=== PATIENT | male | born 1935 | race Caucasian/White ===

== ENCOUNTER 2016-08-28 15:26 | Inpatient (IN) | payer MEDICARE, OTHER ==
[2016-08-28] VITALS (7 sets, daily range): BP systolic 105–139; BP diastolic 42–79
[~2016-08-28] VITALS: Ht 203.2 cm; Wt 134.7 kg
[~2016-08-28 15:26] MED LIST: ASP81TEC PO; BRIM5DRO OU; CSPT25; CYAN25003 SL; GLIP5TAB26 PO; GLPZ5TCR; LATA2.5D5 OU; LISI40TA; LOVA10TA PO; LTN005OP2; MECL-133 PO; OMEP-10; OXYB10TA; PGLT30T; PIOG45TA16 PO
--- OUTSIDE RECORDS SUMMARY | 2016-08-28 17:56 | XMS REPORT | Continuity of Care Document ---
Author Author [facility] Organization [facility] Address Unknown Phone Unavailable Allergies Active Description Code Type Severity Reaction Onset Reported/Identified Relationship to Patient Clinical Status Yes No Known Drug Allergies [id number] Drug Allergy Unknown N/ A 06/06/2009 Medications Problems Date Dx Coded Attending Type Code Diagnosis Diagnosed By 12/23/2013 GISEL UMANA MD Ot 244.9 HYPOTHYROIDISM NOS 12/23/2013 GISEL UMANA MD Ot 250.00 DIAB MARY WO COMPL, TYPE II OR UNSPEC TY 12/23/2013 GISEL UMANA MD Ot 272.4 HYPERLIPIDEMIA NEC/NOS 12/23/2013 GISEL UMANA MD Ot 278.00 OBESITY, NOS 12/23/2013 GISEL UMANA MD Ot 401.9 HYPERTENSION NOS 12/23/2013 GISEL UMANA MD Ot 414.01 CORONARY ATHEROSCLEROSIS OF [place] CORON 12/23/2013 GISEL UMANA MD Ot 530.81 ESOPHAGEAL REFLUX 12/23/2013 GISEL UMANA MD Ot 786.59 CHEST PAIN NEC 12/23/2013 GISEL UMANA MD Ot 794.30 ABN CARDIOVASC STUDY NOS 12/23/2013 GISEL UMANA MD Ot V17.3 FAM HX-ISCHEM HEART DIS 12/23/2013 GISEL UMANA MD Ot V58.69 OTH MED,LT,CURRENT USE 12/23/2013 GISEL UMANA MD Ot V85.32 BODY MASS INDEX 32.0-32.9, ADULT 11/29/2015 CHANCE PEREZ DO Ot 786.50 CHEST PAIN NOS 11/29/2015 CHANCE PEREZ DO Ot V64.3 NO PROC FOR REASONS NEC 11/29/2015 CHANCE PEREZ DO Ot 786.50 CHEST PAIN NOS 11/29/2015 CHANCE PEREZ DO Ot 793.2 NOSP (ABN) FINDINGS ON RADIOLOGICAL OT 12/27/2015 CHANCE PEREZ DO Ot 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 Visit Date/Time Discharge Status Pt. Type Provider Facility Loc./Unit Complaint [id number] 12/23/2013 08:04:00 2013 14:45:00 DIS Outpatient GISEL UMANA MD [facility] [id number] 12/16/2013 06:47:00 2013 23:59:59 CLS Outpatient CHANCE PEREZ DO [facility] CARD [id number] 12/15/2013 07:05:00 2013 23:59:59 CLS Outpatient CHANCE PEREZ DO [facility] CARD [id number] 11/30/2015 09:06:00 ACT Outpatient CHANCE PEREZ DO [facility] RAD [id number] 11/29/2015 09:30:00 ACT Outpatient CHANCE PEREZ DO [facility] RAD
[2016-08-28] MEDS ORDERED: CATHETER FLUSH 10 ML SYR IV PRN (18:00)
[2016-08-28] MEDS: NS IV 1000 ML 1,000 ML IV SCH (18:05)
[2016-08-28 18:09] LABS: BASOPHILS % (AUTO) 0 % (0-10); EOSINOPHILS # (AUTO) 0.2 10^3/uL (0.0-0.3); EOSINOPHILS % (AUTO) 2 % (0-10); LYMPHOCYTES # (AUTO) 1.3 X 10^3 (1.0-4.0); LYMPHOCYTES % (AUTO) 18 % (12-44); MEAN CORPUSCULAR HEMOGLOBIN 30 PG (25-34); MEAN CORPUSCULAR HGB CONC 32 G/DL (32-36); MEAN CORPUSCULAR VOLUME 93 FL (80-99); MEAN PLATELET VOLUME 11.1 FL (7.4-10.4); MONOCYTES # (AUTO) 0.6 X 10^3 (0.0-1.0); MONOCYTES % (AUTO) 9 % (0-12); NEUTROPHILS # (AUTO) 5.2 X 10^3 (1.8-7.8); NEUTROPHILS % (AUTO) 71 % (42-75); PLATELET COUNT 155 10^3/uL (130-400); RED BLOOD COUNT 3.63 10^6/uL (4.35-5.85); RED CELL DISTRIBUTION WIDTH 14.4 % (10.0-14.5); WHITE BLOOD COUNT 7.4 10^3/uL (4.3-11.0)
[2016-08-28 18:31] LABS: ALANINE AMINOTRANSFERASE 13 U/L (0-55); ALBUMIN 3.3 G/DL (3.2-4.5); ANION GAP 7 MMOL/L (5-14); ASPARTATE AMINO TRANSFERASE 12 U/L (5-34); BILIRUBIN,TOTAL 1.2 MG/DL (0.1-1.0); BLOOD UREA NITROGEN 34 MG/DL (7-18); BUN/CREATININE RATIO 34; CALCIUM 8.6 MG/DL (8.5-10.1); CARBON DIOXIDE 24 MMOL/L (21-32); CHLORIDE 107 MMOL/L (98-107); CREATININE SERUM 0.99 MG/DL (0.60-1.30); GFR ESTIMATED > 60; GLUCOSE 151 MG/DL (70-105); POTASSIUM 4.1 MMOL/L (3.6-5.0); SODIUM 138 MMOL/L (135-145); TOTAL PROTEIN 5.7 G/DL (6.4-8.2)
[2016-08-28] MEDS: PANTOPRAZOLE 40 MG/10 ML (PROTONIX) VIAL IV SCH (18:59)
--- NOTE | 2016-08-28 19:12 | Consultation ---
History of Present Illness History of Present Illness Patient Consulted On(jaylyn/time) 08/28/16 19:07 Date of Admission History of Present Illness Consult requested by Dr. Garcia for GI bleed 81 year old male who last night at 6 pm started having bloody bowel movements. States they are a dark red diarrhea and keep getting darker in color. Patient having "gas" type pains but minimal. Patient was having nausea and emesis and NG tube was placed which gastric contents tested occult positive. Patient was evaluated at [facility] and last hgb was 10.8. He had antibodies to blood type and was transferred here for higher level of care. Patient states last colonoscopy was 4 years ago at another hospital and was found to have diverticulosis. He had the colonoscopy and EGD performed for GI bleed at that time and nothing was found. Patient states that he has been taking Naproxen since injuring his lower extremity. Allergies and Home Medications Allergies Coded Allergies: No Known Drug Allergies (Verified Allergy, Unknown, 06/06/09) Home Medications Brimonidine Tartrate/Timolol 5 Ml Drops 1 DROP OU BID (Reported) Glipizide 5 Mg Tab.er.24 5 MG PO DAILY (Reported) Latanoprost 2.5 Ml Drops 1 DROP OU HS (Reported) Metformin HCl 1,000 Mg Tablet 1,000 MG PO BID (Reported) Pantoprazole Sodium 40 Mg Tablet. #60 40 MG PO BID Prescribed by: STEPHANIE DE LA VEGA on 08/30/16 1151 Pioglitazone HCl 45 Mg Tablet 45 MG PO DAILY (Reported) Sucralfate 1 Gm Tablet #120 1 GM PO ACHS Prescribed by: LUCINDA GARCIA on 08/30/16 1145 Past Pqaibfd-Kizwck-Abrass Hx Patient Social History Alcohol Use: Denies Use Recreational Drug Use: No Smoking Status: Never a Smoker Surgeries HX Surgeries: No Respiratory Hx Respiratory Disorders: No Cardiovascular Hx Cardiac Disorders: No Neurological Hx Neurological Disorders: No Reproductive System Hx Reproductive Disorders: No Genitourinary Hx Genitourinary Disorders: No Gastrointestinal Hx Gastrointestinal Disorders: Yes (BLEEDING DIVERTICULITUS 5 YEARS AGO) Musculoskeletal Hx Musculoskeletal Disorders: Yes Endocrine Hx Endocrine Disorders: Yes HEENT HX ENT Disorders: No Cancer Hx Cancer: Yes (PROSTATE) Psychosocial Hx Psychiatric Problems: No Blood Transfusions Hx Blood Disorders: No Family Medical History Significant Family History: No Pertinent Family Hx Review of Systems-General Constitutional: no symptoms reported EENTM: no symptoms reported Respiratory: no symptoms reported Cardiovascular: no symptoms reported Gastrointestinal: nausea vomiting Genitourinary: no symptoms reported Musculoskeletal: no symptoms reported Skin: no symptoms reported Psychiatric/Neurological: No Symptoms Reported Physical Exam-General Problems Physical Exam Vital Signs Capillary Refill : General Appearance: no apparent distress (laying in bed) HEENT: PERRL/EOMI Neck: non-tender supple Respiratory: normal breath sounds Cardiovascular: regular rate, rhythm Gastrointestinal: non tender soft Rectal: deferred Back: normal inspection Extremities: non-tender normal inspection Neurologic/Psychiatric: alert normal mood/affect oriented x 3 Skin: warm/dry Data Review Labs Laboratory Tests 08/28/16 17:45: Alanine Aminotransferase (ALT/SGPT) 13, Albumin 3.3, Alkaline Phosphatase 44, Anion Gap 7, Aspartate Amino Transf (AST/SGOT) 12, BUN/Creatinine Ratio 34, Basophils # (Auto) 0.0, Basophils (%) (Auto) 0, Blood Urea Nitrogen 34H, Calcium Level 8.6, Carbon Dioxide Level 24, Chloride Level 107, Creatinine 0.99 , Eosinophils # (Auto) 0.2, Eosinophils (%) (Auto) 2, Estimat Glomerular Filtration Rate > 60, Glucose Level 151H, Hematocrit 34L, Hemoglobin 10.9L, Lymphocytes # (Auto) 1.3, Lymphocytes (%) (Auto) 18, Mean Corpuscular Hemoglobin 30, Mean Corpuscular Hemoglobin Concent 32, Mean Corpuscular Volume 93, Mean Platelet Volume 11.1H, Monocytes # (Auto) 0.6, Monocytes (%) (Auto) 9, Neutrophils # (Auto) 5.2, Neutrophils (%) (Auto) 71, Platelet Count 155, Potassium Level 4.1, Red Blood Count 3.63L, Red Cell Distribution Width 14.4, Sodium Level 138, Total Bilirubin 1.2H, Total Protein 5.7L, White Blood Count 7.4 Assessment/Plan Assessment/Plan Assessment/Plan GI bleed Nausea vomiting dm Patient with ng tube in which was occult positive. Has been on naproxen. Likely upper source of GI bleed. Hgb has remained stable since transfer. Will continue to monitor hgb. Transfuse prbc as needed npo IV hydration Protonix IV Plan egd tomorrow. NG tube to [facility] Clinical Quality Measures DVT/VTE Risk/Contraindication: Contraindications-Pharm: Other *list below* Other: JOE Obrien DO Aug 28, 2016 19:12
[2016-08-28] MEDS ORDERED: FLU TRIvalent (5 YOA+) 2016-17 (AFLURIA) 0.5 ML IM ONE (20:45)
[2016-08-28] MEDS ORDERED: RT-ALBUTEROL SULF 2.5 MG/3 ML PRE-MIX VIAL INH PRN (21:00)
[2016-08-29] VITALS (16 sets, daily range): BP systolic 108–143; BP diastolic 47–83
[2016-08-29] MEDS: NS IV 1000 ML 1,000 ML IV SCH ×3 (03:52→14:12)
[2016-08-29] MEDS: PANTOPRAZOLE 40 MG/10 ML (PROTONIX) VIAL IV SCH ×3 (03:52→20:18)
[2016-08-29 04:36] LABS: BASOPHILS % (AUTO) 0 % (0-10); EOSINOPHILS # (AUTO) 0.2 10^3/uL (0.0-0.3); EOSINOPHILS % (AUTO) 3 % (0-10); LYMPHOCYTES # (AUTO) 1.6 X 10^3 (1.0-4.0); LYMPHOCYTES % (AUTO) 22 % (12-44); MEAN CORPUSCULAR HEMOGLOBIN 30 PG (25-34); MEAN CORPUSCULAR HGB CONC 33 G/DL (32-36); MEAN CORPUSCULAR VOLUME 93 FL (80-99); MEAN PLATELET VOLUME 11.5 FL (7.4-10.4); MONOCYTES # (AUTO) 0.8 X 10^3 (0.0-1.0); MONOCYTES % (AUTO) 11 % (0-12); NEUTROPHILS # (AUTO) 4.6 X 10^3 (1.8-7.8); NEUTROPHILS % (AUTO) 64 % (42-75); PLATELET COUNT 134 10^3/uL (130-400); RED BLOOD COUNT 3.12 10^6/uL (4.35-5.85); RED CELL DISTRIBUTION WIDTH 14.2 % (10.0-14.5); WHITE BLOOD COUNT 7.2 10^3/uL (4.3-11.0)
[2016-08-29 04:40] LABS: INR 1.2 (0.8-1.4); PROTHROMBIN TIME PATIENT 14.7 SEC (12.2-14.7)
[2016-08-29 05:10] LABS: ALANINE AMINOTRANSFERASE 9 U/L (0-55); ALBUMIN 2.9 G/DL (3.2-4.5); ANION GAP 7 MMOL/L (5-14); ASPARTATE AMINO TRANSFERASE 12 U/L (5-34); BILIRUBIN,TOTAL 1.1 MG/DL (0.1-1.0); BLOOD UREA NITROGEN 34 MG/DL (7-18); BUN/CREATININE RATIO 38; CALCIUM 8.1 MG/DL (8.5-10.1); CARBON DIOXIDE 21 MMOL/L (21-32); CHLORIDE 112 MMOL/L (98-107); GFR ESTIMATED > 60; GLUCOSE 136 MG/DL (70-105); POTASSIUM 3.9 MMOL/L (3.6-5.0); SODIUM 140 MMOL/L (135-145)
[2016-08-29] MEDS ORDERED: NS IV 500 ML 500 ML ONE (07:44)
[2016-08-29] MEDS ORDERED: MIDAZOLAM 2 MG/2 ML (VERSED) VIAL ONE (08:06)
[2016-08-29] MEDS ORDERED: proPOfol 200 MG/20 ML (DIPRIVAN) VIAL IV ONE (08:06)
--- NOTE | 2016-08-29 08:07 | Progress Note ---
Subjective Subjective/Events-last exam No new complaints. Passing lots of gas. Hgb 9.5 denies fever sweats chills shortness of breath or chest pain. Objective Exam Vital Signs Date Time Temp Pulse Resp B/P Pulse Ox O2 Delivery O2 Flow Rate FiO2 08/29/16 07:00 72 08/29/16 06:00 97.2 64 15 118/49 93 Room Air 08/29/16 05:00 67 13 121/50 94 Room Air 08/29/16 04:00 68 11 108/50 93 Room Air 08/29/16 04:00 100 08/29/16 03:00 68 13 115/51 94 Room Air 08/29/16 02:00 70 13 115/49 92 Room Air 08/29/16 01:00 67 08/29/16 01:00 67 15 116/52 93 Room Air 08/29/16 00:00 98.2 67 11 116/50 93 Room Air 08/29/16 00:00 100 08/28/16 23:00 67 20 105/42 93 Room Air 08/28/16 22:00 71 12 136/58 96 Room Air 08/28/16 21:00 72 17 136/49 98 Room Air 08/28/16 20:51 100 08/28/16 20:49 100 08/28/16 20:48 100 08/28/16 20:00 99.1 71 12 123/48 96 Room Air 08/28/16 19:23 100 08/28/16 19:00 71 15 123/79 98 Room Air 08/28/16 19:00 71 08/28/16 18:00 72 12 134/57 97 Room Air 08/28/16 17:28 99.5 77 23 139/57 100 Room Air I & O 08/29/16 07:00 Intake Total 1000 ml Output Total 375 ml Balance 625 ml Capillary Refill : Less Than 3 Seconds General Appearance: No Apparent Distress Neck: Supple Respiratory: No Accessory Muscle Use No Respiratory Distress Cardiovascular: Regular Rate, Rhythm Gastrointestinal: non tender soft Extremity: Non Tender Neurologic/Psychiatric: Alert Oriented x3 Normal Mood/Affect Skin: Warm/Dry Results Lab Laboratory Tests 08/28/16 17:45: Alanine Aminotransferase (ALT/SGPT) 13, Albumin 3.3, Alkaline Phosphatase 44, Anion Gap 7, Aspartate Amino Transf (AST/SGOT) 12, BUN/Creatinine Ratio 34, Basophils # (Auto) 0.0, Basophils (%) (Auto) 0, Blood Urea Nitrogen 34H, Calcium Level 8.6, Carbon Dioxide Level 24, Chloride Level 107, Creatinine 0.99 , Eosinophils # (Auto) 0.2, Eosinophils (%) (Auto) 2, Estimat Glomerular Filtration Rate > 60, Glucose Level 151H, Hematocrit 34L, Hemoglobin 10.9L, Lymphocytes # (Auto) 1.3, Lymphocytes (%) (Auto) 18, Mean Corpuscular Hemoglobin 30, Mean Corpuscular Hemoglobin Concent 32, Mean Corpuscular Volume 93, Mean Platelet Volume 11.1H, Monocytes # (Auto) 0.6, Monocytes (%) (Auto) 9, Neutrophils # (Auto) 5.2, Neutrophils (%) (Auto) 71, Platelet Count 155, Potassium Level 4.1, Red Blood Count 3.63L, Red Cell Distribution Width 14.4, Sodium Level 138, Total Bilirubin 1.2H, Total Protein 5.7L, White Blood Count 7.4 08/28/16 23:28: Hematocrit 30L, Hemoglobin 9.7L 08/29/16 03:42: Alanine Aminotransferase (ALT/SGPT) 9, Albumin 2.9L, Alkaline Phosphatase 40, Anion Gap 7, Aspartate Amino Transf (AST/SGOT) 12, BUN/Creatinine Ratio 38, Basophils # (Auto) 0.0, Basophils (%) (Auto) 0, Blood Urea Nitrogen 34H, Calcium Level 8.1L, Carbon Dioxide Level 21, Chloride Level 112H, Creatinine 0.90, Eosinophils # (Auto) 0.2, Eosinophils (%) (Auto) 3, Estimat Glomerular Filtration Rate > 60, Glucose Level 136H, Hematocrit 29L, Hemoglobin 9.5L, Lymphocytes # (Auto) 1.6, Lymphocytes (%) (Auto) 22, Mean Corpuscular Hemoglobin 30, Mean Corpuscular Hemoglobin Concent 33, Mean Corpuscular Volume 93, Mean Platelet Volume 11.5H, Monocytes # (Auto) 0.8, Monocytes (%) (Auto) 11 , Neutrophils # (Auto) 4.6, Neutrophils (%) (Auto) 64, Platelet Count 134, Potassium Level 3.9, Red Blood Count 3.12L, Red Cell Distribution Width 14.2, Sodium Level 140, Total Bilirubin 1.1H, Total Protein 5.0L, White Blood Count 7.2 08/29/16 03:47: INR Comment 1.2, Prothrombin Time 14.7 Assessment/Plan Assessment/Plan Assessment/Plan GI bleed Nausea vomiting dm Patient with ng tube in which was occult positive. Has been on naproxen. Likely upper source of GI bleed. Hgb slight drop Transfuse prbc as needed npo IV hydration Protonix IV Plan egd this am. Clinical Quality Measures DVT/VTE Risk/Contraindication: Risk Factor Score Per Nursin RFS Level Per Nursing on Admit: 3=High Contraindications-Pharm: Other *list below* Other: GI Bleed JOE GANNON DO Aug 29, 2016 08:07
[2016-08-29] MEDS ORDERED: HURRICAINE EXT TUBE (BENZOCAINE) XX ONE (08:45)
--- NOTE | 2016-08-29 09:03 | Progress Note-Post Operative ---
Post-Operative Progess Note Pre-Operative Diagnosis upper GI bleed Post-Operative Diagnosis several antral ulcers, gastritis Post-Op Procedure Note Date of Procedure: Aug 29, 2016 Name of Procedure: egd c biopsies Procedure Note/Findings see note Anesthesia Type per typing secretary Estimated blood loss (mL): none Specimen(s) collected antrum JOE GANNON DO Aug 29, 2016 09:03
[2016-08-29] MEDS ORDERED: HURRICAINE EXT TUBE (BENZOCAINE) ONE (09:10)
[2016-08-29] MEDS ORDERED: PIOG45TA16 PO (09:44)
[2016-08-29] MEDS ORDERED: METF1000 PO (09:44)
[2016-08-29] MEDS ORDERED: GLIP-30 PO (09:44)
--- NOTE | 2016-08-29 10:51 | History & Physical-Hospitalist ---
HPI History of Present Illness: HPI/Chief Complaint CC: GI bleed HPI: This is a 81yoWM pt of Dr. Cantu'darling that presented with a GI bleed and was found to have stomach ulcer on EGD today by Dr. Ba. Pt has severe anemia due to GIB, and has hx of chronic constipation (last 6 months), DM, Blindness left eye, Obesity, and overall debility but resides at home. Pt began taking Naproxen in March of 2016, which is likely related to pt's symptoms Patient Interview: Pt states that he feels ok today. Pt reports having flatus. Pt states that Dr. Ba found an ulcer this morning. Dr. Paredes informs pt that symptoms were likely due to arthritis medicine. Pt states that the past 4 months pt had lots of constipation and used stool softeners and prune juice. Pt began taking milk of magnesia. Pt has been taking Naproxen BID in March. Physical exam stable. Pt's PCP is Dr. Cantu. Scribed by Buzz Stewart under the direct supervision of Dr. Paredes. Source: patient Exam Limitations: no limitations Date Seen 08/29/16 Attending Physician Meena Paredes DO PCP Randy Cantu DO Referring Physician Date of Admission Aug 28, 2016 at 17:24 Home Medications & Allergies Home Medications Reviewed patient Home Medication Reconciliation Form Allergies Coded Allergies: No Known Drug Allergies (Verified Allergy, Unknown, 06/06/09) Past Gkumsdi-Wbruls-Ozcktp Hx Patient Social History Marrital Status: Employed/Student: retired Alcohol Use: Denies Use Recreational Drug Use: No Smoking Status: Former Smoker Physical Abuse Screen: No Sexual Abuse: No Recent Foreign Travel: No Contact w/other who traveled: No Recent Hopitalizations: Yes Recent Infectious Disease Expo: No Seasonal Allergies Seasonal Allergies: No Surgeries HX Surgeries: No Respiratory Hx Respiratory Disorders: No Cardiovascular Hx Cardiovascular Disorders: No Neurological Hx Neurological Disorders: No Reproductive System Hx Reproductive Disorders: No Genitourinary Hx Genitourinary Disorders: No Gastrointestinal Hx Gastrointestinal Disorders: Yes (BLEEDING DIVERTICULITUS 5 YEARS AGO) Gastrointestinal Disorders: Chronic Constipation, Diverticulosis Musculoskeletal Hx Musculoskeletal Disorders: Yes Musculoskeletal Disorders: Arthritis Endocrine Hx Endocrine Disorders: Yes Endocrine Disorders: Diabetes, Non-Insulin dep HEENT HX ENT Disorders: No Cancer Hx Cancer: Yes (PROSTATE) Psychosocial Hx Psychiatric Problems: No Integumentary HX Skin/Integumentary Disorder: No Blood Transfusions Hx Blood Disorders: No Review of Systems Constitutional: see HPI dizziness malaise weakness EENTM: no symptoms reported Respiratory: no symptoms reported Cardiovascular: no symptoms reported Gastrointestinal: abdominal pain (LUQ) hematemesis loss of appetite melena nausea vomiting Genitourinary: no symptoms reported Musculoskeletal: no symptoms reported Skin: no symptoms reported Psychiatric/Neurological: No Symptoms Reported All Other Systems Reviewed Negative Unless Noted: Yes Physical Exam Physical Exam Vital Signs Vital Sign - Last 12Hours 08/28/16 17:28 Temp 99.5 Pulse 77 Resp 23 B/P 139/57 Pulse Ox 100 O2 Delivery Room Air Capillary Refill : Less Than 3 Seconds General Appearance: No Apparent Distress WD/WN Chronically ill Obese Eyes: Bilateral Eye Normal Inspection, Bilateral Eye PERRL HEENT: PERRL/EOMI Normal ENT Inspection Pharynx Normal Neck: Full Range of Motion Normal Inspection Non Tender Supple Carotid Bruit Respiratory: Chest Non Tender Lungs Clear Normal Breath Sounds No Accessory Muscle Use No Respiratory Distress Cardiovascular: Regular Rate, Rhythm No Edema No Gallop No JVD No Murmur Normal Peripheral Pulses Gastrointestinal: Normal Bowel Sounds No Organomegaly No Pulsatile Mass Non Tender Soft Back: Normal Inspection No CVA Tenderness No Vertebral Tenderness Extremity: Normal Capillary Refill Normal Inspection Normal Range of Motion Non Tender No Calf Tenderness No Pedal Edema Neurologic/Psychiatric: Alert Oriented x3 No Motor/Sensory Deficits Normal Mood/Affect Skin: Normal Color Warm/Dry Lymphatic: No Adenopathy Results Results/Procedures Lab Laboratory Tests 08/28/16 17:45 08/28/16 23:28 08/29/16 03:42 08/29/16 09:09 Assessment/Plan Admission Diagnosis Assessment: GI bleed due to several antral ulcers, gastritis on EGD Anemia severe due to GIB DM Blindness left eye Overall debility but resides at home Obesity Assessment and Plan Plan: Move to 4th floor PT Follow-up with Dr. Cantu in two weeks after likely discharge tomorrow Decrease IV fluids to 90 mL/HR Clinical Quality Measures DVT/VTE Risk/Contraindication: Risk Factor Score Per Nursin RFS Level Per Nursing on Admit: 3=High Contraindications-Pharm: Other *list below* Other: GI Bleed MEENA PAREDES DO Aug 29, 2016 10:51
[2016-08-29] MEDS ORDERED: IRON SUCROSE INJECTION 200 MG in NS (IVPB) 100 ML IV SCH (11:30)
[2016-08-29] MEDS: SUCRALFATE 1 GM (CARAFATE) TAB PO SCH ×3 (12:23→20:19)
--- NOTE | 2016-08-29 16:06 | Physical Therapy Evaluation ---
PT Evaluation-General Medical Diagnosis Admission Date Aug 28, 2016 at 17:24 Medical Diagnosis: weakness, GI bleed Onset Date: Aug 28, 2016 Therapy Diagnosis Therapy Diagnosis: impaired mobility, strength, endurance Height/Weight Height (Feet): 6 Height (Inches): 8.00 Weight (Pounds): 297 Weight (Ounces): 12.8 Precautions Precautions/Isolations: Standard Precautions Referral Physician: Meena Garcia DO Reason for Referral: Evaluation/Treatment Medical History Pertinent Medical History: Arthritis, DM Additional Medical History chronic constipation, diverticulosis, prostate CA, blindness right eye, obesity Current History found to have stomach ulcer Reviewed History: Yes Social History Home: Single Level Current Living Status: Spouse Entry Into Home: Stairs With Railing Prior/Core FIM Prior Level of Function Functional [place] Measure 0=Not Assessed/NA 4=Minimal Assistance 1=Total Assistance 5=Supervision or Setup 2=Maximal Assistance 6=Modified [place] 3=Moderate Assistance 7=Complete [place] Bed Mobility: 6 Transfers (B,C,W/C) (FIM): 6 Gait: 6 PT Evaluation-Current Subjective Patient in bed pre tx, agrees to PT, pleasant and cooperative, eager to participate. He has no complaints of pain currently but states he does often have left hip pain due to a hip surgery. Pt/Family Goals to be independent at home Objective Patient Orientation: Normal For Age Attachments: IV ROM/Strength ROM Lower Extremities WNL Strenght Lower Extremities right lower extremity (hip flexion 4/5, knee flexion 4/5, knee extension 4/5, doriflexion 3/5), left lower extremity (hip flexion 3/5, knee flexion 4/5, knee extension 4/5, doriflexion 4/5) Neuromuscular (Tone, Coordination, Reflexes) WNL Sensory Vision: Hearing: Functional Sensation Right Lower Extremit: Intact Sensation Left Lower Extremity: Intact Transfers Functional [place] Measure 0=Not Assessed/NA 4=Minimal Assistance 1=Total Assistance 5=Supervision or Setup 2=Maximal Assistance 6=Modified [place] 3=Moderate Assistance 7=Complete [place] Transfers (B, C, W/C) (FIM): 4 Scootin Rollin Supine to/from Sit: 5 Sit to/from Stand: 4 Andrea/CGA to sit to stand Gait Mode of Locomotion: Walk Anticipated Mode of Locomotion: Walk Gait (FIM): 2 Distance: 50' Gait Level of Assist: 4 (CGA) Gait Persons Needed: 1 Gait Assistive Device: FWW Comments/Gait Description slow, poor endurance Balance Sitting Static: Normal Sitting Dynamic: Normal Standing Static: Fair Standing Dynamic: Fair Treatment seated exercises x20 (AP, hip abd/add, hip flexion), patient left in recliner at bedside with nurse call, phone, tray, all needs met. Assessment/Needs Patient has impaired mobility, strength, endurance post GI bleed and debility. Rehab Potential: Fair PT Psychiatric Therapist Goals Psychiatric Therapist Goals PT Psychiatric Therapist Goals Time Frame: Sep 05, 2016 Transfers (B,C,W/C) (FIM): 5 Gait (FIM): 5 Distance: 150' Gait Level of Assist: 5 Gait Assistive Device: FWW PT Plan Problem List Problem List: Activity Tolerance, Functional Strength, Safety, Balance, Gait, Transfer, Bed Mobility Treatment/Plan Treatment Plan: Continue Plan of Care Treatment Plan: Bed Mobility, Education, Functional Activity Russell, Functional Strength, Gait, Safety, Therapeutic Exercise, Transfers Treatment Duration: Sep 05, 2016 # of days/week 5-6 Visits Per Week: 5-6 Minutes/Day (M-F): 15-30 Minutes/Day (Sat/Rice): 15-30 Pt/Family Agrees w/Plan: Yes Safety Risks/Education Patient Education: Gait Training, Transfer Techniques, Correct Positioning, Safety Issues Teaching Recipient: Patient Teaching Methods: Demonstration, Discussion Response to Teaching: Reinforcement Needed Discharge Recommendations Plan Patient will perform bed mobility and transfer training, balance and endurance training, functional strengthening, stair training, gait training, education, to improve functional mobility and independence at home. Therapy D/C Recommendations: Home w/ Family Support Time/GCodes Time In: 1515 Time Out: 1535 Total Billed Treatment Time: 20 Total Billed Treatment 1 visit EVL 20 min KATHERINE ZEPEDA PT Aug 29, 2016 16:06
[2016-08-29] MEDS ORDERED: LATANOPROST 0.005% (XALATAN) OPHTH SOLN 2.5 ML OU SCH (21:00)
[2016-08-29] MEDS ORDERED: TIMOLOL MALEATE 0.25% (TIMOPTIC) 5 ML DROPS OU SCH (21:00)
[2016-08-29] MEDS ORDERED: BRIMONIDINE 0.2% (ALPHAGAN) OPHTH SOLN 5 ML BTL OU SCH (21:00)
[2016-08-30] MEDS: NS IV 1000 ML 1,000 ML IV SCH (01:53)
[2016-08-30 04:15] VITALS: BP_SYST 127; BP_SYST 153; BP_DIAS 63; BP_DIAS 82
[2016-08-30] MEDS: SUCRALFATE 1 GM (CARAFATE) TAB PO SCH ×2 (05:39→13:30)
[2016-08-30 06:37] LABS: BASOPHILS % (AUTO) 1 % (0-10); EOSINOPHILS # (AUTO) 0.3 10^3/uL (0.0-0.3); EOSINOPHILS % (AUTO) 5 % (0-10); LYMPHOCYTES # (AUTO) 1.3 X 10^3 (1.0-4.0); LYMPHOCYTES % (AUTO) 23 % (12-44); MEAN CORPUSCULAR HEMOGLOBIN 30 PG (25-34); MEAN CORPUSCULAR HGB CONC 33 G/DL (32-36); MEAN CORPUSCULAR VOLUME 93 FL (80-99); MEAN PLATELET VOLUME 11.1 FL (7.4-10.4); MONOCYTES # (AUTO) 0.7 X 10^3 (0.0-1.0); MONOCYTES % (AUTO) 13 % (0-12); NEUTROPHILS # (AUTO) 3.4 X 10^3 (1.8-7.8); NEUTROPHILS % (AUTO) 59 % (42-75); PLATELET COUNT 126 10^3/uL (130-400); RED BLOOD COUNT 2.94 10^6/uL (4.35-5.85); RED CELL DISTRIBUTION WIDTH 14.2 % (10.0-14.5); WHITE BLOOD COUNT 5.8 10^3/uL (4.3-11.0)
[2016-08-30 07:03] LABS: ALANINE AMINOTRANSFERASE 12 U/L (0-55); ANION GAP 6 MMOL/L (5-14); ASPARTATE AMINO TRANSFERASE 12 U/L (5-34); BILIRUBIN,TOTAL 0.8 MG/DL (0.1-1.0); BLOOD UREA NITROGEN 26 MG/DL (7-18); BUN/CREATININE RATIO 31; CALCIUM 8.1 MG/DL (8.5-10.1); CARBON DIOXIDE 21 MMOL/L (21-32); CHLORIDE 113 MMOL/L (98-107); CREATININE SERUM 0.83 MG/DL (0.60-1.30); GFR ESTIMATED > 60; GLUCOSE 149 MG/DL (70-105); POTASSIUM 3.5 MMOL/L (3.6-5.0); SODIUM 140 MMOL/L (135-145); TOTAL PROTEIN 4.9 G/DL (6.4-8.2)
[2016-08-30 08:15] VITALS: BP 157/73
[2016-08-30] MEDS ORDERED: NON-FORMULARY MEDICATION 1 EA EA (Brimonidine Tartrate/Timolol (Combigan Eye Drops) 1 DROP OD SCH (09:00)
[2016-08-30] MEDS ORDERED: KCL 20 MEQ TAB (K-DUR) PO SCH (09:15)
[2016-08-30] MEDS: PANTOPRAZOLE 40 MG/10 ML (PROTONIX) VIAL IV SCH (09:29)
--- NOTE | 2016-08-30 11:16 | OPERATIVE REPORT ---
PROCEDURE PHYSICIAN: JOE GANNON DATE OF PROCEDURE: 08/29/2016 PREOPERATIVE DIAGNOSIS: Upper GI bleed. POSTOPERATIVE DIAGNOSES: Several antral ulcers and gastritis. PROCEDURE: EGD with biopsies. SURGEON: Jesenia. ANESTHESIA: Per COMMISSIONS SPECIALIST. ESTIMATED BLOOD LOSS: None. COMPLICATIONS: None. INDICATIONS: The patient is an 81-year-old male with GI bleed. He had an NG tube placed and gastric contents were positive for occult blood. The patient had slight drop in his hemoglobin overnight. He understands the risks and benefits of EGD and wishes to proceed. Consent was signed on the chart. PROCEDURE: The patient was taken to the endoscopy suite, placed in left lateral recumbent position. Timeout was performed. The scope was inserted in the mouth down the esophagus, stomach and into the duodenum without difficulty. There were no polyps, masses or ulcerations within the duodenum, there is no active bleeding within the duodenum. The scope was slowly retracted back into the stomach which demonstrated some inflammatory changes of the stomach. Within the antrum there were several, ulcerations present. None were actively bleeding but there is old blood within the stomach itself. Biopsy of the antrum was obtained. Also there were several small bumps of inflammation that were fairly soft to touch, which may be healing ulcers as well where biopsy had been obtained. The scope was also retroflexed noting no hiatal hernia. No other pathology noted. The scope was returned to its normal position and slowly withdrawn into the distal esophagus where there were no polyps, masses, ulcerations. The scope was slowly retracted until completely removed noting no other pathology. The NG tube was removed. RECOMMENDATIONS: The patient will continue on current medical management. We will continue to follow his hemoglobin, Avoid any antiplatelet and anticoagulation or NSAIDS. Job ID: [id number] Dictated Date: 08/29/2016 09:07:02 Finishing Pan Operator Date: 08/30/2016 11:10:51 / sandip MORALES
--- NOTE | 2016-08-30 11:26 | Physical Therapy Daily Note ---
PT Daily Note-Current Subjective Patient sitting EOB and agrees to PT. Pain Numeric Pain Scale: 0-No Pain Location: No Pain Reported Mental Status Patient Orientation: Normal For Age Transfers Functional Pike Measure 0=Not Assessed/NA 4=Minimal Assistance 1=Total Assistance 5=Supervision or Setup 2=Maximal Assistance 6=Modified Pike 3=Moderate Assistance 7=Complete IndependenceIRFPAI Quality Coding Scale 6 Independent with activity with or without an assistive device 5 Patient requires set up or clean up by helper. Patient completes activity by themselves 4 Supervision or touching assist (CGA). [place] provide cues , steadying assist 3 The helper provides less than half the effort to complete the activity 2 The helper provides more than half the effort to complete the activity 1 Dependent. The helper does all the effort to complete an activity 7 Patient refused to complete or attempt activity 9 The patient did not perform the activity before the current illness or injury 88 Not attempted due to Medical conditions or safety concerns Transfers (B, C, W/C) (FIM): 6 Scootin Sit to/from Stand: 6 Gait Training Gait (FIM): 6 Distance (FIM): 3=150 ft Distance: 150' Gait Level of Assist: 6 Gait Assistive Device: FWW safe and functional; slow, steady Exercises Seated Therapy Exercises: Ankle pumps, Long arc quads Seated Reps: 20 Assessment During treatment, Dr. Garcia in to assess and dismiss patient to home. Patient is currently at [facility] with all gross motor skills. PT Drill Grinder Goals Skilled Nursing Goals PT Drill Grinder Goals Time Frame: Sep 05, 2016 Transfers (B,C,W/C) (FIM): 5 Gait (FIM): 5 Distance: 150' Gait Level of Assist: 5 Gait Assistive Device: FWW PT Plan Treatment/Plan Treatment Plan: Discontinue PT, goals met Treatment Plan: Bed Mobility, Education, Functional Activity Russell, Functional Strength, Gait, Safety, Therapeutic Exercise, Transfers Treatment Duration: Sep 05, 2016 Visits Per Week: 5-6 Minutes/Day (M-F): 15-30 Minutes/Day (Sat/Rice): 15-30 Time/GCodes Time In: 1037 Time Out: 1100 Total Billed Treatment Time: 23 Total Billed Treatment 1 visit FA x 2 23 min ALEYDA VALDOVINOS PT Aug 30, 2016 11:26
[2016-08-30 11:30] VITALS: BP 136/64
--- NOTE | 2016-08-30 11:31 | Discharge Summary-Hospitalist ---
Diagnosis/Chief Complaint Date of Admission Aug 28, 2016 at 17:24 Date of Discharge Admission Diagnosis Assessment: GI bleed due to several antral ulcers, gastritis on EGD Anemia severe due to GIB DM Blindness left eye Overall debility but resides at home Obesity Discharge Diagnosis Assessment: GI bleed due to several antral ulcers, gastritis on EGD Anemia severe due to GIB DM Blindness left eye Overall debility but resides at home Obesity Plan: Move to 4th floor PT Follow-up with Dr. Cantu in two weeks after likely discharge tomorrow Decrease IV fluids to 90 mL/HR Reason Hospital Visit/Course CC: GI bleed HPI: This is a 81yoWM pt of Dr. Cantu'darling that presented with a GI bleed and was found to have stomach ulcer on EGD today by Dr. Ba. Pt has severe anemia due to GIB, and has hx of chronic constipation (last 6 months), DM, Blindness left eye, Obesity, and overall debility but resides at home. Pt began taking Naproxen in March of 2016, which is likely related to pt's symptoms Patient Interview: Pt states that he feels ok today. Pt reports having flatus. Pt states that Dr. Ba found an ulcer this morning. Dr. Paredes informs pt that symptoms were likely due to arthritis medicine. Pt states that the past 4 months pt had lots of constipation and used stool softeners and prune juice. Pt began taking milk of magnesia. Pt has been taking Naproxen BID in March. Physical exam stable. Pt's PCP is Dr. Cantu. Scribed by Buzz Stewart under the direct supervision of Dr. Paredes. Notes from 08/30/2016: Chart Review: Hgb 8.9 Iron 86 - Received iron infusion empirically Patient Interview: Pt states that he would like to go home. Physical exam stable. Pt uses [facility] and also uses a mail-in pharmacy. Pt's will pick him up. No fever, vital signs stable, pleasant, ready to walk with physical therapy with walker and assistance Regular rate and rhythm, clear to auscultation bilaterally No edema Plan: K+ supplement DC fluids DC and close follow-up with Dr. Cantu. discharge home Scribed by Buzz Stewart under the direct supervision of Dr. Paredes. Hospital course: Patient had a brief hospital course he was admitted after he was transferred to higher level of care due to antibodies in typed and screened for blood for GI bleed both upper and lower having significant blood clots and NG tube was required due to hematemesis. Overall his hemoglobin did decrease from initial of 11.6 to resulted of 8.9 but did not require a transfusion since apparently the duodenal ulcers that were found on EGD by Dr. Ba were not actively bleeding and actually spontaneously stopped bleeding in time before depletion of blood reserves of his body occurred so overall he did well was transferred to back to fourth floor and ambulated with physical therapy and was deemed stable for discharge and Carafate and proton pump inhibitor with close follow-up with Dr. Cantu. Discharge Summary Discharge Physical Examination Allergies: Coded Allergies: No Known Drug Allergies (Verified Allergy, Unknown, 06/06/09) Vitals & I&Os Vital Signs Date Time Temp Pulse Resp B/P Pulse Ox O2 Delivery O2 Flow Rate FiO2 08/30/16 10:59 97 08/30/16 08:15 99.2 67 18 157/73 Room Air Hospital Course Labs (last 24 hrs) Laboratory Tests 08/29/16 15:58: Hematocrit 31L, Hemoglobin 9.9L 08/29/16 23:34: Hematocrit 27L, Hemoglobin 9.0L 08/30/16 06:09: Hematocrit 27L, Hemoglobin 8.9L, Alanine Aminotransferase (ALT/SGPT) 12, Albumin 3.0L, Alkaline Phosphatase 43, Anion Gap 6, Aspartate Amino Transf (AST/ SGOT) 12, BUN/Creatinine Ratio 31, Basophils # (Auto) 0.0, Basophils (%) (Auto) 1, Blood Urea Nitrogen 26H, Calcium Level 8.1L, Carbon Dioxide Level 21, Chloride Level 113H, Creatinine 0.83, Eosinophils # (Auto) 0.3, Eosinophils (%) (Auto) 5, Estimat Glomerular Filtration Rate > 60, Glucose Level 149H, Lymphocytes # (Auto) 1.3, Lymphocytes (%) (Auto) 23, Mean Corpuscular Hemoglobin 30, Mean Corpuscular Hemoglobin Concent 33, Mean Corpuscular Volume 93, Mean Platelet Volume 11.1H, Monocytes # (Auto) 0.7, Monocytes (%) (Auto) 13H , Neutrophils # (Auto) 3.4, Neutrophils (%) (Auto) 59, Platelet Count 126L, Potassium Level 3.5L, Red Blood Count 2.94L, Red Cell Distribution Width 14.2, Sodium Level 140, Total Bilirubin 0.8, Total Protein 4.9L, White Blood Count 5.8 Pending Labs Laboratory Tests 08/30/16 06:09: Alanine Aminotransferase (ALT/SGPT) 12, Albumin 3.0, Alkaline Phosphatase 43, Anion Gap 6, Aspartate Amino Transf (AST/SGOT) 12, BUN/Creatinine Ratio 31, Basophils # (Auto) 0.0, Basophils (%) (Auto) 1, Blood Urea Nitrogen 26, Calcium Level 8.1, Carbon Dioxide Level 21, Chloride Level 113, Creatinine 0.83, Eosinophils # (Auto) 0.3, Eosinophils (%) (Auto) 5, Estimat Glomerular Filtration Rate > 60, Glucose Level 149, Hematocrit 27, Hemoglobin 8.9, Lymphocytes # (Auto) 1.3, Lymphocytes (%) (Auto) 23, Mean Corpuscular Hemoglobin 30, Mean Corpuscular Hemoglobin Concent 33, Mean Corpuscular Volume 93, Mean Platelet Volume 11.1, Monocytes # (Auto) 0.7, Monocytes (%) (Auto) 13, Neutrophils # (Auto) 3.4, Neutrophils (%) (Auto) 59, Platelet Count 126, Potassium Level 3.5, Red Blood Count 2.94, Red Cell Distribution Width 14.2, Sodium Level 140, Total Bilirubin 0.8, Total Protein 4.9, White Blood Count 5.8 Discharge Home Medications: Active Scripts Active Omeprazole 40 Mg Capsule.dr 40 Mg PO BID Sucralfate 1 Gm Tablet 1 Gm PO ACHS Reported Glipizide Xl (Glipizide) 5 Mg Tab.er.24 5 Mg PO DAILY Metformin HCl 1,000 Mg Tablet 1,000 Mg PO BID Pioglitazone HCl 45 Mg Tablet 45 Mg PO DAILY Aspirin Ec 81 Mg (Aspirin) 81 Mg Tabec 81 Mg PO DAILY Latanoprost 2.5 Ml Drops 1 Drop OU HS Combigan Eye Drops (Brimonidine Tartrate/Timolol) 5 Ml Drops 1 Drop OU BID Instructions to patient/family Please see electonic discharge instructions given to patient. Clinical Quality Measures DVT/VTE Risk/Contraindication: Risk Factor Score Per Nursin RFS Level Per Nursing on Admit: 3=High Contraindications-Pharm: Other *list below* Other: GI Bleed LUCINDA PAREDES DO Aug 30, 2016 11:31
[2016-08-30] MEDS ORDERED: SUCR1TAB PO (11:45)
[2016-08-30] MEDS ORDERED: OMEP40CA36 PO (11:45)
--- NOTE | 2016-08-30 11:46 | Discharge Instructions ---
Discharge Instructions Discharge Medications New, Converted or Re-Newed RX: Transmitted to Pharmacy New Medications: Omeprazole (Omeprazole) 40 Mg Capsule.dr 40 MG PO BID #60 CAP Sucralfate (Sucralfate) 1 Gm Tablet 1 GM PO ACHS #120 TAB Continued Medications: Brimonidine Tartrate/Timolol (Combigan Eye Drops) 5 Ml Drops 1 DROP OU BID DROPS Glipizide (Glipizide Xl) 5 Mg Tab.er.24 5 MG PO DAILY Latanoprost (Latanoprost) 2.5 Ml Drops 1 DROP OU HS Metformin HCl (Metformin HCl) 1,000 Mg Tablet 1000 MG PO BID Pioglitazone HCl (Pioglitazone HCl) 45 Mg Tablet 45 MG PO DAILY Discontinued Medications: Aspirin (Aspirin Ec 81 Mg) 81 Mg Tabec 81 MG PO DAILY Patient Instructions Goal/Follow Up Appt: Dr Cantu in 1 week Activity & Diet Discharge Diet: Soft Diet, Other Diet (bland diet) Activity as Tolerated: Yes LUCINDA PAREDES DO Aug 30, 2016 11:46
[2016-08-30] MEDS ORDERED: PANT40TA2 PO (11:51)
--- NOTE | 2016-08-30 12:00 | Progress Note ---
Subjective Subjective/Events-last exam No new complaints. Tolerating diet. Having some loose stools, a litttle dark. Denies n/v fever sweats chills shortness of breath or chest pain. Objective Exam Vital Signs Date Time Temp Pulse Resp B/P Pulse Ox O2 Delivery O2 Flow Rate FiO2 08/30/16 11:30 98.2 81 18 136/64 98 Room Air 08/30/16 10:59 97 08/30/16 08:15 99.2 67 18 157/73 98 Room Air 08/30/16 08:00 96 08/30/16 04:15 98.2 74 16 127/63 95 Room Air 08/29/16 23:45 99.1 66 16 127/54 94 Room Air 08/29/16 20:25 98.6 70 16 129/58 97 Room Air 08/29/16 15:00 67 12 132/49 96 Room Air 08/29/16 14:00 70 14 143/83 97 Room Air 08/29/16 13:00 64 08/29/16 13:00 66 12 117/47 95 Room Air 08/29/16 12:27 98.8 67 14 127/50 98 Room Air I & O 08/30/16 07:00 Intake Total 3570 ml Output Total 1475 ml Balance 2095 ml Capillary Refill : Less Than 3 Seconds General Appearance: No Apparent Distress WD/WN Obese HEENT: PERRL/EOMI Normal ENT Inspection Neck: Non Tender Supple Respiratory: Chest Non Tender No Accessory Muscle Use No Respiratory Distress Cardiovascular: Regular Rate, Rhythm Gastrointestinal: non tender soft Extremity: Non Tender No Calf Tenderness Neurologic/Psychiatric: Alert Oriented x3 Normal Mood/Affect Skin: Normal Color Warm/Dry Lymphatic: No Adenopathy Results Lab Laboratory Tests 08/29/16 15:58: Hematocrit 31L, Hemoglobin 9.9L 08/29/16 23:34: Hematocrit 27L, Hemoglobin 9.0L 08/30/16 06:09: Hematocrit 27L, Hemoglobin 8.9L, Alanine Aminotransferase (ALT/SGPT) 12, Albumin 3.0L, Alkaline Phosphatase 43, Anion Gap 6, Aspartate Amino Transf (AST/ SGOT) 12, BUN/Creatinine Ratio 31, Basophils # (Auto) 0.0, Basophils (%) (Auto) 1, Blood Urea Nitrogen 26H, Calcium Level 8.1L, Carbon Dioxide Level 21, Chloride Level 113H, Creatinine 0.83, Eosinophils # (Auto) 0.3, Eosinophils (%) (Auto) 5, Estimat Glomerular Filtration Rate > 60, Glucose Level 149H, Lymphocytes # (Auto) 1.3, Lymphocytes (%) (Auto) 23, Mean Corpuscular Hemoglobin 30, Mean Corpuscular Hemoglobin Concent 33, Mean Corpuscular Volume 93, Mean Platelet Volume 11.1H, Monocytes # (Auto) 0.7, Monocytes (%) (Auto) 13H , Neutrophils # (Auto) 3.4, Neutrophils (%) (Auto) 59, Platelet Count 126L, Potassium Level 3.5L, Red Blood Count 2.94L, Red Cell Distribution Width 14.2, Sodium Level 140, Total Bilirubin 0.8, Total Protein 4.9L, White Blood Count 5.8 Assessment/Plan Assessment/Plan Assessment/Plan GI bleed Nausea vomiting dm antral ulcers hgb stable on liquid diet last 2 draws. patient wanting to go home. would slowly increase diet as tolerates would continue protonix bid and carafate 4 x per day follow up with me 1 week Clinical Quality Measures DVT/VTE Risk/Contraindication: Risk Factor Score Per Nursin RFS Level Per Nursing on Admit: 3=High Contraindications-Pharm: Other *list below* Other: GI Bleed JOE GANNON DO Aug 30, 2016 12:00
--- NOTE | 2016-09-05 14:48 | Physician Query-General Query ---
Physician Query-General Query to Physician: Dear Provider; Admit Date: 08/28/16Dear Provider; Admit Date: Discharge Date: The medical record reflects the following clinical scenario: History/Risk factors: (list no more than 2) Clinical Findings: (list no more than 2) Treatment: (list no more than 2) Question: Can you further specify (diagnosis/condition) per the clinical indicators above? Please document a response in the Progress Notes or Discharge Summary. 1. (list the #1 diagnosis/condition choice) 2. (list the diagnosis/condition already documented) 3. Other, with explanation of clinical findings 4. Clinically undetermined, no explanation for clinical findings Please remember a lack of response to the above will prompt a phone page by CDI/ coding staff. In responding to this query, please exercise your independent professional judgment. The purpose of this communication is to more accurately reflect the complexity of your patients condition. The fact that a question is asked does not imply that any particular answer is desired or expected. Discharge Date: 08/30/16 The medical record reflects the following clinical scenario: History/Risk factors: severe anemia, GI bleed (upper and lower) Clinical Findings: admit 08/28 - 10.9 on day 2: 08/30 - 8.9 Treatment: Iron sucrose IV on day 2 - 08/29/16 Question: Can you further specify anemia per the clinical indicators above? Please document a response in the Progress Notes or Discharge Summary. 1. anemia due to acute blood loss 2. anemia unspecified 3. Other, with explanation of clinical findings 4.Clinically undetermined, no explanation for clinical findings Please remember a lack of response to the above will prompt a phone page by CDI/ coding staff. In responding to this query, please exercise your independent professional judgment. The purpose of this communication is to more accurately reflect the complexity of your patients condition. The fact that a question is asked does not imply that any particular answer is desired or expected. PHYSICIAN RESPONSE: Based on the clinical findings in the record, please respond to the query above on this document as an addendum. Possible, probable, or questionable diagnosis can be coded for INPATIENTS ONLY. Physician Response: Physician Response anemia due to acute blood loss If you have questions please contact: Application Tester: Ext: Thank you for your time and cooperation. Clinical Glue Jointer Feeder/Application Tester This is a permanent part of the medical record RADHA AMES Sep 05, 2016 14:48 LUCINDA PAREDES DO Sep 06, 2016 12:13
== END 2016-08-30 14:00 | disposition home or self-care (01) | DRG 378 ==
LOC: ICU 17:24 → 4TH 08-29 16:00
PROVIDERS: ADMIT Internal Medicine; ATTEND Internal Medicine
PROC: 0DB64ZZ Excision of Stomach, Percutaneous Endoscopic Approach (ICD-10-PCS; principal; 2016-08-29 11:30)
DX: K25.4 Chronic or unspecified gastric ulcer with hemorrhage (principal); K29.71 Gastritis, unspecified, with bleeding; D62 Acute posthemorrhagic anemia; K59.09 Other constipation; E11.9 Type 2 diabetes mellitus without complications; H54.42 Blindness, left eye, normal vision right eye; E66.9 Obesity, unspecified; R53.81 Other malaise; Z87.891 Personal history of nicotine dependence; Z85.46 Personal history of malignant neoplasm of prostate; Z68.32 Body mass index [BMI] 32.0-32.9, adult
CPT/HCPCS: 36415; 80053; 83540; 85014; 85018; 85025; 85610; 86850; 86870; 86900; 86901; 88305; 88342; 94760

== ENCOUNTER 2018-11-20 16:51 | Inpatient (IN) | payer MEDICARE, OTHER ==
[2018-11-20] VITALS (7 sets, daily range): BP systolic 140–175; BP diastolic 59–80
[~2018-11-20] VITALS: Ht 203.2 cm; Wt 127.8 kg
[~2018-11-20 16:51] MED LIST changes: +GLIP-30 PO; +METF-399 PO; +OMEP40CA36 PO; +PANT40TA2 PO; +PIOG45TA65 PO; +SUCR1TAB PO
[2018-11-20] MEDS ORDERED: diphenhydrAMINE 25 MG TAB (BENADRYL) PO PRN (17:00)
[2018-11-20] MEDS ORDERED: MELATONIN 3 MG TABLET PO PRN (17:00)
[2018-11-20] MEDS ORDERED: HYDROcodone/APAP 5 MG/325 MG (LORTAB) TAB PO PRN (17:00)
[2018-11-20] MEDS ORDERED: DOCUSATE SODIUM 100 MG (COLACE) CAP PO PRN (17:00)
[2018-11-20] MEDS ORDERED: CALCIUM CARBONATE 500 MG (TUMS) TAB.CHEW PO PRN (17:00)
[2018-11-20] MEDS ORDERED: LOPERAMIDE 2 MG (IMODIUM) CAP PO PRN (17:00)
[2018-11-20] MEDS ORDERED: ONDANSETRON 4 MG (ZOFRAN) ORAL DISSOLVE TAB PO PRN (17:00)
[2018-11-20] MEDS ORDERED: ALPRAZolam 0.25 MG (XANAX) TAB PO PRN (17:00)
[2018-11-20] MEDS ORDERED: ONDANSETRON 4 MG/2 ML (SDV) Z0FRAN IVP PRN (17:00)
--- NOTE | 2018-11-20 18:10 | NUR ---
Received report from DORIAN Johnson, at [facility], pt left via EMS at this time.
--- NOTE | 2018-11-20 18:40 | NUR ---
Pt to [facility] via EMS, monitors attached to pt, Dr Franco notified, orders received, see EMR.
[2018-11-20 19:34] LABS: BASOPHILS % (AUTO) 0 % (0-10); EOSINOPHILS # (AUTO) 0.2 10^3/uL (0.0-0.3); EOSINOPHILS % (AUTO) 2 % (0-10); HEMATOCRIT 35 % (40-54); HEMOGLOBIN 11.2 G/DL (13.3-17.7); LYMPHOCYTES # (AUTO) 1.3 X 10^3 (1.0-4.0); LYMPHOCYTES % (AUTO) 12 % (12-44); MEAN CORPUSCULAR HEMOGLOBIN 28 PG (25-34); MEAN CORPUSCULAR HGB CONC 32 G/DL (32-36); MEAN CORPUSCULAR VOLUME 88 FL (80-99); MEAN PLATELET VOLUME 10.7 FL (7.4-10.4); MONOCYTES # (AUTO) 1.1 X 10^3 (0.0-1.0); MONOCYTES % (AUTO) 11 % (0-12); NEUTROPHILS # (AUTO) 8.1 X 10^3 (1.8-7.8); NEUTROPHILS % (AUTO) 76 % (42-75); PLATELET COUNT 239 10^3/uL (130-400); RED CELL DISTRIBUTION WIDTH 13.6 % (10.0-14.5); WHITE BLOOD COUNT 10.7 10^3/uL (4.3-11.0)
[2018-11-20 19:46] LABS: INR 1.1 (0.8-1.4); PROTHROMBIN TIME PATIENT 14.6 SEC (12.2-14.7)
[2018-11-20 19:51] LABS: MAGNESIUM 1.7 MG/DL (1.8-2.4); PHOSPHORUS 2.3 MG/DL (2.3-4.7)
[2018-11-20 19:52] LABS: ALBUMIN 3.3 GM/DL (3.2-4.5); BILIRUBIN,TOTAL 0.6 MG/DL (0.1-1.0); CALCIUM 11.6 MG/DL (8.5-10.1); CREATININE SERUM 1.26 MG/DL (0.60-1.30); POTASSIUM 4.2 MMOL/L (3.6-5.0)
[2018-11-20] MEDS: NS IV 1000 ML 1,000 ML IV SCH (22:47)
[2018-11-20] MEDS: inSUlin ASPART (NovoLOG) 1 UNIT/0.01 ML (CHARGE PER UNIT) SC SCH (22:47)
[2018-11-21] VITALS (16 sets, daily range): BP systolic 123–164; BP diastolic 53–78
[2018-11-21] MEDS: NS IV 1000 ML 1,000 ML IV SCH ×3 (03:50→20:54)
[2018-11-21 03:51] LABS: BASOPHILS % (AUTO) 1 % (0-10); EOSINOPHILS # (AUTO) 0.3 10^3/uL (0.0-0.3); EOSINOPHILS % (AUTO) 3 % (0-10); HEMATOCRIT 33 % (40-54); HEMOGLOBIN 10.6 G/DL (13.3-17.7); LYMPHOCYTES # (AUTO) 1.2 X 10^3 (1.0-4.0); LYMPHOCYTES % (AUTO) 15 % (12-44); MEAN CORPUSCULAR HEMOGLOBIN 28 PG (25-34); MEAN CORPUSCULAR HGB CONC 32 G/DL (32-36); MEAN CORPUSCULAR VOLUME 87 FL (80-99); MEAN PLATELET VOLUME 11.1 FL (7.4-10.4); MONOCYTES # (AUTO) 0.9 X 10^3 (0.0-1.0); MONOCYTES % (AUTO) 11 % (0-12); NEUTROPHILS # (AUTO) 5.9 X 10^3 (1.8-7.8); NEUTROPHILS % (AUTO) 71 % (42-75); PLATELET COUNT 211 10^3/uL (130-400); RED CELL DISTRIBUTION WIDTH 13.4 % (10.0-14.5); WHITE BLOOD COUNT 8.3 10^3/uL (4.3-11.0)
[2018-11-21 04:17] LABS: ALANINE AMINOTRANSFERASE 14 U/L (0-55); ALKALINE PHOSPHATASE 107 U/L (40-136); BILIRUBIN,TOTAL 0.6 MG/DL (0.1-1.0); BUN/CREATININE RATIO 27; CARBON DIOXIDE 22 MMOL/L (21-32); CHLORIDE 104 MMOL/L (98-107); CREATININE SERUM 0.94 MG/DL (0.60-1.30); GFR ESTIMATED > 60; GLUCOSE 162 MG/DL (70-105); MAGNESIUM 1.5 MG/DL (1.8-2.4); PHOSPHORUS 2.3 MG/DL (2.3-4.7); SODIUM 136 MMOL/L (135-145); TOTAL PROTEIN 6.3 GM/DL (6.4-8.2)
[2018-11-21 05:15] LABS: BILIRUBIN,URINE NEGATIVE (NEGATIVE); CLARITY,URINE CLEAR; COLOR,URINE YELLOW; GLUCOSE, URINE (UA) NEGATIVE (NEGATIVE); KETONES,URINE NEGATIVE (NEGATIVE); LEUKOCYTE ESTERASE ,URINE NEGATIVE (NEGATIVE); NITRITE,URINE NEGATIVE (NEGATIVE); PH,URINE 5 (5-9); PROTEIN,URINE NEGATIVE (NEGATIVE); UROBILINOGEN,URINE NORMAL (NORMAL)
--- NOTE | 2018-11-21 05:19 | Pulmonary Consultation ---
History of Present Illness History of Present Illness Date of Consultation 11/21/18 05:12 Time Seen by Provider: 05:12 Date of Admission History of Present Illness 83yo with recent dx of lung mass with MLA presented from [facility] after fall while in the shower. No fractures noted on imaging. Pt has had progressive weakness over the last 3 wks to the point he is unable to ambulate. Pt was transferred here for higher level of care. Allergies and Home Medications Allergies Coded Allergies: No Known Drug Allergies (Verified Allergy, Unknown, 06/06/09) Home Medications Brimonidine Tartrate/Timolol 5 Ml Drops, 1 DROP OU BID, (Reported) Glipizide 5 Mg Tab.er.24, 5 MG PO DAILY, (Reported) Latanoprost 2.5 Ml Drops, 1 DROP OU HS, (Reported) Metformin HCl 1,000 Mg Tablet, 1,000 MG PO BID, (Reported) Pantoprazole Sodium 40 Mg Tablet.dr, 40 MG PO BID Prescribed by: STEPHANIE DE LA VEGA on 08/30/16 1151 Pioglitazone HCl 45 Mg Tablet, 45 MG PO DAILY, (Reported) Sucralfate 1 Gm Tablet, 1 GM PO ACHS Prescribed by: LUCINDA PAREDES on 08/30/16 1145 Past Hpuakkj-Azxeaz-Blirhc Hx Patient Social History Alcohol Use: Denies Use Recreational Drug Use: No Smoking Status: Former Smoker Type Used: Cigarettes Former Smoker, Quit: Jul 22, 1965 2nd Hand Smoke Exposure: Yes (exposed when going to [place] x1/week) Recent Foreign Travel: No Contact w/Someone Who Travel: No Recent Hopitalizations: No Seasonal Allergies Seasonal Allergies: No Past Medical History Surgeries: Yes (prostatectomy-2001, bilat hip replacements, gallbladder, ) Respiratory: Yes Sleep Apnea Cardiac: No Neurological: No Reproductive Disorders: No Genitourinary: Yes (PROSTATE CANCER, ) Gastrointestinal: Yes (BLEEDING DIVERTICULITUS 5 YEARS AGO) Chronic Constipation, Diverticulosis Musculoskeletal: Yes Arthritis Endocrine: Yes Diabetes, Insulin dep Cancer: Yes (PROSTATE) PROSTATECTOMY Psychosocial: No Integumentary: No Blood Disorders: No Adverse Reaction/Blood Tranf: No Family Medical History No Pertinent Family Hx Review of Systems Time Seen by Provider: 09:19 Constitutional: Sweats, Weakness, Malaise; No: Fever, Chills, Other Eyes: No: Pain, Vision change, Conjunctivae inflammation, Eyelid inflammation, Other, Redness ENT: No: Ear pain, Ear discharge, Nose pain, Nose discharge, Nose congestion, Mouth pain, Mouth swelling, Throat pain, Throat swelling, Other Respiratory: Cough, Dry, Shortness of breath, SOB with excertion; No: Wheezing , Hemoptysis, Pleuritic Pain, Sputum, Wheezing, Other Cardiovascular: No: Chest Pain, Palpitations, Orthopnea, Paroxysmal Noc. Dyspnea, Edema, Lt Headedness, Other Gastrointestinal: Constipation Skin: No: Rash, Lesions, Jaundice, Bruising, Other Neurological: Weakness, Incoordination, Change in speech, Confusion; No: Numbness, Seizures Sepsis Event Evaluation Height, Weight, BMI Height: 6'8.00" Weight: 273lbs. 2.0oz. 123.538394rr; 30.0 BMI Method: Exam Exam Vital Signs Date Time Temp Pulse Resp B/P (MAP) Pulse Ox O2 Delivery O2 Flow Rate FiO2 11/21/18 04:00 99.2 11/21/18 04:00 Room Air 11/21/18 01:00 69 11/21/18 00:00 70 16 159/70 (99) 93 Room Air 11/21/18 00:00 Room Air 11/20/18 23:00 70 29 92 Room Air 11/20/18 22:00 72 14 140/60 (86) 92 Room Air 11/20/18 21:00 71 18 158/64 (95) 92 Room Air 11/20/18 20:00 Room Air 11/20/18 20:00 99.0 11/20/18 20:00 84 23 171/80 (110) 94 Room Air 11/20/18 20:00 93 Room Air 11/20/18 19:46 99.2 78 171/70 94 Room Air 11/20/18 19:45 75 17 171/70 (103) 94 Room Air 11/20/18 19:30 14 160/59 (92) 94 Room Air 11/20/18 19:15 78 12 94 Room Air 11/20/18 19:00 78 11/20/18 19:00 76 17 175/73 (107) 94 Room Air I & O 11/21/18 07:00 Intake Total 50 ml Output Total 100 ml Balance -50 ml Height & Weight Height: 6'8.00" Weight: 273lbs. 2.0oz. 123.924819cy; 30.0 BMI Method: General Appearance: No Apparent Distress, WD/WN, Obese HEENT: PERRL/EOMI, Normal ENT Inspection, Pharynx Normal Neck: Full Range of Motion, Normal Inspection, Non Tender, Supple Respiratory: Chest Non Tender, No Accessory Muscle Use, No Respiratory Distress , Decreased Breath Sounds Cardiovascular: Regular Rate, Rhythm, No Edema, No Gallop Capillary Refill: Less Than 3 Seconds Gastrointestinal: normal bowel sounds, non tender, soft Extremity: Normal Capillary Refill, Normal Inspection, Normal Range of Motion Neurologic/Psychiatric: Alert, Oriented x3 Skin: Normal Color, Warm/Dry Results Lab Laboratory Tests 11/20/18 19:17 11/21/18 03:20 Assessment/Plan Assessment/Plan 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
[2018-11-21 05:24] LABS: BACTERIA,URINE NEGATIVE /HPF; RBC,URINE 0-2 /HPF; SQUAMOUS EPITHELIAL CELL,UR 0-2 /HPF
[2018-11-21] MEDS ORDERED: RT-ALBUTEROL/IPRATROPIUM 3 ML (DUONEB) VIAL INH PRN (06:00)
[2018-11-21] MEDS: inSUlin ASPART (NovoLOG) 1 UNIT/0.01 ML (CHARGE PER UNIT) SC SCH ×5 (06:47→20:49)
[2018-11-21] MEDS ORDERED: proPOfol 200 MG/20 ML (DIPRIVAN) VIAL IV ONE (07:07)
[2018-11-21] MEDS ORDERED: ROCURONIUM 10 MG/ML 5 ML SYRINGE IV ONE (07:08)
[2018-11-21] MEDS ORDERED: ONDANSETRON 4 MG/2 ML (SDV) Z0FRAN ONE (07:08)
[2018-11-21] MEDS ORDERED: fentaNYL INJECTION 100 MCG/2 ML AMP ONE (07:08)
[2018-11-21] MEDS ORDERED: LIDOCAINE PF 2% 5 ML (XYLOCAINE) VIAL ONE (07:08)
--- NOTE | 2018-11-21 07:38 | NUR ---
PT OFF FLOOR FOR BRONCH.
[2018-11-21] MEDS ORDERED: GLYCOPYRROLATE 0.2 MG/ML (ROBINUL) 2 ML VIAL ONE (07:47)
[2018-11-21] MEDS ORDERED: NEOSTIGMINE 1 MG/ML 5 ML SYRINGE ONE (07:47)
[2018-11-21] MEDS ORDERED: SEVOFLURANE (ULTANE) 15 ML INHAL SOLN ONE (08:20)
--- NOTE | 2018-11-21 09:17 | Diagnostic Imaging Report ---
Indication: Followup bronchoscopy Portable chest 9:03 AM There is consolidating alveolar infiltrate in the right lower chest that is increased from the study from earlier in the day. The alveolar nodular opacification of the left lower chest is improved from earlier in the day. There is no effusion or pneumothorax. Impression: Improving aeration left lung. Increasing alveolar consolidation in the right lower chest. There is no appreciable effusion or pneumothorax. Dictated by: Dictated on workstation # [id number]
--- NOTE | 2018-11-21 09:18 | Pulmonary Procedures ---
Pulmonary Procedures Date of Procedure Date of Service: November 21, 2018 Bronch Bronchoscopy with Fluoroscopy RLL BAL, transbronchial brush, and bilateral wash. EBUS with bx of station 7 and 10R and 4R lymph nodes Preop DX: mediastinal lymphadenopathy lung mass PostOP DX: same (no endobronchial lesions) Complications: None Pt was sedated per anesthesia. Bronchoscopy was advanced through the ET tube and an anatomical undertaken down to the segmental bronchi bilaterally. No endobronchial lesions noted. Bronchoscopy with Fluoroscopy RLL BAL, transbronchial brush, and bilateral wash. EBUS with bx of station 7 and 10R and 4R lymph nodes were sampled via needle bx under US guidance. Pt tolerated procedure well. No complications noted. HANNAH BAEZ DO November 21, 2018 09:17
--- NOTE | 2018-11-21 09:27 | Diagnostic Imaging Report ---
EXAMINATION: Fluoroscopy. INDICATION: Bronchoscopy Fluoroscopic assistance was provided for Dr. Franco during his bronchoscopy procedure. 38.3 seconds fluoroscopy time was utilized. A single spot film of the right lung base was obtained. IMPRESSION: fluoroscopic assistance was provided for Dr. Franco. Dictated by: Dictated on workstation # [id number]
--- NOTE | 2018-11-21 09:29 | Diagnostic Imaging Report ---
PROCEDURE: CT chest, abdomen, and pelvis with contrast. TECHNIQUE: Multiple contiguous axial images were obtained through the chest, abdomen, and pelvis after the administration of intravenous contrast. Auto Exposure Controls were utilized during the CT exam to meet ALARA standards for radiation dose reduction. INDICATION: Prostate cancer. No priors for comparison. Chest: Multiple soft tissue density pulmonary nodules bilaterally are presumptively widespread pulmonary parenchymal metastatic lesions too numerous to count the largest in the superior segment of the right lower lobe measured 3.1 cm. There is pathological appearing thoracic lymph nodes. AP window mass present measured a diameter of 2 cm. There is 1 cm paratracheal mediastinal node. There is bilateral right greater than left hilar lymphadenopathy presumed metastatic. Small pleural effusions nonloculated. Abdomen and pelvis: There is a small left adrenal nodule measuring 2.1 x 1.5 cm. Slight thickening of the right adrenal isthmus measures maximal transverse width of 1 cm. No identifiable liver mass. Spleen is negative. Large mass associated with the lower pole of the left kidney measuring 7 cm x 6.4 cm presumed carcinoma. There is right renal cortical cysts. There is some intraluminal heterogeneity of enhancement associated with the left renal vein that structure is unobstructed, however, a small amount of nonocclusive intraluminal thrombus bland or tumoral could not be excluded. If indicated for staging purposes, renal Doppler attention left renal vein suggested the cava is patent. The right kidney showed no mass. There is small volume of ascites. Bilateral hip replacements generate artifacts which limit lower pelvic evaluation. The prostate surgically absent. No identifiable mass or fluid collection within the prosthetic bed. The urinary bladder was not pathologically distended. There is no convincing evidence for ilioinguinal lymphadenopathy. There is no bowel, biliary or urinary tract obstruction. No free air. There was no suspicious appearing lytic or sclerotic bone lesion. IMPRESSION: Chest: Multifocal pulmonary parenchymal metastases and mild presumed metastatic hilar or mediastinal lymphadenopathy. Small effusions nonloculated. Abdomen and pelvis: 1. Exophytic complex left renal mass off its lower pole suspicious for renal cell carcinoma. Questionable heterogeneous intraluminal enhancement of the left renal vein, its partial obstruction from bland versus tumor thrombus could not be excluded. Doppler evaluation recommended. 2. Left greater than right adrenal nodules. Metastatic deposits not excluded. Trace free fluid. No bowel, biliary or urinary tract obstruction. Replaced hips degenerative spine. No suspicious lytic or sclerotic bone lesion. Dictated by: Dictated on workstation # [id number]
[2018-11-21] MEDS: RT-ALBUTEROL/IPRATROPIUM 3 ML (DUONEB) VIAL INH SCH ×3 (09:32→21:01)
[2018-11-21] MEDS ORDERED: LIDOCAINE PF 2% 5 ML (XYLOCAINE) VIAL INJ ONE (09:44)
[2018-11-21] MEDS ORDERED: LIDOCAINE PF 1% 2 ML VIAL IJ ONE (09:44)
--- NOTE | 2018-11-21 09:50 | NUR ---
PT BACK TO FLOOR FROM [facility].
[2018-11-21] MEDS ORDERED: OXYB10TA PO (10:22)
[2018-11-21] MEDS ORDERED: NF-SOLIF5T PO (10:22)
[2018-11-21] MEDS ORDERED: BRIM5DRO OD (10:22)
[2018-11-21] MEDS ORDERED: INSU100I23 SC (10:22)
[2018-11-21] MEDS ORDERED: GLIP5TAB26 PO (10:22)
[2018-11-21] MEDS ORDERED: INSU100I32 SC (10:22)
[2018-11-21] MEDS ORDERED: LATA2.5D5 OD (10:22)
--- NOTE | 2018-11-21 10:27 | NUR ---
SPOKE WITH THE PATIENT ABOUT HIS MEDICATIONS. WE WENT OVER THE EXT MED HX AND HE VERIFIED HOW HE TAKES THEM. HIS METFORMIN WAS FILLED 1000MG #180 FOR 90 DAYS 10-07-18 HOWEVER HE STATES HE ONLY TAKES 1 TAB ONCE DAILY IN THE MORNING. HE DID NOT KNOW IT WAS PRESCRIBED MORE THAN THAT. I PUT IT ON THE MED REC ONCE DAILY LIKE HE REPORTS TAKING IT. HE STATES THE OXYBUTYNIN WAS REPLACED BY THE [facility]. HE STATES HE IS NO LONGER USING THE TESSALON PERLES THAT WERE RECENTLY FILLED. HE ALSO REPORTS USING LATANOPROST IN HIS RIGHT EYE AT [employer] AND COMBIGAN IN HIS RIGHT EYE TWICE DAILY, HE STATES HE RECEIVES SAMPLES OF THESE FROM DR. NELSON. I CALLED [facility] TO VERIFY THE DIRECTIONS ON THE INSULIN. THE PATIENT KNEW THE DOSE ON THE TRESIBA BUT STATES THE HUMALOG IS NEW AND HE WAS NOT SURE WHAT THEY ESTABLISHED. [facility] STATES IT WAS WRITTEN 5 UNITS WITH EVENING MEAL.
--- NOTE | 2018-11-21 10:39 | History & Physical-Hospitalist ---
History of Present Illness HPI/Chief Complaint This is an 83-year-old white male who was accepted in transfer from [facility] after having fallen in his shower secondary to weakness. It was found that he had multiple pulmonary nodules and hypercalcemia and hypomagnesemia. The patient had been in declining health over the last 6 months or so. It started primarily with a fractured ankle about 2 years ago. He had been ambulatory with a cane but had not been able to exercise and be as active. He then over the last 2-3 months has progressed to where he can only ambulate with a walker. Yesterday he was getting ready to go see Dr. Cantu at his appointment when he fell getting out of the shower. Further evaluation has found multiple pulmonary nodules with hypercalcemia hypomagnesemia and a 7 cm renal mass. He does have a past medical history of cancer the prostate Source: patient Exam Limitations: no limitations Date Seen 11/21/18 Time Seen by a Provider: 10:30 Attending Physician Meena Garcia DO PCP Chance Cantu DO Referring Physician Date of Admission November 20, 2018 at 19:00 Home Medications & Allergies Home Medications Reviewed patient Home Medication Reconciliation performed by pharmacy medication reconciliations paint technician and/or nursing. Patients Allergies have been reviewed. Allergies Allergies Coded Allergies No Known Drug Allergies (Verified Allergy, Unknown, 06/06/09) Past Gjgwxrw-Knjeus-Oqdwfc Hx Past Med/Social Hx: Reviewed Nursing Past Med/Soc Hx Patient Social History Marrital Status: Employed/Student: retired Alcohol Use: Denies Use Recreational Drug Use: No Smoking Status: Former Smoker (Stopped in 1965) Former Smoker, Quit: Jul 22, 1965 Type Used: Cigarettes 2nd Hand Smoke Exposure: Yes (exposed when going to [place] x1/week) Recent Foreign Travel: No Contact w/other who traveled: No Recent Hopitalizations: No Seasonal Allergies Seasonal Allergies: No Past Medical History Surgeries: Gallbladder, Joint Replacement (Bilateral hips), Prostatectomy Reproductive: No Gastrointestinal: Chronic Constipation, Diverticulosis Musculoskeletal: Arthritis Endocrine: Diabetes, Insulin dep HEENT: Cataract Cancer: Prostate, Skin What Type of Treatment Did You: Surgical Intervention Cancer: PROSTATECTOMY History of Blood Disorders: No Adverse Reaction to Blood Juarez: No Family History Reviewed Nursing Family Hx No Pertinent Family Hx Review of Systems Constitutional: weakness, weight loss EENTM: no symptoms reported Respiratory: dyspnea on exertion Cardiovascular: no symptoms reported Gastrointestinal: constipation Genitourinary: hesitancy Musculoskeletal: joint pain, muscle pain Skin: no symptoms reported Psychiatric/Neurological: No Symptoms Reported Physical Exam Physical Exam Vital Signs Vital Signs - First Documented 11/20/18 11/21/18 11/21/18 19:46 05:50 08:51 Temp 99.2 O2 Flow Rate 10 FiO2 21 Capillary Refill : Less Than 3 SecondsLess Than 3 Seconds Height, Weight, BMI Height: 6'8.00" Weight: 273lbs. 2.0oz. 123.405346mh; 30.0 BMI Method: General Appearance: Chronically ill HEENT: Normal ENT Inspection Neck: Non Tender, Limited Range of Motion Respiratory: Chest Non Tender, Normal Breath Sounds, Crackles Cardiovascular: Regular Rate, Rhythm, No Gallop, Systolic Murmur Gastrointestinal: Normal Bowel Sounds, Non Tender, Soft Rectal: Deferred Back: Normal Inspection, No CVA Tenderness Extremity: No Calf Tenderness, Pedal Edema, Other (Chronic venous stasis changes) Neurologic/Psychiatric: Alert, Oriented x3, No Motor/Sensory Deficits, Normal Mood/Affect Skin: Warm/Dry, Pallor Lymphatic: No Adenopathy Results Results/Procedures Labs Laboratory Tests 11/20/18 19:17 11/21/18 03:20 Patient resulted labs reviewed. Imaging: Reviewed Imaging Report Assessment/Plan Admission Diagnosis 1. 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 Multiple pulmonary nodules-status post bronchoscopy and biopsies by Dr. Franco 3. 7 cm left renal mass 4. Hypomagnesemia 5. Weakness secondary to number 1 6. Anemia 7. Diabetes, type 2 on insulin 8. Cancer the prostate remote Plan for aggressive IV fluid hydration with Lasix to decrease the calcium level. Consult oncology. Further evaluation and physical therapy Admission Status: Inpatient Order (span 2 midnights) Reason for Inpatient Admission: Multiple comorbidities and complicated patient Diagnosis/Problems Diagnosis/Problems (1) Hypercalcemia of malignancy Status: Acute (2) Renal mass, left Status: Acute (3) Hypomagnesemia (4) Pulmonary nodules/lesions, multiple Status: Acute (5) Adrenal nodule Status: Acute (6) Diabetes Status: Chronic Qualifiers: Diabetes mellitus type: type 2 Clinical Quality Measures DVT/VTE Risk/Contraindication: Risk Factor Score Per Nursin RFS Level Per Nursing on Admit: 3=High Copy Copies To 1: CHANCE CANTU KATHLEEN M MD November 21, 2018 10:39
[2018-11-21] MEDS ORDERED: CHLORASEPTIC SPRAY 177 ML LIQUID MC PRN (11:45)
--- NOTE | 2018-11-21 12:14 | Diagnostic Imaging Report ---
INDICATION: Dyspnea COMPARISON: 12/16/2013 FINDINGS: The heart is enlarged. There is vascular congestion. Bilateral mixed interstitial and airspaced opacity. While there could be a component of pneumonia present, pulmonary edema is suspected. Pulmonary opacities are somewhat confluent and nodular in areas and warrant radiographic followup. IMPRESSION: Likely failure pattern with cardiomegaly, vascular congestion and probable edema. Areas of pneumonia could not be excluded. Given the nodularity of the parenchymal opacities, radiographic followup is indicated. Dictated by: Dictated on workstation # [id number]
[2018-11-21] MEDS: MAGNESIUM 1 GM/100 ML IVPB 100 ML IV SCH (12:51)
[2018-11-21] MEDS ORDERED: PAMIDRONATE INJECTION 60 MG in NS (IVPB) 250 ML IV NR (14:15)
--- NOTE | 2018-11-21 14:38 | Physical Therapy Evaluation ---
PT Evaluation-General Medical Diagnosis Admission Date November 20, 2018 at 19:00 Medical Diagnosis: weakness Onset Date: November 20, 2018 Therapy Diagnosis Therapy Diagnosis: impaired mobility, strength, endurance Height/Weight Height (Feet): 6 Height (Inches): 8.00 Weight (Pounds): 273 Weight (Ounces): 2.0 Precautions Precautions/Isolations: Fall Prevention, Standard Precautions, Pressure Ulcer Weight Bear Status Right Lower Extremity: Right Weight Bearing/Tolerated Left Lower Extremity: Left Weight Bearing/Tolerated Referral Physician: Joselin Dorman MD Reason for Referral: Evaluation/Treatment Medical History Pertinent Medical History: Arthritis, DM Additional Medical History Past Medical History Surgeries: Gallbladder, Joint Replacement (Bilateral hips), Prostatectomy Reproductive: No Gastrointestinal: Chronic Constipation, Diverticulosis Musculoskeletal: Arthritis Endocrine: Diabetes, Insulin dep HEENT: Cataract Cancer: Prostate, Skin What Type of Treatment Did You: Surgical Intervention Cancer: PROSTATECTOMY History of Blood Disorders: No Adverse Reaction to Blood Juarez: No Reviewed History: Yes Social History Home: Single Level Current Living Status: Spouse Entry Into Home: Stairs With Railing PT Steps Into Home: 3 Prior/Core FIM Prior Level of Function Therapy Code Descriptions/Definitions Functional [place] Measure: 0=Not Assessed/NA 4=Minimal Assistance 1=Total Assistance 5=Supervision or Setup 2=Maximal Assistance 6=Modified [place] 3=Moderate Assistance 7=Complete [place] Therapy Quality Codes: 6 Independent with activity with or without an assistive device 5 Patient requires set up or clean up by helper. Patient completes activity by themselves 4 Supervision or touching assist (CGA). [place] provide cues , steadying assist 3 The helper provides less than half the effort to complete the activity 2 The helper provides more than half the effort to complete the activity 1 Dependent. The helper does all the effort to complete an activity 7 Patient refused to complete or attempt activity 9 The patient did not perform the activity before the current illness or injury 88 Not attempted due to Medical conditions or safety concerns Functional Abilities and Goals: Independent: Patient completed the activities by him/herself, with or without an assistive device, with no assistance from a helper. Needed Some Help: Patient needed partial assistance from another person to complete activities. Dependent: A helper completed the activities for the patient. Unknown: Not Applicable: Bed Mobility: 6 Transfers (B,C,W/C) (FIM): 6 Gait: 6 Stairs: 6 Indoor Mobility (Ambulation): Independent Stairs: Independent Patient has been getting progressively weaker and was using a walker prior to coming here. PT Evaluation-Current Subjective Patient in bed pre tx, agrees to PT, has 5/10 pain in left leg. Pt/Family Goals "to get his legs stronger" Objective Patient Orientation: Person, Place, Situation Attachments: IV ROM/Strength ROM Lower Extremities limited knee extension bilaterally Strength Lower Extremities right lower extremity (hip flexion 3/5, knee flexion 4/5, knee extension 4/5, dorsiflexion 3/5), left lower extremity (hip flexion 2/5, knee flexion 3+/5, knee extension 3+/5, dorsiflexion 3/5) Neuromuscular (Tone, Coordination, Reflexes) NT Sensory Hearing: Functional Sensation Right Lower Extremit: Impaired Sensation Left Lower Extremity: Impaired Sensation Lower Extremities Patient has impaired light touch sensation in both legs and feet. Transfers Therapy Code Descriptions/Definitions Functional [place] Measure: 0=Not Assessed/NA 4=Minimal Assistance 1=Total Assistance 5=Supervision or Setup 2=Maximal Assistance 6=Modified [place] 3=Moderate Assistance 7=Complete [place] Transfers (B, C, W/C) (FIM): 3 Scootin Rollin Supine to/from Sit: 3 Sit to/from Stand: 3 bed t/f WC(FIM only if WC use): 4 Patient needs mod assist for supine to sit and sit to stand but just CGA for transfer using a rolling walker, cues for hand placement and safety. Gait Mode of Locomotion: Walk Gait (FIM): 1 Distance: 3' Gait Level of Assist: 4 Gait Persons Needed: 1 Gait Assistive Device: FWW Comments/Gait Description CGA, ambulated just a few feet from bed to recliner Balance Sitting Static: Normal Sitting Dynamic: Normal Standing Static: Fair Standing Dynamic: Fair Treatment seated bilateral lower extremity exercises x15 (AP, LAQ) Assessment/Needs Patient has impaired mobility, strength, endurance. He needs mod assist for supine to sit and sit to stand. Left leg is weaker than the right. Rehab Potential: Fair PT Short Term Goals Short Term Goals Time Frame: November 28, 2018 Transfers (B,C,W/C) (FIM): 4 Gait (FIM): 1 Gait Distance Comment: 20' Gait Level of Assist: 4 Gait Assistive Device: FWW PT Plan Problem List Problem List: Activity Tolerance, Functional Strength, Safety, Balance, Gait, Transfer, Bed Mobility, ROM Treatment/Plan Treatment Plan: Continue Plan of Care Treatment Plan: Bed Mobility, Education, Functional Activity [place], Functional Strength, Gait, Safety, Therapeutic Exercise, Transfers Treatment Duration: November 28, 2018 Frequency: 6 times per week Estimated Hrs Per Day: .25 hour per day (15-30') Patient and/or Family Agrees t: Yes Safety Risks/Education Patient Education: Gait Training, Transfer Techniques, Correct Positioning, Safety Issues Teaching Recipient: Patient Teaching Methods: Demonstration, Discussion Response to Teaching: Reinforcement Needed Discharge Recommendations Plan Patient will perform bed mobility and transfer training, balance and endurance training, functional strengthening, gait training, and education, to improve functional mobility and independence at home. Therapy D/C Recommendations: Acute Rehab, Assisted Living, Home w/ Family Support Time/GCodes Time In: 1405 Time Out: 1430 Total Billed Treatment Time: 25 Total Billed Treatment 1 visit EVM 15' FA 10' KATHERINE ZEPEDA PT November 21, 2018 14:38
--- NOTE | 2018-11-21 14:40 | NUR ---
report from DORIAN Matthew at this time
--- NOTE | 2018-11-21 14:42 | NUR ---
PT TRANSFERRED TO [facility] VIA CHAIR W/ STAFF AND PERSONAL BELONGINGS. REPORT GIVEN TO VIRGIL ALARCON, NO QUESTIONS/CONCERNS VOICED.
--- NOTE | 2018-11-21 14:48 | NUR ---
patient to floor at this time.
--- NOTE | 2018-11-21 14:53 | NUR ---
Received Social Service referral from .Introduced to pt and his who live in [place], [place]. He has adult children from previous marriage with 2 daughters living in [place] and a son who lives nearby. Pt's will be his primary caregiver. Pt aware of a cancer diagnosis and awaiting pathology results and treatment recommendations. will follow and assist with continued care planning.
--- NOTE | 2018-11-21 14:55 | NUR ---
ASSUMED CARE OF PT. PHYSICAL ASSESSMENT AGREED WITH LAST ASSESSMENT COMPLETED BY ICU, RN EXCEPT PT IS NO LONGER ON 2LNC BUT ROOM AIR AT THIS TIME. PT ORIENTED TO ROOM CALL LIGHT WITHIN REACH. WILL CONTINUE TO MONITOR.
[2018-11-21] MEDS ORDERED: NON-FORMULARY MEDICATION 1 EA EA (Insulin Lispro (Humalog Kwikpen) 5 UNITS) SC SCH (18:00)
[2018-11-21] MEDS ORDERED: NON-FORMULARY MEDICATION 1 EA EA (Pioglitazone HCl 45 MG) PO SCH (18:00)
[2018-11-21] MEDS: PIOGLITAZONE 30MG (ACTOS) TAB PO SCH (19:04)
[2018-11-21] MEDS: BRIMONIDINE 0.2% (ALPHAGAN) OPHTH SOLN 5 ML BTL OD SCH (20:50)
[2018-11-21] MEDS: LATANOPROST 0.005% (XALATAN) OPHTH SOLN 2.5 ML OD SCH (20:55)
[2018-11-21] MEDS: TIMOLOL MALEATE 0.5% 5 ML (TIMOPTIC) BTL OD SCH (20:55)
[2018-11-21] MEDS ORDERED: NON-FORMULARY MEDICATION 1 EA EA (Brimonidine Tartrate/Timolol (Combigan Eye Drops) 1 DROP OD SCH (21:00)
[2018-11-21] MEDS ORDERED: BRIMONIDINE 0.2% (ALPHAGAN) OPHTH SOLN 5 ML BTL OU SCH (21:00)
--- NOTE | 2018-11-21 21:34 | CONSULTATION REPORT ---
DATE OF SERVICE: 11/21/2018 PHYSICIAN REQUESTING CONSULTATION: Meena Garcia DO. PRIMARY PHYSICIAN: Randy Cantu DO. The patient is admitted to ICU bed 7. IMPRESSION: 1. An 83-year-old male admitted to the hospital with increasing weakness, fall and new lung lesions. 2. CT scan of the abdomen and pelvis also showing a left renal mass. 3. Remote history of prostate cancer. 4. Hypercalcemia. RECOMMENDATIONS: 1. Agree with bronchoscopy with EBUS and biopsy of mediastinal/hilar lymph nodes for tissue diagnosis. 2. If the bronchoscopy and biopsy does not give an answer, the patient will need a CT-guided biopsy of the left renal mass. 3. Once tissue diagnosis was obtained, I will discuss the prognosis and treatment options with the patient and family. 4. Treat hypercalcemia with aggressive hydration. I will also order pamidronate 60 mg IV. 5. Monitor lab work serially. 6. I will follow the patient once the preliminary pathology report is available on Saturday. BRIEF HISTORY: The patient is an 83-year-old male who has been sick since the last 3 months with his symptoms gradually worsening. Yesterday, the patient had a fall at home and was taken to [facility]. Workup including a CT scan of the chest showed bilateral lung masses as well as mediastinal lymphadenopathy. He was admitted to [facility] for further evaluation and management. Oncology consultation was requested for recommendations regarding diagnosis and further management. The patient indicated that he has not been feeling well for the past three months. Initially, his blood sugars were out of control and more recently, he started becoming weaker and initially started using a cane and more recently a walker for ambulation. Yesterday, he had a fall at home, but did not hurt himself badly. He was evaluated at [facility] as mentioned above and admitted to [facility]. PAST MEDICAL HISTORY: Significant for diabetes mellitus type 2 diagnosed in 1996. Initially, he was on oral agents and was started on insulin yesterday from the emergency room. Denied any coronary artery disease or MO or congestive heart failure. PRIOR SURGERIES: Include osteoarthritis with bilateral hip replacement 5 and 10 years ago, right eye cataract surgery with intraocular lens implant. 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 Cholecystectomy 5 to 10 years ago. SOCIAL HISTORY: The patient is and lives in [place], [place]. He has a son who lives in [place] and two daughters who live in [place]. 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 He denied any significant exposure to chemicals during his work. He smoked for approximately 15 years averaging two to three packs a day and quit smoking a few decades ago. He used alcohol socially until the diagnosis of diabetes mellitus and has quit drinking since then. He denied any recreational drug use. FAMILY HISTORY: Only significant for a maternal aunt who was diagnosed with breast cancer while in her 70s and a cousin on the paternal side of family with an unknown malignancy. PHYSICAL EXAMINATION: GENERAL: Today showed an elderly male, awake and oriented, weak appearing, otherwise in no acute distress. VITAL SIGNS: Temperature was 98.2, pulse rate of 73, respirations 15, blood pressure 161/72 with oxygen saturation of 97% on 2 liters of oxygen by nasal cannula. HEENT: Normocephalic, extraocular muscles intact, conjunctivae pink, oral mucosa is slightly dry. NECK: Supple with no JVD. No cervical, supraclavicular or axillary lymphadenopathy palpable. CHEST: Symmetrical. Lungs with slightly diminished breath sounds bilaterally without wheezes or rales. CARDIOVASCULAR: Regular in rate and rhythm. No murmurs or gallops are heard. ABDOMEN: Obese, soft, nontender with no hepatosplenomegaly or other masses palpable. EXTREMITIES: Showed no edema. NEUROLOGIC: Showed no focal motor deficits. Overall, motor strength was 4/5 bilaterally. Decreased visual acuity of the left eye. Reviewed his lab work. CBC done today showed WBC 8.3, hemoglobin 10.6, platelet count 211,000 with neutrophil count 5.9, lymphocyte count 1.2, monocyte count 0.9. Chemistry panel done today showed normal electrolytes. BUN was 25 and creatinine 0.94 with GFR more than 60 mL per minute. Nonfasting glucose was 162. Measured calcium was 11 and corrected calcium 11.8 with albumin level of 3.0. Liver function studies were within normal limits. Serum magnesium was 1.5. LDH was 128. CT scan of the chest, abdomen and pelvis done earlier today showed multiple soft tissue pulmonary nodules bilaterally suspicious for metastatic lesions, largest in the superior segment of right lower lobe measuring 3.1 cm. There are pathological appearing lymph nodes in the mediastinum. Small pleural effusions are seen. CT scan of the abdomen and pelvis showed small left adrenal nodule measuring 2.1 x 1.5 cm. Large mass in the lower pole of left kidney measuring 7 x 6.4 cm suspicious for carcinoma. Right renal cortical cyst present. Intraluminal heterogeneity of enhancement associated with left renal vein without obstruction. Bilateral hip prosthesis seen, which limits evaluation of lower pelvis. Prostate is surgically absent. Thank you for allowing me to participate in this patient's care. I will follow the patient with you and make appropriate recommendations. Job ID: [id number] DocumentID: [id number] Dictated Date: 11/21/2018 14:01:55 Poundmaster Date: 11/21/2018 21:33:21 Dictated By: YOBANY WOODARD MD MTDD
[2018-11-21] MEDS ORDERED: INSULIN DEGLUDEC 15 UNIT SC SCH (22:00)
[2018-11-22 00:53] VITALS: BP 129/60
[2018-11-22] MEDS: RT-ALBUTEROL/IPRATROPIUM 3 ML (DUONEB) VIAL INH SCH ×5 (02:47→21:52)
[2018-11-22 04:00] VITALS: BP 136/63
[2018-11-22 05:45] LABS: BASOPHILS % (AUTO) 0 % (0-10); EOSINOPHILS # (AUTO) 0.3 10^3/uL (0.0-0.3); EOSINOPHILS % (AUTO) 3 % (0-10); HEMATOCRIT 31 % (40-54); HEMOGLOBIN 9.7 G/DL (13.3-17.7); LYMPHOCYTES # (AUTO) 0.9 X 10^3 (1.0-4.0); LYMPHOCYTES % (AUTO) 10 % (12-44); MEAN CORPUSCULAR HEMOGLOBIN 28 PG (25-34); MEAN CORPUSCULAR HGB CONC 32 G/DL (32-36); MEAN CORPUSCULAR VOLUME 88 FL (80-99); MEAN PLATELET VOLUME 10.6 FL (7.4-10.4); MONOCYTES % (AUTO) 11 % (0-12); NEUTROPHILS # (AUTO) 6.6 X 10^3 (1.8-7.8); NEUTROPHILS % (AUTO) 75 % (42-75); PLATELET COUNT 200 10^3/uL (130-400); RED CELL DISTRIBUTION WIDTH 13.8 % (10.0-14.5); WHITE BLOOD COUNT 8.8 10^3/uL (4.3-11.0)
[2018-11-22] MEDS ORDERED: TROSPIUM 20 MG (SANCTURA) TAB PO SCH (06:00)
[2018-11-22] MEDS: inSUlin ASPART (NovoLOG) 1 UNIT/0.01 ML (CHARGE PER UNIT) SC SCH ×5 (06:06→21:04)
[2018-11-22 06:08] LABS: ALANINE AMINOTRANSFERASE 14 U/L (0-55); ALBUMIN 2.8 GM/DL (3.2-4.5); ALKALINE PHOSPHATASE 98 U/L (40-136); BILIRUBIN,TOTAL 0.6 MG/DL (0.1-1.0); BUN/CREATININE RATIO 26; CALCIUM 10.5 MG/DL (8.5-10.1); CARBON DIOXIDE 23 MMOL/L (21-32); CHLORIDE 107 MMOL/L (98-107); CREATININE SERUM 0.84 MG/DL (0.60-1.30); GFR ESTIMATED > 60; GLUCOSE 182 MG/DL (70-105); MAGNESIUM 1.7 MG/DL (1.8-2.4); POTASSIUM 4.3 MMOL/L (3.6-5.0); SODIUM 138 MMOL/L (135-145); TOTAL PROTEIN 5.8 GM/DL (6.4-8.2)
[2018-11-22 08:00] VITALS: BP 169/68
--- NOTE | 2018-11-22 08:35 | Anesthesia-General Post-Op ---
General Patient Condition Mental Status/LOC: Same as Preop Cardiovascular: Satisfactory Nausea/Vomiting: Absent Respiratory: Satisfactory Pain: Controlled Complications: Absent Post Op Complications Complications None Follow Up Care/Instructions Patient Instructions None needed. Anesthesia/Patient Condition Patient Condition Patient is doing well, no complaints, stable vital signs, no apparent adverse anesthesia problems. No complications reported per nursing. ARABELLA MCWILLIAMS CRNA November 22, 2018 08:35
[2018-11-22] MEDS: BRIMONIDINE 0.2% (ALPHAGAN) OPHTH SOLN 5 ML BTL OD SCH ×3 (08:51→21:05)
[2018-11-22] MEDS: TIMOLOL MALEATE 0.5% 5 ML (TIMOPTIC) BTL OD SCH ×2 (08:51→21:05)
[2018-11-22] MEDS: NS IV 1000 ML 1,000 ML IV SCH ×2 (08:53→21:03)
[2018-11-22] MEDS ORDERED: SOLIFENACIN 5 MG TAB (VESICARE) NON-FORMULARY PO SCH (09:00)
[2018-11-22] MEDS ORDERED: PATIENT MAY USE OWN MEDS, ALL MC SCH (11:00)
[2018-11-22] MEDS: SOLIFENACIN 5 MG TAB (VESICARE) NON-FORMULARY PO SCH (11:29)
[2018-11-22 12:00] VITALS: BP 160/67
--- NOTE | 2018-11-22 12:10 | Physical Therapy Daily Note ---
PT Daily Note-Current Subjective Pt agrees to PT session Pain Numeric Pain Scale: 0-No Pain Appearance Pt awake and alert in bed with present upon arrival. At end of session, pt sitting up in recliner with present, call light, phone and bedside table within reach Mental Status Patient Orientation: Person, Place, Time, Eyes Open, Situation Transfers Therapy Code Descriptions/Definitions Functional [place] Measure: 0=Not Assessed/NA 4=Minimal Assistance 1=Total Assistance 5=Supervision or Setup 2=Maximal Assistance 6=Modified [place] 3=Moderate Assistance 7=Complete [place] Therapy Quality Codes: 6 Independent with activity with or without an assistive device 5 Patient requires set up or clean up by helper. Patient completes activity by themselves 4 Supervision or touching assist (CGA). [place] provide cues , steadying assist 3 The helper provides less than half the effort to complete the activity 2 The helper provides more than half the effort to complete the activity 1 Dependent. The helper does all the effort to complete an activity 7 Patient refused to complete or attempt activity 9 The patient did not perform the activity before the current illness or injury 88 Not attempted due to Medical conditions or safety concerns Transfers (B, C, W/C) (FIM): 4 Supine to/from Sit: 4 (HOB elevated, use of bedrails) Sit to/from Stand: 4 (CGA, requring bed to be elevated, unable to stand from neutral bed height) Weight Bearing Right Lower Extremity: Right Weight Bearing/Tolerated Left Lower Extremity: Left Weight Bearing/Tolerated Gait Training Gait (FIM): 1 Distance (FIM): 1=up to 49 ft Distance: 7 Gait Level of Assist: 5 Gait Persons Needed: 1 Gait Assistive Device: FWW slow shuffling, relying heavily on FWW, steady, no LOB Exercises Seated Therapy Exercises: Ankle pumps, Long arc quads, Hip flexion, Hip abd/add Seated Reps: 20 Treatments bed mobility, transfers, safety, gait, functional mobility, activity tolerance, balance, strengthening Assessment Current Status: Good Progress PT Short Term Goals Short Term Goals Time Frame: November 28, 2018 Transfers (B,C,W/C) (FIM): 4 Gait (FIM): 1 Gait Distance Comment: 20' Gait Level of Assist: 4 Gait Assistive Device: FWW PT Plan Treatment/Plan Treatment Plan: Continue Plan of Care Treatment Plan: Bed Mobility, Education, Functional Activity [place], Functional Strength, Gait, Safety, Therapeutic Exercise, Transfers Treatment Duration: November 28, 2018 Frequency: 6 times per week Estimated Hrs Per Day: .25 hour per day (15-30') Patient and/or Family Agrees t: Yes Safety Risks/Education Patient Education: Gait Training, Transfer Techniques, Safety Issues Teaching Recipient: Patient, Family Teaching Methods: Demonstration, Discussion Response to Teaching: Verbalize Understanding, Return Demonstration Time/GCodes Time In: 923 Time Out: 941 Total Billed Treatment Time: 13 Total Billed Treatment 1 visit, FA x1 EBER [employer]OU[employer] November 22, 2018 12:10
--- NOTE | 2018-11-22 12:47 | Progress Note-Hospitalist ---
Subjective HPI/CC On Admission Date Seen by Provider: November 22, 2018 Time Seen by Provider: 12:00 This is an 83-year-old white male who was accepted in transfer from [place] after having fallen in his shower secondary to weakness. It was found that he had multiple pulmonary nodules and hypercalcemia and hypomagnesemia. The patient had been in declining health over the last 6 months or so. It started primarily with a fractured ankle about 2 years ago. He had been ambulatory with a cane but had not been able to exercise and be as active. He then over the last 2-3 months has progressed to where he can only ambulate with a walker. Yesterday he was getting ready to go see Dr. Cantu at his appointment when he fell getting out of the shower. Further evaluation has found multiple pulmonary nodules with hypercalcemia hypomagnesemia and a 7 cm renal mass. He does have a past medical history of cancer the prostate Subjective/Events-last exam Patient is feeling better today and stronger. He actually walked to the door. His is with him today. He is anxious about the results of his tests and would like to have a good quality of life. Review of Systems Neurological: Weakness Focused Exam Lactate Level 11/20/18 19:17: Lactic Acid Level 1.34 Objective Exam Vital Signs Vital Signs Date Time Temp Pulse Resp B/P (MAP) Pulse Ox O2 Delivery O2 Flow Rate FiO2 11/22/18 09:00 93 Nasal Cannula 1.50 11/22/18 08:00 100.1 73 20 169/68 (101) 11/21/18 05:50 21 Capillary Refill : Less Than 3 SecondsLess Than 3 Seconds General Appearance: Chronically ill HEENT: Normal ENT Inspection Neck: Non Tender, Limited Range of Motion Respiratory: Chest Non Tender, Normal Breath Sounds, Crackles Cardiovascular: Regular Rate, Rhythm, No Gallop, Systolic Murmur Gastrointestinal: Normal Bowel Sounds, Non Tender, Soft Rectal: Deferred Back: Normal Inspection, No CVA Tenderness Extremity: No Calf Tenderness, Pedal Edema, Other (Chronic venous stasis changes) Neurologic/Psychiatric: Alert, Oriented x3, No Motor/Sensory Deficits, Normal Mood/Affect Skin: Warm/Dry, Pallor Lymphatic: No Adenopathy Results/Procedures Lab Laboratory Tests 11/22/18 05:10 Patient resulted labs reviewed. 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 most likely improving with IV fluids and panidronate Multiple pulmonary nodules possible lung primary versus metastatic disease Left renal mass History cancer the prostate remote Hypomagnesemia will replace Low-grade temperature Diagnosis/Problems Diagnosis/Problems (1) Hypercalcemia of malignancy Status: Acute (2) Renal mass, left Status: Acute (3) Hypomagnesemia (4) Pulmonary nodules/lesions, multiple Status: Acute (5) Adrenal nodule Status: Acute (6) Diabetes Status: Chronic Qualifiers: Diabetes mellitus type: type 2 Clinical Quality Measures DVT/VTE Risk/Contraindication: Risk Factor Score Per Nursin RFS Level Per Nursing on Admit: 3=High JOSHUA HUGGINS MD November 22, 2018 12:47
[2018-11-22] MEDS: cefTRIAXone FOR IV USE 1,000 MG in WATER (STERILE) FOR INJECTION 10 ML IV SCH (13:00)
[2018-11-22] MEDS: MAGNESIUM 1 GM/100 ML IVPB 100 ML IV SCH ×2 (13:00→14:39)
[2018-11-22 16:00] VITALS: BP 173/56
[2018-11-22] MEDS: PIOGLITAZONE 30MG (ACTOS) TAB PO SCH (18:11)
[2018-11-22 20:00] VITALS: BP 132/61
[2018-11-22] MEDS: LATANOPROST 0.005% (XALATAN) OPHTH SOLN 2.5 ML OD SCH (21:05)
--- NOTE | 2018-11-22 21:44 | Oncology Progress Note ---
Subjective Time Seen by a Provider: 21:43 Subjective/Events-last exam Feeling better Data Review Labs Physical Exam Vital Signs Vital Signs - First Documented 11/26/18 08:00 Temp 98.4 Pulse 85 Resp 20 B/P (MAP) 138/64 (88) Pulse Ox 93 O2 Delivery Nasal Cannula O2 Flow Rate 2.50 Capillary Refill : Less Than 3 SecondsLess Than 3 Seconds Height, Weight, BMI Height: 6'8.00" Weight: 281lbs. 9.6oz. 127.731335th; 30.0 BMI Method: General Appearance: No Apparent Distress HEENT: PERRL/EOMI Respiratory: No Accessory Muscle Use, No Respiratory Distress Neurologic/Psychiatric: Alert, Oriented x3 Focused Exam Lactate Level Impression & Plan Impression & Plan IMPRESSION: 1. An 83-year-old male admitted to the hospital with increasing weakness, fall and new lung lesions. 2. CT scan of the abdomen and pelvis also showing a left renal mass. 3. Remote history of prostate cancer. 4. Hypercalcemia. RECOMMENDATIONS: 1. Agree with bronchoscopy with EBUS and biopsy of mediastinal/hilar lymph nodes for tissue diagnosis. 2. If the bronchoscopy and biopsy does not give an answer, the patient will need a CT-guided biopsy of the left renal mass. 3. Once tissue diagnosis was obtained, I will discuss the prognosis and treatment options with the patient and family. 4. Treat hypercalcemia with aggressive hydration. I will also order pamidronate 60 mg IV. 5. Monitor lab work serially. 6. Dr Lucas will follow the patient once the preliminary pathology report is available on Saturday. Clinical Quality Measures DVT/VTE Risk/Contraindication: Risk Factor Score Per Nursin RFS Level Per Nursing on Admit: 3=High LEONARDO DELGADO MD November 22, 2018 21:44
[2018-11-23] VITALS (7 sets, daily range): BP systolic 154–177; BP diastolic 63–75
[2018-11-23] MEDS: RT-ALBUTEROL/IPRATROPIUM 3 ML (DUONEB) VIAL INH SCH ×2 (03:34→19:53)
[2018-11-23] MEDS: NS IV 1000 ML 1,000 ML IV SCH ×3 (06:10→17:51)
[2018-11-23] MEDS: inSUlin ASPART (NovoLOG) 1 UNIT/0.01 ML (CHARGE PER UNIT) SC SCH ×5 (06:10→22:04)
[2018-11-23 06:42] LABS: BASOPHILS % (AUTO) 0 % (0-10); EOSINOPHILS # (AUTO) 0.1 10^3/uL (0.0-0.3); EOSINOPHILS % (AUTO) 1 % (0-10); HEMATOCRIT 31 % (40-54); HEMOGLOBIN 9.6 G/DL (13.3-17.7); LYMPHOCYTES # (AUTO) 0.7 X 10^3 (1.0-4.0); LYMPHOCYTES % (AUTO) 12 % (12-44); MEAN CORPUSCULAR HEMOGLOBIN 27 PG (25-34); MEAN CORPUSCULAR HGB CONC 31 G/DL (32-36); MEAN CORPUSCULAR VOLUME 88 FL (80-99); MEAN PLATELET VOLUME 10.6 FL (7.4-10.4); MONOCYTES # (AUTO) 0.7 X 10^3 (0.0-1.0); MONOCYTES % (AUTO) 12 % (0-12); NEUTROPHILS # (AUTO) 4.3 X 10^3 (1.8-7.8); NEUTROPHILS % (AUTO) 74 % (42-75); PLATELET COUNT 183 10^3/uL (130-400); WHITE BLOOD COUNT 5.8 10^3/uL (4.3-11.0)
[2018-11-23 07:01] LABS: ALANINE AMINOTRANSFERASE 16 U/L (0-55); ALBUMIN 2.8 GM/DL (3.2-4.5); ALKALINE PHOSPHATASE 101 U/L (40-136); BILIRUBIN,TOTAL 0.6 MG/DL (0.1-1.0); BUN/CREATININE RATIO 19; CALCIUM 9.4 MG/DL (8.5-10.1); CARBON DIOXIDE 21 MMOL/L (21-32); CHLORIDE 106 MMOL/L (98-107); CREATININE SERUM 0.86 MG/DL (0.60-1.30); GFR ESTIMATED > 60; GLUCOSE 195 MG/DL (70-105); MAGNESIUM 1.6 MG/DL (1.8-2.4); POTASSIUM 3.6 MMOL/L (3.6-5.0); SODIUM 134 MMOL/L (135-145); TOTAL PROTEIN 5.9 GM/DL (6.4-8.2)
[2018-11-23] MEDS: SOLIFENACIN 5 MG TAB (VESICARE) NON-FORMULARY PO SCH (07:52)
[2018-11-23] MEDS: BRIMONIDINE 0.2% (ALPHAGAN) OPHTH SOLN 5 ML BTL OD SCH ×3 (07:53→20:30)
[2018-11-23] MEDS: cefTRIAXone FOR IV USE 1,000 MG in WATER (STERILE) FOR INJECTION 10 ML IV SCH (07:53)
[2018-11-23] MEDS: TIMOLOL MALEATE 0.5% 5 ML (TIMOPTIC) BTL OD SCH ×2 (07:53→20:30)
--- NOTE | 2018-11-23 11:09 | Oncology Progress Note ---
Subjective Time Seen by a Provider: 11:08 Subjective/Events-last exam Pt is feeling better. No new issues. Data Review Labs Laboratory Tests 11/23/18 06:00 Laboratory Tests 11/20/18 19:17: Red Blood Count 4.02L, Hemoglobin 11.2L, Hematocrit 35L, Mean Platelet Volume 10.7H, Neutrophils (%) (Auto) 76H, Neutrophils # (Auto) 8.1H, Monocytes # (Auto ) 1.1H, Activated Partial Thromboplast Time 36H, Blood Urea Nitrogen 31H, Glucose Level 224H, Calcium Level 11.6H, Corrected Calcium 12.2H, Magnesium Level 1.7L 11/20/18 22:20: Glucometer 203H 11/21/18 03:20: Red Blood Count 3.83L, Hemoglobin 10.6L, Hematocrit 33L, Mean Platelet Volume 11.1H, Blood Urea Nitrogen 25H, Glucose Level 162H, Calcium Level 11.0H, Corrected Calcium 11.8H, Magnesium Level 1.5L, Total Protein 6.3L, Albumin 3.0L 11/21/18 05:00: 11/21/18 08:59: Glucometer 187H 11/21/18 10:35: Glucometer 200H 11/21/18 16:37: Glucometer 233H 11/21/18 20:12: Glucometer 248H 11/22/18 05:10: Red Blood Count 3.50L, Hemoglobin 9.7L, Hematocrit 31L, Mean Platelet Volume 10.6H, Lymphocytes (%) (Auto) 10L, Lymphocytes # (Auto) 0.9L, Blood Urea Nitrogen 22H, Glucose Level 182H, Calcium Level 10.5H, Corrected Calcium 11.5H, Magnesium Level 1.7L, Total Protein 5.8L, Albumin 2.8L 11/22/18 05:40: Glucometer 179H 11/22/18 10:54: Glucometer 294H 11/22/18 15:55: Glucometer 226H 11/22/18 20:38: Glucometer 233H 11/23/18 05:59: Glucometer 211H 11/23/18 06:00: Red Blood Count 3.52L, Hemoglobin 9.6L, Hematocrit 31L, Mean Corpuscular Hemoglobin Concent 31L, Mean Platelet Volume 10.6H, Lymphocytes # (Auto) 0.7L, Sodium Level 134L, Glucose Level 195H, Corrected Calcium 10.4H, Magnesium Level 1.6L, Total Protein 5.9L, Albumin 2.8L 11/23/18 10:45: Glucometer 261H Laboratory Tests 11/23/18 06:00 Physical Exam Vital Signs Vital Signs - First Documented 11/20/18 11/21/18 11/21/18 19:46 05:50 08:51 Temp 99.2 O2 Flow Rate 10 FiO2 21 Capillary Refill : Less Than 3 SecondsLess Than 3 Seconds Height, Weight, BMI Height: 6'8.00" Weight: 276lbs. 5.0oz. 125.513787pa; 30.0 BMI Method: General Appearance: No Apparent Distress HEENT: PERRL/EOMI Neck: Non Tender, Supple Respiratory: No Accessory Muscle Use, No Respiratory Distress Cardiovascular: Regular Rate, Rhythm, No JVD Gastrointestinal: Non Tender, Soft Extremity: Pedal Edema Neurologic/Psychiatric: Alert, Oriented x3 Focused Exam Lactate Level 11/20/18 19:17: Lactic Acid Level 1.34 Impression & Plan Impression & Plan IMPRESSION: 1. An 83-year-old male admitted to the hospital with increasing weakness, fall and new lung lesions. 2. CT scan of the abdomen and pelvis also showing a left renal mass. 3. Remote history of prostate cancer. 4. Hypercalcemia, s/p pamidronate and IV fluid, improving serum calcium near normal today. RECOMMENDATIONS: 1. Bronchoscope with EBUS and biopsy of mediastinal/hilar lymph nodes for tissue diagnosis. 2. If the bronchoscope and biopsy does not give an answer, the patient will need a CT-guided biopsy of the left renal mass. 3. Once tissue diagnosis was obtained, I will discuss the prognosis and treatment options with the patient and family. 4. We can slow down IV hydration now. 5. Monitor lab work serially. 6. Dr Lucas will follow the patient once the preliminary pathology report is available on Saturday. Clinical Quality Measures DVT/VTE Risk/Contraindication: Risk Factor Score Per Nursin RFS Level Per Nursing on Admit: 3=High LEONARDO DELGADO MD November 23, 2018 11:09
--- NOTE | 2018-11-23 13:55 | Progress Note-Hospitalist ---
Subjective HPI/CC On Admission Date Seen by Provider: November 23, 2018 Time Seen by Provider: 12:00 This is an 83-year-old white male who was accepted in transfer from [place] after having fallen in his shower secondary to weakness. It was found that he had multiple pulmonary nodules and hypercalcemia and hypomagnesemia. The patient had been in declining health over the last 6 months or so. It started primarily with a fractured ankle about 2 years ago. He had been ambulatory with a cane but had not been able to exercise and be as active. He then over the last 2-3 months has progressed to where he can only ambulate with a walker. Yesterday he was getting ready to go see Dr. Cantu at his appointment when he fell getting out of the shower. Further evaluation has found multiple pulmonary nodules with hypercalcemia hypomagnesemia and a 7 cm renal mass. He does have a past medical history of cancer the prostate Subjective/Events-last exam Patient is in bed thinks his bowels may will removed today so he is pretty excited about that. He is not getting up out of bed still is weak but better than when he came in. He remains anxious about the pathology report from his E bus from Dr. Franco but realizes that chances for malignancy or very high. Review of Systems Gastrointestinal: Constipation Focused Exam Lactate Level Objective Exam Vital Signs Vital Signs Date Time Temp Pulse Resp B/P (MAP) Pulse Ox O2 Delivery O2 Flow Rate FiO2 11/23/18 19:54 93 Nasal Cannula 2.00 11/23/18 16:00 99.6 79 16 177/75 (109) 11/23/18 14:05 26 Capillary Refill : Less Than 3 SecondsLess Than 3 Seconds General Appearance: No Apparent Distress HEENT: PERRL/EOMI Neck: Non Tender, Supple Respiratory: No Accessory Muscle Use, No Respiratory Distress Cardiovascular: Regular Rate, Rhythm, No JVD Gastrointestinal: Non Tender, Soft Rectal: Deferred Back: Normal Inspection, No CVA Tenderness Extremity: Pedal Edema Neurologic/Psychiatric: Alert, Oriented x3 Skin: Warm/Dry, Pallor Lymphatic: No Adenopathy Results/Procedures Lab Laboratory Tests 11/23/18 06:00 Patient resulted labs reviewed. 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 most likely improving with IV fluids and panidronate Multiple pulmonary nodules possible lung primary versus metastatic disease Left renal mass History cancer the prostate remote Hypomagnesemia will replace Low-grade temperature-on Rocephin Type D 2 diabetes we will increase his Levemir Diagnosis/Problems Diagnosis/Problems (1) Hypercalcemia of malignancy Status: Acute (2) Renal mass, left Status: Acute (3) Pulmonary nodules/lesions, multiple Status: Acute (4) Adrenal nodule Status: Acute (5) Diabetes Status: Chronic Qualifiers: Diabetes mellitus type: type 2 (6) Hypomagnesemia Clinical Quality Measures DVT/VTE Risk/Contraindication: Risk Factor Score Per Nursin RFS Level Per Nursing on Admit: 3=High JOSHUA HUGGINS MD November 23, 2018 13:55
[2018-11-23] MEDS: PIOGLITAZONE 30MG (ACTOS) TAB PO SCH (17:51)
[2018-11-23] MEDS: MAGNESIUM 1 GM/100 ML IVPB 100 ML IV SCH ×2 (20:27→22:04)
[2018-11-23] MEDS: LATANOPROST 0.005% (XALATAN) OPHTH SOLN 2.5 ML OD SCH (20:32)
[2018-11-24] VITALS (7 sets, daily range): BP systolic 126–163; BP diastolic 60–73
[2018-11-24 04:53] LABS: BASOPHILS % (AUTO) 1 % (0-10); EOSINOPHILS # (AUTO) 0.1 10^3/uL (0.0-0.3); EOSINOPHILS % (AUTO) 2 % (0-10); HEMATOCRIT 30 % (40-54); HEMOGLOBIN 9.5 G/DL (13.3-17.7); LYMPHOCYTES % (AUTO) 17 % (12-44); MEAN CORPUSCULAR HEMOGLOBIN 28 PG (25-34); MEAN CORPUSCULAR HGB CONC 32 G/DL (32-36); MEAN CORPUSCULAR VOLUME 87 FL (80-99); MEAN PLATELET VOLUME 10.6 FL (7.4-10.4); MONOCYTES # (AUTO) 0.9 X 10^3 (0.0-1.0); MONOCYTES % (AUTO) 15 % (0-12); NEUTROPHILS % (AUTO) 66 % (42-75); PLATELET COUNT 179 10^3/uL (130-400); RED CELL DISTRIBUTION WIDTH 13.8 % (10.0-14.5)
[2018-11-24 05:11] LABS: ALANINE AMINOTRANSFERASE 22 U/L (0-55); ALBUMIN 2.7 GM/DL (3.2-4.5); ALKALINE PHOSPHATASE 111 U/L (40-136); BILIRUBIN,TOTAL 0.5 MG/DL (0.1-1.0); BUN/CREATININE RATIO 18; CALCIUM 9.2 MG/DL (8.5-10.1); CARBON DIOXIDE 22 MMOL/L (21-32); CHLORIDE 108 MMOL/L (98-107); CREATININE SERUM 0.76 MG/DL (0.60-1.30); GFR ESTIMATED > 60; GLUCOSE 114 MG/DL (70-105); POTASSIUM 3.8 MMOL/L (3.6-5.0); SODIUM 138 MMOL/L (135-145); TOTAL PROTEIN 5.5 GM/DL (6.4-8.2)
[2018-11-24] MEDS: inSUlin ASPART (NovoLOG) 1 UNIT/0.01 ML (CHARGE PER UNIT) SC SCH ×5 (05:43→22:00)
[2018-11-24] MEDS: RT-ALBUTEROL/IPRATROPIUM 3 ML (DUONEB) VIAL INH SCH ×2 (07:02→20:04)
[2018-11-24] MEDS: cefTRIAXone FOR IV USE 1,000 MG in WATER (STERILE) FOR INJECTION 10 ML IV SCH (08:08)
[2018-11-24] MEDS: NS IV 1000 ML 1,000 ML IV SCH ×2 (08:08→21:59)
[2018-11-24] MEDS: SOLIFENACIN 5 MG TAB (VESICARE) NON-FORMULARY PO SCH (08:09)
[2018-11-24] MEDS: TIMOLOL MALEATE 0.5% 5 ML (TIMOPTIC) BTL OD SCH ×2 (08:10→22:01)
[2018-11-24] MEDS: BRIMONIDINE 0.2% (ALPHAGAN) OPHTH SOLN 5 ML BTL OD SCH ×3 (08:10→22:01)
--- NOTE | 2018-11-24 11:25 | Physical Therapy Daily Note ---
PT Daily Note-Current Subjective Patient in bed pre tx, agrees to PT, no complaints of pain. Appearance Patient in recliner post tx with nurse call, phone, tray, all needs met. Mental Status Patient Orientation: Person, Place, Situation Attachments: Oxygen, IV 3L of O2 nasal canula Transfers Therapy Code Descriptions/Definitions Functional [place] Measure: 0=Not Assessed/NA 4=Minimal Assistance 1=Total Assistance 5=Supervision or Setup 2=Maximal Assistance 6=Modified [place] 3=Moderate Assistance 7=Complete [place] Therapy Quality Codes: 6 Independent with activity with or without an assistive device 5 Patient requires set up or clean up by helper. Patient completes activity by themselves 4 Supervision or touching assist (CGA). [place] provide cues , steadying assist 3 The helper provides less than half the effort to complete the activity 2 The helper provides more than half the effort to complete the activity 1 Dependent. The helper does all the effort to complete an activity 7 Patient refused to complete or attempt activity 9 The patient did not perform the activity before the current illness or injury 88 Not attempted due to Medical conditions or safety concerns Transfers (B, C, W/C) (FIM): 4 Scootin Rollin Supine to/from Sit: 4 Sit to/from Stand: 4 Bed to/from Chair: 5 Min assist for supine to sit and sit to stand. Cues for hand placement and positioning. Weight Bearing Right Lower Extremity: Right Weight Bearing/Tolerated Left Lower Extremity: Left Weight Bearing/Tolerated Gait Training Gait (FIM): 1 Distance: 20' Gait Level of Assist: 5 Gait Assistive Device: FWW Slow but steady ambulation, patient has knee ROM impairments bilaterally and ambulates with slightly flexed bilateral knees. Exercises Seated Therapy Exercises: Ankle pumps, Long arc quads Seated Reps: 15 Treatments bed mobility and transfers, ambulation, LE exercises Assessment Current Status: Fair Progress improving endurance PT Short Term Goals Short Term Goals Time Frame: November 28, 2018 Transfers (B,C,W/C) (FIM): 4 Gait (FIM): 1 Gait Distance Comment: 20' Gait Level of Assist: 4 Gait Assistive Device: FWW PT Plan Problem List Problem List: Activity Tolerance, Functional Strength, Safety, Balance, Gait, Transfer, Bed Mobility, ROM Treatment/Plan Treatment Plan: Continue Plan of Care Treatment Plan: Bed Mobility, Education, Functional Activity [place], Functional Strength, Gait, Safety, Therapeutic Exercise, Transfers Treatment Duration: November 28, 2018 Frequency: 6 times per week Estimated Hrs Per Day: .25 hour per day (15-30') Patient and/or Family Agrees t: Yes Safety Risks/Education Patient Education: Gait Training, Transfer Techniques, Correct Positioning, Safety Issues Teaching Recipient: Patient Teaching Methods: Demonstration, Discussion Response to Teaching: Reinforcement Needed Time/GCodes Time In: 1104 Time Out: 1120 Total Billed Treatment Time: 16 Total Billed Treatment 1 visit FA 16' KATHERINE ZEPEDA PT November 24, 2018 11:24
--- NOTE | 2018-11-24 14:30 | NUR ---
Pastoral care visit.
--- NOTE | 2018-11-24 15:25 | Progress Note-Hospitalist ---
Progress Note Progress Notes/Assess & Plan Date Seen 11/24/18 Time Seen by Provider: 15:20 Assessment & Plan The patient is an 83-year-old white male who presented to the emergency room after a fall. He complained of generalized and progressive weakness. Evaluation in the emergency room showed him to be hypercalcemic. CT scanning triggered by the hypercalcemia showed pulmonary nodules and central hilar lymph nodes consistent with metastatic tumor. He was noted to have 3 benign- appearing cysts on the right kidney and a significant mass in the left kidney plus evidence of involvement of the adrenal gland on the left. Dr. Franco performed bronchoscopy for the purposes of attempting to get a tissue diagnosis. We are informed today that this was not positive or diagnostic. Dr. Calderon has spoken to Dr. Kruse in radiology and he believes that he can do a percutaneous renal biopsy with CT guidance. This will be scheduled. These developments were discussed with the patient. Physical exam shows an elderly appearing white male lungs are clear to auscultation. CV is regular. Multiple lesions are noted about the face suggesting skin cancers or actinic keratoses. Laboratory review: The patient initially had a calcium of 12.2 which has fallen to 10.2 today. He reports he is feeling better with regard to strength today. Impression: 1.hypercalcemia resolving. 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 Plan: Schedule needle biopsy at earliest convenience. ALYSSA MARTIN MD November 24, 2018 15:25
[2018-11-24] MEDS: ACETAMINOPHEN 500 MG TAB (TYLENOL) PO PRN (15:53)
--- NOTE | 2018-11-24 17:50 | NUR ---
PATIENT IS SLEEPING. HIS WANTS TO LET HIM SLEEP. SHE WILL LET THIS RN KNOW WHEN HE WAKES UP AND IS READY TO EAT. HIS 1800 DOSE OF INSULIN AND ACTOS WILL BE GIVEN AT THAT TIME.
--- NOTE | 2018-11-24 17:59 | Progress Note-Standard ---
Standard Progress Note Progress Notes/Assess & Plan Date Seen by a Provider: November 24, 2018 Time Seen by a Provider: 17:54 Progress/Assessment & Plan 83-year-old male admitted with increasing weakness and found to have left renal mass, bilateral pulmonary nodules and hypercalcemia. Status post bronch with EBUS and biopsy of mediastinal and subcarinal lymph nodes on 11/21/2018. Pathology report is nondiagnostic. I have discussed this with Dr. Bethea and we 'll schedule a CT-guided biopsy of the left renal mass. I have also talked to Dr. Carter about this. Patient treated with pamidronate for the hypercalcemia and calcium level is declining. Clinically he is feeling slightly better and is ambulating a few steps using a walker inside his room. We will await left kidney biopsy and pathology report before making further recommendations. YOBANY WOODARD November 24, 2018 17:59
[2018-11-24] MEDS: PIOGLITAZONE 30MG (ACTOS) TAB PO SCH (19:02)
[2018-11-24] MEDS: LATANOPROST 0.005% (XALATAN) OPHTH SOLN 2.5 ML OD SCH (22:01)
[2018-11-25 04:49] VITALS: BP 156/71
[2018-11-25] MEDS: inSUlin ASPART (NovoLOG) 1 UNIT/0.01 ML (CHARGE PER UNIT) SC SCH ×5 (05:39→20:28)
[2018-11-25] MEDS: RT-ALBUTEROL/IPRATROPIUM 3 ML (DUONEB) VIAL INH SCH ×2 (07:17→21:41)
[2018-11-25 08:38] VITALS: BP 146/68
--- NOTE | 2018-11-25 08:59 | Physical Therapy Daily Note ---
PT Daily Note-Current Subjective Patient in bed pre tx, agrees to PT, has 6/10 pain in left leg. Appearance Patient in recliner post tx with nurse call, phone, tray, in room. Mental Status Patient Orientation: Person, Place, Situation Attachments: Oxygen, IV Transfers Therapy Code Descriptions/Definitions Functional [place] Measure: 0=Not Assessed/NA 4=Minimal Assistance 1=Total Assistance 5=Supervision or Setup 2=Maximal Assistance 6=Modified [place] 3=Moderate Assistance 7=Complete [place] Therapy Quality Codes: 6 Independent with activity with or without an assistive device 5 Patient requires set up or clean up by helper. Patient completes activity by themselves 4 Supervision or touching assist (CGA). [place] provide cues , steadying assist 3 The helper provides less than half the effort to complete the activity 2 The helper provides more than half the effort to complete the activity 1 Dependent. The helper does all the effort to complete an activity 7 Patient refused to complete or attempt activity 9 The patient did not perform the activity before the current illness or injury 88 Not attempted due to Medical conditions or safety concerns Transfers (B, C, W/C) (FIM): 4 Scootin Rollin Supine to/from Sit: 4 Sit to/from Stand: 5 Bed to/from Chair: 5 Cues for hand placement. Weight Bearing Right Lower Extremity: Right Weight Bearing/Tolerated Left Lower Extremity: Left Weight Bearing/Tolerated Gait Training Gait (FIM): 1 Distance: 30' Gait Level of Assist: 5 Gait Persons Needed: 1 Gait Assistive Device: FWW slow but steady ambulation Exercises Seated Therapy Exercises: Ankle pumps, Long arc quads Seated Reps: 15 Treatments bed mobility and transfers, ambulation, LE exercises Assessment Current Status: Fair Progress improving endurance and strength PT Short Term Goals Short Term Goals Time Frame: November 28, 2018 Transfers (B,C,W/C) (FIM): 4 Gait (FIM): 1 Gait Distance Comment: 20' Gait Level of Assist: 4 Gait Assistive Device: FWW PT Plan Problem List Problem List: Activity Tolerance, Functional Strength, Safety, Balance, Gait, Transfer, Bed Mobility, ROM Treatment/Plan Treatment Plan: Continue Plan of Care Treatment Plan: Bed Mobility, Education, Functional Activity [place], Functional Strength, Gait, Safety, Therapeutic Exercise, Transfers Treatment Duration: November 28, 2018 Frequency: 6 times per week Estimated Hrs Per Day: .25 hour per day (15-30') Patient and/or Family Agrees t: Yes Safety Risks/Education Patient Education: Gait Training, Transfer Techniques, Correct Positioning, Safety Issues Teaching Recipient: Patient Teaching Methods: Demonstration, Discussion Response to Teaching: Reinforcement Needed Time/GCodes Time In: 0835 Time Out: 0851 Total Billed Treatment Time: 16 Total Billed Treatment 1 visit FA 16' KATHERINE ZEPEDA PT November 25, 2018 08:59
[2018-11-25] MEDS: cefTRIAXone FOR IV USE 1,000 MG in WATER (STERILE) FOR INJECTION 10 ML IV SCH (09:16)
[2018-11-25] MEDS: SOLIFENACIN 5 MG TAB (VESICARE) NON-FORMULARY PO SCH (09:17)
[2018-11-25] MEDS: TIMOLOL MALEATE 0.5% 5 ML (TIMOPTIC) BTL OD SCH ×2 (09:17→20:55)
[2018-11-25] MEDS: BRIMONIDINE 0.2% (ALPHAGAN) OPHTH SOLN 5 ML BTL OD SCH ×3 (09:18→20:55)
[2018-11-25] MEDS: NS IV 1000 ML 1,000 ML IV SCH (11:34)
--- NOTE | 2018-11-25 12:05 | Progress Note-Hospitalist ---
Progress Note Progress Notes/Assess & Plan Date Seen 11/25/18 Time Seen by Provider: 12:04 Assessment & Plan The patient reports he is comfortable. He is anxiously awaiting his CT-guided renal biopsy this afternoon. He also reports that he has not had a bowel movement since admission. Physical exam: He is alert and oriented. Lungs are clear to auscultation. CV is regular without murmur. Abdomen is soft. New Impression: Renal mass suggesting carcinoma. 2.lesions consistent with metastasis to adrenal gland and lungs. Plan: Await renal biopsy. ALYSSA MARTIN MD November 25, 2018 12:05
[2018-11-25] MEDS ORDERED: LIDOCAINE 1% INJ 20 ML 20 ML VIAL INJ ONE (12:30)
--- NOTE | 2018-11-25 14:07 | Pulmonary Progress Note ---
Subjective Time Seen by a Provider: 14:07 Subjective/Events-last exam Pt is scheduled for CTguided needle left renal bx. Sepsis Event Evaluation Height, Weight, BMI Height: 6'8.00" Weight: 280lbs. 8.0oz. 127.286484py; 30.0 BMI Method: Exam Exam Vital Signs Date Time Temp Pulse Resp B/P (MAP) Pulse Ox O2 Delivery O2 Flow Rate FiO2 11/25/18 09:00 Nasal Cannula 2.00 11/25/18 08:38 98.5 96 20 146/68 (94) 91 Nasal Cannula 3.00 11/25/18 07:17 92 Nasal Cannula 3.00 11/25/18 04:49 99.0 82 20 156/71 (99) 93 Nasal Cannula 3.00 11/24/18 23:43 98.8 80 18 149/71 (97) 97 Nasal Cannula 3.00 11/24/18 20:04 94 Nasal Cannula 3.00 11/24/18 20:00 Nasal Cannula 2.00 11/24/18 19:33 99.6 81 18 131/60 (83) 96 Nasal Cannula 3.00 11/24/18 15:53 100.8 11/24/18 15:39 100.8 83 18 163/70 (101) 93 Nasal Cannula 1.50 I & O 11/25/18 07:00 Intake Total 2700 ml Output Total 400 ml Balance 2300 ml Height & Weight Height: 6'8.00" Weight: 280lbs. 8.0oz. 127.385033tw; 30.0 BMI Method: General Appearance: No Apparent Distress HEENT: PERRL/EOMI Neck: Non Tender, Supple Respiratory: No Accessory Muscle Use, No Respiratory Distress Cardiovascular: Regular Rate, Rhythm, No JVD Capillary Refill: Less Than 3 Seconds Gastrointestinal: normal bowel sounds, non tender, soft Extremity: Pedal Edema Neurologic/Psychiatric: Alert, Oriented x3 Skin: Warm/Dry, Pallor Lymphatic: No Adenopathy Results Lab Laboratory Tests 11/24/18 04:15 Assessment/Plan Assessment/Plan Right mid Lung mass with MLA suggestive of metastatic disease -s/p bronchoscopy with EBUS Left renal mass -CT bx is pending Extreme weakness progressive over last 3 wks -monitor Anemia -Monitor -Check occult stool Hypercalcemia - Hx of prostate cancer HANNAH BAEZ DO November 25, 2018 14:07
--- NOTE | 2018-11-25 14:16 | NUR ---
PATIENT OFF FLOOR AT THIS TIME TO CT.
[2018-11-25 14:33] VITALS: BP 133/73
[2018-11-25 14:57] VITALS: BP 137/80
--- NOTE | 2018-11-25 15:05 | NUR ---
Patient back to floor at this time, will continue to monitor
--- NOTE | 2018-11-25 15:18 | Diagnostic Imaging Report ---
INDICATION: Left renal mass. Patient presents for CT-guided biopsy. FINDINGS: Patient was brought to the CT suite, placed on the table in a [id number] position. Imaging through the abdomen was performed to evaluate appropriate entry site. Left flank was prepped and draped in the usual sterile fashion. Small amount of 1% lidocaine was utilized for local anesthesia. An 18-gauge coaxial Temno needle was advanced, placed with its tip within the mass within the lower pole of the left kidney. Four core biopsies were obtained. The needle was withdrawn and hemostasis was obtained using manual compression. Patient tolerated the procedure well and left the department in stable condition. IMPRESSION: Successful CT-guided core biopsy of the solid-appearing mass in the lower pole of the left kidney. Pathology results are currently pending. Dictated by: Dictated on workstation # [id number]
[2018-11-25 16:02] VITALS: BP 140/65
[2018-11-25] MEDS: PIOGLITAZONE 30MG (ACTOS) TAB PO SCH (17:25)
[2018-11-25] MEDS: LATANOPROST 0.005% (XALATAN) OPHTH SOLN 2.5 ML OD SCH (20:55)
[2018-11-25] MEDS: POLYETHYLENE GLYCOL 17 GM (MIRALAX) PACK PO SCH (20:57)
[2018-11-25 23:57] VITALS: BP 129/60
[2018-11-26] MEDS: NS IV 1000 ML 1,000 ML IV SCH ×2 (01:58→15:26)
[2018-11-26] MEDS: inSUlin ASPART (NovoLOG) 1 UNIT/0.01 ML (CHARGE PER UNIT) SC SCH ×5 (06:19→21:57)
--- NOTE | 2018-11-26 07:02 | Pulmonary Progress Note ---
Subjective Time Seen by a Provider: 07:02 Subjective/Events-last exam S/p renal bx cytology pending. Sepsis Event Evaluation Height, Weight, BMI Height: 6'8.00" Weight: 286lbs. 6.3oz. 129.533140yw; 30.0 BMI Method: Exam Exam Vital Signs Date Time Temp Pulse Resp B/P (MAP) Pulse Ox O2 Delivery O2 Flow Rate FiO2 11/25/18 23:57 99.0 98 18 129/60 (83) 98 Nasal Cannula 3.00 11/25/18 21:41 92 Nasal Cannula 3.00 11/25/18 21:00 Nasal Cannula 2.00 11/25/18 16:02 98.2 88 20 140/65 (90) 96 Nasal Cannula 3.00 11/25/18 14:57 94 18 137/80 (99) 90 Nasal Cannula 3.00 11/25/18 14:33 84 20 133/73 (93) 92 Nasal Cannula 4.00 11/25/18 09:00 Nasal Cannula 2.00 11/25/18 08:38 98.5 96 20 146/68 (94) 91 Nasal Cannula 3.00 11/25/18 07:17 92 Nasal Cannula 3.00 I & O 11/26/18 07:00 Intake Total 2240 ml Output Total 150 ml Balance 2090 ml Height & Weight Height: 6'8.00" Weight: 286lbs. 6.3oz. 129.481201ne; 30.0 BMI Method: General Appearance: No Apparent Distress HEENT: PERRL/EOMI Neck: Non Tender, Supple Respiratory: No Accessory Muscle Use, No Respiratory Distress Cardiovascular: Regular Rate, Rhythm, No JVD Capillary Refill: Less Than 3 Seconds Gastrointestinal: normal bowel sounds, non tender, soft Extremity: Pedal Edema Neurologic/Psychiatric: Alert, Oriented x3 Skin: Warm/Dry, Pallor Lymphatic: No Adenopathy Assessment/Plan Assessment/Plan Right mid Lung mass with MLA suggestive of metastatic disease -s/p bronchoscopy with EBUS Hypoxia -Titrate oxygen down as tolerated -PT does not have home 02 -Will need ambulatory desat test prior to discharge. -Will plan for out pt pulmonary workup [place] with PFT. Left renal mass -s/p CT bx results pending Anemia -Monitor -Check occult stool Hypercalcemia - Hx of prostate cancer HANNAH BAEZ DO November 26, 2018 07:02
[2018-11-26 08:00] VITALS: BP 138/64
[2018-11-26] MEDS: cefTRIAXone FOR IV USE 1,000 MG in WATER (STERILE) FOR INJECTION 10 ML IV SCH (08:21)
[2018-11-26] MEDS: SOLIFENACIN 5 MG TAB (VESICARE) NON-FORMULARY PO SCH (08:21)
[2018-11-26] MEDS: BRIMONIDINE 0.2% (ALPHAGAN) OPHTH SOLN 5 ML BTL OD SCH ×3 (08:23→21:56)
[2018-11-26] MEDS: TIMOLOL MALEATE 0.5% 5 ML (TIMOPTIC) BTL OD SCH ×2 (08:23→21:56)
--- NOTE | 2018-11-26 08:30 | NUR ---
DR BAEZ AT BEDSIDE. PATIENT STATES HE DOES NOT WEAR OXYGEN AT HOME. PATIENT IS CURRENTLY ON 2.5L NASAL CANULA. DR BAEZ REQUESTS THAT TAKE OXYGEN OFF PATIENT AT THIS TIME AND MONITOR O2 SATURATION.
[2018-11-26] MEDS ORDERED: MILK OF MAGNESIA 400 MG/5 ML 30 ML UDC PO NR (09:15)
--- NOTE | 2018-11-26 11:29 | Physical Therapy Progress Note ---
Therapy Progress Note Patient refused PT treatment this morning. He says he had MOM about an hour and a half ago and "I feel like I am going to explode". Will try back this afternoon. KATHEIRNE ZEPEDA PT November 26, 2018 11:29
[2018-11-26] MEDS ORDERED: BISACODYL 10 MG SUPP (DULCOLAX) PR NR (13:45)
--- NOTE | 2018-11-26 14:04 | Physical Therapy Daily Note ---
PT Daily Note-Current Subjective Patient in bed pre tx, agrees to PT, has 6/10 pain in left leg. Nurse is ready go give him a suppository because the meds to make him go from this morning did not work, she agrees to let him walk to see if that will get his bowels moving, if not he needs to go back to bed to get his suppository. Appearance Patient sitting EOB post tx with nurse call, phone, tray, all needs met. Mental Status Patient Orientation: Person, Place, Situation Attachments: IV Transfers Therapy Code Descriptions/Definitions Functional [place] Measure: 0=Not Assessed/NA 4=Minimal Assistance 1=Total Assistance 5=Supervision or Setup 2=Maximal Assistance 6=Modified [place] 3=Moderate Assistance 7=Complete [place] Therapy Quality Codes: 6 Independent with activity with or without an assistive device 5 Patient requires set up or clean up by helper. Patient completes activity by themselves 4 Supervision or touching assist (CGA). [place] provide cues , steadying assist 3 The helper provides less than half the effort to complete the activity 2 The helper provides more than half the effort to complete the activity 1 Dependent. The helper does all the effort to complete an activity 7 Patient refused to complete or attempt activity 9 The patient did not perform the activity before the current illness or injury 88 Not attempted due to Medical conditions or safety concerns Transfers (B, C, W/C) (FIM): 5 Scootin Rollin Supine to/from Sit: 5 Sit to/from Stand: 5 Bed to/from Chair: 5 Patient was able to perform supine to sit without assist today, he had some difficulty with it but did not need assist. Weight Bearing Right Lower Extremity: Right Weight Bearing/Tolerated Left Lower Extremity: Left Weight Bearing/Tolerated Gait Training Gait (FIM): 1 Distance: 25' Gait Level of Assist: 4 Gait Persons Needed: 1 Gait Assistive Device: FWW CGA, patient states he needs to turn around because his legs feel rubbery. Treatments bed mobility and transfers, ambulation Assessment Current Status: Poor Progress decline in endurance PT Short Term Goals Short Term Goals Time Frame: November 28, 2018 Transfers (B,C,W/C) (FIM): 4 Gait (FIM): 1 Gait Distance Comment: 20' Gait Level of Assist: 4 Gait Assistive Device: FWW PT Plan Problem List Problem List: Activity Tolerance, Functional Strength, Safety, Balance, Gait, Transfer, Bed Mobility, ROM Treatment/Plan Treatment Plan: Continue Plan of Care Treatment Plan: Bed Mobility, Education, Functional Activity [place], Functional Strength, Gait, Safety, Therapeutic Exercise, Transfers Treatment Duration: November 28, 2018 Frequency: 6 times per week Estimated Hrs Per Day: .25 hour per day (15-30') Patient and/or Family Agrees t: Yes Safety Risks/Education Patient Education: Gait Training, Transfer Techniques, Correct Positioning, Safety Issues Teaching Recipient: Patient Teaching Methods: Demonstration, Discussion Response to Teaching: Reinforcement Needed Time/GCodes Time In: 1338 Time Out: 1358 Total Billed Treatment Time: 20 Total Billed Treatment 1 visit FA 20' KATHERINE ZEPEDA PT November 26, 2018 14:04
--- NOTE | 2018-11-26 14:22 | Progress Note-Standard ---
Standard Progress Note Progress Notes/Assess & Plan Date Seen by a Provider: November 26, 2018 Time Seen by a Provider: 14:16 Progress/Assessment & Plan 83-year-old male admitted with increasing weakness and found to have left renal mass, bilateral pulmonary nodules and hypercalcemia. Status post bronch with EBUS and biopsy of mediastinal and subcarinal lymph nodes on 11/21/2018. Pathology report is nondiagnostic. Completed CT guided left kidney biopsy completed yesterday. This showed only necrotic tissue. Discussed with Dr. Kruse , Dr. Bethea and the patient. He is willing to undergo repeat CT guided biopsy of left kidney lesion tomorrow. Patient treated with pamidronate for the hypercalcemia and calcium level is declining. Only complaint is constipation and no benefit with MOM. Will administer dulcolax suppository today. We will await left kidney biopsy and pathology report before making further recommendations. YOBANY WOODARD November 26, 2018 14:22
[2018-11-26 15:51] VITALS: BP 137/67
[2018-11-26] MEDS: ACETAMINOPHEN 500 MG TAB (TYLENOL) PO PRN (16:04)
--- NOTE | 2018-11-26 17:11 | Progress Note-Hospitalist ---
Progress Note Progress Notes/Assess & Plan Date Seen 11/26/18 Time Seen by Provider: 17:08 Assessment & Plan The patient had a percutaneous CT-guided biopsy of the left kidney mass. Pathology at reported today that this was only necrotic tissue. This makes it highly likely that this is a malignant process however gives is no tissue diagnosis. The patient has agreed to a second attempt at biopsy in order to allow us to make any treatment recommendations that might be useful. He is anxious to go home and reported that if were not successful with this biopsy attempt he would wish to go home without a diagnosis. Physical exam: He is alert and oriented. Lungs are clear to auscultation. CV is regular without murmur. Impression: Hypercalcemia, now corrected. 2.left renal mass with evidence of metastasis to adrenal gland and lungs and hilar lymph nodes. Plan: Repeat attempt at biopsy tomorrow as stated above ALYSSA MARTIN MD November 26, 2018 17:11
[2018-11-26] MEDS: PIOGLITAZONE 30MG (ACTOS) TAB PO SCH (18:09)
[2018-11-26] MEDS: POLYETHYLENE GLYCOL 17 GM (MIRALAX) PACK PO SCH (21:53)
[2018-11-26] MEDS: LATANOPROST 0.005% (XALATAN) OPHTH SOLN 2.5 ML OD SCH (21:56)
[2018-11-27 00:37] VITALS: BP 140/72
[2018-11-27] MEDS: NS IV 1000 ML 1,000 ML IV SCH ×2 (04:37→18:03)
[2018-11-27 05:58] LABS: INR 1.2 (0.8-1.4); PROTHROMBIN TIME PATIENT 15.8 SEC (12.2-14.7)
[2018-11-27] MEDS: inSUlin ASPART (NovoLOG) 1 UNIT/0.01 ML (CHARGE PER UNIT) SC SCH ×5 (06:45→21:33)
[2018-11-27] MEDS: cefTRIAXone FOR IV USE 1,000 MG in WATER (STERILE) FOR INJECTION 10 ML IV SCH (07:57)
[2018-11-27] MEDS: BRIMONIDINE 0.2% (ALPHAGAN) OPHTH SOLN 5 ML BTL OD SCH ×3 (07:58→20:06)
[2018-11-27] MEDS: TIMOLOL MALEATE 0.5% 5 ML (TIMOPTIC) BTL OD SCH ×2 (07:58→20:06)
[2018-11-27] MEDS: SOLIFENACIN 5 MG TAB (VESICARE) NON-FORMULARY PO SCH (07:58)
[2018-11-27 08:26] VITALS: BP 141/63
--- NOTE | 2018-11-27 08:51 | Physical Therapy Progress Note ---
Therapy Progress Note Patient is having a biopsy soon and would "prefer not to wear myself out before going to it". Will try back later today. KATHERINE ZEPEDA PT November 27, 2018 08:51
--- NOTE | 2018-11-27 10:31 | Pulmonary Progress Note ---
Sepsis Event Evaluation Height, Weight, BMI Height: 6'8.00" Weight: 287lbs. 0.0oz. 130.284064fh; 30.0 BMI Method: Exam Exam Vital Signs Date Time Temp Pulse Resp B/P (MAP) Pulse Ox O2 Delivery O2 Flow Rate FiO2 11/27/18 08:26 98.9 84 18 141/63 (89) 91 Room Air 11/27/18 00:37 97.8 95 20 140/72 (94) 96 Room Air 11/26/18 22:00 Room Air 11/26/18 21:00 96 Room Air 2.50 11/26/18 16:04 100.1 11/26/18 15:51 100.1 88 20 137/67 (90) 93 Room Air I & O 11/27/18 07:00 Intake Total 1880 ml Output Total 650 ml Balance 1230 ml Height & Weight Height: 6'8.00" Weight: 287lbs. 0.0oz. 130.745330ue; 30.0 BMI Method: General Appearance: No Apparent Distress HEENT: PERRL/EOMI Neck: Non Tender, Supple Respiratory: No Accessory Muscle Use, No Respiratory Distress Cardiovascular: Regular Rate, Rhythm, No JVD Capillary Refill: Less Than 3 Seconds Gastrointestinal: normal bowel sounds, non tender, soft Extremity: Pedal Edema Neurologic/Psychiatric: Alert, Oriented x3 Skin: Warm/Dry, Pallor Lymphatic: No Adenopathy Assessment/Plan Assessment/Plan Right mid Lung mass with MLA suggestive of metastatic disease -s/p bronchoscopy with EBUS - cytology is negative Hypoxia -Titrate oxygen down as tolerated -PT does not have home 02 -Will need ambulatory desat test prior to discharge. -Will plan for out pt pulmonary workup [place] with PFT. Left renal mass -s/p CT bx cytology is negative Anemia -Monitor -Check occult stool Hypercalcemia - Hx of prostate cancer HANNAH BAEZ DO November 27, 2018 10:31
--- NOTE | 2018-11-27 12:51 | NUR ---
REFUSED ALL EYES GTTS THUS FAR TODAY.
--- NOTE | 2018-11-27 13:28 | Physical Therapy Progress Note ---
Therapy Progress Note Patient refuses therapy a second time today. He restates that he doesn't want to wear himself out before his procedure. Will try back a 3rd time today if able. KATHERINE ZEPEDA PT November 27, 2018 13:28
--- NOTE | 2018-11-27 13:55 | NUR ---
patient to CT for biopsy at this time.
[2018-11-27] MEDS ORDERED: LIDOCAINE 1% INJ 20 ML 20 ML VIAL INJ ONE (14:00)
--- NOTE | 2018-11-27 14:53 | NUR ---
BACK TO FLOOR AT THIS TIME.
--- NOTE | 2018-11-27 15:24 | Physical Therapy Daily Note ---
PT Daily Note-Current Subjective Patient in bed pre tx, agrees to PT, has 6/10 pain in left leg. Patient recently got back from his procedure and agrees to PT. He is a little weak because he has not had anything to eat or drink before now. Appearance Patient sitting EOB post tx with nurse call, phone, tray, in room. Mental Status Patient Orientation: Person, Place, Situation Attachments: IV Transfers Therapy Code Descriptions/Definitions Functional [place] Measure: 0=Not Assessed/NA 4=Minimal Assistance 1=Total Assistance 5=Supervision or Setup 2=Maximal Assistance 6=Modified [place] 3=Moderate Assistance 7=Complete [place] Therapy Quality Codes: 6 Independent with activity with or without an assistive device 5 Patient requires set up or clean up by helper. Patient completes activity by themselves 4 Supervision or touching assist (CGA). [place] provide cues , steadying assist 3 The helper provides less than half the effort to complete the activity 2 The helper provides more than half the effort to complete the activity 1 Dependent. The helper does all the effort to complete an activity 7 Patient refused to complete or attempt activity 9 The patient did not perform the activity before the current illness or injury 88 Not attempted due to Medical conditions or safety concerns Transfers (B, C, W/C) (FIM): 4 Scootin Rollin Supine to/from Sit: 6 Sit to/from Stand: 4 Patient needs min assist for sit to stand. Weight Bearing Right Lower Extremity: Right Weight Bearing/Tolerated Left Lower Extremity: Left Weight Bearing/Tolerated Gait Training Gait (FIM): 1 Distance: 40' Gait Level of Assist: 4 Gait Persons Needed: 1 Gait Assistive Device: FWW Patient ambulates 40' with a rolling walker with CGA. Ambulation is slow but no LOB or unsteadiness. Exercises Seated Therapy Exercises: Ankle pumps, Long arc quads Seated Reps: 20 Treatments bed mobility and transfers, ambulation, LE exercises Assessment Current Status: Fair Progress improving strength and ambulation PT Short Term Goals Short Term Goals Time Frame: November 28, 2018 Transfers (B,C,W/C) (FIM): 4 Gait (FIM): 1 Gait Distance Comment: 20' Gait Level of Assist: 4 Gait Assistive Device: FWW PT Plan Problem List Problem List: Activity Tolerance, Functional Strength, Safety, Balance, Gait, Transfer, Bed Mobility, ROM Treatment/Plan Treatment Plan: Continue Plan of Care Treatment Plan: Bed Mobility, Education, Functional Activity Russell, Functional Strength, Gait, Safety, Therapeutic Exercise, Transfers Treatment Duration: November 28, 2018 Frequency: 6 times per week Estimated Hrs Per Day: .25 hour per day (15-30') Patient and/or Family Agrees t: Yes Safety Risks/Education Patient Education: Gait Training, Transfer Techniques, Correct Positioning, Safety Issues Teaching Recipient: Patient Teaching Methods: Demonstration, Discussion Response to Teaching: Reinforcement Needed Time/GCodes Time In: 1500 Time Out: 1515 Total Billed Treatment Time: 15 Total Billed Treatment 1 visit FA 15' KATHERINE ZEPEDA PT November 27, 2018 15:24
[2018-11-27] MEDS ORDERED: HYDROcodone/APAP 5 MG/325 MG (LORTAB) TAB PO PRN (15:30)
--- NOTE | 2018-11-27 15:30 | Diagnostic Imaging Report ---
INDICATION: Left renal mass. Patient presents for rebiopsy due to prior biopsy only showing necrosis. PROCEDURE: Patient was brought to CT suite and placed on table in the [id number] decubitus position. Axial imaging of the abdomen was performed to evaluate appropriate entry site. Left flank was then prepped and draped in the usual sterile fashion. 18-gauge coaxial Temno needle was advanced and placed along the margin of the solid-appearing mass in the lower pole of the left kidney. Four core biopsies were obtained. Needle was removed and hemostasis was obtained using manual compression. Patient tolerated the procedure well and left the Department in stable condition. IMPRESSION: CT-guided core biopsy of the solid left lower pole renal mass. Pathology results are currently pending. Dictated by: Dictated on workstation # [id number]
--- NOTE | 2018-11-27 15:53 | Pre-Procedure Progress Note ---
Pre-Procedure Progress Note H&P Reviewed The H&P was reviewed, patient examined and no changes noted. Date H&P Reviewed: November 27, 2018 Time H&P Reviewed: 12:00 Pre-Procedure Diagnosis: Renal mass THADDEUS RUBIO MD November 27, 2018 15:53
[2018-11-27 16:08] VITALS: BP 145/77
[2018-11-27] MEDS: PIOGLITAZONE 30MG (ACTOS) TAB PO SCH (17:26)
[2018-11-27] MEDS: POLYETHYLENE GLYCOL 17 GM (MIRALAX) PACK PO SCH (20:06)
[2018-11-27] MEDS: LATANOPROST 0.005% (XALATAN) OPHTH SOLN 2.5 ML OD SCH (20:07)
[2018-11-28 00:43] VITALS: BP 124/63
[2018-11-28] MEDS: inSUlin ASPART (NovoLOG) 1 UNIT/0.01 ML (CHARGE PER UNIT) SC SCH (06:27)
[2018-11-28] MEDS: NS IV 1000 ML 1,000 ML IV SCH (06:44)
[2018-11-28 08:00] VITALS: BP 156/74
--- NOTE | 2018-11-28 09:13 | Physical Therapy Daily Note ---
PT Daily Note-Current Subjective Pt. and present. Pt. agrees to Rx and wants to change wet brief while pt. is on his feet for gait. Pain Location: No Pain Reported Mental Status Patient Orientation: Normal For Age Attachments: IV Transfers Therapy Code Descriptions/Definitions Functional [place] Measure: 0=Not Assessed/NA 4=Minimal Assistance 1=Total Assistance 5=Supervision or Setup 2=Maximal Assistance 6=Modified [place] 3=Moderate Assistance 7=Complete [place] Therapy Quality Codes: 6 Independent with activity with or without an assistive device 5 Patient requires set up or clean up by helper. Patient completes activity by themselves 4 Supervision or touching assist (CGA). [place] provide cues , steadying assist 3 The helper provides less than half the effort to complete the activity 2 The helper provides more than half the effort to complete the activity 1 Dependent. The helper does all the effort to complete an activity 7 Patient refused to complete or attempt activity 9 The patient did not perform the activity before the current illness or injury 88 Not attempted due to Medical conditions or safety concerns Transfers (B, C, W/C) (FIM): 4 slow and laborious, sup to sit and sit to sup min assist as well as all seat heights must be raised secondary to weakness and pts height 6'8" Weight Bearing Right Lower Extremity: Right Weight Bearing/Tolerated Left Lower Extremity: Left Weight Bearing/Tolerated Gait Training Gait (FIM): 2 Distance (FIM): 4=583-39 ft (65ft) Gait Assistive Device: FWW slow, careful, heavy wt bearing on UEs, pt. states he cant feel his feet. CGA with instruction for safe turns etc Exercises Supine Ex: Bridging, Ankle pumps, Quad Set, Rolling, Glut sets, Heel Slides, Short Arc Quads, Scooting, Straight leg raise (x5 bilat indep), Hip abd/add ( assist left) Supine Reps: 12 Seated Therapy Exercises: Sit to stand, Long arc quads Seated Reps: 10 Treatments stood for wet brief to be doffed by . then instructing pt. to stand on one leg so she can thread briefs on him, this [employer] WORK[employer] interrupting to instruct in seated brief donning then stance for pull up etc. couple state they appreciate the new safe technique instruction Assessment Current Status: Good Progress slow progress, pt. at risk for falls PT Short Term Goals Short Term Goals Time Frame: November 28, 2018 Transfers (B,C,W/C) (FIM): 4 Gait (FIM): 1 Gait Distance Comment: 20' Gait Level of Assist: 4 Gait Assistive Device: FWW PT Plan Treatment/Plan Treatment Plan: Continue Plan of Care Treatment Plan: Bed Mobility, Education, Functional Activity [place], Functional Strength, Gait, Safety, Therapeutic Exercise, Transfers Treatment Duration: November 28, 2018 Frequency: 6 times per week Estimated Hrs Per Day: .25 hour per day (15-30') Patient and/or Family Agrees t: Yes Safety Risks/Education Patient Education: Gait Training, Transfer Techniques, Correct Positioning, Instructions to Caregiver, Disease Process, Safety Issues Teaching Recipient: Patient Teaching Methods: Demonstration, Discussion Response to Teaching: Verbalize Understanding, Return Demonstration, Reinforcement Needed Time/GCodes Time In: 835 Time Out: 910 Total Billed Treatment Time: 35 Total Billed Treatment 1,GT20,EX15 G Codes Necessary: ZEN Ayoub [employer]ACH[employer] WORKER November 28, 2018 09:13
[2018-11-28] MEDS: SOLIFENACIN 5 MG TAB (VESICARE) NON-FORMULARY PO SCH (09:15)
[2018-11-28] MEDS: BRIMONIDINE 0.2% (ALPHAGAN) OPHTH SOLN 5 ML BTL OD SCH (09:15)
[2018-11-28] MEDS: cefTRIAXone FOR IV USE 1,000 MG in WATER (STERILE) FOR INJECTION 10 ML IV SCH (09:15)
[2018-11-28] MEDS: TIMOLOL MALEATE 0.5% 5 ML (TIMOPTIC) BTL OD SCH (09:16)
--- NOTE | 2018-11-28 09:57 | Progress Note-Hospitalist ---
Progress Note Progress Notes/Assess & Plan Date Seen 11/28/18 Time Seen by Provider: 09:53 Assessment & Plan The patient had a second attempt at the tissue diagnosis via percutaneous CT- guided the kidney biopsy. I have spoken to Dr. Noble in pathology and she relates that the past diagnosis will be late this afternoon if at all. The patient has the expressed his wishes to get home as soon as possible and it would seem that discharge with a follow-up appointment at Dr. Tolentino's office in the cancer center next week would be the best course of action. He otherwise has no new complaints. Physical exam: He is alert and oriented and pleasant. Lungs are clear to auscultation. CV is regular without murmur. Abdomen is soft. 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 2.hypercalcemia secondary to number 1. Plan: Discharge for home. Plan for follow-up appointment next week for diagnosis and treatment options. See discharge sequence for medications and routines. ALYSSA MARTIN MD November 28, 2018 09:57
--- NOTE | 2018-11-28 10:05 | Discharge Inst-Simple/Standard ---
Discharge Inst-Standard Patient Instructions/Follow Up Plan of Care/Instructions/FU: Increase activities as tolerated. Diabetic diet. Medications as listed on the discharge sequence. Appointment Dr. Pelayo next week for briefing on biopsy and treatment options. Activity as Tolerated: Yes Discharge Diet: ADA Diet Return to The [facility] For: Change in condition Planned Outpatient Orders/Ref. Pneu Vac Indicated: Yes ALYSSA MARTIN MD November 28, 2018 10:05
[2018-11-28 12:00] VITALS: BP 156/74
--- NOTE | 2018-11-28 12:36 | NUR ---
Met with pt and concerning continued care needs. Pt has a Front wheel walker and all of the necessary DME equipment. He is anxious to meet with Dr. Lucas at the [facility] and pt given an appt. for December 04 at 1:30. He was also given a packet of information to complete for his appt. at the Cancer Center. Pt and understood and were pleased to be discharged home and accepting of the follow-up appt. at our Cancer Center.
== END 2018-11-28 12:05 | disposition home or self-care (01) | DRG 988 ==
LOC: ICU 19:00 → 4TH 11-21 15:43
PROVIDERS: ADMIT Internal Medicine; ATTEND Internal Medicine
PROC: 0B9F8ZX Drainage of Right Lower Lung Lobe, Via Natural or Artificial Opening Endoscopic, Diagnostic (ICD-10-PCS; 2018-11-21)
PROC: 0BD68ZX Extraction of Right Lower Lobe Bronchus, Via Natural or Artificial Opening Endoscopic, Diagnostic (ICD-10-PCS; 2018-11-21)
PROC: 07B73ZX Excision of Thorax Lymphatic, Percutaneous Approach, Diagnostic (ICD-10-PCS; principal; 2018-11-21 07:15)
PROC: 0TB13ZX Excision of Left Kidney, Percutaneous Approach, Diagnostic (ICD-10-PCS; 2018-11-25)
PROC: 0TB13ZX Excision of Left Kidney, Percutaneous Approach, Diagnostic (ICD-10-PCS; 2018-11-27)
DX: C64.2 Malignant neoplasm of left kidney, except renal pelvis (principal); C78.01 Secondary malignant neoplasm of right lung; C78.02 Secondary malignant neoplasm of left lung; C79.72 Secondary malignant neoplasm of left adrenal gland; C77.1 Secondary and unspecified malignant neoplasm of intrathoracic lymph nodes; E83.52 Hypercalcemia; I87.8 Other specified disorders of veins; E83.42 Hypomagnesemia; E11.9 Type 2 diabetes mellitus without complications; G47.30 Sleep apnea, unspecified; K59.09 Other constipation; K57.90 Diverticulosis of intestine, part unspecified, without perforation or abscess without bleeding; M19.91 Primary osteoarthritis, unspecified site; D64.9 Anemia, unspecified; R53.1 Weakness; R63.4 Abnormal weight loss; R39.11 Hesitancy of micturition; N28.1 Cyst of kidney, acquired; R09.02 Hypoxemia; Z80.3 Family history of malignant neoplasm of breast; Z79.4 Long term (current) use of insulin; Z90.79 Acquired absence of other genital organ(s); Z96.643 Presence of artificial hip joint, bilateral; Z87.891 Personal history of nicotine dependence; Z85.46 Personal history of malignant neoplasm of prostate; Z91.81 History of falling; Z77.22 Contact with and (suspected) exposure to environmental tobacco smoke (acute) (chronic); Z85.828 Personal history of other malignant neoplasm of skin
CPT/HCPCS: 36415; 71045; 71260; 74177; 77012; 80053; 81000; 82330; 82962; 83605; 83615; 83735; 83880; 84100; 85025; 85610; 85730; 87015; 87040; 87070; 87081; 87101; 87116; 87205; 87206; 88112; 88305; 88312; 94640; 94760

== ENCOUNTER 2018-12-08 05:41 | Outpatient (CLI) | payer MEDICARE, OTHER ==
[~2018-12-08] VITALS: Ht 203.2 cm; Wt 127.5 kg
[~2018-12-08 05:41] MED LIST changes: +BRIM5DRO OD; +INSU100I23 SC; +INSU100I32 SC; +LATA2.5D5 OD; +NF-SOLIF5T PO; +OXYB10TA PO
--- NOTE | 2018-12-09 13:40 | Diagnostic Imaging Report ---
Indication: Powerport insertion. Impression: 14.2 seconds of fluoroscopy and single digital image shows placement of the right IJ Port-A-Cath with tip projecting over the SVC. Dictated by: Dictated on workstation # [id number]
== END 2018-12-08 11:09 | disposition home or self-care (01) ==
LOC: PREOP 05:41
PROVIDERS: ATTEND Surgery
DX: Z01.818 Encounter for other preprocedural examination (principal)

== ENCOUNTER 2018-12-09 09:48 | Day surgery (SDC) | payer MEDICARE, OTHER ==
[~2018-12-09] VITALS: Ht 203.2 cm; Wt 127.5 kg
[2018-12-09] VITALS (8 sets, daily range): BP systolic 143–177; BP diastolic 54–83
--- OUTSIDE RECORDS SUMMARY | 2018-12-09 09:59 | XMS REPORT | Continuity of Care Document ---
Author Organization Unknown Address Unknown Allergies Active Description Code Type Severity Reaction Onset Reported/Identified Relationship to Patient Clinical Status Yes ADHESIVE ADHESIVE SEVERE Yes ADHESIVE SEVERE DERMATOLOGICAL - FABIAN Yes No Known Drug Allergies [id number] Drug Allergy Unknown N/A 06/06/2009 Yes adhesive tape [id number] Drug Allergy Unknown Hives 12/08/2018 Medications Medication Packaging Start Date Stop Date Route Dosage Sig ONDANSETRON VIAL INJ 4 MG/2CC (ZOFRAN 2CC VIAL) MG 08/28/2016 09/04/2016 PRN Q4H NORMAL SALINE 1000CC IV BAG INJ 0.9 % (NS 1000CC IV BAG) ml 08/28/2016 09/12/2016 CONTINUOUSEVERY 0 Hour FAMOTIDINE VIAL INJ 20 MG/2CC (PEPCID VIAL) MG 08/28/2016 09/04/2016 BID&0800,2000 PANTOPAZOLE VIAL INJ 40 MG (PROTONIX IV) MG 08/28/2016 09/07/2016 BID&0800,2000 LATANOPROST OPHTH SOLUTION LIQ 0.005 % (XALATAN) drops 08/29/2016 09/04/2016 Daily&0900 INSULIN ASPART PEN INJ 100 UNITS/CC (NOVOLOG FLEXPEN) 08/29/2016 09/27/2016 Daily&0900 Problems Date Dx Coded Attending Type Code [...] UMANA MD Ot 414.01 CORONARY ATHEROSCLEROSIS OF [place] CORON 12/23/2013 GISEL UMANA MD Ot 530.81 ESOPHAGEAL REFLUX 12/23/2013 GISEL UMANA MD, Ot 786.59 CHEST PAIN NEC 12/23/2013 GISEL UMANA MD Ot 794.30 ABN CARDIOVASC STUDY NOS 12/23/2013 GISEL UMANA MD, Ot V17.3 FAM HX-ISCHEM HEART DIS 12/23/2013 GISEL UMANA MD, Ot V58.69 OTH MED,LT,CURRENT USE 12/23/2013 GISEL UMANA MD, Ot V85.32 BODY MASS INDEX 32.0-32.9, ADULT [...] 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 08/28/2016 Raman Martinez 250.00 DIABETES MELLITUS WITHOUT MENTION OF COMPLICATION, TYPE II OR UNSPECIFIED TYPE, NOT STATED UNCONTROLLED 08/28/2016 Raman Martinez 569.3 HEMORRHAGE OF RECTUM AND ANUS 08/28/2016 Raman Martinez 578.9 HEMORRHAGE OF GASTROINTESTINAL TRACT, UNSPECIFIED 08/28/2016 Raman Martinez 715.30 OSTEOARTHROSIS, LOCALIZED, NOT SPECIFIED WHETHER PRIMARY OR SECONDARY, INVOLVING UNSPECIFIED SITE 08/28/2016 Raman Martinez E11.9 TYPE 2 DIABETES MELLITUS WITHOUT COMPLICATIONS 08/28/2016 Raman Martinez K62.5 HEMORRHAGE OF ANUS AND RECTUM 08/28/2016 Raman Martinez K92.2 GASTROINTESTINAL HEMORRHAGE, UNSPECIFIED 08/28/2016 Raman Martinez M19.90 UNSPECIFIED OSTEOARTHRITIS, UNSPECIFIED SITE 08/28/2016 CHANCE PEREZ DO Ot 786.50 CHEST PAIN NOS 08/28/2016 CHANCE PEREZ DO Ot V64.3 NO PROC FOR REASONS NEC 08/28/2016 CHANCE PEREZ DO Ot 786.50 CHEST PAIN NOS 08/28/2016 CHANCE PEREZ DO Ot 793.2 NOSP (ABN) FINDINGS ON RADIOLOGICAL OT 08/28/2016 CHANCE PEREZ DO Ot 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 08/28/2016 CHANCE PEREZ DO Ot 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 08/30/2016 PAREDESJOSE DANIEL RUIZ DOI Ot D62 ACUTE POSTHEMORRHAGIC ANEMIA 08/30/2016 LENA CASAS LUCINDA Ot D64.9 ANEMIA, UNSPECIFIED 08/30/2016 PAREDESSARA CASAS LUCINDA Ot E11.9 TYPE 2 DIABETES MELLITUS WITHOUT COMPLIC 08/30/2016 LENA CASAS LUCINDA Ot E66.9 OBESITY, UNSPECIFIED 08/30/2016 LENA CASAS LUCINDA Ot H54.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, LEFT EYE, NORMAL VISION RIGHT 08/30/2016 JOSE DANIEL PAREDES DOI Ot K25.4 CHRONIC OR UNSPECIFIED GASTRIC ULCER WIT 08/30/2016 LENA CASAS LUCINDA Ot K29.71 GASTRITIS, UNSPECIFIED, WITH BLEEDING 08/30/2016 LENA CASAS LUCINDA Ot K59.09 OTHER CONSTIPATION 08/30/2016 LENA CASAS LUCINDA Ot R53.81 OTHER MALAISE 08/30/2016 LENA CASAS LUCINDA Ot Z68.32 BODY MASS INDEX (BMI) 32.0-32.9, ADULT 08/30/2016 LENA CASAS LUCINDA Ot Z85.46 PERSONAL HISTORY OF MALIGNANT NEOPLASM O 08/30/2016 LENA CASAS LUCINDA Ot Z87.891 PERSONAL HISTORY OF NICOTINE DEPENDENCE 09/04/2016 GUIDO ROJAS 715.30 OSTEOARTHROSIS, LOCALIZED, NOT SPECIFIED WHETHER PRIMARY OR SECONDARY, INVOLVING UNSPECIFIED SITE 09/04/2016 GUIDO ROJAS M19.90 UNSPECIFIED OSTEOARTHRITIS, UNSPECIFIED SITE 09/04/2016 GUIDO ROJAS 250.00 DIABETES MELLITUS WITHOUT MENTION OF COMPLICATION, TYPE II OR UNSPECIFIED TYPE, NOT STATED UNCONTROLLED 09/04/2016 GUIDO ROJAS 569.3 HEMORRHAGE OF RECTUM AND ANUS 09/04/2016 GUIDO ROJAS 578.9 HEMORRHAGE OF GASTROINTESTINAL TRACT, UNSPECIFIED 09/04/2016 GUIDO ROJAS 715.30 OSTEOARTHROSIS, LOCALIZED, NOT SPECIFIED WHETHER PRIMARY OR SECONDARY, INVOLVING UNSPECIFIED SITE 09/04/2016 CRYSTAL, GUIDO Noriega E11.9 TYPE 2 DIABETES MELLITUS WITHOUT COMPLICATIONS 09/04/2016 CRYSTAL, GUIDO Noriega K62.5 HEMORRHAGE OF ANUS AND RECTUM 09/04/2016 CRYSTAL, GUIDO Noriega K92.2 GASTROINTESTINAL HEMORRHAGE, UNSPECIFIED 09/04/2016 CRYSTAL, GUIDO Noriega M19.90 UNSPECIFIED OSTEOARTHRITIS, UNSPECIFIED SITE 09/04/2016 CRYSTAL, GUIDO W 250.00 DIABETES MELLITUS WITHOUT MENTION OF COMPLICATION, TYPE II OR UNSPECIFIED TYPE, NOT STATED UNCONTROLLED 09/04/2016 CRYSTAL, GUIDO Noriega 569.3 HEMORRHAGE OF RECTUM AND ANUS 09/04/2016 CRYSTAL, GUIDO Cadet 578.9 HEMORRHAGE OF GASTROINTESTINAL TRACT, UNSPECIFIED 09/04/2016 CRYSTAL, GUIDO Noriega 715.30 OSTEOARTHROSIS, LOCALIZED, NOT SPECIFIED WHETHER PRIMARY OR SECONDARY, INVOLVING UNSPECIFIED SITE 09/04/2016 CRYSTAL, GUIDO Noriega E11.9 TYPE 2 DIABETES MELLITUS WITHOUT COMPLICATIONS 09/04/2016 CRYSTAL, GUIDO Noriega K62.5 HEMORRHAGE OF ANUS AND RECTUM 09/04/2016 CRYSTAL, GUIDO Cadet K92.2 GASTROINTESTINAL HEMORRHAGE, UNSPECIFIED 09/04/2016 CRYSTAL, GUIDO Noriega M19.90 UNSPECIFIED OSTEOARTHRITIS, UNSPECIFIED SITE 11/02/2016 CRSYTAL, GUIDO Noriega 250.00 DIABETES MELLITUS WITHOUT MENTION OF COMPLICATION, TYPE II OR UNSPECIFIED TYPE, NOT STATED UNCONTROLLED 11/02/2016 CRYSTAL, GUIDO Noriega 569.3 HEMORRHAGE OF RECTUM AND ANUS 11/02/2016 CRYSTAL, GUIDO Noriega 578.9 HEMORRHAGE OF GASTROINTESTINAL TRACT, UNSPECIFIED 11/02/2016 CRYSTAL, GUIDO Noriega 715.30 OSTEOARTHROSIS, LOCALIZED, NOT SPECIFIED WHETHER PRIMARY OR SECONDARY, INVOLVING UNSPECIFIED SITE 11/02/2016 CRYSTAL, GUIDO Cadet 996.77 11/02/2016 CRYSTAL, GUIDO Noriega E11.9 TYPE 2 DIABETES MELLITUS WITHOUT COMPLICATIONS 11/02/2016 CRYSTAL, GUIDO Noriega K62.5 HEMORRHAGE OF ANUS AND RECTUM 11/02/2016 CRYSTAL, GUIDO Noriega K92.2 GASTROINTESTINAL HEMORRHAGE, UNSPECIFIED 11/02/2016 CRYSTAL, GUIDO Noriega M19.90 UNSPECIFIED OSTEOARTHRITIS, UNSPECIFIED SITE 11/02/2016 CRYSTAL, GUIDO Cadet T84.84XA PAIN DUE TO INTERNAL ORTHOPEDIC PROSTH DEV/GRFT, INIT 03/13/2017 PEREZ, CHANCE A 781.2 ABNORMALITY OF GAIT 03/13/2017 CHANCE PEREZ R26.81 UNSTEADINESS ON FEET 11/20/2018 LEISURE, JIMBOA W 199.1 OTHER MALIGNANT NEOPLASM OF UNSPECIFIED SITE 11/20/2018 LEISURE, LYNIETA W 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 11/20/2018 LEISURE, LYNIETA W 199.1 OTHER MALIGNANT NEOPLASM OF UNSPECIFIED SITE 11/20/2018 LEISURE, LYNALYSONA W 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 11/20/2018 LEISURE, LYNIETA W 199.1 OTHER MALIGNANT NEOPLASM OF UNSPECIFIED SITE 11/20/2018 LEISURE, LYNIETA W 780.79 OTHER MALAISE AND FATIGUE 11/20/2018 LEISURE, JIMBOA W 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 11/20/2018 LEISURE, LYNALYSONA W P96.89 OTHER SPECIFIED CONDITIONS ORIGINATING IN THE PERIOD 11/20/2018 LEISURE, LYNALYSONA W 780.79 OTHER MALAISE AND FATIGUE 11/20/2018 LEISURE, LYNIETA W 793.19 OTHER NONSPECIFIC ABNORMAL FINDING OF LUNG FIELD 11/20/2018 LEISURE, JIMBOA W 911.0 ABRASION OR FRICTION BURN OF TRUNK, WITHOUT MENTION OF INFECTION 11/20/2018 LEISURE, LYNIETA W P96.89 OTHER SPECIFIED CONDITIONS ORIGINATING IN THE PERIOD 11/20/2018 LEISURE, TAVIA W R53.1 WEAKNESS 11/20/2018 LEISURE, JIMBOA W R91.8 OTHER NONSPECIFIC ABNORMAL FINDING OF LUNG FIELD 11/20/2018 LEISURE, JIMBOA W S30.810A ABRASION OF LOWER BACK AND PELVIS, INITIAL ENCOUNTER 11/21/2018 PAREDES DO, LUCINDA Ot D64.9 ANEMIA, UNSPECIFIED 11/21/2018 PAREDES DO, LUCINDA Ot E11.9 TYPE 2 DIABETES MELLITUS WITHOUT COMPLIC 11/21/2018 PAREDES DO, LUCINDA Ot E27.9 DISORDER OF ADRENAL GLAND, UNSPECIFIED 11/21/2018 PAREDES DO, LUCINDA Ot E83.42 HYPOMAGNESEMIA 11/21/2018 PAREDES DO, LUCINDA Ot E83.52 HYPERCALCEMIA 11/21/2018 PAREDES DO, LUCINDA Ot G47.30 SLEEP APNEA, UNSPECIFIED 11/21/2018 PAREDES DO, LUCINDA Ot I87.8 OTHER SPECIFIED DISORDERS OF VEINS 11/21/2018 LUCINDA PAREDES DO Ot K57.90 DVRTCLOS OF INTEST, PART UNSP, W/O PERF 11/21/2018 LUCINDA PAREDES DO Ot K59.09 OTHER CONSTIPATION 11/21/2018 LUCINDA PAREDES DO Ot M19.91 PRIMARY OSTEOARTHRITIS, UNSPECIFIED SITE 11/21/2018 LUCINDA PAREDES DO Ot N28.89 OTHER SPECIFIED DISORDERS OF KIDNEY AND 11/21/2018 LUCINDA PAREDES DO Ot R39.11 HESITANCY OF MICTURITION 11/21/2018 LUCINDA PAREDES DO Ot R53.1 WEAKNESS 11/21/2018 LUCINDA PAREDES DO Ot R59.0 LOCALIZED ENLARGED LYMPH NODES 11/21/2018 LUCINDA PAREDES DO Ot R63.4 ABNORMAL WEIGHT LOSS 11/21/2018 LUCINDA PAREDES DO Ot R91.8 OTHER NONSPECIFIC ABNORMAL FINDING OF VIOLET 11/21/2018 LUCINDA PAREDES DO Ot Z77.22 CNTCT W AND EXPSR TO ENVIRON TOBACCO SMO 11/21/2018 LUCINDA PAREDES DO Ot Z79.4 SKILLED NURSING (CURRENT) USE OF INSULIN 11/21/2018 LUCINDA PAREDES DO Ot Z85.46 PERSONAL HISTORY OF MALIGNANT NEOPLASM O 11/21/2018 LUCINDA PAREDES DO Ot Z85.828 PERSONAL HISTORY OF OTHER MALIGNANT NEOP 11/21/2018 LUCINDA PAREDES DO Ot Z87.891 PERSONAL HISTORY OF NICOTINE DEPENDENCE 11/21/2018 JOSE DANIEL PAREDES DOI Ot Z90.79 ACQUIRED ABSENCE OF OTHER GENITAL ORGAN( 11/21/2018 LUCINDA PAREDES DO Ot Z91.81 HISTORY OF FALLING 11/21/2018 LUCINDA PAREDES DO Ot Z96.643 PRESENCE OF ARTIFICIAL HIP JOINT, BILATE 11/22/2018 LUCINDA PAREDES DO Ot D64.9 ANEMIA, UNSPECIFIED 11/22/2018 LUCINDA PAREDES DO Ot E11.9 TYPE 2 DIABETES MELLITUS WITHOUT COMPLIC 11/22/2018 LUCINDA PAREDES DO Ot E27.9 DISORDER OF ADRENAL GLAND, UNSPECIFIED 11/22/2018 LUCINDA PAREDES DO Ot E83.42 HYPOMAGNESEMIA 11/22/2018 LUCINDA PAREDES DO Ot E83.52 HYPERCALCEMIA 11/22/2018 LUCINDA PAREDES DO Ot G47.30 SLEEP APNEA, UNSPECIFIED 11/22/2018 LUCINDA PAREDES DO Ot I87.8 OTHER SPECIFIED DISORDERS OF VEINS 11/22/2018 LUCINDA PAREDES DO Ot K57.90 DVRTCLOS OF INTEST, PART UNSP, W/O PERF 11/22/2018 LUCINDA PAREDES DO Ot K59.09 OTHER CONSTIPATION 11/22/2018 LENA CASAS LUCINDA Ot M19.91 PRIMARY OSTEOARTHRITIS, UNSPECIFIED SITE 11/22/2018 LENA CASAS LUCINDA Ot N28.89 OTHER SPECIFIED DISORDERS OF KIDNEY AND 11/22/2018 LENA CASAS LUCINDA Ot R39.11 HESITANCY OF MICTURITION 11/22/2018 LENA CASAS LUCINDA Ot R53.1 WEAKNESS 11/22/2018 LENA CASAS LUCINDA Ot R59.0 LOCALIZED ENLARGED LYMPH NODES 11/22/2018 JOSE DANIEL PAREDES DOI Ot R63.4 ABNORMAL WEIGHT LOSS 11/22/2018 JOSE DANIEL PAREDES DOI Ot R91.8 OTHER NONSPECIFIC ABNORMAL FINDING OF VIOLET 11/22/2018 LUCINDA PAREDES DO Ot Z77.22 CNTCT W AND EXPSR TO ENVIRON TOBACCO SMO 11/22/2018 LUCINDA PAREDES DO Ot Z79.4 SKILLED NURSING (CURRENT) USE OF INSULIN 11/22/2018 JOSE DANIEL PAREDES DOI Ot Z85.46 PERSONAL HISTORY OF MALIGNANT NEOPLASM O 11/22/2018 JOSE DANIEL PAREDES DOI Ot Z85.828 PERSONAL HISTORY OF OTHER MALIGNANT NEOP 11/22/2018 JOSE DANIEL PAREDES DOI Ot Z87.891 PERSONAL HISTORY OF NICOTINE DEPENDENCE 11/22/2018 JOSE DANIEL PAREDES DOI Ot Z90.79 ACQUIRED ABSENCE OF OTHER GENITAL ORGAN( 11/22/2018 LENA CASAS LUCINDA Ot Z91.81 HISTORY OF FALLING 11/22/2018 LENA CASAS LUCINDA Ot Z96.643 PRESENCE OF ARTIFICIAL HIP JOINT, BILATE 11/22/2018 LUCINDA PAREDES DO Ot D64.9 ANEMIA, UNSPECIFIED 11/22/2018 LENA CASAS LUCINDA Ot E11.9 TYPE 2 DIABETES MELLITUS WITHOUT COMPLIC 11/22/2018 JOSE DANIEL PAREDES DOI Ot E27.9 DISORDER OF ADRENAL GLAND, UNSPECIFIED 11/22/2018 JOSE DANIEL PAREDES DOI Ot E83.42 HYPOMAGNESEMIA 11/22/2018 LENA CASAS LUCINDA Ot E83.52 HYPERCALCEMIA 11/22/2018 LUCINDA PAREDES DO Ot G47.30 SLEEP APNEA, UNSPECIFIED 11/22/2018 LUCINDA PAREDES DO Ot I87.8 OTHER SPECIFIED DISORDERS OF VEINS 11/22/2018 JOSE DANIEL PAREDES DOI Ot K57.90 DVRTCLOS OF INTEST, PART UNSP, W/O PERF 11/22/2018 LUCINDA PAREDES DO Ot K59.09 OTHER CONSTIPATION 11/22/2018 LUCINDA PAREDES DO Ot M19.91 PRIMARY OSTEOARTHRITIS, UNSPECIFIED SITE 11/22/2018 LENA CASAS LUCINDA Ot N28.89 OTHER SPECIFIED DISORDERS OF KIDNEY AND 11/22/2018 LUCINDA PAREDES DO Ot R39.11 HESITANCY OF MICTURITION 11/22/2018 LUCINDA PAREDES DO Ot R53.1 WEAKNESS 11/22/2018 LENA CASAS LUCINDA Ot R59.0 LOCALIZED ENLARGED LYMPH NODES 11/22/2018 LUCINDA PAREDES DO Ot R63.4 ABNORMAL WEIGHT LOSS 11/22/2018 LUCINDA PAREDES DO Ot R91.8 OTHER NONSPECIFIC ABNORMAL FINDING OF VIOLET 11/22/2018 LUCINDA PAREDES DO Ot Z77.22 CNTCT W AND EXPSR TO ENVIRON TOBACCO SMO 11/22/2018 LUCINDA PAREDES DO Ot Z79.4 [employer] (CURRENT) USE OF INSULIN 11/22/2018 JOSE DANIEL PAREDES DOI Ot Z85.46 PERSONAL HISTORY OF MALIGNANT NEOPLASM O 11/22/2018 JOSE DANIEL PAREDES DOI Ot Z85.828 PERSONAL HISTORY OF OTHER MALIGNANT NEOP 11/22/2018 LUCINDA PAREDES DO Ot Z87.891 PERSONAL HISTORY OF NICOTINE DEPENDENCE 11/22/2018 LENA CASAS LUCINDA Ot Z90.79 ACQUIRED ABSENCE OF OTHER GENITAL ORGAN( 11/22/2018 LENA CASAS LUCINDA Ot Z91.81 HISTORY OF FALLING 11/22/2018 LUCINDA PAREDES DO Ot Z96.643 PRESENCE OF ARTIFICIAL HIP JOINT, BILATE 11/23/2018 JOSE DANIEL PAREDES DOI Ot D64.9 ANEMIA, UNSPECIFIED 11/23/2018 JOSE DANIEL PAREDES DOI Ot E11.9 TYPE 2 DIABETES MELLITUS WITHOUT COMPLIC 11/23/2018 LUCINDA PAREDES DO Ot E27.9 DISORDER OF ADRENAL GLAND, UNSPECIFIED 11/23/2018 LENA CASAS LUCINDA Ot E83.42 HYPOMAGNESEMIA 11/23/2018 LENA CASAS LUCINDA Ot E83.52 HYPERCALCEMIA 11/23/2018 LUCINDA PAREDES DO Ot G47.30 SLEEP APNEA, UNSPECIFIED 11/23/2018 JOSE DANIEL PAREDES DOI Ot I87.8 OTHER SPECIFIED DISORDERS OF VEINS 11/23/2018 JOSE DANIEL PAREDES DOI Ot K57.90 DVRTCLOS OF INTEST, PART UNSP, W/O PERF 11/23/2018 LUCINDA PAREDES DO Ot K59.09 OTHER CONSTIPATION 11/23/2018 JOSE DANIEL PAREDES DOI Ot M19.91 PRIMARY OSTEOARTHRITIS, UNSPECIFIED SITE 11/23/2018 JOSE DANIEL PAREDES DOI Ot N28.89 OTHER SPECIFIED DISORDERS OF KIDNEY AND 11/23/2018 LUCINDA PAREDES DO Ot R39.11 HESITANCY OF MICTURITION 11/23/2018 LUCINDA PAREDES DO Ot R53.1 WEAKNESS 11/23/2018 LUCINDA PAREDES DO Ot R59.0 LOCALIZED ENLARGED LYMPH NODES 11/23/2018 LUCINDA PAREDES DO Ot R63.4 ABNORMAL WEIGHT LOSS 11/23/2018 LUCINDA PAREDES DO Ot R91.8 OTHER NONSPECIFIC ABNORMAL FINDING OF VIOLET 11/23/2018 LUCINDA PAREDES DO Ot Z77.22 CNTCT W AND EXPSR TO ENVIRON TOBACCO SMO 11/23/2018 LUCINDA PAREDES DO Ot Z79.4 W[employer]T [employer]GE R[employer]ER (CURRENT) USE OF INSULIN 11/23/2018 JOSE DANIEL PAREDES DOI Ot Z85.46 PERSONAL HISTORY OF MALIGNANT NEOPLASM O 11/23/2018 LUCINDA PAREDES DO Ot Z85.828 PERSONAL HISTORY OF OTHER MALIGNANT NEOP 11/23/2018 LUCINDA PAREDES DO Ot Z87.891 PERSONAL HISTORY OF NICOTINE DEPENDENCE 11/23/2018 LENA CASAS LUCINDA Ot Z90.79 ACQUIRED ABSENCE OF OTHER GENITAL ORGAN( 11/23/2018 LUCINDA PAREDES DO Ot Z91.81 HISTORY OF FALLING 11/23/2018 JOSE DANIEL PAREDES DOI Ot Z96.643 PRESENCE OF ARTIFICIAL HIP JOINT, BILATE 11/23/2018 JOSE DANIEL PAREDES DOI Ot D64.9 ANEMIA, UNSPECIFIED 11/23/2018 LUCINDA PAREDES DO Ot E11.9 TYPE 2 DIABETES MELLITUS WITHOUT COMPLIC 11/23/2018 LUCINDA PAREDES DO Ot E27.9 DISORDER OF ADRENAL GLAND, UNSPECIFIED 11/23/2018 LUCINDA PAREDES DO Ot E83.42 HYPOMAGNESEMIA 11/23/2018 JOSE DANIEL PAREDES DOI Ot E83.52 HYPERCALCEMIA 11/23/2018 LENA CASAS LUCINDA Ot G47.30 SLEEP APNEA, UNSPECIFIED 11/23/2018 JOSE DANIEL PAREDES DOI Ot I87.8 OTHER SPECIFIED DISORDERS OF VEINS 11/23/2018 JOSE DANIEL PAREDES DOI Ot K57.90 DVRTCLOS OF INTEST, PART UNSP, W/O PERF 11/23/2018 JOSE DANIEL PAREDES DOI Ot K59.09 OTHER CONSTIPATION 11/23/2018 JOSE DANIEL PAREDES DOI Ot M19.91 PRIMARY OSTEOARTHRITIS, UNSPECIFIED SITE 11/23/2018 JOSE DANIEL PAREDES DOI Ot N28.89 OTHER SPECIFIED DISORDERS OF KIDNEY AND 11/23/2018 JOSE DANIEL PAREDES DOI Ot R39.11 HESITANCY OF MICTURITION 11/23/2018 LUCINDA PAREDES DO Ot R53.1 WEAKNESS 11/23/2018 JOSE DANIEL PAREDES DOI Ot R59.0 LOCALIZED ENLARGED LYMPH NODES 11/23/2018 JOSE DANIEL PAREDES DOI Ot R63.4 ABNORMAL WEIGHT LOSS 11/23/2018 LUCINDA PAREDES DO Ot R91.8 OTHER NONSPECIFIC ABNORMAL FINDING OF VIOLET 11/23/2018 LUCINDA PAREDES DO Ot Z77.22 CNTCT W AND EXPSR TO ENVIRON TOBACCO SMO 11/23/2018 LUCINDA PAREDES DO Ot Z79.4 SKILLED NURSING (CURRENT) USE OF INSULIN 11/23/2018 LUCINDA PAREDES DO Ot Z85.46 PERSONAL HISTORY OF MALIGNANT NEOPLASM O 11/23/2018 JOSE DANIEL PAREDES DOI Ot Z85.828 PERSONAL HISTORY OF OTHER MALIGNANT NEOP 11/23/2018 LUCINDA PAREDES DO Ot Z87.891 PERSONAL HISTORY OF NICOTINE DEPENDENCE 11/23/2018 JOSE DANIEL PAREDES DOI Ot Z90.79 ACQUIRED ABSENCE OF OTHER GENITAL ORGAN( 11/23/2018 JOSE DANIEL PAREDES DOI Ot Z91.81 HISTORY OF FALLING 11/23/2018 JOSE DANIEL PAREDES DOI Ot Z96.643 PRESENCE OF ARTIFICIAL HIP JOINT, BILATE 11/24/2018 JOSE DANIEL PAREDES DOI Ot D64.9 ANEMIA, UNSPECIFIED 11/24/2018 LUCINDA PAREDES DO Ot E11.9 TYPE 2 DIABETES MELLITUS WITHOUT COMPLIC 11/24/2018 LUCINDA PAREDES DO Ot E27.9 DISORDER OF ADRENAL GLAND, UNSPECIFIED 11/24/2018 JOSE DANIEL PAREDES DOI Ot E83.42 HYPOMAGNESEMIA 11/24/2018 JOSE DANIEL PAREDES DOI Ot E83.52 HYPERCALCEMIA 11/24/2018 LUCINDA PAREDES DO Ot G47.30 SLEEP APNEA, UNSPECIFIED 11/24/2018 JOSE DANIEL PAREDES DOI Ot I87.8 OTHER SPECIFIED DISORDERS OF VEINS 11/24/2018 JOSE DANIEL PAREDES DOI Ot K57.90 DVRTCLOS OF INTEST, PART UNSP, W/O PERF 11/24/2018 LUCINDA PAREDES DO Ot K59.09 OTHER CONSTIPATION 11/24/2018 JOSE DANIEL PAREDES DOI Ot M19.91 PRIMARY OSTEOARTHRITIS, UNSPECIFIED SITE 11/24/2018 LENA CASAS LUCINDA Ot N28.89 OTHER SPECIFIED DISORDERS OF KIDNEY AND 11/24/2018 JOSE DANIEL PAREDES DOI Ot R39.11 HESITANCY OF MICTURITION 11/24/2018 LENA CASAS LUCINDA Ot R53.1 WEAKNESS 11/24/2018 LENA CASAS LUCINDA Ot R59.0 LOCALIZED ENLARGED LYMPH NODES 11/24/2018 LUCINDA PAREDES DO Ot R63.4 ABNORMAL WEIGHT LOSS 11/24/2018 JOSE DANIEL PAREDES DOI Ot R91.8 OTHER NONSPECIFIC ABNORMAL FINDING OF VIOLET 11/24/2018 LUCINDA PAREDES DO Ot Z77.22 CNTCT W AND EXPSR TO ENVIRON TOBACCO SMO 11/24/2018 LUCINDA PAREDES DO Ot Z79.4 SKILLED NURSING (CURRENT) USE OF INSULIN 11/24/2018 LENA CASAS LUCINDA Ot Z85.46 PERSONAL HISTORY OF MALIGNANT NEOPLASM O 11/24/2018 LUCINDA PAREDES DO Ot Z85.828 PERSONAL HISTORY OF OTHER MALIGNANT NEOP 11/24/2018 LUCINDA PAREDES DO Ot Z87.891 PERSONAL HISTORY OF NICOTINE DEPENDENCE 11/24/2018 LENA CASAS LUCINDA Ot Z90.79 ACQUIRED ABSENCE OF OTHER GENITAL ORGAN( 11/24/2018 JOSE DANIEL PAREDES DOI Ot Z91.81 HISTORY OF FALLING 11/24/2018 LUCINDA PAREDES DO Ot Z96.643 PRESENCE OF ARTIFICIAL HIP JOINT, BILATE 11/25/2018 JOSE DANIEL PAREDES DOI Ot D64.9 ANEMIA, UNSPECIFIED 11/25/2018 JOSE DANIEL PAREDES DOI Ot E11.9 TYPE 2 DIABETES MELLITUS WITHOUT COMPLIC 11/25/2018 LENA CASAS LUCINDA Ot E27.9 DISORDER OF ADRENAL GLAND, UNSPECIFIED 11/25/2018 LENA CASAS LUCINDA Ot E83.42 HYPOMAGNESEMIA 11/25/2018 JOSE DANIEL PAREDES DOI Ot E83.52 HYPERCALCEMIA 11/25/2018 LENA CASAS LUCINDA Ot G47.30 SLEEP APNEA, UNSPECIFIED 11/25/2018 LENA CASAS LUCINDA Ot I87.8 OTHER SPECIFIED DISORDERS OF VEINS 11/25/2018 JOSE DANIEL PAREDES DOI Ot K57.90 DVRTCLOS OF INTEST, PART UNSP, W/O PERF 11/25/2018 LENA CASAS LUCINDA Ot K59.09 OTHER CONSTIPATION 11/25/2018 LENA CASAS LUCINDA Ot M19.91 PRIMARY OSTEOARTHRITIS, UNSPECIFIED SITE 11/25/2018 LENA CASAS LUCINDA Ot N28.89 OTHER SPECIFIED DISORDERS OF KIDNEY AND 11/25/2018 LENA CASAS LUCINDA Ot R39.11 HESITANCY OF MICTURITION 11/25/2018 JOSE DANIEL PAREDES DOI Ot R53.1 WEAKNESS 11/25/2018 LENA CASAS LUCINDA Ot R59.0 LOCALIZED ENLARGED LYMPH NODES 11/25/2018 LENA CASAS LUCINDA Ot R63.4 ABNORMAL WEIGHT LOSS 11/25/2018 LENA CASAS LUCINDA Ot R91.8 OTHER NONSPECIFIC ABNORMAL FINDING OF VIOLET 11/25/2018 LUCINDA PAREDES DO Ot Z77.22 CNTCT W AND EXPSR TO ENVIRON TOBACCO SMO 11/25/2018 LENA CASAS LUCINDA Ot Z79.4 SKILLED NURSING (CURRENT) USE OF INSULIN 11/25/2018 JOSE DANIEL PAREDES DOI Ot Z85.46 PERSONAL HISTORY OF MALIGNANT NEOPLASM O 11/25/2018 JOSE DANIEL PAREDES DOI Ot Z85.828 PERSONAL HISTORY OF OTHER MALIGNANT NEOP 11/25/2018 LENA CASAS LUCINDA Ot Z87.891 PERSONAL HISTORY OF NICOTINE DEPENDENCE 11/25/2018 LENA CASAS LUCINDA Ot Z90.79 ACQUIRED ABSENCE OF OTHER GENITAL ORGAN( 11/25/2018 JOSE DANIEL PAREDES DOI Ot Z91.81 HISTORY OF FALLING 11/25/2018 LUCINDA PAREDES DO Ot Z96.643 PRESENCE OF ARTIFICIAL HIP JOINT, BILATE 11/26/2018 LUCINDA PAREDES DO Ot D64.9 ANEMIA, UNSPECIFIED 11/26/2018 LENA CASAS LUCINDA Ot E11.9 TYPE 2 DIABETES MELLITUS WITHOUT COMPLIC 11/26/2018 LENA CASAS LUCINDA Ot E27.9 DISORDER OF ADRENAL GLAND, UNSPECIFIED 11/26/2018 LUCINDA PAREDES DO Ot E83.42 HYPOMAGNESEMIA 11/26/2018 LENA CASAS LUCINDA Ot E83.52 HYPERCALCEMIA 11/26/2018 LENA CASAS LUCINDA Ot G47.30 SLEEP APNEA, UNSPECIFIED 11/26/2018 LUCINDA PAREDES DO Ot I87.8 OTHER SPECIFIED DISORDERS OF VEINS 11/26/2018 JOSE DANIEL PAREDES DOI Ot K57.90 DVRTCLOS OF INTEST, PART UNSP, W/O PERF 11/26/2018 LUCINDA PAREDES DO Ot K59.09 OTHER CONSTIPATION 11/26/2018 LUCINDA PAREDES DO Ot M19.91 PRIMARY OSTEOARTHRITIS, UNSPECIFIED SITE 11/26/2018 LENA CASAS LUCINDA Ot N28.89 OTHER SPECIFIED DISORDERS OF KIDNEY AND 11/26/2018 JOSE DANIEL PAREDES DOI Ot R39.11 HESITANCY OF MICTURITION 11/26/2018 LUCINDA PAREDES DO Ot R53.1 WEAKNESS 11/26/2018 LENA CASAS LUCINDA Ot R59.0 LOCALIZED ENLARGED LYMPH NODES 11/26/2018 LUCINDA PAREDES DO Ot R63.4 ABNORMAL WEIGHT LOSS 11/26/2018 LUCINDA PAREDES DO Ot R91.8 OTHER NONSPECIFIC ABNORMAL FINDING OF VIOLET 11/26/2018 LUCINDA PAREDES DO Ot Z77.22 CNTCT W AND EXPSR TO ENVIRON TOBACCO SMO 11/26/2018 LUCINDA PAREDES DO Ot Z79.4 SKILLED NURSING (CURRENT) USE OF INSULIN 11/26/2018 LUCINDA PAREDES DO Ot Z85.46 PERSONAL HISTORY OF MALIGNANT NEOPLASM O 11/26/2018 LUCINDA PAREDES DO Ot Z85.828 PERSONAL HISTORY OF OTHER MALIGNANT NEOP 11/26/2018 LUCINDA PAREDES DO Ot Z87.891 PERSONAL HISTORY OF NICOTINE DEPENDENCE 11/26/2018 PAREDES DO, LUCINDA Ot Z90.79 ACQUIRED ABSENCE OF OTHER GENITAL ORGAN( 11/26/2018 LENA CASAS LUCINDA Ot Z91.81 HISTORY OF FALLING 11/26/2018 JOSE DANIEL PAREDES DOI Ot Z96.643 PRESENCE OF ARTIFICIAL HIP JOINT, BILATE 11/26/2018 LENA CASAS LUCINDA Ot D64.9 ANEMIA, UNSPECIFIED 11/26/2018 LENA CASAS LUCINDA Ot E11.9 TYPE 2 DIABETES MELLITUS WITHOUT COMPLIC 11/26/2018 LENA CASAS LUCINDA Ot E27.9 DISORDER OF ADRENAL GLAND, UNSPECIFIED 11/26/2018 LENA CASAS LUCINDA Ot E83.42 HYPOMAGNESEMIA 11/26/2018 LENA CASAS LUCINDA Ot E83.52 HYPERCALCEMIA 11/26/2018 LENA CASAS LUCINDA Ot G47.30 SLEEP APNEA, UNSPECIFIED 11/26/2018 LENA CASAS LUCINDA Ot I87.8 OTHER SPECIFIED DISORDERS OF VEINS 11/26/2018 LENA CASAS LUCINDA Ot K57.90 DVRTCLOS OF INTEST, PART UNSP, W/O PERF 11/26/2018 LENA CASAS LUCINDA Ot K59.09 OTHER CONSTIPATION 11/26/2018 LENA CASAS LUCINDA Ot M19.91 PRIMARY OSTEOARTHRITIS, UNSPECIFIED SITE 11/26/2018 LENA CASAS LUCINDA Ot N28.89 OTHER SPECIFIED DISORDERS OF KIDNEY AND 11/26/2018 LENA CASAS LUCINDA Ot R39.11 HESITANCY OF MICTURITION 11/26/2018 LENA CASAS LUCINDA Ot R53.1 WEAKNESS 11/26/2018 LENA CASAS LUCINDA Ot R59.0 LOCALIZED ENLARGED LYMPH NODES 11/26/2018 LENA CASAS LUCINDA Ot R63.4 ABNORMAL WEIGHT LOSS 11/26/2018 LENA CASAS LUCINDA Ot R91.8 OTHER NONSPECIFIC ABNORMAL FINDING OF VIOLET 11/26/2018 LENA CASAS LUCINDA Ot Z77.22 CNTCT W AND EXPSR TO ENVIRON TOBACCO SMO 11/26/2018 LENA CASAS LUCINDA Ot Z79.4 [employer] (CURRENT) USE OF INSULIN 11/26/2018 LENA CASAS LUCINDA Ot Z85.46 PERSONAL HISTORY OF MALIGNANT NEOPLASM O 11/26/2018 JOSE DANIEL PAREDES DOI Ot Z85.828 PERSONAL HISTORY OF OTHER MALIGNANT NEOP 11/26/2018 LENA CASAS LUCINDA Ot Z87.891 PERSONAL HISTORY OF NICOTINE DEPENDENCE 11/26/2018 LENA CASAS LUCINDA Ot Z90.79 ACQUIRED ABSENCE OF OTHER GENITAL ORGAN( 11/26/2018 LENA CASAS LUCINDA Ot Z91.81 HISTORY OF FALLING 11/26/2018 LENA CASAS LUCINDA Ot Z96.643 PRESENCE OF ARTIFICIAL HIP JOINT, BILATE 11/26/2018 LENA CASAS LUCINDA Ot D64.9 ANEMIA, UNSPECIFIED 11/26/2018 LENA CASAS LUCINDA Ot E11.9 TYPE 2 DIABETES MELLITUS WITHOUT COMPLIC 11/26/2018 LENA CASAS LUCINDA Ot E27.9 DISORDER OF ADRENAL GLAND, UNSPECIFIED 11/26/2018 LENA CASAS LUCINDA Ot E83.42 HYPOMAGNESEMIA 11/26/2018 LENA CASAS LUCINDA Ot E83.52 HYPERCALCEMIA 11/26/2018 LENA CASAS LUCINDA Ot G47.30 SLEEP APNEA, UNSPECIFIED 11/26/2018 JOSE DANIEL PAREDES DOI Ot I87.8 OTHER SPECIFIED DISORDERS OF VEINS 11/26/2018 JOSE DANIEL PAREDES DOI Ot K57.90 DVRTCLOS OF INTEST, PART UNSP, W/O PERF 11/26/2018 LENA CASAS LUCINDA Ot K59.09 OTHER CONSTIPATION 11/26/2018 JOSE DANIEL PAREDES DOI Ot M19.91 PRIMARY OSTEOARTHRITIS, UNSPECIFIED SITE 11/26/2018 LENA CASAS LUCINDA Ot N28.89 OTHER SPECIFIED DISORDERS OF KIDNEY AND 11/26/2018 LENA CASAS LUCINDA Ot R39.11 HESITANCY OF MICTURITION 11/26/2018 LENA CASAS LUCINDA Ot R53.1 WEAKNESS 11/26/2018 LENA CASAS LUCINDA Ot R59.0 LOCALIZED ENLARGED LYMPH NODES 11/26/2018 LENA CASAS LUCINDA Ot R63.4 ABNORMAL WEIGHT LOSS 11/26/2018 LUCINDA PAREDES DO Ot R91.8 OTHER NONSPECIFIC ABNORMAL FINDING OF VIOLET 11/26/2018 LUCINDA PAREDES DO Ot Z77.22 CNTCT W AND EXPSR TO ENVIRON TOBACCO SMO 11/26/2018 JOSE DANIEL PAREDES DOI Ot Z79.4 SKILLED NURSING (CURRENT) USE OF INSULIN 11/26/2018 LUCINDA PAREDES DO Ot Z85.46 PERSONAL HISTORY OF MALIGNANT NEOPLASM O 11/26/2018 LUCINDA PAREDES DO Ot Z85.828 PERSONAL HISTORY OF OTHER MALIGNANT NEOP 11/26/2018 LUCINDA PAREDES DO Ot Z87.891 PERSONAL HISTORY OF NICOTINE DEPENDENCE 11/26/2018 LUCINDA PAREDES DO Ot Z90.79 ACQUIRED ABSENCE OF OTHER GENITAL ORGAN( 11/26/2018 JOSE DANIEL PAREDES DOI Ot Z91.81 HISTORY OF FALLING 11/26/2018 LUCINDA PAREDES DO Ot Z96.643 PRESENCE OF ARTIFICIAL HIP JOINT, BILATE 11/27/2018 LUCINDA PAREDES DO Ot D64.9 ANEMIA, UNSPECIFIED 11/27/2018 JOSE DANIEL PAREDES DOI Ot E11.9 TYPE 2 DIABETES MELLITUS WITHOUT COMPLIC 11/27/2018 LUCINDA PAREDES DO Ot E27.9 DISORDER OF ADRENAL GLAND, UNSPECIFIED 11/27/2018 JOSE DANIEL PAREDES DOI Ot E83.42 HYPOMAGNESEMIA 11/27/2018 JOSE DANIEL PAREDES DOI Ot E83.52 HYPERCALCEMIA 11/27/2018 LUCINDA PAREDES DO Ot G47.30 SLEEP APNEA, UNSPECIFIED 11/27/2018 LUCINDA PAREDES DO Ot I87.8 OTHER SPECIFIED DISORDERS OF VEINS 11/27/2018 LUCINDA PAREDES DO Ot K57.90 DVRTCLOS OF INTEST, PART UNSP, W/O PERF 11/27/2018 JOSE DANIEL PAREDES DOI Ot K59.09 OTHER CONSTIPATION 11/27/2018 JOSE DANIEL PAREDES DOI Ot M19.91 PRIMARY OSTEOARTHRITIS, UNSPECIFIED SITE 11/27/2018 LENA CASAS LUCINDA Ot N28.89 OTHER SPECIFIED DISORDERS OF KIDNEY AND 11/27/2018 JOSE DANIEL PAREDES DOI Ot R39.11 HESITANCY OF MICTURITION 11/27/2018 LENA CASAS LUCINDA Ot R53.1 WEAKNESS 11/27/2018 LENA CASAS LUCINDA Ot R59.0 LOCALIZED ENLARGED LYMPH NODES 11/27/2018 LUCINDA PAREDES DO Ot R63.4 ABNORMAL WEIGHT LOSS 11/27/2018 LUCINDA PAREDES DO Ot R91.8 OTHER NONSPECIFIC ABNORMAL FINDING OF VIOLET 11/27/2018 LUCINDA PAREDES DO Ot Z77.22 CNTCT W AND EXPSR TO ENVIRON TOBACCO SMO 11/27/2018 LUCINDA PAREDES DO Ot Z79.4 [employer] (CURRENT) USE OF INSULIN 11/27/2018 LUCINDA PAREDES DO Ot Z85.46 PERSONAL HISTORY OF MALIGNANT NEOPLASM O 11/27/2018 LENA CASAS LUCINDA Ot Z85.828 PERSONAL HISTORY OF OTHER MALIGNANT NEOP 11/27/2018 LUCINDA PAREDES DO Ot Z87.891 PERSONAL HISTORY OF NICOTINE DEPENDENCE 11/27/2018 LENA CASAS LUCINDA Ot Z90.79 ACQUIRED ABSENCE OF OTHER GENITAL ORGAN( 11/27/2018 LENA CASAS LUCINDA Ot Z91.81 HISTORY OF FALLING 11/27/2018 LUCINDA PAREDES DO Ot Z96.643 PRESENCE OF ARTIFICIAL HIP JOINT, BILATE 11/28/2018 LENA CASAS LUCINDA Ot D64.9 ANEMIA, UNSPECIFIED 11/28/2018 LENA CASAS LUCINDA Ot E11.9 TYPE 2 DIABETES MELLITUS WITHOUT COMPLIC 11/28/2018 LENA CASAS LUCINDA Ot E27.9 DISORDER OF ADRENAL GLAND, UNSPECIFIED 11/28/2018 LENA CASAS LUICNDA Ot E83.42 HYPOMAGNESEMIA 11/28/2018 LENA CASAS LUCINDA Ot E83.52 HYPERCALCEMIA 11/28/2018 LENA CASAS LUCINDA Ot G47.30 SLEEP APNEA, UNSPECIFIED 11/28/2018 LENA CASAS LUCINDA Ot I87.8 OTHER SPECIFIED DISORDERS OF VEINS 11/28/2018 JOSE DANIEL PAREDES DOI Ot K57.90 DVRTCLOS OF INTEST, PART UNSP, W/O PERF 11/28/2018 LENA CASAS LUCINDA Ot K59.09 OTHER CONSTIPATION 11/28/2018 LENA CASAS LUCINDA Ot M19.91 PRIMARY OSTEOARTHRITIS, UNSPECIFIED SITE 11/28/2018 LENA CASAS LUCINDA Ot N28.89 OTHER SPECIFIED DISORDERS OF KIDNEY AND 11/28/2018 LENA CASAS LUCINDA Ot R39.11 HESITANCY OF MICTURITION 11/28/2018 LENA CASAS LUCINDA Ot R53.1 WEAKNESS 11/28/2018 LENA CASAS LUCINDA Ot R59.0 LOCALIZED ENLARGED LYMPH NODES 11/28/2018 LENA CASAS LUCINDA Ot R63.4 ABNORMAL WEIGHT LOSS 11/28/2018 LENA CASAS LUCINDA Ot R91.8 OTHER NONSPECIFIC ABNORMAL FINDING OF VIOLET 11/28/2018 LUCINDA PAREDES DO Ot Z77.22 CNTCT W AND EXPSR TO ENVIRON TOBACCO SMO 11/28/2018 LUCINDA PAREDES DO Ot Z79.4 [employer]ER (CURRENT) USE OF INSULIN 11/28/2018 JOSE DANIEL PAREDES DOI Ot Z85.46 PERSONAL HISTORY OF MALIGNANT NEOPLASM O 11/28/2018 LUCINDA PAREDES DO Ot Z85.828 PERSONAL HISTORY OF OTHER MALIGNANT NEOP 11/28/2018 LENA CASAS LUCINDA Ot Z87.891 PERSONAL HISTORY OF NICOTINE DEPENDENCE 11/28/2018 LENA CASAS LUCINDA Ot Z90.79 ACQUIRED ABSENCE OF OTHER GENITAL ORGAN( 11/28/2018 LENA CASAS LUCINDA Ot Z91.81 HISTORY OF FALLING 11/28/2018 LENA CASAS LUCINDA Ot Z96.643 PRESENCE OF ARTIFICIAL HIP JOINT, BILATE 11/28/2018 LENA CASAS LUCINDA Ot 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 NEOPLASM OF LEFT KIDNEY, EXCEP 11/28/2018 LENA CASAS LUCINDA Ot 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 11/28/2018 LENA CASAS LUCINDA Ot 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 11/28/2018 LENA CASAS LUCINDA Ot 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 11/28/2018 LENA CASAS LUCINDA Ot 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 11/28/2018 LENA CASAS LUCINDA Ot D64.9 ANEMIA, UNSPECIFIED 11/28/2018 LENA CASAS LUCINDA Ot E11.9 TYPE 2 DIABETES MELLITUS WITHOUT COMPLIC 11/28/2018 LENA CASAS LUCINDA Ot E27.9 DISORDER OF ADRENAL GLAND, UNSPECIFIED 11/28/2018 LENA CASAS LUCINDA Ot E83.42 HYPOMAGNESEMIA 11/28/2018 LENA CASAS LUCINDA Ot E83.52 HYPERCALCEMIA 11/28/2018 LENA CASAS LUCINDA Ot G47.30 SLEEP APNEA, UNSPECIFIED 11/28/2018 LENA CASAS LUCINDA Ot I87.8 OTHER SPECIFIED DISORDERS OF VEINS 11/28/2018 LENA CASAS LUCINDA Ot K57.90 DVRTCLOS OF INTEST, PART UNSP, W/O PERF 11/28/2018 LENA CASAS LUCINDA Ot K59.09 OTHER CONSTIPATION 11/28/2018 LENA CASAS LUCINDA Ot M19.91 PRIMARY OSTEOARTHRITIS, UNSPECIFIED SITE 11/28/2018 LENA CASAS LUCINDA Ot N28.1 CYST OF KIDNEY, ACQUIRED 11/28/2018 PAREDESSARA CASAS LUCINDA Ot N28.89 OTHER SPECIFIED DISORDERS OF KIDNEY AND 11/28/2018 LUCINDA PAREDES DO Ot R09.02 HYPOXEMIA 11/28/2018 PAREDESLUCINDA RUIZ DO Ot R39.11 HESITANCY OF MICTURITION 11/28/2018 PAREDES LUCINDA CASAS Ot R53.1 WEAKNESS 11/28/2018 PAREDESLUCINDA RUIZ DO Ot R59.0 LOCALIZED ENLARGED LYMPH NODES 11/28/2018 PAREDESLUCINDA RUIZ DO Ot R63.4 ABNORMAL WEIGHT LOSS 11/28/2018 PAREDESLUCINDA RUIZ DO Ot R91.8 OTHER NONSPECIFIC ABNORMAL FINDING OF VIOLET 11/28/2018 LUCINDA PAREDES DO Ot Z77.22 CNTCT W AND EXPSR TO ENVIRON TOBACCO SMO 11/28/2018 LUCINDA PAERDES DO Ot Z79.4 SKILLED NURSING (CURRENT) USE OF INSULIN 11/28/2018 LUCINDA PAREDES DO Ot Z80.3 FAMILY HISTORY OF MALIGNANT NEOPLASM OF 11/28/2018 LUCINDA PAREDES DO Ot Z85.46 PERSONAL HISTORY OF MALIGNANT NEOPLASM O 11/28/2018 LUCINDA PAREDES DO Ot Z85.828 PERSONAL HISTORY OF OTHER MALIGNANT NEOP 11/28/2018 LUCINDA PAREDES DO Ot Z87.891 PERSONAL HISTORY OF NICOTINE DEPENDENCE 11/28/2018 LUCINDA PAREDES DO Ot Z90.79 ACQUIRED ABSENCE OF OTHER GENITAL ORGAN( 11/28/2018 LUCINDA PAREDES DO Ot Z91.81 HISTORY OF FALLING 11/28/2018 LUCINDA PAREDES DO Ot Z96.643 PRESENCE OF ARTIFICIAL HIP JOINT, BILATE 12/04/2018 CHANCE PEREZ DO Ot 786.50 CHEST PAIN NOS 12/04/2018 CHANCE PEREZ DO Ot V64.3 NO PROC FOR REASONS NEC 12/04/2018 CHANCE PEREZ DO Ot 786.50 CHEST PAIN NOS 12/04/2018 CHANCE PEREZ DO Ot 793.2 NOSP (ABN) FINDINGS ON RADIOLOGICAL OT 12/04/2018 CHANCE PEREZ DO, Ot 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 12/04/2018 CHANCE PEREZ DO, Ot 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 Procedures Code Description Performed By Performed On [id number] EXCISION OF STOMACH, PERCUTANEOUS ENDOSC 08/29/2016 [id number] EXCISION OF THORAX LYMPHATIC, PERCUTANEO 11/21/2018 [id number] DRAINAGE OF RIGHT LOWER LUNG LOBE, ENDO, 11/21/2018 [id number] EXTRACTION OF RIGHT LOWER LOBE BRONCHUS, 11/21/2018 [id number] EXTRACTION OF RIGHT LOWER LUNG LOBE, END 11/21/2018 [id number] EXCISION OF LEFT KIDNEY, PERCUTANEOUS AP 11/25/2018 [id number] EXCISION OF LEFT KIDNEY, PERCUTANEOUS AP 11/27/2018 Results Test Result Range IFOBT Occult Blood - 08/28/16 11:22 IFOBT Occult Blood POSITIVE Negative Comprehensive Metabolic Panel - 08/28/16 11:24 Albumin 3.4 g/dL 3.6-5.1 ALP 46 U/L 35-130 ALT 12 U/L 6-45 Anion Gap 17 6-14 AST 19 U/L 2-40 BUN 37 mg/dL 5-25 Calcium 9.3 mg/dL 8.3-10.4 Chloride 108 mmol/L 95-114 CO2 20 mEq/L 22-33 Creat 1.02 mg/dL 0.50-1.50 eGFR 70 mL/min/1.73m2 >59 Globulin 2.7 g/dL 2.3-3.5 Glucose 156 mg/dL 70-110 Osmo 300 280-295 Potassium 4.8 mmol/L 3.5-5.3 Sodium 140 mmol/L 134-148 TBil 1.1 mg/dL 0.2-1.2 TP 6.1 g/dL 6.0-8.3 EKG - 08/28/16 11:33 EKG Complete TYPE/SCREEN - 08/28/16 12:43 ABO/RH O NEGATIVE ANTIBODY SCREEN POSITIVE HH - 08/28/16 14:16 Hct 33.9 % 42.0-52.0 Hgb 10.8 g/dL 14.0-17.0 Gastric Occult Blood - 08/28/16 15:31 Gastric Occult Blood Positive Negative Complete blood count (CBC) with automated white blood cell (WBC) differential - 08/28/16 17:45 Blood leukocytes automated count (number/volume) 7.4 10*3/uL 4.3-11.0 Blood erythrocytes automated count (number/volume) 3.63 10*6/uL 4.35-5.85 Venous blood hemoglobin measurement (mass/volume) 10.9 g/dL 13.3-17.7 Blood hematocrit (volume fraction) 34 % 40-54 Automated erythrocyte mean corpuscular volume 93 [foz_us] 80-99 Automated erythrocyte mean corpuscular hemoglobin (mass per erythrocyte) 30 pg 25-34 Automated erythrocyte mean corpuscular hemoglobin concentration measurement (mass/volume) 32 g/dL 32-36 Automated erythrocyte distribution width ratio 14.4 % 10.0- 14.5 Automated blood platelet count (count/volume) 155 10*3/uL 130-400 Automated blood platelet mean volume measurement 11.1 [foz_us] 7.4-10.4 Automated blood neutrophils/100 leukocytes 71 % 42-75 Automated blood lymphocytes/100 leukocytes 18 % 12-44 Blood monocytes/100 leukocytes 9 % 0-12 Automated blood eosinophils/100 leukocytes 2 % 0-10 Automated blood basophils/100 leukocytes 0 % 0-10 Blood neutrophils automated count (number/volume) 5.2 10*3 1.8-7.8 Blood lymphocytes automated count (number/volume) 1.3 10*3 1.0-4.0 Blood monocytes automated count (number/volume) 0.6 10*3 0.0- 1.0 Automated eosinophil count 0.2 10*3/uL 0.0-0.3 Automated blood basophil count (count/volume) 0.0 10*3/uL 0.0-0.1 Comprehensive metabolic panel - 08/28/16 17:45 Serum or plasma sodium measurement (moles/volume) 138 mmol/L 135-145 Serum or plasma potassium measurement (moles/volume) 4.1 mmol/L 3.6-5.0 Serum or plasma chloride measurement (moles/volume) 107 mmol/L 98-107 Carbon dioxide 24 mmol/L 21-32 Serum or plasma anion gap determination (moles/volume) 7 mmol/L 5-14 Serum or plasma urea nitrogen measurement (mass/volume) 34 mg/dL 7-18 Serum or plasma creatinine measurement (mass/volume) 0.99 mg/dL 0.60-1.30 Serum or plasma urea nitrogen/creatinine mass ratio 34 NRG Serum or plasma creatinine measurement with calculation of estimated glomerular filtration rate > NRG Serum or plasma glucose measurement (mass/volume) 151 mg/dL 70-105 Serum or plasma calcium measurement (mass/volume) 8.6 mg/dL 8.5-10.1 Serum or plasma total bilirubin measurement (mass/volume) 1.2 mg/dL 0.1-1.0 Serum or plasma alkaline phosphatase measurement (enzymatic activity/volume) 44 U/L 40-136 Serum or plasma aspartate aminotransferase measurement (enzymatic activity/volume) 12 U/L 5-34 Serum or plasma alanine aminotransferase measurement (enzymatic activity/volume) 13 U/L 0-55 Serum or plasma protein measurement (mass/volume) 5.7 g/dL 6.4-8.2 Serum or plasma albumin measurement (mass/volume) 3.3 g/dL 3.2-4.5 Blood type T Indirect antibody screen panel - 08/28/16 17:45 ABO+Rh group ON NRG Transfusion band number [id number] [facility] Blood group antibody screen POSITIVE NRG Blood group antibodies identified - 08/28/16 17:45 Blood group antibodies identified S [facility] Whole blood hemoglobin and hematocrit panel - 08/28/16 23:28 Venous blood hemoglobin measurement (mass/volume) 9.7 g/dL 13.3-17.7 Blood hematocrit (volume fraction) 30 % 40-54 Complete blood count (CBC) with automated white blood cell (WBC) differential - 08/29/16 03:42 Blood leukocytes automated count (number/volume) 7.2 10*3/uL 4.3-11.0 Blood erythrocytes automated count (number/volume) 3.12 10*6/uL 4.35-5.85 Venous blood hemoglobin measurement (mass/volume) 9.5 g/dL 13.3-17.7 Blood hematocrit (volume fraction) 29 % 40-54 Automated erythrocyte mean corpuscular volume 93 [foz_us] 80-99 Automated erythrocyte mean corpuscular hemoglobin (mass per erythrocyte) 30 pg 25-34 Automated erythrocyte mean corpuscular hemoglobin concentration measurement (mass/volume) 33 g/dL 32-36 Automated erythrocyte distribution width ratio 14.2 % 10.0- 14.5 Automated blood platelet count (count/volume) 134 10*3/uL 130-400 Automated blood platelet mean volume measurement 11.5 [foz_us] 7.4-10.4 Automated blood neutrophils/100 leukocytes 64 % 42-75 Automated blood lymphocytes/100 leukocytes 22 % 12-44 Blood monocytes/100 leukocytes 11 % 0-12 Automated blood eosinophils/100 leukocytes 3 % 0-10 Automated blood basophils/100 leukocytes 0 % 0-10 Blood neutrophils automated count (number/volume) 4.6 10*3 1.8-7.8 Blood lymphocytes automated count (number/volume) 1.6 10*3 1.0-4.0 Blood monocytes automated count (number/volume) 0.8 10*3 0.0- 1.0 Automated eosinophil count 0.2 10*3/uL 0.0-0.3 Automated blood basophil count (count/volume) 0.0 10*3/uL 0.0-0.1 Comprehensive metabolic panel - 08/29/16 03:42 Serum or plasma sodium measurement (moles/volume) 140 mmol/L 135-145 Serum or plasma potassium measurement (moles/volume) 3.9 mmol/L 3.6-5.0 Serum or plasma chloride measurement (moles/volume) 112 mmol/L 98-107 Carbon dioxide 21 mmol/L 21-32 Serum or plasma anion gap determination (moles/volume) 7 mmol/L 5-14 Serum or plasma urea nitrogen measurement (mass/volume) 34 mg/dL 7-18 Serum or plasma creatinine measurement (mass/volume) 0.90 mg/dL 0.60-1.30 Serum or plasma urea nitrogen/creatinine mass ratio 38 NRG Serum or plasma creatinine measurement with calculation of estimated glomerular filtration rate > NRG Serum or plasma glucose measurement (mass/volume) 136 mg/dL 70-105 Serum or plasma calcium measurement (mass/volume) 8.1 mg/dL 8.5-10.1 Serum or plasma total bilirubin measurement (mass/volume) 1.1 mg/dL 0.1-1.0 Serum or plasma alkaline phosphatase measurement (enzymatic activity/volume) 40 U/L 40-136 Serum or plasma aspartate aminotransferase measurement (enzymatic activity/volume) 12 U/L 5-34 Serum or plasma alanine aminotransferase measurement (enzymatic activity/volume) 9 U/L 0-55 Serum or plasma protein measurement (mass/volume) 5.0 g/dL 6.4-8.2 Serum or plasma albumin measurement (mass/volume) 2.9 g/dL 3.2-4.5 PT panel in platelet poor plasma by coagulation assay - 08/29/16 03:47 Prothrombin time (PT) in platelet poor plasma by coagulation assay 14.7 s 12.2-14.7 INR in platelet poor plasma or blood by coagulation assay 1.2 0.8-1.4 Whole blood hemoglobin and hematocrit panel - 08/29/16 09:09 Venous blood hemoglobin measurement (mass/volume) 10.3 g/dL 13.3-17.7 Blood hematocrit (volume fraction) 31 % 40-54 IRON TEST - 08/29/16 11:40 Serum or plasma iron measurement (mass/volume) 86 % 40-180 Whole blood hemoglobin and hematocrit panel - 08/29/16 15:58 Venous blood hemoglobin measurement (mass/volume) 9.9 g/dL 13.3-17.7 Blood hematocrit (volume fraction) 31 % 40-54 Whole blood hemoglobin and hematocrit panel - 08/29/16 23:34 Venous blood hemoglobin measurement (mass/volume) 9.0 g/dL 13.3-17.7 Blood hematocrit (volume fraction) 27 % 40-54 Complete blood count (CBC) with automated white blood cell (WBC) differential - 08/30/16 06:09 Blood leukocytes automated count (number/volume) 5.8 10*3/uL 4.3-11.0 Blood erythrocytes automated count (number/volume) 2.94 10*6/uL 4.35-5.85 Venous blood hemoglobin measurement (mass/volume) 8.9 g/dL 13.3-17.7 Blood hematocrit (volume fraction) 27 % 40-54 Automated erythrocyte mean corpuscular volume 93 [foz_us] 80-99 Automated erythrocyte mean corpuscular hemoglobin (mass per erythrocyte) 30 pg 25-34 Automated erythrocyte mean corpuscular hemoglobin concentration measurement (mass/volume) 33 g/dL 32-36 Automated erythrocyte distribution width ratio 14.2 % 10.0- 14.5 Automated blood platelet count (count/volume) 126 10*3/uL 130-400 Automated blood platelet mean volume measurement 11.1 [foz_us] 7.4-10.4 Automated blood neutrophils/100 leukocytes 59 % 42-75 Automated blood lymphocytes/100 leukocytes 23 % 12-44 Blood monocytes/100 leukocytes 13 % 0-12 Automated blood eosinophils/100 leukocytes 5 % 0-10 Automated blood basophils/100 leukocytes 1 % 0-10 Blood neutrophils automated count (number/volume) 3.4 10*3 1.8-7.8 Blood lymphocytes automated count (number/volume) 1.3 10*3 1.0-4.0 Blood monocytes automated count (number/volume) 0.7 10*3 0.0- 1.0 Automated eosinophil count 0.3 10*3/uL 0.0-0.3 Automated blood basophil count (count/volume) 0.0 10*3/uL 0.0-0.1 Comprehensive metabolic panel - 08/30/16 06:09 Serum or plasma sodium measurement (moles/volume) 140 mmol/L 135-145 Serum or plasma potassium measurement (moles/volume) 3.5 mmol/L 3.6-5.0 Serum or plasma chloride measurement (moles/volume) 113 mmol/L 98-107 Carbon dioxide 21 mmol/L 21-32 Serum or plasma anion gap determination (moles/volume) 6 mmol/L 5-14 Serum or plasma urea nitrogen measurement (mass/volume) 26 mg/dL 7-18 Serum or plasma creatinine measurement (mass/volume) 0.83 mg/dL 0.60-1.30 Serum or plasma urea nitrogen/creatinine mass ratio 31 NRG Serum or plasma creatinine measurement with calculation of estimated glomerular filtration rate > NRG Serum or plasma glucose measurement (mass/volume) 149 mg/dL 70-105 Serum or plasma calcium measurement (mass/volume) 8.1 mg/dL 8.5-10.1 Serum or plasma total bilirubin measurement (mass/volume) 0.8 mg/dL 0.1-1.0 Serum or plasma alkaline phosphatase measurement (enzymatic activity/volume) 43 U/L 40-136 Serum or plasma aspartate aminotransferase measurement (enzymatic activity/volume) 12 U/L 5-34 Serum or plasma alanine aminotransferase measurement (enzymatic activity/volume) 12 U/L 0-55 Serum or plasma protein measurement (mass/volume) 4.9 g/dL 6.4-8.2 Serum or plasma albumin measurement (mass/volume) 3.0 g/dL 3.2-4.5 BMP - 11/17/18 08:43 Anion Gap 12 6-14 BUN 19 mg/dL 5-25 Calcium 10.8 mg/dL 8.3-10.4 Chloride 105 mmol/L 95-114 CO2 24 mEq/L 22-33 Creat 0.81 mg/dL 0.50-1.50 eGFR 91 mL/min/1.73m2 >59 Glucose 244 mg/dL 70-110 Osmo 293 280-295 Potassium 4.3 mmol/L 3.5-5.3 Sodium 137 mmol/L 134-148 Troponin I - 11/20/18 14:41 Troponin <0.020 ng/mL 0.0-0.4 Myoglobin - 11/20/18 14:41 Myoglobin 73.6 ng/ml 1.6-154.9 Thyroid Stimulating Hormone - 11/20/18 14:41 TSH 1.37 mIU/mL 0.32-5.00 Urinalysis - 11/20/18 15:39 Icotest N/A Negative Urine Casts Granular cast: 0-2/HPF Urine Crystals Amorphous material: Moderate/HPF Urine Volume Urine Volume Sufficient (10mL) Urine-Appearance Clear Clear Urine-Bacteria Rare Urine-Bilirubin Negative Negative Urine-Blood Negative Negative Urine-Color Yellow Colorless-Lt. Yellow Urine-Epithelial Cells 0-5/HPF Urine-Glucose Trace Negative Urine-Ketones Trace Negative Urine-Leukocytes Negative Negative Urine-Nitrite Negative Negative Urine-Other Urine Saved if Culture Needed (48hrs from time of collection) Urine-pH 5.5 5-8.5 Urine-Protein Negative Negative Urine-RBC 0-2/HPF Urine-Specific [place] 1.020 1.000-1.030 Urine-WBC 0-3/HPF Urobilinogen 0.2 0.2-1.0 Complete blood count (CBC) with automated white blood cell (WBC) differential - 11/20/18 19:17 Blood leukocytes automated count (number/volume) 10.7 10*3/uL 4.3-11.0 Blood erythrocytes automated count (number/volume) 4.02 10*6/uL 4.35-5.85 Venous blood hemoglobin measurement (mass/volume) 11.2 g/dL 13.3-17.7 Blood hematocrit (volume fraction) 35 % 40-54 Automated erythrocyte mean corpuscular volume 88 [foz_us] 80-99 Automated erythrocyte mean corpuscular hemoglobin (mass per erythrocyte) 28 pg 25-34 Automated erythrocyte mean corpuscular hemoglobin concentration measurement (mass/volume) 32 g/dL 32-36 Automated erythrocyte distribution width ratio 13.6 % 10.0- 14.5 Automated blood platelet count (count/volume) 239 10*3/uL 130-400 Automated blood platelet mean volume measurement 10.7 [foz_us] 7.4-10.4 Automated blood neutrophils/100 leukocytes 76 % 42-75 Automated blood lymphocytes/100 leukocytes 12 % 12-44 Blood monocytes/100 leukocytes 11 % 0-12 Automated blood eosinophils/100 leukocytes 2 % 0-10 Automated blood basophils/100 leukocytes 0 % 0-10 Blood neutrophils automated count (number/volume) 8.1 10*3 1.8-7.8 Blood lymphocytes automated count (number/volume) 1.3 10*3 1.0-4.0 Blood monocytes automated count (number/volume) 1.1 10*3 0.0- 1.0 Automated eosinophil count 0.2 10*3/uL 0.0-0.3 Automated blood basophil count (count/volume) 0.0 10*3/uL 0.0-0.1 Blood lactic acid measurement (moles/volume) - 11/20/18 19:17 Blood lactic acid measurement (moles/volume) 1.34 mmol/L 0.50- 2.00 PT panel in platelet poor plasma by coagulation assay - 11/20/18 19:17 Prothrombin time (PT) in platelet poor plasma by coagulation assay 14.6 s 12.2-14.7 INR in platelet poor plasma or blood by coagulation assay 1.1 0.8-1.4 Activated partial thromboplastin time (aPTT) in platelet poor plasma bycoagulation assay - 11/20/18 19:17 Activated partial thromboplastin time (aPTT) in platelet poor plasma bycoagulation assay 36 s 24-35 Serum or plasma phosphate measurement (mass/volume) - 11/20/18 19:17 Serum or plasma phosphate measurement (mass/volume) 2.3 mg/dL 2.3-4.7 Magnesium - 11/20/18 19:17 Magnesium 1.7 mg/dL 1.8-2.4 Comprehensive metabolic panel - 11/20/18 19:17 Serum or plasma sodium measurement (moles/volume) 137 mmol/L 135-145 Serum or plasma potassium measurement (moles/volume) 4.2 mmol/L 3.6-5.0 Serum or plasma chloride measurement (moles/volume) 103 mmol/L 98-107 Carbon dioxide 22 mmol/L 21-32 Serum or plasma anion gap determination (moles/volume) 12 mmol/L 5-14 Serum or plasma urea nitrogen measurement (mass/volume) 31 mg/dL 7-18 Serum or plasma creatinine measurement (mass/volume) 1.26 mg/dL 0.60-1.30 Serum or plasma urea nitrogen/creatinine mass ratio 25 NRG Serum or plasma creatinine measurement with calculation of estimated glomerular filtration rate 55 NRG Serum or plasma glucose measurement (mass/volume) 224 mg/dL 70-105 Serum or plasma calcium measurement (mass/volume) 11.6 mg/dL 8.5-10.1 Serum or plasma total bilirubin measurement (mass/volume) 0.6 mg/dL 0.1-1.0 Serum or plasma alkaline phosphatase measurement (enzymatic activity/volume) 112 U/L 40-136 Serum or plasma aspartate aminotransferase measurement (enzymatic activity/volume) 12 U/L 5-34 Serum or plasma alanine aminotransferase measurement (enzymatic activity/volume) 16 U/L 0-55 Serum or plasma protein measurement (mass/volume) 7.0 g/dL 6.4-8.2 Serum or plasma albumin measurement (mass/volume) 3.3 g/dL 3.2-4.5 CALCIUM CORRECTED 12.2 mg/dL 8.5-10.1 Bacterial blood culture - 11/20/18 19:17 Bacterial blood culture NG NRG Bacterial blood culture - 11/20/18 19:24 Bacterial blood culture NG NRG Bacterial blood culture - 11/20/18 19:34 FREE TEXT EXTERNAL SEE COMMENT NRG QUANTITY OF GROWTH Isolated [facility] Bacterial blood culture [id number] [facility] Methicillin resistant Staphylococcus aureus (MRSA) screening culture - 11/20/18 19:40 Methicillin resistant Staphylococcus aureus (MRSA) screening culture NEG NRG Capillary blood glucose measurement by glucometer (mass/volume) - 11/20/18 22:20 Capillary blood glucose measurement by glucometer (mass/volume) 203 mg/dL 70-110 Complete blood count (CBC) with automated white blood cell (WBC) differential - 11/21/18 03:20 Blood leukocytes automated count (number/volume) 8.3 10*3/uL 4.3-11.0 Blood erythrocytes automated count (number/volume) 3.83 10*6/uL 4.35-5.85 Venous blood hemoglobin measurement (mass/volume) 10.6 g/dL 13.3-17.7 Blood hematocrit (volume fraction) 33 % 40-54 Automated erythrocyte mean corpuscular volume 87 [foz_us] 80-99 Automated erythrocyte mean corpuscular hemoglobin (mass per erythrocyte) 28 pg 25-34 Automated erythrocyte mean corpuscular hemoglobin concentration measurement (mass/volume) 32 g/dL 32-36 Automated erythrocyte distribution width ratio 13.4 % 10.0- 14.5 Automated blood platelet count (count/volume) 211 10*3/uL 130-400 Automated blood platelet mean volume measurement 11.1 [foz_us] 7.4-10.4 Automated blood neutrophils/100 leukocytes 71 % 42-75 Automated blood lymphocytes/100 leukocytes 15 % 12-44 Blood monocytes/100 leukocytes 11 % 0-12 Automated blood eosinophils/100 leukocytes 3 % 0-10 Automated blood basophils/100 leukocytes 1 % 0-10 Blood neutrophils automated count (number/volume) 5.9 10*3 1.8-7.8 Blood lymphocytes automated count (number/volume) 1.2 10*3 1.0-4.0 Blood monocytes automated count (number/volume) 0.9 10*3 0.0- 1.0 Automated eosinophil count 0.3 10*3/uL 0.0-0.3 Automated blood basophil count (count/volume) 0.0 10*3/uL 0.0-0.1 Comprehensive metabolic panel - 11/21/18 03:20 Serum or plasma sodium measurement (moles/volume) 136 mmol/L 135-145 Serum or plasma potassium measurement (moles/volume) 4.0 mmol/L 3.6-5.0 Serum or plasma chloride measurement (moles/volume) 104 mmol/L 98-107 Carbon dioxide 22 mmol/L 21-32 Serum or plasma anion gap determination (moles/volume) 10 mmol/L 5-14 Serum or plasma urea nitrogen measurement (mass/volume) 25 mg/dL 7-18 Serum or plasma creatinine measurement (mass/volume) 0.94 mg/dL 0.60-1.30 Serum or plasma urea nitrogen/creatinine mass ratio 27 NRG Serum or plasma creatinine measurement with calculation of estimated glomerular filtration rate > NRG Serum or plasma glucose measurement (mass/volume) 162 mg/dL 70-105 Serum or plasma calcium measurement (mass/volume) 11.0 mg/dL 8.5-10.1 Serum or plasma total bilirubin measurement (mass/volume) 0.6 mg/dL 0.1-1.0 Serum or plasma alkaline phosphatase measurement (enzymatic activity/volume) 107 U/L 40-136 Serum or plasma aspartate aminotransferase measurement (enzymatic activity/volume) 13 U/L 5-34 Serum or plasma alanine aminotransferase measurement (enzymatic activity/volume) 14 U/L 0-55 Serum or plasma protein measurement (mass/volume) 6.3 g/dL 6.4-8.2 Serum or plasma albumin measurement (mass/volume) 3.0 g/dL 3.2-4.5 CALCIUM CORRECTED 11.8 mg/dL 8.5-10.1 Serum or plasma phosphate measurement (mass/volume) - 11/21/18 03:20 Serum or plasma phosphate measurement (mass/volume) 2.3 mg/dL 2.3-4.7 Magnesium - 11/21/18 03:20 Magnesium 1.5 mg/dL 1.8-2.4 Lactate dehydrogenase 1 [enzymatic activity/volume] in serum or plasma - 11/21/18 03:20 Lactate dehydrogenase 1 [enzymatic activity/volume] in serum or plasma 128 U/L 125-220 IONIZED CALCIUM (SEND OFF) - 11/21/18 03:20 Blood ionized calcium measurement (mass/volume) 1.52 % 1.16- 1.32 Venous blood ionized calcium measurement adjusted to pH 7.4 (moles/volume) 1.54 % 1.16-1.32 pH measurement 7.44 NRG Complete urinalysis with reflex to culture - 11/21/18 05:00 Urine color determination YELLOW NRG Urine clarity determination CLEAR NRG Urine pH measurement by test strip 5 5-9 Specific gravity of urine by test strip 1.020 1.016-1.022 Urine protein assay by test strip, semi-quantitative NEGATIVE NEGATIVE Urine glucose detection by automated test strip NEGATIVE NEGATIVE Erythrocytes detection in urine sediment by light microscopy NEGATIVE NEGATIVE Urine ketones detection by automated test strip NEGATIVE NEGATIVE Urine nitrite detection by test strip NEGATIVE NEGATIVE Urine total bilirubin detection by test strip NEGATIVE NEGATIVE Urine urobilinogen measurement by automated test strip (mass/volume) NORMAL NORMAL Urine leukocyte esterase detection by dipstick NEGATIVE NEGATIVE Automated urine sediment erythrocyte count by microscopy (number/high power field) [HPF] NRG Automated urine sediment leukocyte count by microscopy (number/high power field) NONE NRG Bacteria detection in urine sediment by light microscopy NEGATIVE NRG Squamous epithelial cells detection in urine sediment by light microscopy 0-2 NRG Crystals detection in urine sediment by light microscopy NONE NRG Casts detection in urine sediment by light microscopy NONE NRG Mucus detection in urine sediment by light microscopy NEGATIVE NRG Complete urinalysis with reflex to culture NO NRG Sputum Gram stain - 11/21/18 08:00 Sputum Gram stain -604. NRG Bacteria identification in bronchial specimen by aerobe culture - 11/21/18 08:00 QUANTITY OF GROWTH . NRG Bacteria identification in bronchial specimen by aerobe culture USUAL RESP NRG FTX;REPORTABLE 6,000 CFU/ML NRG C FUNGUS SPUTUM FLUID TISSUE - 11/21/18 08:00 FREE TEXT ENTRY 2 (FINAL REQUIRES 4 WEEKS) NRG FUNGUS EXAM CURRENT REPORT: NEGATIVE NRG Mycobacterium species detection by organism specific culture - 11/21/18 08:01 Capillary blood glucose measurement by glucometer (mass/volume) - 11/21/18 08:59 Capillary blood glucose measurement by glucometer (mass/volume) 187 mg/dL 70-110 Capillary blood glucose measurement by glucometer (mass/volume) - 11/21/18 16:37 Capillary blood glucose measurement by glucometer (mass/volume) 233 mg/dL 70-110 Capillary blood glucose measurement by glucometer (mass/volume) - 11/21/18 20:12 Capillary blood glucose measurement by glucometer (mass/volume) 248 mg/dL 70-110 Complete blood count (CBC) with automated white blood cell (WBC) differential - 11/22/18 05:10 Blood leukocytes automated count (number/volume) 8.8 10*3/uL 4.3-11.0 Blood erythrocytes automated count (number/volume) 3.50 10*6/uL 4.35-5.85 Venous blood hemoglobin measurement (mass/volume) 9.7 g/dL 13.3-17.7 Blood hematocrit (volume fraction) 31 % 40-54 Automated erythrocyte mean corpuscular volume 88 [foz_us] 80-99 Automated erythrocyte mean corpuscular hemoglobin (mass per erythrocyte) 28 pg 25-34 Automated erythrocyte mean corpuscular hemoglobin concentration measurement (mass/volume) 32 g/dL 32-36 Automated erythrocyte distribution width ratio 13.8 % 10.0- 14.5 Automated blood platelet count (count/volume) 200 10*3/uL 130-400 Automated blood platelet mean volume measurement 10.6 [foz_us] 7.4-10.4 Automated blood neutrophils/100 leukocytes 75 % 42-75 Automated blood lymphocytes/100 leukocytes 10 % 12-44 Blood monocytes/100 leukocytes 11 % 0-12 Automated blood eosinophils/100 leukocytes 3 % 0-10 Automated blood basophils/100 leukocytes 0 % 0-10 Blood neutrophils automated count (number/volume) 6.6 10*3 1.8-7.8 Blood lymphocytes automated count (number/volume) 0.9 10*3 1.0-4.0 Blood monocytes automated count (number/volume) 1.0 10*3 0.0- 1.0 Automated eosinophil count 0.3 10*3/uL 0.0-0.3 Automated blood basophil count (count/volume) 0.0 10*3/uL 0.0-0.1 Comprehensive metabolic panel - 11/22/18 05:10 Serum or plasma sodium measurement (moles/volume) 138 mmol/L 135-145 Serum or plasma potassium measurement (moles/volume) 4.3 mmol/L 3.6-5.0 Serum or plasma chloride measurement (moles/volume) 107 mmol/L 98-107 Carbon dioxide 23 mmol/L 21-32 Serum or plasma anion gap determination (moles/volume) 8 mmol/L 5-14 Serum or plasma urea nitrogen measurement (mass/volume) 22 mg/dL 7-18 Serum or plasma creatinine measurement (mass/volume) 0.84 mg/dL 0.60-1.30 Serum or plasma urea nitrogen/creatinine mass ratio 26 NRG Serum or plasma creatinine measurement with calculation of estimated glomerular filtration rate > NRG Serum or plasma glucose measurement (mass/volume) 182 mg/dL 70-105 Serum or plasma calcium measurement (mass/volume) 10.5 mg/dL 8.5-10.1 Serum or plasma total bilirubin measurement (mass/volume) 0.6 mg/dL 0.1-1.0 Serum or plasma alkaline phosphatase measurement (enzymatic activity/volume) 98 U/L 40-136 Serum or plasma aspartate aminotransferase measurement (enzymatic activity/volume) 11 U/L 5-34 Serum or plasma alanine aminotransferase measurement (enzymatic activity/volume) 14 U/L 0-55 Serum or plasma protein measurement (mass/volume) 5.8 g/dL 6.4-8.2 Serum or plasma albumin measurement (mass/volume) 2.8 g/dL 3.2-4.5 CALCIUM CORRECTED 11.5 mg/dL 8.5-10.1 Magnesium - 11/22/18 05:10 Magnesium 1.7 mg/dL 1.8-2.4 Serum or plasma lithium measurement (moles/volume) - 11/22/18 05:10 BNP level 83.7 pg/mL <100.0 Capillary blood glucose measurement by glucometer (mass/volume) - 11/22/18 05:40 Capillary blood glucose measurement by glucometer (mass/volume) 179 mg/dL 70-110 Capillary blood glucose measurement by glucometer (mass/volume) - 11/22/18 10:54 Capillary blood glucose measurement by glucometer (mass/volume) 294 mg/dL 70-110 Capillary blood glucose measurement by glucometer (mass/volume) - 11/22/18 15:55 Capillary blood glucose measurement by glucometer (mass/volume) 226 mg/dL 70-110 Capillary blood glucose measurement by glucometer (mass/volume) - 11/22/18 20:38 Capillary blood glucose measurement by glucometer (mass/volume) 233 mg/dL 70-110 Capillary blood glucose measurement by glucometer (mass/volume) - 11/23/18 05:59 Capillary blood glucose measurement by glucometer (mass/volume) 211 mg/dL 70-110 Complete blood count (CBC) with automated white blood cell (WBC) differential - 11/23/18 06:00 Blood leukocytes automated count (number/volume) 5.8 10*3/uL 4.3-11.0 Blood erythrocytes automated count (number/volume) 3.52 10*6/uL 4.35-5.85 Venous blood hemoglobin measurement (mass/volume) 9.6 g/dL 13.3-17.7 Blood hematocrit (volume fraction) 31 % 40-54 Automated erythrocyte mean corpuscular volume 88 [foz_us] 80-99 Automated erythrocyte mean corpuscular hemoglobin (mass per erythrocyte) 27 pg 25-34 Automated erythrocyte mean corpuscular hemoglobin concentration measurement (mass/volume) 31 g/dL 32-36 Automated erythrocyte distribution width ratio 14.0 % 10.0- 14.5 Automated blood platelet count (count/volume) 183 10*3/uL 130-400 Automated blood platelet mean volume measurement 10.6 [foz_us] 7.4-10.4 Automated blood neutrophils/100 leukocytes 74 % 42-75 Automated blood lymphocytes/100 leukocytes 12 % 12-44 Blood monocytes/100 leukocytes 12 % 0-12 Automated blood eosinophils/100 leukocytes 1 % 0-10 Automated blood basophils/100 leukocytes 0 % 0-10 Blood neutrophils automated count (number/volume) 4.3 10*3 1.8-7.8 Blood lymphocytes automated count (number/volume) 0.7 10*3 1.0-4.0 Blood monocytes automated count (number/volume) 0.7 10*3 0.0- 1.0 Automated eosinophil count 0.1 10*3/uL 0.0-0.3 Automated blood basophil count (count/volume) 0.0 10*3/uL 0.0-0.1 Comprehensive metabolic panel - 11/23/18 06:00 Serum or plasma sodium measurement (moles/volume) 134 mmol/L 135-145 Serum or plasma potassium measurement (moles/volume) 3.6 mmol/L 3.6-5.0 Serum or plasma chloride measurement (moles/volume) 106 mmol/L 98-107 Carbon dioxide 21 mmol/L 21-32 Serum or plasma anion gap determination (moles/volume) 7 mmol/L 5-14 Serum or plasma urea nitrogen measurement (mass/volume) 16 mg/dL 7-18 Serum or plasma creatinine measurement (mass/volume) 0.86 mg/dL 0.60-1.30 Serum or plasma urea nitrogen/creatinine mass ratio 19 NRG Serum or plasma creatinine measurement with calculation of estimated glomerular filtration rate > NRG Serum or plasma glucose measurement (mass/volume) 195 mg/dL 70-105 Serum or plasma calcium measurement (mass/volume) 9.4 mg/dL 8.5-10.1 Serum or plasma total bilirubin measurement (mass/volume) 0.6 mg/dL 0.1-1.0 Serum or plasma alkaline phosphatase measurement (enzymatic activity/volume) 101 U/L 40-136 Serum or plasma aspartate aminotransferase measurement (enzymatic activity/volume) 14 U/L 5-34 Serum or plasma alanine aminotransferase measurement (enzymatic activity/volume) 16 U/L 0-55 Serum or plasma protein measurement (mass/volume) 5.9 g/dL 6.4-8.2 Serum or plasma albumin measurement (mass/volume) 2.8 g/dL 3.2-4.5 CALCIUM CORRECTED 10.4 mg/dL 8.5-10.1 Magnesium - 11/23/18 06:00 Magnesium 1.6 mg/dL 1.8-2.4 Capillary blood glucose measurement by glucometer (mass/volume) - 11/23/18 10:45 Capillary blood glucose measurement by glucometer (mass/volume) 261 mg/dL 70-110 Capillary blood glucose measurement by glucometer (mass/volume) - 11/23/18 16:19 Capillary blood glucose measurement by glucometer (mass/volume) 180 mg/dL 70-110 Capillary blood glucose measurement by glucometer (mass/volume) - 11/23/18 19:45 Capillary blood glucose measurement by glucometer (mass/volume) 273 mg/dL 70-110 Complete blood count (CBC) with automated white blood cell (WBC) differential - 11/24/18 04:15 Blood leukocytes automated count (number/volume) 6.0 10*3/uL 4.3-11.0 Blood erythrocytes automated count (number/volume) 3.46 10*6/uL 4.35-5.85 Venous blood hemoglobin measurement (mass/volume) 9.5 g/dL 13.3-17.7 Blood hematocrit (volume fraction) 30 % 40-54 Automated erythrocyte mean corpuscular volume 87 [foz_us] 80-99 Automated erythrocyte mean corpuscular hemoglobin (mass per erythrocyte) 28 pg 25-34 Automated erythrocyte mean corpuscular hemoglobin concentration measurement (mass/volume) 32 g/dL 32-36 Automated erythrocyte distribution width ratio 13.8 % 10.0- 14.5 Automated blood platelet count (count/volume) 179 10*3/uL 130-400 Automated blood platelet mean volume measurement 10.6 [foz_us] 7.4-10.4 Automated blood neutrophils/100 leukocytes 66 % 42-75 Automated blood lymphocytes/100 leukocytes 17 % 12-44 Blood monocytes/100 leukocytes 15 % 0-12 Automated blood eosinophils/100 leukocytes 2 % 0-10 Automated blood basophils/100 leukocytes 1 % 0-10 Blood neutrophils automated count (number/volume) 4.0 10*3 1.8-7.8 Blood lymphocytes automated count (number/volume) 1.0 10*3 1.0-4.0 Blood monocytes automated count (number/volume) 0.9 10*3 0.0- 1.0 Automated eosinophil count 0.1 10*3/uL 0.0-0.3 Automated blood basophil count (count/volume) 0.0 10*3/uL 0.0-0.1 Comprehensive metabolic panel - 11/24/18 04:15 Serum or plasma sodium measurement (moles/volume) 138 mmol/L 135-145 Serum or plasma potassium measurement (moles/volume) 3.8 mmol/L 3.6-5.0 Serum or plasma chloride measurement (moles/volume) 108 mmol/L 98-107 Carbon dioxide 22 mmol/L 21-32 Serum or plasma anion gap determination (moles/volume) 8 mmol/L 5-14 Serum or plasma urea nitrogen measurement (mass/volume) 14 mg/dL 7-18 Serum or plasma creatinine measurement (mass/volume) 0.76 mg/dL 0.60-1.30 Serum or plasma urea nitrogen/creatinine mass ratio 18 NRG Serum or plasma creatinine measurement with calculation of estimated glomerular filtration rate > NRG Serum or plasma glucose measurement (mass/volume) 114 mg/dL 70-105 Serum or plasma calcium measurement (mass/volume) 9.2 mg/dL 8.5-10.1 Serum or plasma total bilirubin measurement (mass/volume) 0.5 mg/dL 0.1-1.0 Serum or plasma alkaline phosphatase measurement (enzymatic activity/volume) 111 U/L 40-136 Serum or plasma aspartate aminotransferase measurement (enzymatic activity/volume) 22 U/L 5-34 Serum or plasma alanine aminotransferase measurement (enzymatic activity/volume) 22 U/L 0-55 Serum or plasma protein measurement (mass/volume) 5.5 g/dL 6.4-8.2 Serum or plasma albumin measurement (mass/volume) 2.7 g/dL 3.2-4.5 CALCIUM CORRECTED 10.2 mg/dL 8.5-10.1 Capillary blood glucose measurement by glucometer (mass/volume) - 11/24/18 05:07 Capillary blood glucose measurement by glucometer (mass/volume) 103 mg/dL 70-110 Capillary blood glucose measurement by glucometer (mass/volume) - 11/24/18 10:49 Capillary blood glucose measurement by glucometer (mass/volume) 169 mg/dL 70-110 Capillary blood glucose measurement by glucometer (mass/volume) - 11/24/18 15:42 Capillary blood glucose measurement by glucometer (mass/volume) 246 mg/dL 70-110 Capillary blood glucose measurement by glucometer (mass/volume) - 11/24/18 20:47 Capillary blood glucose measurement by glucometer (mass/volume) 222 mg/dL 70-110 Capillary blood glucose measurement by glucometer (mass/volume) - 11/25/18 05:07 Capillary blood glucose measurement by glucometer (mass/volume) 126 mg/dL 70-110 Capillary blood glucose measurement by glucometer (mass/volume) - 11/25/18 11:29 Capillary blood glucose measurement by glucometer (mass/volume) 238 mg/dL 70-110 Capillary blood glucose measurement by glucometer (mass/volume) - 11/25/18 16:04 Capillary blood glucose measurement by glucometer (mass/volume) 192 mg/dL 70-110 Capillary blood glucose measurement by glucometer (mass/volume) - 11/25/18 19:30 Capillary blood glucose measurement by glucometer (mass/volume) 173 mg/dL 70-110 Capillary blood glucose measurement by glucometer (mass/volume) - 11/26/18 06:07 Capillary blood glucose measurement by glucometer (mass/volume) 105 mg/dL 70-110 Capillary blood glucose measurement by glucometer (mass/volume) - 11/26/18 11:33 Capillary blood glucose measurement by glucometer (mass/volume) 148 mg/dL 70-110 Capillary blood glucose measurement by glucometer (mass/volume) - 11/26/18 15:50 Capillary blood glucose measurement by glucometer (mass/volume) 193 mg/dL 70-110 Capillary blood glucose measurement by glucometer (mass/volume) - 11/26/18 20:28 Capillary blood glucose measurement by glucometer (mass/volume) 122 mg/dL 70-110 PT panel in platelet poor plasma by coagulation assay - 11/27/18 05:12 Prothrombin time (PT) in platelet poor plasma by coagulation assay 15.8 s 12.2-14.7 INR in platelet poor plasma or blood by coagulation assay 1.2 0.8-1.4 Capillary blood glucose measurement by glucometer (mass/volume) - 11/27/18 06:07 Capillary blood glucose measurement by glucometer (mass/volume) 91 mg/dL 70-110 Capillary blood glucose measurement by glucometer (mass/volume) - 11/27/18 11:16 Capillary blood glucose measurement by glucometer (mass/volume) 82 mg/dL 70-110 Capillary blood glucose measurement by glucometer (mass/volume) - 11/27/18 17:14 Capillary blood glucose measurement by glucometer (mass/volume) 143 mg/dL 70-110 Capillary blood glucose measurement by glucometer (mass/volume) - 11/27/18 20:39 Capillary blood glucose measurement by glucometer (mass/volume) 175 mg/dL 70-110 Capillary blood glucose measurement by glucometer (mass/volume) - 11/28/18 05:17 Capillary blood glucose measurement by glucometer (mass/volume) 108 mg/dL 70-110 Encounters ACCT No. Visit Date/Time Discharge Status Pt. Type Provider Facility Loc./Unit Complaint [id number] 11/20/2018 14:34:00 11/20/2018 [facility]05[id number]17[facility]2018 08:39:00 11/17/2018 23:59:00 DIS Outpatient CHANCE PEREZ [id number] 11/14/2018 08:07:00 11/14/2018 23:59:00 DIS Outpatient CHANCE PEREZ [id number] 11/10/2018 10:35:00 11/10/2018 23:59:00 DIS Outpatient CHANCE PEREZ [id number] 03/20/2017 10:37:00 04/24/2017 11:15:00 DIS Outpatient CHANCE PEREZ [id number] 05/23/2016 13:09:00 11/02/2016 16:00:00 DIS Outpatient GUIDO ROJAS [id number] 08/28/2016 10:53:00 08/28/2016 16:58:00 [id number] 06/12/2016 12:43:00 06/12/2016 23:59:00 DIS Outpatient CHANCE PEREZ [id number] 08/28/2016 12:45:20 Document Registration [id number] 12/08/2018 05:41:00 12/08/2018 11:09:00 DIS Outpatient JOE GANNON DO [facility] PREOP RENAL CANCER [id number] 12/04/2018 13:13:00 12/04/2018 23:59:59 CLS Outpatient YOBANY WOODARD [facility] ONC [id number] 11/20/2018 19:00:00 11/28/2018 12:05:00 DIS Inpatient PAREDES DO LUCINDA [facility] 4TH LUNG MASS WITH WEAKNESS [id number] 08/28/2016 17:24:00 08/30/2016 14:00:00 DIS Inpatient PAREDESLUCINDA RUIZ DO [facility] 4TH GASTROINTESTINAL BLEED [id number] 11/30/2015 09:06:00 11/30/2015 23:59:59 CLS Outpatient CHANCE PEREZ DO [facility] 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 [id number] 11/29/2015 09:30:00 11/29/2015 23:59:59 CLS Outpatient CHANCE PEREZ DO [facility] 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 [id number] 12/23/2013 08:04:00 12/23/2013 14:45:00 DIS Outpatient GISEL UMANA MD [facility] CATH ABNORMAL STRESS, CP,HTN,DM [id number] 12/16/2013 06:47:00 12/16/2013 23:59:59 CLS Outpatient CHANCE PEREZ DO [facility] CARD CP [id number] 12/15/2013 07:05:00 12/15/2013 23:59:59 CLS Outpatient CHANCE PEREZ DO [facility] CARD CP [id number] 12/09/2018 12:00:00 PEN Preadmit JOE GANNON DO [facility] RENAL CANCER
[2018-12-09] MEDS ORDERED: 0.9% SODIUM CHLORIDE PF INJ 20 ML VIAL ONE (10:08)
[2018-12-09] MEDS ORDERED: BUP/EPI 0.5% 1:200,000 (SENSORCAINE) 30 ML VIAL ONE (10:08)
[2018-12-09] MEDS ORDERED: LIDOCAINE 1% INJ 20 ML 20 ML VIAL ONE (10:08)
[2018-12-09] MEDS ORDERED: HEParin (CENTRAL IV FLUSH) 500 UNIT/5 ML SYR ONE (10:08)
[2018-12-09] MEDS ORDERED: ceFAZolin 2 GM/50 ML NS 50 ML IV ONE (10:15)
[2018-12-09] MEDS ORDERED: proPOfol 200 MG/20 ML (DIPRIVAN) VIAL IV ONE ×2 (10:18→11:15)
[2018-12-09] MEDS ORDERED: MIDAZOLAM 2 MG/2 ML (VERSED) VIAL ONE (10:19)
[2018-12-09] MEDS ORDERED: fentaNYL INJECTION 100 MCG/2 ML AMP ONE (10:19)
[2018-12-09] MEDS ORDERED: LIDOCAINE PF 2% 5 ML (XYLOCAINE) VIAL ONE (10:19)
--- NOTE | 2018-12-09 11:01 | Progress Note-Pre Operative ---
Pre-Operative Progress Note H&P Reviewed The H&P was reviewed, patient examined and no changes noted. 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
[2018-12-09] MEDS ORDERED: LACTATED RINGERS 1,000 ML IV PRN (11:05)
--- NOTE | 2018-12-09 11:41 | Discharge Inst-Simple/Standard ---
Discharge Inst-Standard Patient Instructions/Follow Up Plan of Care/Instructions/FU: 2 weeks Jesenia Ice pack on for 15 min off for 30 min and repeat for first 48 hours. THis reduces swelling and discomfort. Activity as Tolerated: No Discharge Diet: Regular Diet JOE GANNON DO December 09, 2018 11:41
[2018-12-09] MEDS ORDERED: HYDROmorphone 2 MG/ML VIAL (DILAUDID) IV ONE (11:45)
[2018-12-09] MEDS ORDERED: ONDANSETRON 4 MG/2 ML (SDV) Z0FRAN IVP PRN (11:45)
--- NOTE | 2018-12-09 12:07 | Diagnostic Imaging Report ---
INDICATION: Metastatic renal cancer. Study compared 11/21. FINDINGS: Bilateral hilar fullness right greater than left is a redemonstrated finding, however, there is improvement in infiltrate in the right lower lobe. Small pleural effusions are present perhaps increased. No pneumothorax. IMPRESSION: Mixed changes. Pleural fluid may be increased. Bilateral hilar fullness redemonstrated. Improvements in right basilar airspace disease. No pneumothorax. Dictated by: Dictated on workstation # [id number]
--- NOTE | 2018-12-09 15:37 | OPERATIVE REPORT ---
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 PROCEDURE: Ultrasound-guided port placement, right internal jugular vein. SURGEON: Joe Ba DO ANESTHESIA: MAC with local. ESTIMATED BLOOD LOSS: Minimal. COMPLICATIONS: None. INDICATIONS: The patient is an 83-year-old male needing port placement for chemotherapy infusion. He understands risks and benefits of procedure and wished to proceed with procedure. Consent was signed in the chart. DESCRIPTION OF PROCEDURE: The patient was taken to the operating suite, placed in supine position, prepped and draped in sterile fashion. Timeout was performed. Using ultrasound, the right internal jugular vein was located. Local anesthetic was infiltrated around it. Using micro-access needle, the right internal jugular vein was then accessed under guidance of the ultrasound. Dark nonpulsatile blood was withdrawn. Micro access wire was inserted through the needle and the needle was removed. Fluoroscopy assured proper placement. A #11 blade scalpel was used to make a small skin incision and a micro-access dilator was then advanced over the guidewire and the wire and dilator were removed. The wire was inserted through the sheath and then the sheath was removed. Fluoroscopy assured proper placement. The wire was then secured. Local anesthetic was used to infiltrate around the neck down to the right chest for pocket creation. A 15-blade scalpel was used to make a skin incision. A pocket was created with both sharp and blunt dissection. Dilator sheath was advanced over the guidewire under fluoroscopy. The dilator and the wire were removed. The Groshong catheter was inserted through the sheath and the sheath was then removed. The catheter was then tunneled from the insertion point down to the right chest, which was then cut to length using fluoroscopy attached to the port, placed within the pocket and was then accessed without difficulty and then flushed with saline and then with heparin. The subcutaneous tissues were then reapproximated using 3-0 Vicryl. The area was then washed and dried and the incisions were closed with Skin Affix. The patient tolerated the procedure well without any complications, taken to recovery room in stable condition. Chest x-ray pending. Job ID: [id number] DocumentID: [id number] Dictated Date: 12/09/2018 14:00:11 Top Installer Date: 12/09/2018 15:37:11 Dictated By: JOE BA DO
== END 2018-12-09 13:10 | disposition home or self-care (01) ==
LOC: SDC 09:48
PROVIDERS: ATTEND Surgery
DX: C64.2 Malignant neoplasm of left kidney, except renal pelvis (principal); C78.01 Secondary malignant neoplasm of right lung; C78.02 Secondary malignant neoplasm of left lung; I25.10 Atherosclerotic heart disease of native coronary artery without angina pectoris; I10 Essential (primary) hypertension; E11.9 Type 2 diabetes mellitus without complications; E03.9 Hypothyroidism, unspecified; G47.33 Obstructive sleep apnea (adult) (pediatric); K21.9 Gastro-esophageal reflux disease without esophagitis; E66.9 Obesity, unspecified; Z68.30 Body mass index [BMI] 30.0-30.9, adult; Z87.891 Personal history of nicotine dependence; Z79.82 Long term (current) use of aspirin; Z79.899 Other long term (current) drug therapy
CPT/HCPCS: 71045; 82962; 87081

== ENCOUNTER 2018-12-17 11:35 | Emergency (ER) | payer MEDICARE, OTHER ==
[~2018-12-17] VITALS: Ht 203.2 cm; Wt 136.1 kg
--- OUTSIDE RECORDS SUMMARY | 2018-12-17 11:44 | XMS REPORT | Continuity of Care Document ---
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 12/23/2013 GISEL UMANA MD Ot 530.81 [...] STENOSIS OF RIGHT CAROTID 12/30/2015 CHANCE PEREZ DO, Ot I65.21 OCCLUSION AND [...] V64.3 NO PROC FOR REASONS NEC 08/28/2016 PEREZCHANCE GOLDBERG DO Ot 786.50 CHEST PAIN NOS 08/28/2016 PEREZ CHANCE CASAS Ot 793.2 NOSP (ABN) FINDINGS ON RADIOLOGICAL OT 08/28/2016 ANA DO CHANCE Reji Ot 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 08/28/2016 ANA DO CHANCE Reji Ot 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 08/30/2016 LUCINDA PAREDES DO Ot D62 ACUTE POSTHEMORRHAGIC ANEMIA 08/30/2016 LUCINDA PAREDES DO Ot D64.9 ANEMIA, UNSPECIFIED 08/30/2016 LUCINDA PAREDES DO Ot E11.9 TYPE 2 DIABETES MELLITUS WITHOUT COMPLIC 08/30/2016 LUCINDA PAREDES DO Ot E66.9 OBESITY, UNSPECIFIED 08/30/2016 LUCINDA PAREDES DO Ot H54.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, LEFT EYE, NORMAL VISION RIGHT 08/30/2016 LUCINDA PAREDES DO Ot K25.4 CHRONIC OR UNSPECIFIED GASTRIC ULCER WIT 08/30/2016 LUCINDA PAREDES DO Ot K29.71 GASTRITIS, UNSPECIFIED, WITH BLEEDING 08/30/2016 LUCINDA PAREDES DO Ot K59.09 OTHER CONSTIPATION 08/30/2016 LUCINDA PAREDES DO Ot R53.81 OTHER MALAISE 08/30/2016 LUCINDA PAREDES DO Ot Z68.32 BODY MASS INDEX (BMI) 32.0-32.9, ADULT 08/30/2016 LUCINDA PAREDES DO Ot Z85.46 PERSONAL HISTORY OF MALIGNANT NEOPLASM O 08/30/2016 LUCINDA PAREDES DO Ot Z87.891 PERSONAL HISTORY [...] UNSPECIFIED OSTEOARTHRITIS, UNSPECIFIED SITE 11/02/2016 CRYSTAL, GUIDO Noriega 250.00 DIABETES MELLITUS WITHOUT MENTION [...] TO INTERNAL ORTHOPEDIC PROSTH DEV/GRFT, INIT 03/13/2017 CHANCE PEREZ 781.2 ABNORMALITY OF GAIT 03/13/2017 CHANCE PEREZ R26.81 UNSTEADINESS ON FEET 11/20/2018 LEISURE, LYNALYSONA W 199.1 OTHER MALIGNANT NEOPLASM OF UNSPECIFIED SITE 11/20/2018 LEISURE, LYNIETA W 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 11/20/2018 LEISURE, LYNIETA W 199.1 OTHER MALIGNANT NEOPLASM OF UNSPECIFIED SITE 11/20/2018 LEISURE, LYNALYSONA W 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 11/20/2018 LEISURE, LYNIETA W 199.1 OTHER MALIGNANT NEOPLASM OF UNSPECIFIED SITE 11/20/2018 LEISURE, LYNIETA W 780.79 OTHER MALAISE AND FATIGUE 11/20/2018 LEISURE, TAVIA W 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 11/20/2018 LEISURE, LYNALYSONA W P96.89 OTHER SPECIFIED CONDITIONS ORIGINATING IN THE PERIOD 11/20/2018 LEISURE, LYNIETA W 780.79 OTHER MALAISE AND FATIGUE 11/20/2018 LEISURE, LYNIETA W 793.19 OTHER NONSPECIFIC ABNORMAL FINDING OF LUNG FIELD 11/20/2018 LEISURE, JIMBOA W 911.0 ABRASION OR FRICTION BURN OF TRUNK, WITHOUT MENTION OF INFECTION 11/20/2018 LEISURE, LYNIETA W P96.89 OTHER SPECIFIED CONDITIONS ORIGINATING IN THE PERIOD 11/20/2018 LEISURE, JIMBOA W R53.1 WEAKNESS 11/20/2018 LEISURE, LYNALYSONA W R91.8 OTHER NONSPECIFIC ABNORMAL FINDING OF [...] PAREDES DO Ot K59.09 OTHER CONSTIPATION 11/21/2018 JOSE DANIEL PAREDES DOI Ot M19.91 PRIMARY OSTEOARTHRITIS, UNSPECIFIED SITE 11/21/2018 JOSE DANIEL PAREDES DOI Ot N28.89 OTHER SPECIFIED DISORDERS OF KIDNEY AND 11/21/2018 LUCINDA PAREDES DO Ot R39.11 HESITANCY OF MICTURITION 11/21/2018 JOSE DANIEL PAREDES DOI Ot R53.1 WEAKNESS 11/21/2018 JOSE DANIEL PAREDES DOI Ot R59.0 LOCALIZED ENLARGED LYMPH NODES 11/21/2018 LUCINDA PAREDES DO Ot R63.4 ABNORMAL WEIGHT LOSS 11/21/2018 JOSE DANIEL PAREDES DOI Ot R91.8 OTHER NONSPECIFIC ABNORMAL FINDING OF VIOLET 11/21/2018 LUCINDA PAREDES DO Ot Z77.22 CNTCT W AND EXPSR TO ENVIRON TOBACCO SMO 11/21/2018 LUCINDA PAREDES DO Ot 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 11/21/2018 JOSE DANIEL PAREDES DOI Ot Z85.46 PERSONAL HISTORY OF MALIGNANT NEOPLASM O 11/21/2018 LUCINDA PAREDES DO Ot Z85.828 PERSONAL HISTORY OF OTHER MALIGNANT NEOP 11/21/2018 JOSE DANIEL PAREDES DOI Ot Z87.891 PERSONAL HISTORY OF NICOTINE DEPENDENCE 11/21/2018 LENA CASAS LUCINDA Ot Z90.79 ACQUIRED ABSENCE OF OTHER GENITAL ORGAN( 11/21/2018 LUCINDA PAREDES DO Ot Z91.81 HISTORY OF FALLING 11/21/2018 JOSE DANIEL PAREDES DOI Ot Z96.643 PRESENCE OF ARTIFICIAL HIP JOINT, BILATE 11/22/2018 JOSE DANIEL PAREDES DOI Ot D64.9 ANEMIA, UNSPECIFIED 11/22/2018 JOSE DANIEL PAREDES DOI Ot E11.9 TYPE 2 DIABETES MELLITUS WITHOUT COMPLIC 11/22/2018 LENA CASAS LUCINDA Ot E27.9 DISORDER OF ADRENAL GLAND, UNSPECIFIED 11/22/2018 LENA CASAS LUCINDA Ot E83.42 HYPOMAGNESEMIA 11/22/2018 JOSE DANIEL PAREDES DOI Ot E83.52 HYPERCALCEMIA 11/22/2018 LUCINDA PAREDES DO Ot G47.30 SLEEP APNEA, UNSPECIFIED 11/22/2018 LUCINDA PAREDES DO Ot I87.8 OTHER SPECIFIED DISORDERS OF VEINS 11/22/2018 LUCINDA PAREDES DO Ot K57.90 DVRTCLOS OF INTEST, PART UNSP, W/O PERF 11/22/2018 LUCINDA PAREDES DO Ot K59.09 OTHER CONSTIPATION 11/22/2018 LUCINDA PAREDES DO Ot M19.91 PRIMARY OSTEOARTHRITIS, UNSPECIFIED SITE 11/22/2018 JOSE DANIEL PAREDES DOI Ot N28.89 OTHER SPECIFIED DISORDERS OF KIDNEY AND 11/22/2018 JOSE DANIEL PAREDES DOI Ot R39.11 HESITANCY OF MICTURITION 11/22/2018 JOSE DANIEL PAREDES DOI Ot R53.1 WEAKNESS 11/22/2018 JOSE DANIEL PAREDES DOI Ot R59.0 LOCALIZED ENLARGED LYMPH NODES 11/22/2018 LUCINDA PAREDES DO Ot R63.4 ABNORMAL WEIGHT LOSS 11/22/2018 LUCINDA PAREDES DO Ot R91.8 OTHER NONSPECIFIC ABNORMAL FINDING OF VIOLET 11/22/2018 LUCINDA PAREDES DO Ot Z77.22 CNTCT W AND EXPSR TO ENVIRON TOBACCO SMO 11/22/2018 LUCINDA PAREDES DO Ot 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 11/22/2018 LUCINDA PAREDES DO Ot Z85.46 PERSONAL HISTORY OF MALIGNANT NEOPLASM O 11/22/2018 JOSE DANIEL PAREDES DOI Ot Z85.828 PERSONAL HISTORY OF OTHER MALIGNANT NEOP 11/22/2018 JOSE DANIEL PAREDES DOI Ot Z87.891 PERSONAL HISTORY OF NICOTINE DEPENDENCE 11/22/2018 LUCINDA PAREDES DO Ot Z90.79 ACQUIRED ABSENCE OF OTHER GENITAL ORGAN( 11/22/2018 JOSE DANIEL PAREDES DOI Ot Z91.81 HISTORY OF FALLING 11/22/2018 JOSE DANIEL PAREDES DOI Ot Z96.643 PRESENCE OF ARTIFICIAL HIP JOINT, BILATE 11/22/2018 LUCINDA PAREDES DO Ot D64.9 ANEMIA, UNSPECIFIED 11/22/2018 LENA CASAS LUCINDA Ot E11.9 TYPE 2 DIABETES MELLITUS WITHOUT COMPLIC 11/22/2018 JOSE DANIEL PAREDES DOI Ot E27.9 DISORDER OF ADRENAL GLAND, UNSPECIFIED 11/22/2018 JOSE DANIEL PAREDES DOI Ot E83.42 HYPOMAGNESEMIA 11/22/2018 LUCINDA PAREDES DO Ot E83.52 HYPERCALCEMIA 11/22/2018 LUCINDA PAREDES DO Ot G47.30 SLEEP APNEA, UNSPECIFIED 11/22/2018 LUCINDA PAREDES DO Ot I87.8 OTHER SPECIFIED DISORDERS OF VEINS 11/22/2018 JOSE DANIEL PAREDES DOI Ot K57.90 DVRTCLOS OF INTEST, PART UNSP, W/O PERF 11/22/2018 LUCINDA PAREDES DO Ot K59.09 OTHER CONSTIPATION 11/22/2018 LUCINDA PAREDES DO Ot M19.91 PRIMARY OSTEOARTHRITIS, UNSPECIFIED SITE 11/22/2018 JOSE DANIEL PAREDES DOI Ot N28.89 OTHER SPECIFIED DISORDERS OF KIDNEY AND 11/22/2018 JOSE DANIEL PAREDES DOI Ot R39.11 HESITANCY OF MICTURITION 11/22/2018 JOSE DANIEL PAREDES DOI Ot R53.1 WEAKNESS 11/22/2018 JOSE DANIEL PAREDES DOI Ot R59.0 LOCALIZED ENLARGED LYMPH NODES 11/22/2018 LUCINDA PAREDES DO Ot R63.4 ABNORMAL WEIGHT LOSS 11/22/2018 LUCINDA PAREDES DO Ot R91.8 OTHER NONSPECIFIC ABNORMAL FINDING OF VIOLET 11/22/2018 LUCINDA PAREDES DO Ot Z77.22 CNTCT W AND EXPSR TO ENVIRON TOBACCO SMO 11/22/2018 LUCINDA PAREDES DO Ot Z79.4 MCC (CURRENT) USE OF INSULIN 11/22/2018 JOSE DANIEL PAREDES DOI Ot Z85.46 PERSONAL HISTORY OF MALIGNANT NEOPLASM O 11/22/2018 JOSE DANIEL PAREDES DOI Ot Z85.828 PERSONAL HISTORY OF OTHER MALIGNANT NEOP 11/22/2018 LUCINDA PAREDES DO Ot Z87.891 PERSONAL HISTORY OF NICOTINE DEPENDENCE 11/22/2018 JOSE DANIEL PAREDES DOI Ot Z90.79 ACQUIRED ABSENCE OF OTHER GENITAL ORGAN( 11/22/2018 LUCINDA PAREDES DO Ot Z91.81 HISTORY OF FALLING 11/22/2018 LUCINDA PAREDES DO Ot Z96.643 PRESENCE OF ARTIFICIAL HIP JOINT, BILATE 11/23/2018 JOSE DANIEL PAREDES DOI Ot D64.9 ANEMIA, UNSPECIFIED 11/23/2018 LENA CASAS LUCINDA Ot E11.9 TYPE 2 DIABETES MELLITUS WITHOUT COMPLIC 11/23/2018 LUCINDA PAREDES DO Ot E27.9 DISORDER OF ADRENAL GLAND, UNSPECIFIED 11/23/2018 LUCINDA PAREDES DO Ot E83.42 HYPOMAGNESEMIA 11/23/2018 JOSE DANIEL PAREDES DOI Ot E83.52 HYPERCALCEMIA 11/23/2018 JOSE DANIEL PAREDES DOI Ot G47.30 SLEEP APNEA, UNSPECIFIED 11/23/2018 JOSE DANIEL PAREDES DOI Ot I87.8 OTHER SPECIFIED DISORDERS OF VEINS 11/23/2018 JOSE DANIEL PAREDES DOI Ot K57.90 DVRTCLOS OF INTEST, PART UNSP, W/O PERF 11/23/2018 JOSE DANIEL PAREDES DOI Ot K59.09 OTHER CONSTIPATION 11/23/2018 LENA CASAS LUCINDA Ot M19.91 PRIMARY OSTEOARTHRITIS, UNSPECIFIED SITE 11/23/2018 JOSE DANIEL PAREDES DOI Ot N28.89 OTHER SPECIFIED DISORDERS OF KIDNEY AND 11/23/2018 JOSE DANIEL PAREDES DOI Ot R39.11 HESITANCY OF MICTURITION 11/23/2018 JOSE DANIEL PAREDES DOI Ot R53.1 WEAKNESS 11/23/2018 JOSE DANIEL PAREDES DOI Ot R59.0 LOCALIZED ENLARGED LYMPH NODES 11/23/2018 LUCINDA PAREDES DO Ot R63.4 ABNORMAL WEIGHT LOSS 11/23/2018 JOSE DANIEL PAREDES DOI Ot R91.8 OTHER NONSPECIFIC ABNORMAL FINDING OF VIOLET 11/23/2018 LUCINDA PAREDES DO Ot Z77.22 CNTCT W AND EXPSR TO ENVIRON TOBACCO SMO 11/23/2018 LUCINDA PAREDES DO Ot Z79.4 MCC (CURRENT) USE OF INSULIN 11/23/2018 JOSE DANIEL PAREDES DOI Ot Z85.46 PERSONAL HISTORY OF MALIGNANT NEOPLASM O 11/23/2018 LUCINDA PAREDES DO Ot Z85.828 PERSONAL HISTORY OF OTHER MALIGNANT NEOP 11/23/2018 LUCINDA PAREDES DO Ot Z87.891 PERSONAL HISTORY OF NICOTINE DEPENDENCE 11/23/2018 JOSE DANIEL PAREDES DOI Ot Z90.79 ACQUIRED ABSENCE OF OTHER GENITAL ORGAN( 11/23/2018 LUCINDA PAREDES DO Ot Z91.81 HISTORY OF FALLING 11/23/2018 LENA CASAS LUCINDA Ot Z96.643 PRESENCE OF ARTIFICIAL HIP JOINT, BILATE 11/23/2018 JOSE DANIEL PAREDES DOI Ot D64.9 ANEMIA, UNSPECIFIED 11/23/2018 JOSE DANIEL PAREDES DOI Ot E11.9 TYPE 2 DIABETES MELLITUS WITHOUT COMPLIC 11/23/2018 LUCINDA PAREDES DO Ot E27.9 DISORDER OF ADRENAL GLAND, UNSPECIFIED 11/23/2018 LUCINDA PAREDES DO Ot E83.42 HYPOMAGNESEMIA 11/23/2018 JOSE DANIEL PAREDES DOI Ot E83.52 HYPERCALCEMIA 11/23/2018 JOSE DANIEL PAREDES DOI Ot G47.30 SLEEP APNEA, UNSPECIFIED 11/23/2018 LUCINDA PAREDES DO Ot I87.8 OTHER SPECIFIED DISORDERS OF VEINS 11/23/2018 JOSE DANIEL PAREDES DOI Ot K57.90 DVRTCLOS OF INTEST, PART UNSP, W/O PERF 11/23/2018 JOSE DANIEL PAREDES DOI Ot K59.09 OTHER CONSTIPATION 11/23/2018 JOSE DANIEL PAREDES DOI Ot M19.91 PRIMARY OSTEOARTHRITIS, UNSPECIFIED SITE 11/23/2018 LENA CASAS LUCINDA Ot N28.89 OTHER SPECIFIED DISORDERS OF KIDNEY AND 11/23/2018 JOSE DANIEL PAREDES DOI Ot R39.11 HESITANCY OF MICTURITION 11/23/2018 LUCINDA PAREDES DO Ot R53.1 WEAKNESS 11/23/2018 JOSE DANIEL PAREDES DOI Ot R59.0 LOCALIZED ENLARGED LYMPH NODES 11/23/2018 LUCINDA PAREDES DO Ot R63.4 ABNORMAL WEIGHT LOSS 11/23/2018 LUCINDA PAREDES DO Ot R91.8 OTHER NONSPECIFIC ABNORMAL FINDING OF VIOLET 11/23/2018 JOSE DANIEL PAREDES DOI Ot Z77.22 CNTCT W AND EXPSR TO ENVIRON TOBACCO SMO 11/23/2018 LUICNDA PAREDES DO Ot 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 11/23/2018 LUCINDA PAREDES DO Ot Z85.46 PERSONAL HISTORY OF MALIGNANT NEOPLASM O 11/23/2018 LUCINDA PAREDES DO Ot Z85.828 PERSONAL HISTORY OF OTHER MALIGNANT NEOP 11/23/2018 LUCINDA PAREDES DO Ot Z87.891 PERSONAL HISTORY OF NICOTINE DEPENDENCE 11/23/2018 LUCINDA PAREDES DO Ot Z90.79 ACQUIRED ABSENCE OF OTHER GENITAL ORGAN( 11/23/2018 JOSE DANIEL PAREDES DOI Ot Z91.81 HISTORY OF FALLING 11/23/2018 LUCINDA PAREDES DO Ot Z96.643 PRESENCE OF ARTIFICIAL HIP JOINT, BILATE 11/24/2018 LUCINDA PAREDES DO Ot D64.9 ANEMIA, UNSPECIFIED 11/24/2018 JOSE DANIEL PAREDES DOI Ot E11.9 TYPE 2 DIABETES MELLITUS WITHOUT COMPLIC 11/24/2018 LUCINDA PAREDES DO Ot E27.9 DISORDER OF ADRENAL GLAND, UNSPECIFIED 11/24/2018 JOSE DANIEL PAREDES DOI Ot E83.42 HYPOMAGNESEMIA 11/24/2018 JOSE DANIEL PAREDES DOI Ot E83.52 HYPERCALCEMIA 11/24/2018 LUCINDA PAREDES DO Ot G47.30 SLEEP APNEA, UNSPECIFIED 11/24/2018 JOSE DANIEL PAREDES DOI Ot I87.8 OTHER SPECIFIED DISORDERS OF VEINS 11/24/2018 LENA CASAS LUCINDA Ot K57.90 DVRTCLOS OF INTEST, PART UNSP, W/O PERF 11/24/2018 LUCINDA PAREDES DO Ot K59.09 OTHER CONSTIPATION 11/24/2018 JOSE DANIEL PAREDES DOI Ot M19.91 PRIMARY OSTEOARTHRITIS, UNSPECIFIED SITE 11/24/2018 JOSE DANIEL PAREDES DOI Ot N28.89 OTHER SPECIFIED DISORDERS OF KIDNEY AND 11/24/2018 JOSE DANIEL PAREDES DOI Ot R39.11 HESITANCY OF MICTURITION 11/24/2018 JOSE DANIEL PAREDES DOI Ot R53.1 WEAKNESS 11/24/2018 JOSE DANIEL PAREDES DOI Ot R59.0 LOCALIZED ENLARGED LYMPH NODES 11/24/2018 LUCINDA PAREDES DO Ot R63.4 ABNORMAL WEIGHT LOSS 11/24/2018 JOSE DANIEL PAREDES DOI Ot R91.8 OTHER NONSPECIFIC ABNORMAL FINDING OF VIOLET 11/24/2018 LUCINDA PAREDES DO Ot Z77.22 CNTCT W AND EXPSR TO ENVIRON TOBACCO SMO 11/24/2018 LUCINDA PAREDES DO Ot 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 11/24/2018 JOSE DANIEL PAREDES DOI Ot Z85.46 PERSONAL HISTORY OF MALIGNANT NEOPLASM O 11/24/2018 LUCINDA PAREDES DO Ot Z85.828 PERSONAL HISTORY OF OTHER MALIGNANT NEOP 11/24/2018 LUCINDA PAREDES DO Ot Z87.891 PERSONAL HISTORY OF NICOTINE DEPENDENCE 11/24/2018 LENA CASAS LUCINDA Ot Z90.79 ACQUIRED ABSENCE OF OTHER GENITAL ORGAN( 11/24/2018 LUCINDA PAREDES DO Ot Z91.81 HISTORY OF FALLING 11/24/2018 LUCINDA PAREDES DO Ot Z96.643 PRESENCE OF ARTIFICIAL HIP JOINT, BILATE 11/25/2018 JOSE DANIEL PAREDES DOI Ot D64.9 ANEMIA, UNSPECIFIED 11/25/2018 LUCINDA PAREDES DO Ot E11.9 TYPE 2 DIABETES MELLITUS WITHOUT COMPLIC 11/25/2018 LENA CASAS LUCINDA Ot E27.9 DISORDER OF ADRENAL GLAND, UNSPECIFIED 11/25/2018 LENA CASAS LUCINDA Ot E83.42 HYPOMAGNESEMIA 11/25/2018 JOSE DANIEL PAREDES DOI Ot E83.52 HYPERCALCEMIA 11/25/2018 LENA CASAS LUCINDA Ot G47.30 SLEEP APNEA, UNSPECIFIED 11/25/2018 JOSE DANIEL PAREDES DOI Ot I87.8 OTHER SPECIFIED DISORDERS OF VEINS 11/25/2018 LUCINDA PAREDES DO Ot K57.90 DVRTCLOS OF INTEST, PART UNSP, W/O PERF 11/25/2018 JOSE DANIEL PAREDES DOI Ot K59.09 OTHER CONSTIPATION 11/25/2018 LUCINDA PAREDES DO Ot M19.91 PRIMARY OSTEOARTHRITIS, UNSPECIFIED SITE 11/25/2018 JOSE DANIEL PAREDES DOI Ot N28.89 OTHER SPECIFIED DISORDERS OF KIDNEY AND 11/25/2018 LENA CASAS LUCINDA Ot R39.11 HESITANCY OF MICTURITION 11/25/2018 JOSE DANIEL PAREDES DOI Ot R53.1 WEAKNESS 11/25/2018 LENA CASAS LUCINDA Ot R59.0 LOCALIZED ENLARGED LYMPH NODES 11/25/2018 JOSE DANIEL PAREDES DOI Ot R63.4 ABNORMAL WEIGHT LOSS 11/25/2018 LUCINDA PAREDES DO Ot R91.8 OTHER NONSPECIFIC ABNORMAL FINDING OF VIOLET 11/25/2018 LUCINDA PAREDES DO Ot Z77.22 CNTCT W AND EXPSR TO ENVIRON TOBACCO SMO 11/25/2018 JOSE DANIEL PAREDES DOI Ot 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 11/25/2018 LUCINDA PAREDES DO Ot Z85.46 PERSONAL HISTORY OF MALIGNANT NEOPLASM O 11/25/2018 LUCINDA PAREDES DO Ot Z85.828 PERSONAL HISTORY OF OTHER MALIGNANT NEOP 11/25/2018 JOSE DANIEL PAREDES DOI Ot Z87.891 PERSONAL HISTORY OF NICOTINE DEPENDENCE 11/25/2018 LUCINDA PAREDES DO Ot Z90.79 ACQUIRED ABSENCE OF OTHER GENITAL ORGAN( 11/25/2018 LUCINDA PAREDES DO Ot Z91.81 HISTORY OF FALLING 11/25/2018 LUCINDA PAREDES DO Ot Z96.643 PRESENCE OF ARTIFICIAL HIP JOINT, BILATE 11/26/2018 LUCINDA PAREDES DO Ot D64.9 ANEMIA, UNSPECIFIED 11/26/2018 LENA CASAS LUCINDA Ot E11.9 TYPE 2 DIABETES MELLITUS WITHOUT COMPLIC 11/26/2018 LUCINDA PAREDES DO Ot E27.9 DISORDER OF ADRENAL GLAND, UNSPECIFIED 11/26/2018 LUCINDA PAREDES DO Ot E83.42 HYPOMAGNESEMIA 11/26/2018 JOSE DANIEL PAREDES DOI Ot E83.52 HYPERCALCEMIA 11/26/2018 LENA CASAS LUCINDA Ot G47.30 SLEEP APNEA, UNSPECIFIED 11/26/2018 LUCINDA PAREDES DO Ot I87.8 OTHER SPECIFIED DISORDERS OF VEINS 11/26/2018 LUCINDA PAREDES DO Ot K57.90 DVRTCLOS OF INTEST, PART UNSP, W/O PERF 11/26/2018 LUCINDA PAREDES DO Ot K59.09 OTHER CONSTIPATION 11/26/2018 LUCINDA PAREDES DO Ot M19.91 PRIMARY OSTEOARTHRITIS, UNSPECIFIED SITE 11/26/2018 JOSE DANIEL PAREDES DOI Ot N28.89 OTHER SPECIFIED DISORDERS OF KIDNEY AND 11/26/2018 LUCINDA PAREDES DO Ot R39.11 HESITANCY OF MICTURITION 11/26/2018 JOSE DANIEL PAREDES DOI Ot R53.1 WEAKNESS 11/26/2018 LENA CASAS LUCINDA Ot R59.0 LOCALIZED ENLARGED LYMPH NODES 11/26/2018 LUCINDA PAREDES DO Ot R63.4 ABNORMAL WEIGHT LOSS 11/26/2018 LUCINDA PAREDES DO Ot R91.8 OTHER NONSPECIFIC ABNORMAL FINDING OF VIOLET 11/26/2018 LUCINDA PAREDES DO Ot Z77.22 CNTCT W AND EXPSR TO ENVIRON TOBACCO SMO 11/26/2018 LUCINDA PAREDES DO Ot Z79.4 MCC (CURRENT) USE OF INSULIN 11/26/2018 LUCINDA PAREDES [...] SMO 11/26/2018 LENA CASAS LUCINDA Ot 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 11/26/2018 LENA CASAS LUCINDA Ot Z85.46 PERSONAL HISTORY OF MALIGNANT NEOPLASM O 11/26/2018 LENA CASAS LUCINDA Ot Z85.828 PERSONAL HISTORY OF OTHER MALIGNANT NEOP 11/26/2018 LUCINDA PAREDES DO Ot Z87.891 PERSONAL HISTORY OF NICOTINE DEPENDENCE 11/26/2018 LUCINDA PAREDES DO Ot Z90.79 ACQUIRED ABSENCE OF OTHER GENITAL ORGAN( 11/26/2018 LUCINDA PAREDES DO Ot Z91.81 HISTORY OF FALLING 11/26/2018 LUCINDA PAREDES DO Ot Z96.643 PRESENCE OF ARTIFICIAL HIP JOINT, BILATE 11/26/2018 LUCINDA PAREDES DO Ot D64.9 ANEMIA, UNSPECIFIED 11/26/2018 LENA CASAS LUCINDA Ot E11.9 TYPE 2 DIABETES MELLITUS WITHOUT COMPLIC 11/26/2018 LENA CASAS LUCINDA Ot E27.9 DISORDER OF ADRENAL GLAND, UNSPECIFIED 11/26/2018 JOSE DANIEL PAREDES DOI Ot E83.42 HYPOMAGNESEMIA 11/26/2018 LENA CASAS LUCINDA Ot E83.52 HYPERCALCEMIA 11/26/2018 JOSE DANIEL PAREDES DOI Ot G47.30 SLEEP APNEA, UNSPECIFIED 11/26/2018 LUCINDA PAREDES DO Ot I87.8 OTHER SPECIFIED DISORDERS OF VEINS 11/26/2018 LUCINDA PAREDES DO Ot K57.90 DVRTCLOS OF INTEST, PART UNSP, W/O PERF 11/26/2018 JOSE DANIEL PAREDES DOI Ot K59.09 OTHER CONSTIPATION 11/26/2018 LUCINDA PAREDES [...] 11/26/2018 JOSE DANIEL PAREDES DOI Ot Z79.4 MCC (CURRENT) USE OF INSULIN 11/26/2018 LUCINDA PAREDES [...] PRESENCE OF ARTIFICIAL HIP JOINT, BILATE 11/27/2018 JOSE DANIEL PAREDES DOI Ot D64.9 ANEMIA, UNSPECIFIED 11/27/2018 LENA CASAS LUCINDA Ot E11.9 TYPE 2 DIABETES MELLITUS WITHOUT COMPLIC 11/27/2018 JOSE DANIEL PAREDES DOI Ot E27.9 DISORDER OF ADRENAL GLAND, UNSPECIFIED 11/27/2018 LENA CASAS LUCINDA Ot E83.42 HYPOMAGNESEMIA 11/27/2018 JOSE DANIEL PAREDES DOI Ot E83.52 HYPERCALCEMIA 11/27/2018 LUCINDA PAREDES DO Ot G47.30 SLEEP APNEA, UNSPECIFIED 11/27/2018 JOSE DANIEL PAREDES DOI Ot I87.8 OTHER SPECIFIED DISORDERS OF VEINS 11/27/2018 LUCINDA PAREDES DO Ot K57.90 DVRTCLOS OF INTEST, PART UNSP, W/O PERF 11/27/2018 LUCINDA PAREDES DO Ot K59.09 OTHER CONSTIPATION 11/27/2018 JOSE DANIEL PAREDES DOI Ot M19.91 PRIMARY OSTEOARTHRITIS, UNSPECIFIED SITE 11/27/2018 LUCINDA PAREDES DO Ot N28.89 OTHER SPECIFIED DISORDERS OF KIDNEY AND 11/27/2018 JOSE DANIEL PAREDES DOI Ot R39.11 HESITANCY OF MICTURITION 11/27/2018 JOSE DANIEL PAREDES DOI Ot R53.1 WEAKNESS 11/27/2018 LENA CASAS LUCINDA Ot R59.0 LOCALIZED ENLARGED LYMPH NODES 11/27/2018 LUCINDA PAREDES DO Ot R63.4 ABNORMAL WEIGHT LOSS 11/27/2018 JOSE DANIEL PAREDES DOI Ot R91.8 OTHER NONSPECIFIC ABNORMAL FINDING OF VIOLET 11/27/2018 JOSE DANIEL PAREDES DOI Ot Z77.22 CNTCT W AND EXPSR TO ENVIRON TOBACCO SMO 11/27/2018 LUCINDA PAREDES DO Ot 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 11/27/2018 LUCINDA PAREDES DO Ot Z85.46 PERSONAL HISTORY OF MALIGNANT NEOPLASM O 11/27/2018 LUCINDA PAREDES DO Ot Z85.828 PERSONAL HISTORY OF OTHER MALIGNANT NEOP 11/27/2018 LENA CASAS LUCINDA Ot Z87.891 PERSONAL HISTORY OF NICOTINE DEPENDENCE 11/27/2018 LENA CASAS LUCINDA Ot Z90.79 ACQUIRED ABSENCE OF OTHER GENITAL ORGAN( 11/27/2018 LUCINDA PAREDES DO Ot Z91.81 HISTORY OF FALLING 11/27/2018 LUCINDA [...] CASAS LUCINDA Ot K59.09 OTHER CONSTIPATION 11/28/2018 JOSE DANIEL PAREDES DOI Ot M19.91 PRIMARY OSTEOARTHRITIS, UNSPECIFIED SITE 11/28/2018 [...] OTHER NONSPECIFIC ABNORMAL FINDING OF VIOLET 11/28/2018 LENA CASAS LUCINDA Ot Z77.22 CNTCT W AND EXPSR TO ENVIRON TOBACCO SMO 11/28/2018 LUCINDA PAREDES DO Ot 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 11/28/2018 LUCINDA PAREDES DO Ot Z85.46 PERSONAL HISTORY OF MALIGNANT NEOPLASM O 11/28/2018 LUCINDA PAREDES DO Ot Z85.828 PERSONAL HISTORY OF OTHER MALIGNANT NEOP 11/28/2018 LUICNDA PAREDES DO Ot Z87.891 PERSONAL HISTORY OF NICOTINE DEPENDENCE 11/28/2018 LUCINDA PAREDES DO Ot Z90.79 ACQUIRED ABSENCE OF OTHER GENITAL ORGAN( 11/28/2018 LENA CASAS LUCINDA Ot Z91.81 HISTORY OF FALLING 11/28/2018 JOSE DANIEL PAREDES DOI Ot Z96.643 PRESENCE OF ARTIFICIAL HIP JOINT, BILATE 11/28/2018 JOSE DANIEL PAREDES DOI Ot 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 NEOPLASM OF LEFT KIDNEY, EXCEP 11/28/2018 JOSE DANIEL PAREDES DOI Ot 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 11/28/2018 JOSE DANIEL PAREDES DOI Ot 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 11/28/2018 JOSE DANIEL PAREDES DOI Ot 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 11/28/2018 LENA CASAS LUCINDA Ot 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 11/28/2018 JOSE DANIEL PAREDES DOI Ot D64.9 ANEMIA, UNSPECIFIED 11/28/2018 LENA CASAS LUCINDA Ot E11.9 TYPE 2 DIABETES MELLITUS WITHOUT COMPLIC 11/28/2018 LENA CASAS LUCINAD Ot E27.9 DISORDER OF ADRENAL GLAND, UNSPECIFIED 11/28/2018 LENA CASAS LUCINDA Ot E83.42 HYPOMAGNESEMIA 11/28/2018 LENA CASAS LUCINDA Ot E83.52 HYPERCALCEMIA 11/28/2018 LENA CASAS LUCINDA Ot G47.30 SLEEP APNEA, UNSPECIFIED 11/28/2018 LUCINDA PAREDES DO Ot I87.8 OTHER SPECIFIED DISORDERS OF VEINS 11/28/2018 JOSE DANIEL PAREDES DOI Ot K57.90 DVRTCLOS OF INTEST, PART UNSP, W/O PERF 11/28/2018 LENA CASAS LUCINDA Ot K59.09 OTHER CONSTIPATION 11/28/2018 LENA CASAS LUCINDA Ot M19.91 PRIMARY OSTEOARTHRITIS, UNSPECIFIED SITE 11/28/2018 LUCINDA PAREDES DO Ot N28.1 CYST OF KIDNEY, ACQUIRED 11/28/2018 PAREDESLUCINDA RUIZ DO Ot N28.89 OTHER SPECIFIED DISORDERS OF KIDNEY AND 11/28/2018 LUCINDA PAREDES DO Ot R09.02 HYPOXEMIA 11/28/2018 LUCINDA PAREDES DO Ot R39.11 HESITANCY OF MICTURITION 11/28/2018 LUCINDA PAREDES DO Ot R53.1 WEAKNESS 11/28/2018 LUCINDA PAREDES DO Ot R59.0 LOCALIZED ENLARGED LYMPH NODES 11/28/2018 LUCINDA PAREDES DO Ot R63.4 ABNORMAL WEIGHT LOSS 11/28/2018 LUCINDA PAREDES DO Ot R91.8 OTHER NONSPECIFIC ABNORMAL FINDING OF VIOLET 11/28/2018 LUCINDA PAREDES DO Ot Z77.22 CNTCT W AND EXPSR TO ENVIRON TOBACCO SMO 11/28/2018 LUCINDA PAREDES DO Ot Z79.4 [facility] (CURRENT) USE OF INSULIN 11/28/2018 LUCINDA PAREDES [...] FINDINGS ON RADIOLOGICAL OT 12/04/2018 CHANCE PEREZ DO Ot 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 12/04/2018 CHANCE PEREZ DO Ot 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 12/08/2018 JOE GANNON DO Ot Z01.818 ENCOUNTER FOR OTHER PREPROCEDURAL EXAMIN 12/09/2018 JOE GANNON DO Ot 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 NEOPLASM OF LEFT KIDNEY, EXCEP 12/09/2018 JOE GANNON DO Ot 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 12/09/2018 JOE GANNON DO Ot 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 12/09/2018 JOE GANNON DO Ot E03.9 HYPOTHYROIDISM, UNSPECIFIED 12/09/2018 JOE GANNON DO Ot E11.9 TYPE 2 DIABETES MELLITUS WITHOUT COMPLIC 12/09/2018 JOE GANNON DO Ot E66.9 OBESITY, UNSPECIFIED 12/09/2018 JOE GANNON DO Ot G47.33 OBSTRUCTIVE SLEEP APNEA (ADULT) (PEDIATR 12/09/2018 JOE GANNON DO Ot I10 ESSENTIAL (PRIMARY) HYPERTENSION 12/09/2018 JOE GNANON DO Ot I25.10 ATHSCL HEART DISEASE OF [place] CORONARY 12/09/2018 JOE GANNON DO Ot K21.9 GASTRO-ESOPHAGEAL REFLUX DISEASE WITHOUT 12/09/2018 JOE GANNON DO Ot Z68.30 BODY MASS INDEX (BMI) 30.0-30.9, ADULT 12/09/2018 JOE GANNON DO Ot Z79.82 [facility] (CURRENT) USE OF ASPIRIN 12/09/2018 JOE GANNON DO Ot Z79.899 OTHER [facility] (CURRENT) DRUG THERAPY 12/09/2018 JOE GANNON DO Ot Z87.891 PERSONAL HISTORY OF NICOTINE DEPENDENCE 12/10/2018 YOBANY WOODARD Ot 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 NEOPLASM OF LEFT KIDNEY, EXCEP 12/10/2018 YOBANY WOODARD Ot 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 12/10/2018 YOBANY WOODARD Ot 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 12/10/2018 YOBANY WOODARD Ot 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 12/10/2018 YOBANY WOODARD Ot 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 12/10/2018 YOBANY WOODARD Ot D64.9 ANEMIA, UNSPECIFIED 12/10/2018 YOBANY WOODARD Ot E03.9 HYPOTHYROIDISM, UNSPECIFIED 12/10/2018 VANCE YOBANY Nuñez Ot E11.9 TYPE 2 DIABETES MELLITUS WITHOUT COMPLIC 12/10/2018 YOBANY WOODARD Joaquin Ot E53.8 DEFICIENCY OF OTHER SPECIFIED B GROUP 12/10/2018 VANCE YOBANY Nuñez Ot E55.9 VITAMIN D DEFICIENCY, UNSPECIFIED 12/10/2018 YOBANY WOODARD Joaquin Ot E83.52 HYPERCALCEMIA 12/10/2018 VANCE YOBANY Nuñez Ot G47.30 SLEEP APNEA, UNSPECIFIED 12/10/2018 VANCE YOABNY Nuñez Ot I10 ESSENTIAL (PRIMARY) HYPERTENSION 12/10/2018 VANCE YOBANY Nuñez Ot I25.10 ATHSCL HEART DISEASE OF [place] CORONARY 12/10/2018 VANCE YOBANY Nuñez Ot K59.09 OTHER CONSTIPATION 12/10/2018 VANCE YOBANY Nuñez Ot M19.91 PRIMARY OSTEOARTHRITIS, UNSPECIFIED SITE 12/10/2018 VANCE YOBANY Nuñez Ot 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 12/10/2018 VANCE YOBANY Nuñez Ot Z79.899 OTHER REFRIGERATOR ROOM CLERK (CURRENT) DRUG THERAPY 12/10/2018 YOBANY WOODARD Joaquin Ot Z87.891 PERSONAL HISTORY OF NICOTINE DEPENDENCE 12/11/2018 JOE GANNON DO Ot 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 NEOPLASM OF LEFT KIDNEY, EXCEP 12/11/2018 JOE GANNON DO Ot 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 12/11/2018 JOE GANNON DO Ot 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 12/11/2018 JOE GANNON DO Ot E03.9 HYPOTHYROIDISM, UNSPECIFIED 12/11/2018 JOE GANNON DO Ot E11.9 TYPE 2 DIABETES MELLITUS WITHOUT COMPLIC 12/11/2018 JOE GANNON DO Ot E66.9 OBESITY, UNSPECIFIED 12/11/2018 JOE GANNON DO Ot G47.33 OBSTRUCTIVE SLEEP APNEA (ADULT) (PEDIATR 12/11/2018 JOE GANNON DO Ot I10 ESSENTIAL (PRIMARY) HYPERTENSION 12/11/2018 JOE GANNON DO Ot I25.10 ATHSCL HEART DISEASE OF [place] CORONARY 12/11/2018 JOE GANNON DO Ot K21.9 GASTRO-ESOPHAGEAL REFLUX DISEASE WITHOUT 12/11/2018 JOE GANNON DO Ot Z68.30 BODY MASS INDEX (BMI) 30.0-30.9, ADULT 12/11/2018 JOE GANNON DO Ot Z79.82 MCC (CURRENT) USE OF ASPIRIN 12/11/2018 JOE GANNON DO Ot Z79.899 OTHER REFRIGERATOR ROOM CLERK (CURRENT) DRUG THERAPY 12/11/2018 JOE GANNON DO, Ot Z87.891 PERSONAL HISTORY OF NICOTINE DEPENDENCE 12/11/2018 JOE GANNON DO Ot 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 NEOPLASM OF LEFT KIDNEY, EXCEP 12/11/2018 JOE GANNON DO Ot 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 12/11/2018 JOE GANNON DO Ot 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 12/11/2018 JOE GANNON DO Ot E03.9 HYPOTHYROIDISM, UNSPECIFIED 12/11/2018 JOE GANNON DO Ot E11.9 TYPE 2 DIABETES MELLITUS WITHOUT COMPLIC 12/11/2018 OJE GANNON DO Ot E66.9 OBESITY, UNSPECIFIED 12/11/2018 JOE GANNON DO Ot G47.33 OBSTRUCTIVE SLEEP APNEA (ADULT) (PEDIATR 12/11/2018 JOE GANNON DO Ot I10 ESSENTIAL (PRIMARY) HYPERTENSION 12/11/2018 JOE GANNON DO Ot I25.10 ATHSCL HEART DISEASE OF [place] CORONARY 12/11/2018 JOE GANNON DO Ot K21.9 GASTRO-ESOPHAGEAL REFLUX DISEASE WITHOUT 12/11/2018 JOE GANNON DO Ot Z68.30 BODY MASS INDEX (BMI) 30.0-30.9, ADULT 12/11/2018 JOE GANNON DO Ot Z79.82 MCC (CURRENT) USE OF ASPIRIN 12/11/2018 JOE GANNON DO Ot Z79.899 OTHER MCC (CURRENT) DRUG THERAPY 12/11/2018 JOE GANNON DO, Ot Z87.891 PERSONAL HISTORY OF NICOTINE DEPENDENCE Procedures Code Description Performed By Performed On [id number] EXCISION OF STOMACH, PERCUTANEOUS ENDOSC 08/29/2016 [id number] EXCISION OF THORAX LYMPHATIC, PERCUTANEO 11/21/2018 [id number] DRAINAGE OF RIGHT LOWER LUNG LOBE, ENDO, 11/21/2018 [id number] EXTRACTION OF RIGHT LOWER LOBE BRONCHUS, 11/21/2018 [id number] EXTRACTION OF RIGHT LOWER LUNG LOBE, END 11/21/2018 [id number] EXCISION OF LEFT KIDNEY, PERCUTANEOUS AP 11/25/2018 [id number] EXCISION OF LEFT KIDNEY, PERCUTANEOUS AP 11/27/2018 [...] ABO+Rh group ON NRG Transfusion band number [id number] [facility] Blood group antibody screen POSITIVE NRG Blood group antibodies identified - 08/28/16 17:45 Blood group antibodies identified S [facility] Whole blood hemoglobin and hematocrit panel - [...] 5-8.5 Urine-Protein Negative Negative Urine-RBC 0-2/HPF Urine-Specific Gabbs 1.020 1.000-1.030 Urine-WBC 0-3/HPF Urobilinogen 0.2 0.2-1.0 [...] SEE COMMENT NRG QUANTITY OF GROWTH Isolated NRG Bacterial blood culture [id number] NRG Methicillin resistant Staphylococcus aureus (MRSA) screening culture [...] stain - 11/21/18 08:00 Sputum Gram stain 5-, 604. NRG Bacteria identification in bronchial specimen by [...] measurement by glucometer (mass/volume) 108 mg/dL 70-110 Capillary blood glucose measurement by glucometer (mass/volume) - 12/09/18 10:17 Capillary blood glucose measurement by glucometer (mass/volume) 132 mg/dL 70-110 Methicillin resistant Staphylococcus aureus (MRSA) screening culture - 12/09/18 10:20 Methicillin resistant Staphylococcus aureus (MRSA) screening culture NEG NRG Encounters ACCT No. Visit Date/Time Discharge Status Pt. Type Provider Facility Loc./Unit Complaint [id number] 11/20/2018 14:34:00 11/20/2018 18:05:00 [id number] 11/17/2018 08:39:00 11/17/2018 23:59:00 DIS Outpatient CHANCE PEREZ [id number] 11/14/2018 08:07:00 11/14/2018 23:59:00 DIS Outpatient CHANCE PEREZ [id number] 11/10/2018 10:35:00 11/10/2018 23:59:00 DIS Outpatient CHANCE PEREZ [id number] 03/20/2017 10:37:00 04/24/2017 11:15:00 DIS Outpatient CHANCE PEREZ [id number] 05/23/2016 13:09:00 11/02/2016 16:00:00 DIS Outpatient GUIDO ROJAS [id number] 08/28/2016 10:53:00 08/28/2016 16:58:00 DIS Outpatient [facility] ER [id number] 06/12/2016 12:43:00 06/12/2016 23:59:00 DIS Outpatient CHANCE PEREZ [id number] 12/10/2018 13:45:38 Document Registration [id number] 08/28/2016 12:45:20 Document Registration [id number] 12/11/2018 14:59:00 12/11/2018 23:59:59 [facility] Outpatient YOBANY WOODARD [facility] [id number] 12/09/2018 09:48:00 12/09/2018 13:10:00 DIS Outpatient JOE GANNON DO [facility] SDC RENAL CANCER [id number] 12/08/2018 05:41:00 12/08/2018 11:09:00 DIS Outpatient JOE GANNON DO [facility] PREOP RENAL CANCER [id number] 11/20/2018 19:00:00 11/28/2018 12:05:00 DIS Inpatient LUCINDA PAREDES DO [facility] 4TH LUNG MASS WITH WEAKNESS [id number] 08/28/2016 17:24:00 08/30/2016 14:00:00 DIS Inpatient PAREDESSARA CASAS LUCINDA [facility] 4TH GASTROINTESTINAL BLEED [id number] 11/30/2015 09:06:00 11/30/2015 23:59:59 CLS Outpatient CHANCE PEREZ DO [facility] 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 [id number] 11/29/2015 09:30:00 11/29/2015 23:59:59 CLS Outpatient CHANCE PEREZ DO [facility] 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 [id number] 12/23/2013 08:04:00 12/23/2013 14:45:00 DIS Outpatient GISEL UMANA MD [facility] CATH ABNORMAL STRESS, CP,HTN,DM [id number] 12/16/2013 06:47:00 12/16/2013 23:59:59 CLS Outpatient CHANCE PEREZ DO [facility] CARD CP [id number] 12/15/2013 07:05:00 12/15/2013 23:59:59 CLS Outpatient CHANCE PEREZ DO [facility] CARD CP
[2018-12-17 12:03] LABS: BASOPHILS % (AUTO) 1 % (0-10); EOSINOPHILS # (AUTO) 0.2 10^3/uL (0.0-0.3); EOSINOPHILS % (AUTO) 4 % (0-10); HEMATOCRIT 32 % (40-54); HEMOGLOBIN 10.3 G/DL (13.3-17.7); LYMPHOCYTES # (AUTO) 0.9 X 10^3 (1.0-4.0); LYMPHOCYTES % (AUTO) 17 % (12-44); MEAN CORPUSCULAR HEMOGLOBIN 26 PG (25-34); MEAN CORPUSCULAR HGB CONC 32 G/DL (32-36); MEAN CORPUSCULAR VOLUME 82 FL (80-99); MEAN PLATELET VOLUME 10.2 FL (7.4-10.4); MONOCYTES # (AUTO) 0.6 X 10^3 (0.0-1.0); MONOCYTES % (AUTO) 12 % (0-12); NEUTROPHILS # (AUTO) 3.7 X 10^3 (1.8-7.8); NEUTROPHILS % (AUTO) 67 % (42-75); PLATELET COUNT 171 10^3/uL (130-400); RED CELL DISTRIBUTION WIDTH 15.2 % (10.0-14.5); WHITE BLOOD COUNT 5.6 10^3/uL (4.3-11.0)
[2018-12-17 12:08] LABS: INR 1.2 (0.8-1.4); PROTHROMBIN TIME PATIENT 15.4 SEC (12.2-14.7)
[2018-12-17 12:18] LABS: ALANINE AMINOTRANSFERASE 17 U/L (0-55); ALBUMIN 2.9 GM/DL (3.2-4.5); ALKALINE PHOSPHATASE 126 U/L (40-136); BILIRUBIN,TOTAL 0.6 MG/DL (0.1-1.0); BUN/CREATININE RATIO 23; CALCIUM 9.5 MG/DL (8.5-10.1); CARBON DIOXIDE 25 MMOL/L (21-32); CHLORIDE 107 MMOL/L (98-107); CREATININE SERUM 0.78 MG/DL (0.60-1.30); GFR ESTIMATED > 60; GLUCOSE 271 MG/DL (70-105); MAGNESIUM 1.3 MG/DL (1.8-2.4); SODIUM 141 MMOL/L (135-145); TOTAL PROTEIN 6.4 GM/DL (6.4-8.2)
[2018-12-17] MEDS ORDERED: FUROSEMIDE 40 MG/4 ML INJ (LASIX) IVP ONE (12:30)
[2018-12-17] MEDS ORDERED: hydrALAZINE (APESOLINE) 20 MG/ML VIAL IV ONE (12:30)
--- NOTE | 2018-12-17 12:53 | Diagnostic Imaging Report ---
Indication: Shortness of breath, history of lung cancer Frontal chest obtained at 1233 hrs pm, and compared to 12/09/2018 Port-A-Cath is unchanged. The heart is mildly enlarged. There is extensive infiltrate in the lung bases on both sides right greater than left which appear similar to the prior study. There is no pneumothorax. There appear to be small bilateral pleural effusions. Impression: Cardiomegaly with unchanged bibasilar infiltrates. There are small bilateral pleural effusions. There is no pneumothorax. Dictated by: Dictated on workstation # [id number]
[2018-12-17 14:01] LABS: BILIRUBIN,URINE NEGATIVE (NEGATIVE); CLARITY,URINE CLEAR; COLOR,URINE YELLOW; GLUCOSE, URINE (UA) 3+ (NEGATIVE); KETONES,URINE NEGATIVE (NEGATIVE); LEUKOCYTE ESTERASE ,URINE NEGATIVE (NEGATIVE); NITRITE,URINE NEGATIVE (NEGATIVE); PH,URINE 5 (5-9); PROTEIN,URINE 3+ (NEGATIVE); UROBILINOGEN,URINE 1 MG/DL (NORMAL)
[2018-12-17] MEDS ORDERED: MUPI1OIN6 TP (14:02)
[2018-12-17] MEDS: MAGNESIUM 1 GM/100 ML IVPB 100 ML IV SCH ×2 (14:02→15:05)
[2018-12-17] MEDS ORDERED: SULF1TAB35 PO (14:02)
[2018-12-17] MEDS ORDERED: LOSA50TA63 PO (14:02)
--- NOTE | 2018-12-17 14:03 | ED General ---
General Chief Complaint: Cardiac/General Problems Nursing Triage Note: PT ARRVIED PER EMS, PT CO OF STARTING A NEW CHEMO MEDICATION AND IS MAKING HIS B/P ELEVATED, AND HIS LEGS WEEP. PT LEGS ARE 4+ PITTING WEEPING EDMEA NOTED. PT STATES LEG ALWAY SWOLLEN BUT DO NOT WEEP NORMALLY. PT DENIES PAIN AT THIS X. PT HAS INFUSAPORT THAT WAS PUT IN LAST WEEK. HOME HEALTH NURSE SENT PT TO ED Nursing Sepsis Screen: No Definite Risk Allergies and Home Medications Allergies Coded Allergies: adhesive tape (Verified Allergy, Unknown, Hives, 12/08/18) Home Medications Brimonidine Tartrate/Timolol 5 Ml Drops, 1 DROP OD BID, (Reported) Glipizide 5 Mg Tab.er.24, 5 MG PO 1800, (Reported) Insulin Degludec 100 Unit/1 Ml Insuln.pen, 15 UNITS SC 2200, (Reported) Insulin Lispro 100 Unit/1 Ml Insuln.pen, 5 UNITS SC BID WITH MEALS, (Reported) Latanoprost 2.5 Ml Drops, 1 DROP OD HS, (Reported) Metformin HCl 1,000 Mg Tablet, 1,000 MG PO DAILY, (Reported) Pioglitazone HCl 45 Mg Tablet, 45 MG PO 1800, (Reported) Solifenacin Succinate 5 Mg Tablet, 5 MG PO DAILY, (Reported) Past Wmqazdc-Mxyvfc-Frgcvw Hx Patient Social History Alcohol Use: Denies Use Recreational Drug Use: No Smoking Status: Never a Smoker Type Used: Cigarettes Former Smoker, Quit: Jul 22, 1965 2nd Hand Smoke Exposure: Yes (exposed when going to [employer] x1/week) Recent Foreign Travel: No Contact w/Someone Who Travel: No Recent Infectious Disease Expo: No Recent Hopitalizations: No Physical Abuse: No Sexual Abuse: No Seasonal Allergies Seasonal Allergies: No Past Medical History Surgeries: Yes (prostatectomy-2002, bilat hip replacements, ) Gallbladder, Joint Replacement, Prostatectomy Respiratory: Yes Sleep Apnea Cardiac: No Neurological: No Reproductive Disorders: No Genitourinary: Yes (PROSTATE CANCER, ) Gastrointestinal: Yes (HX OF BLEEDING DIVERTICULITUS ) Chronic Constipation, Diverticulosis Musculoskeletal: Yes (VERY WEAK UNSTEADY ON FEET) Arthritis Endocrine: Yes Diabetes, Insulin dep Cataract Cancer: Yes Prostate, Lung, Skin, Kidney What Type of Treatment Did You: Surgical Intervention Psychosocial: No Integumentary: No Blood Disorders: No Adverse Reaction/Blood Tranf: No Family Medical History No Pertinent Family Hx Physical Exam Vital Signs Vital Signs - First Documented 12/17/18 11:35 Temp 96.8 Pulse 77 Resp 17 B/P (MAP) 185/80 (115) Pulse Ox 94 O2 Delivery Room Air Capillary Refill : Less Than 3 Seconds Height, Weight, BMI Height: 6'8.00" Weight: 300lbs. 0.0oz. 136.751609bj; 30.9 BMI Method:Stated Progress/Results/Core Measures Suspected Sepsis Recent Fever Within 48 Hours: No Infection Criteria Present: None New/Unexplained Altered Menta: No Sepsis Screen: No Definite Risk SIRS Temperature:96.8 Pulse: 77 Respiratory Rate: 17 Laboratory Tests 12/17/18 11:45: White Blood Count 5.6 Blood Pressure 185 /80 Mean: 115 Laboratory Tests 12/17/18 11:45: Creatinine 0.78, INR Comment 1.2, Platelet Count 171, Total Bilirubin 0.6 Results/Orders Lab Results Laboratory Tests Test 12/17/18 11:45 12/17/18 13:53 Range/Units White Blood Count 5.6 4.3-11.0 10^3/uL Red Blood Count 3.93 L 4.35-5.85 10^6/uL Hemoglobin 10.3 L 13.3-17.7 G/DL Hematocrit 32 L 40-54 % Mean Corpuscular Volume 82 80-99 FL Mean Corpuscular Hemoglobin 26 25-34 PG Mean Corpuscular Hemoglobin Concent 32 32-36 G/DL Red Cell Distribution Width 15.2 H 10.0-14.5 % Platelet Count 171 130-400 10^3/uL Mean Platelet Volume 10.2 7.4-10.4 FL Neutrophils (%) (Auto) 67 42-75 % Lymphocytes (%) (Auto) 17 12-44 % Monocytes (%) (Auto) 12 0-12 % Eosinophils (%) (Auto) 4 0-10 % Basophils (%) (Auto) 1 0-10 % Neutrophils # (Auto) 3.7 1.8-7.8 X 10^3 Lymphocytes # (Auto) 0.9 L 1.0-4.0 X 10^3 Monocytes # (Auto) 0.6 0.0-1.0 X 10^3 Eosinophils # (Auto) 0.2 0.0-0.3 10^3/uL Basophils # (Auto) 0.0 0.0-0.1 10^3/uL Prothrombin Time 15.4 H 12.2-14.7 SEC INR Comment 1.2 0.8-1.4 Activated Partial Thromboplast Time 38 H 24-35 SEC Sodium Level 141 135-145 MMOL/L Potassium Level 4.0 3.6-5.0 MMOL/L Chloride Level 107 98-107 MMOL/L Carbon Dioxide Level 25 21-32 MMOL/L Anion Gap 9 5-14 MMOL/L Blood Urea Nitrogen 18 7-18 MG/DL Creatinine 0.78 0.60-1.30 MG/DL Estimat Glomerular Filtration Rate > 60 BUN/Creatinine Ratio 23 Glucose Level 271 H 70-105 MG/DL Calcium Level 9.5 8.5-10.1 MG/DL Corrected Calcium 10.4 H 8.5-10.1 MG/DL Magnesium Level 1.3 L 1.8-2.4 MG/DL Total Bilirubin 0.6 0.1-1.0 MG/DL Aspartate Amino Transf (AST/SGOT) 20 5-34 U/L Alanine Aminotransferase (ALT/SGPT) 17 0-55 U/L Alkaline Phosphatase 126 40-136 U/L Troponin I < 0.028 <0.028 NG/ML Total Protein 6.4 6.4-8.2 GM/DL Albumin 2.9 L 3.2-4.5 GM/DL My Orders Orders - MARIVEL REYEZ DO Ed Iv/Invasive Line Start (12/17/18 11:54) Ekg Tracing (12/17/18 11:54) Monitor-Rhythm Ecg Trace Only (12/17/18 11:54) Chest 1 View, Ap/Pa Only (12/17/18 11:54) Cbc With Automated Diff (12/17/18 11:54) Comprehensive Metabolic Panel (12/17/18 11:54) Magnesium (12/17/18 11:54) Protime With Inr (12/17/18 11:54) Partial Thromboplastin Time (12/17/18 11:54) Troponin I (12/17/18 11:54) Ua Culture If Indicated (12/17/18 11:54) Hydralazine Injection (Apresoline Inject (12/17/18 12:30) Furosemide Injection (Lasix Injection) (12/17/18 12:30) Magnesium 1 Gm/100 Ml Ivpb (Magnesium Rice (12/17/18 12:30) Medications Given in ED Current Medications Medications Dose Ordered Sig/Donny Route Start Time Stop Time Status Last Admin Dose Admin Furosemide 60 mg ONCE ONCE IVP 12/17/18 12:30 12/17/18 12:42 DC 12/17/18 13:35 60 MG Hydralazine HCl 10 mg ONCE ONCE IV 12/17/18 12:30 12/17/18 12:42 DC 12/17/18 13:33 10 MG Vital Signs/I&O 12/17/18 11:35 Temp 96.8 Pulse 77 Resp 17 B/P (MAP) 185/80 (115) Pulse Ox 94 O2 Delivery Room Air Capillary Refill : Less Than 3 Seconds Blood Pressure Mean: 115 Departure Impression Primary Impression: HTN (hypertension) Additional Impressions: SEVERE DEPENDENT LEG EDEMA Metastatic cancer Hypomagnesemia IDDM (insulin dependent diabetes mellitus) Cellulitis of both lower extremities Disposition: HOME, SELF-CARE Condition: Stable Departure-Patient Inst. Referrals: CHANCE PEREZ DO (PCP) Primary Care Physician HANNAH BAEZ DO (Family) Primary Care Physician Patient Instructions: Cellulitis (Skin Infection), Adult (DC), Dependent Edema (DC), Diabetes and Diet, Heart Disease in Diabetics (DC), High Blood Pressure (DC) Add. Discharge Instructions: ELEVATE LEGS MUCH POSSIBLE FOLLOW UP WITH DR. PEREZ OR DR. WOODARD TOMORROW FOR FURTHER CARE All discharge instructions reviewed with patient and/or family. Voiced understanding. Scripts Losartan Potassium (Losartan Potassium) 50 Mg Tablet 50 MG PO DAILY, #10 TAB Prov: MARIVEL REYEZ DO 12/17/18 Mupirocin (Mupirocin) 1 Gm Oin.pf.michelle 1 GM TP BID, #22 TUBE Prov: MARIVEL REYEZ DO 12/17/18 Sulfamethoxazole/Trimethoprim (Bactrim Ds Tablet) 1 Each Tablet 1 EACH PO BID, #20 TAB Prov: MARIVEL REYEZ DO 12/17/18 MARIVEL REYEZ DO December 17, 2018 14:03
[2018-12-17 14:11] LABS: BACTERIA,URINE NEGATIVE /HPF
--- NOTE | 2018-12-17 16:15 | NUR ---
[facility] NOTIFIED OF TRANSFER TO HOME
--- NOTE | 2018-12-17 16:42 | NUR ---
[facility] REFUSED TRANSFER TO HOME NOT MEDICAL NECESSITY
[2018-12-17 17:36] VITALS: BP 169/72
--- NOTE | 2018-12-17 17:50 | NUR ---
PT ASSISTED INTO VAN BY STAFF, PT GOING TO CALL FIRE TO HELP HIM GET IN TO HOUSE
== END 2018-12-17 17:50 | disposition home or self-care (01) ==
LOC: EDUNIT# 11:37 → ER 11:38
DX: I10 Essential (primary) hypertension (principal); R60.0 Localized edema; E83.42 Hypomagnesemia; E11.9 Type 2 diabetes mellitus without complications; L03.115 Cellulitis of right lower limb; L03.116 Cellulitis of left lower limb; C61 Malignant neoplasm of prostate; C78.00 Secondary malignant neoplasm of unspecified lung; C79.00 Secondary malignant neoplasm of unspecified kidney and renal pelvis; C79.2 Secondary malignant neoplasm of skin; G47.30 Sleep apnea, unspecified; Z87.19 Personal history of other diseases of the digestive system; Z91.048 Other nonmedicinal substance allergy status; Z79.4 Long term (current) use of insulin; Z87.891 Personal history of nicotine dependence; Z98.890 Other specified postprocedural states; Z90.79 Acquired absence of other genital organ(s); Z96.643 Presence of artificial hip joint, bilateral
CPT/HCPCS: 36415; 71045; 80053; 81000; 83735; 84484; 85025; 85610; 85730; 93005; 93041; 96365; 96375

== ENCOUNTER 2019-02-12 12:40 | Outpatient (RCR) | payer MEDICARE, OTHER ==
[2018-12-11 16:03] LABS: BASOPHILS # (AUTO) 0.1 10^3/uL (0.0-0.1); BASOPHILS % (AUTO) 1 % (0-10); EOSINOPHILS # (AUTO) 0.2 10^3/uL (0.0-0.3); EOSINOPHILS % (AUTO) 3 % (0-10); HEMATOCRIT 31 % (40-54); HEMOGLOBIN 9.9 G/DL (13.3-17.7); LYMPHOCYTES # (AUTO) 0.9 X 10^3 (1.0-4.0); LYMPHOCYTES % (AUTO) 11 % (12-44); MEAN CORPUSCULAR HEMOGLOBIN 26 PG (25-34); MEAN CORPUSCULAR HGB CONC 32 G/DL (32-36); MEAN CORPUSCULAR VOLUME 83 FL (80-99); MEAN PLATELET VOLUME 9.7 FL (7.4-10.4); MONOCYTES % (AUTO) 11 % (0-12); NEUTROPHILS # (AUTO) 6.5 X 10^3 (1.8-7.8); NEUTROPHILS % (AUTO) 75 % (42-75); PLATELET COUNT 259 10^3/uL (130-400); RED CELL DISTRIBUTION WIDTH 15.1 % (10.0-14.5); WHITE BLOOD COUNT 8.7 10^3/uL (4.3-11.0)
[2018-12-11 16:20] LABS: ALANINE AMINOTRANSFERASE 10 U/L (0-55); ALKALINE PHOSPHATASE 121 U/L (40-136); BILIRUBIN,TOTAL 0.6 MG/DL (0.1-1.0); BUN/CREATININE RATIO 22; CARBON DIOXIDE 24 MMOL/L (21-32); CHLORIDE 107 MMOL/L (98-107); CREATININE SERUM 0.73 MG/DL (0.60-1.30); GFR ESTIMATED > 60; GLUCOSE 122 MG/DL (70-105); POTASSIUM 3.5 MMOL/L (3.6-5.0); SODIUM 142 MMOL/L (135-145); TOTAL PROTEIN 6.5 GM/DL (6.4-8.2)
[2019-01-01 09:35] LABS: BASOPHILS % (AUTO) 0 % (0-10); EOSINOPHILS # (AUTO) 0.1 10^3/uL (0.0-0.3); EOSINOPHILS % (AUTO) 2 % (0-10); HEMATOCRIT 37 % (40-54); HEMOGLOBIN 11.3 G/DL (13.3-17.7); LYMPHOCYTES % (AUTO) 13 % (12-44); MEAN CORPUSCULAR HEMOGLOBIN 26 PG (25-34); MEAN CORPUSCULAR HGB CONC 31 G/DL (32-36); MEAN CORPUSCULAR VOLUME 84 FL (80-99); MEAN PLATELET VOLUME 10.8 FL (7.4-10.4); MONOCYTES # (AUTO) 0.8 X 10^3 (0.0-1.0); MONOCYTES % (AUTO) 11 % (0-12); NEUTROPHILS # (AUTO) 5.8 X 10^3 (1.8-7.8); NEUTROPHILS % (AUTO) 75 % (42-75); PLATELET COUNT 146 10^3/uL (130-400); RED CELL DISTRIBUTION WIDTH 17.9 % (10.0-14.5); WHITE BLOOD COUNT 7.7 10^3/uL (4.3-11.0)
[2019-01-01 09:53] LABS: ALANINE AMINOTRANSFERASE 14 U/L (0-55); ALBUMIN 3.2 GM/DL (3.2-4.5); ALKALINE PHOSPHATASE 133 U/L (40-136); BILIRUBIN,TOTAL 0.7 MG/DL (0.1-1.0); BUN/CREATININE RATIO 32; CALCIUM 9.6 MG/DL (8.5-10.1); CARBON DIOXIDE 23 MMOL/L (21-32); CHLORIDE 107 MMOL/L (98-107); CREATININE SERUM 0.81 MG/DL (0.60-1.30); GFR ESTIMATED > 60; GLUCOSE 158 MG/DL (70-105); POTASSIUM 3.9 MMOL/L (3.6-5.0); SODIUM 138 MMOL/L (135-145); TOTAL PROTEIN 6.8 GM/DL (6.4-8.2)
[2019-01-21 12:59] LABS: BASOPHILS % (AUTO) 0 % (0-10); EOSINOPHILS # (AUTO) 0.5 10^3/uL (0.0-0.3); EOSINOPHILS % (AUTO) 6 % (0-10); HEMATOCRIT 40 % (40-54); HEMOGLOBIN 12.6 G/DL (13.3-17.7); LYMPHOCYTES # (AUTO) 1.2 X 10^3 (1.0-4.0); LYMPHOCYTES % (AUTO) 15 % (12-44); MEAN CORPUSCULAR HEMOGLOBIN 27 PG (25-34); MEAN CORPUSCULAR HGB CONC 31 G/DL (32-36); MEAN CORPUSCULAR VOLUME 86 FL (80-99); MEAN PLATELET VOLUME 10.1 FL (7.4-10.4); MONOCYTES # (AUTO) 0.6 X 10^3 (0.0-1.0); MONOCYTES % (AUTO) 8 % (0-12); NEUTROPHILS # (AUTO) 5.5 X 10^3 (1.8-7.8); NEUTROPHILS % (AUTO) 71 % (42-75); PLATELET COUNT 151 10^3/uL (130-400); RED CELL DISTRIBUTION WIDTH 19.9 % (10.0-14.5); WHITE BLOOD COUNT 7.8 10^3/uL (4.3-11.0)
[2019-01-21 13:19] LABS: ALANINE AMINOTRANSFERASE 13 U/L (0-55); ALBUMIN 3.5 GM/DL (3.2-4.5); ALKALINE PHOSPHATASE 105 U/L (40-136); BILIRUBIN,TOTAL 0.8 MG/DL (0.1-1.0); BUN/CREATININE RATIO 40; CALCIUM 10.3 MG/DL (8.5-10.1); CARBON DIOXIDE 24 MMOL/L (21-32); CHLORIDE 104 MMOL/L (98-107); CREATININE SERUM 0.85 MG/DL (0.60-1.30); GFR ESTIMATED > 60; GLUCOSE 87 MG/DL (70-105); POTASSIUM 4.3 MMOL/L (3.6-5.0); SODIUM 139 MMOL/L (135-145); TOTAL PROTEIN 7.4 GM/DL (6.4-8.2)
[2019-01-21 13:41] LABS: BILIRUBIN,URINE NEGATIVE (NEGATIVE); CLARITY,URINE CLEAR; COLOR,URINE YELLOW; GLUCOSE, URINE (UA) NEGATIVE (NEGATIVE); KETONES,URINE NEGATIVE (NEGATIVE); LEUKOCYTE ESTERASE ,URINE NEGATIVE (NEGATIVE); NITRITE,URINE NEGATIVE (NEGATIVE); PH,URINE 5 (5-9); PROTEIN,URINE 2+ (NEGATIVE); UROBILINOGEN,URINE NORMAL (NORMAL)
[~2019-02-12] VITALS: Ht 203.2 cm; Wt 131.5 kg
[~2019-02-12 12:40] MED LIST changes: +LOSA50TA63 PO; +MUPI1OIN6 TP; +NS IV 500 ML (CANCER CENTER) IV SCH; +PEMBROLIZUMAB 200 MG in NS (IVPB) CANCER CENTER 50 ML IV SCH; +SULF1TAB35 PO
[2019-02-12 13:17] LABS: BASOPHILS % (AUTO) 0 % (0-10); EOSINOPHILS # (AUTO) 0.4 10^3/uL (0.0-0.3); EOSINOPHILS % (AUTO) 6 % (0-10); HEMATOCRIT 43 % (40-54); HEMOGLOBIN 13.4 G/DL (13.3-17.7); LYMPHOCYTES # (AUTO) 1.4 X 10^3 (1.0-4.0); LYMPHOCYTES % (AUTO) 19 % (12-44); MEAN CORPUSCULAR HEMOGLOBIN 27 PG (25-34); MEAN CORPUSCULAR HGB CONC 32 G/DL (32-36); MEAN CORPUSCULAR VOLUME 87 FL (80-99); MEAN PLATELET VOLUME 10.7 FL (7.4-10.4); MONOCYTES # (AUTO) 0.7 X 10^3 (0.0-1.0); MONOCYTES % (AUTO) 9 % (0-12); NEUTROPHILS # (AUTO) 4.8 X 10^3 (1.8-7.8); NEUTROPHILS % (AUTO) 66 % (42-75); PLATELET COUNT 137 10^3/uL (130-400); RED CELL DISTRIBUTION WIDTH 20.5 % (10.0-14.5); WHITE BLOOD COUNT 7.2 10^3/uL (4.3-11.0)
[2019-02-12 13:35] LABS: ALANINE AMINOTRANSFERASE 19 U/L (0-55); ALBUMIN 3.5 GM/DL (3.2-4.5); ALKALINE PHOSPHATASE 70 U/L (40-136); BILIRUBIN,TOTAL 0.9 MG/DL (0.1-1.0); BUN/CREATININE RATIO 33; CARBON DIOXIDE 24 MMOL/L (21-32); CHLORIDE 108 MMOL/L (98-107); GFR ESTIMATED > 60; GLUCOSE 138 MG/DL (70-105); POTASSIUM 3.9 MMOL/L (3.6-5.0); SODIUM 139 MMOL/L (135-145); TOTAL PROTEIN 6.9 GM/DL (6.4-8.2)
== END 2019-03-04 | disposition home or self-care (01) ==
LOC: ONC 12:40
PROVIDERS: ATTEND Internal Medicine Hematology & Oncology
DX: Z51.11 Encounter for antineoplastic chemotherapy (principal); C64.2 Malignant neoplasm of left kidney, except renal pelvis; C78.01 Secondary malignant neoplasm of right lung; C78.02 Secondary malignant neoplasm of left lung; C79.72 Secondary malignant neoplasm of left adrenal gland; C77.1 Secondary and unspecified malignant neoplasm of intrathoracic lymph nodes; E83.52 Hypercalcemia; D64.9 Anemia, unspecified; E55.9 Vitamin D deficiency, unspecified; E53.8 Deficiency of other specified B group vitamins; E11.9 Type 2 diabetes mellitus without complications; I25.10 Atherosclerotic heart disease of native coronary artery without angina pectoris; I10 Essential (primary) hypertension; E03.9 Hypothyroidism, unspecified; G47.30 Sleep apnea, unspecified; K59.09 Other constipation; M19.91 Primary osteoarthritis, unspecified site; Z79.4 Long term (current) use of insulin; Z79.899 Other long term (current) drug therapy; Z87.891 Personal history of nicotine dependence
CPT/HCPCS: 36591; 80053; 81002; 82570; 83615; 84156; 84443; 85025; 96413; 99213

== ENCOUNTER → 2019-02-27 | Outpatient (CLI) | payer MEDICARE, OTHER ==
[~2019-02-27] MED LIST changes: +BARIUM SUSPENSION 2.1% (VANILLA SILQ) 450 ML PO ONE; +CATHETER FLUSH 10 ML SYR IV PRN; +HOLD METFORMIN - RECEIVED CONTRAST 20 ML VIAL IV SCH; +IOHEXOL 350 MG/ML 100 ML (OMNIPAQUE 350) VIAL IV ONE; +NS 100 ML (IVPB) BAG IV ONE; -NS IV 500 ML (CANCER CENTER) IV SCH; -PEMBROLIZUMAB 200 MG in NS (IVPB) CANCER CENTER 50 ML IV SCH
--- NOTE | 2019-02-27 13:24 | Diagnostic Imaging Report ---
PROCEDURE: CT chest with contrast, CT abdomen and pelvis with and without contrast. TECHNIQUE: Pre and post intravenous contrast axial imaging of the abdomen and pelvis and post contrast axial imaging of the chest were performed. Auto Exposure Controls were utilized during the CT exam to meet ALARA standards for radiation dose reduction. INDICATION: Renal cell carcinoma. Metastatic disease to the lungs. Evaluate medication response. COMPARISON: CT chest, abdomen and pelvis on 11/21/2018. CT chest: The heart size is within normal limits. No pericardial effusion is present. Calcified aortic and coronary atherosclerotic plaque without aneurysm. A right port is seen with tip in the cavoatrial junction. Interval decrease in pathologically enlarged mediastinal lymphadenopathy. The nodule in the AP window on prior exam now measures 0.9 cm, previously measuring 2.1 cm. Interval decrease in size and number of previously innumerable metastatic lesions throughout the lungs is seen. A spiculated metastatic lesion in the right lower lobe measures 0.8 cm (image 61, series 301), previously measuring 3.3 cm. Stable appearance of groundglass nodularity in the right upper lobe measuring 1.1 cm. Additional millimetric nodules are seen scattered throughout the lungs. No focal consolidation or pulmonary mass. A small left pleural effusion is seen with trace right effusion. No pneumothorax. No central endobronchial obstructing lesions are identified. The previously noted lytic lesion within the T5 vertebral body now demonstrates predominately sclerotic features. Stable hemangioma in the T9 vertebral body. Pathologic fracture of the right seventh rib demonstrates healing. CT abdomen: There is interval decrease in size in the mass projecting off the inferior pole of the left kidney, now measuring 5.8 x 5.1 cm (image 177, series 301), previously measuring 6.5 x 5.9 cm. There is also decreased enhancement within the mass. No new renal masses are seen. No evidence of left renal vein thrombosis. Bilateral cortical cysts are seen, unchanged compared to the prior exam. No evidence of nephrolithiasis or hydronephrosis. Interval decrease in size in bilateral adrenal nodules, with the right measuring 0.8 cm and the left measuring 1.1 cm. The liver, spleen, and pancreas have a normal appearance. Mildly prominent retroperitoneal lymph nodes are stable in size. The bowel loops are nondilated. Diverticulosis of the colon is seen without evidence of acute diverticulitis. Nonspecific presacral fat stranding is noted. There is no free fluid or free air. There is calcified aortic and iliac atherosclerotic plaque without aneurysm. Extensive surgical changes are seen in the pelvis. The bladder is non-dilated with concentric bladder wall thickening. No bladder masses are seen. Bilateral total hip arthroplasties are noted. The lytic lesion in the right ilium just superior to the right acetabulum is stable in size measuring 1.8 cm. IMPRESSION: 1. Findings consistent with treatment response with marked decrease in number and size of previously innumerable lung metastases, decreased mediastinal and hilar lymphadenopathy and decrease in size in the primary renal cell carcinoma in the inferior pole of the left kidney. Recommend continued followup as indicated. 2. Increased sclerosis in the metastatic lesion within the T5 vertebral body and interval healing of the pathologic fracture involving the right seventh rib. Stable appearance of the lytic lesion in the right ilium. Recommend attention on followup. 3. Small left and trace right pleural effusions. 4. Interval decrease in size in bilateral adrenal nodules. Dictated by: Dictated on workstation # [id number]
--- NOTE | 2019-02-27 17:30 | Diagnostic Imaging Report ---
INDICATION: Renal cell carcinoma. TECHNIQUE: Patient was administered 26.3 mCi technetium 99m MDP intravenously and whole body imaging was performed after three-hour delay. FINDINGS: Normal uptake of activity by the axial and appendicular skeleton is noted. There is uptake by the kidneys with excretion into the urinary bladder. There is a focus of moderate uptake involving the right posterior seventh rib. This corresponds to a healing fracture noted on CT earlier the same day. There is a vague area of uptake involving left anterior approximately fourth rib. There is a minimal sclerosis at this location noted on CT. No other suspicious abnormalities are identified. IMPRESSION: Healing right posterior seventh rib fracture. There is vague uptake involving left anterior fourth rib, correlating with some sclerosis on CT. Small metastasis cannot be entirely excluded and continued followup is recommended. Dictated by: Dictated on workstation # [id number]
== END ==
LOC: CARD 11:30
PROVIDERS: ATTEND Internal Medicine Hematology & Oncology
DX: C64.2 Malignant neoplasm of left kidney, except renal pelvis (principal); C78.01 Secondary malignant neoplasm of right lung; M84.48XD Pathological fracture, other site, subsequent encounter for fracture with routine healing; Z96.643 Presence of artificial hip joint, bilateral; E27.8 Other specified disorders of adrenal gland; J90 Pleural effusion, not elsewhere classified
CPT/HCPCS: 71260; 74178; 78306

== ENCOUNTER → 2019-03-19 | Outpatient (CLI) | payer MEDICARE, OTHER ==
[~2019-03-19] MED LIST changes: -BARIUM SUSPENSION 2.1% (VANILLA SILQ) 450 ML PO ONE; -CATHETER FLUSH 10 ML SYR IV PRN; -HOLD METFORMIN - RECEIVED CONTRAST 20 ML VIAL IV SCH; -IOHEXOL 350 MG/ML 100 ML (OMNIPAQUE 350) VIAL IV ONE; -NS 100 ML (IVPB) BAG IV ONE
--- NOTE | 2019-03-19 12:57 | Diagnostic Imaging Report ---
PROCEDURE: CT head without contrast. TECHNIQUE: Multiple contiguous axial images were obtained through the brain without the use of intravenous contrast. Auto Exposure Controls were utilized during the CT exam to meet ALARA standards for radiation dose reduction. INDICATION: Right-sided facial droop. FINDINGS: There are no prior studies available for comparison. There is a densely calcified 1.8 x 2.5 cm extra-axial mass arising from the inner table of the calvarium in the right frontal lobe. This may represent a meningioma. This calcification does not appear to produce any significant underlying vasogenic edema and I suspect this finding is long-standing in nature. If previous exams are available, they would be helpful for comparison. If there are no prior studies, then MRI would be recommended for further study. There is no intra-axial mass, shift of the midline, or hemorrhage to indicate an acute abnormality. The ventricles are not abnormally dilated. There are vague areas of low density in the periventricular white matter bilaterally. These findings are nonspecific but may be secondary to encephalomalacia from microvascular ischemia. There is also cortical atrophy. The degree of atrophy is consistent with the patient's age. The bone windows show no sign of a fracture or of a destructive lesion. The orbits are symmetrical and within normal limits. The sinuses are generally clear. IMPRESSION: 1. There is no evidence for an acute intracranial abnormality. 2. The calcified extra-axial mass along the right frontal lobe may represent a long-standing meningioma. Recommendations as above. Dictated by: Dictated on workstation # [id number]
== END ==
LOC: RAD 12:13
PROVIDERS: ATTEND Internal Medicine
DX: G31.9 Degenerative disease of nervous system, unspecified (principal); G93.89 Other specified disorders of brain; R29.810 Facial weakness; R25.1 Tremor, unspecified
CPT/HCPCS: 70450

== ENCOUNTER 2019-05-28 14:03 | Outpatient (RCR) | payer MEDICARE, OTHER ==
[2019-03-05 13:41] LABS: BASOPHILS % (AUTO) 1 % (0-10); EOSINOPHILS # (AUTO) 0.3 10^3/uL (0.0-0.3); EOSINOPHILS % (AUTO) 5 % (0-10); HEMATOCRIT 43 % (40-54); HEMOGLOBIN 13.7 G/DL (13.3-17.7); LYMPHOCYTES # (AUTO) 1.3 X 10^3 (1.0-4.0); LYMPHOCYTES % (AUTO) 21 % (12-44); MEAN CORPUSCULAR HEMOGLOBIN 28 PG (25-34); MEAN CORPUSCULAR HGB CONC 32 G/DL (32-36); MEAN CORPUSCULAR VOLUME 88 FL (80-99); MONOCYTES # (AUTO) 0.6 X 10^3 (0.0-1.0); MONOCYTES % (AUTO) 11 % (0-12); NEUTROPHILS # (AUTO) 3.9 X 10^3 (1.8-7.8); NEUTROPHILS % (AUTO) 64 % (42-75); PLATELET COUNT 123 10^3/uL (130-400); RED CELL DISTRIBUTION WIDTH 18.3 % (10.0-14.5); WHITE BLOOD COUNT 6.1 10^3/uL (4.3-11.0)
[2019-03-05 14:03] LABS: ALANINE AMINOTRANSFERASE 19 U/L (0-55); ALBUMIN 3.1 GM/DL (3.2-4.5); ALKALINE PHOSPHATASE 74 U/L (40-136); BILIRUBIN,TOTAL 1.1 MG/DL (0.1-1.0); BUN/CREATININE RATIO 25; CALCIUM 8.8 MG/DL (8.5-10.1); CARBON DIOXIDE 27 MMOL/L (21-32); CHLORIDE 110 MMOL/L (98-107); CREATININE SERUM 0.68 MG/DL (0.60-1.30); GFR ESTIMATED > 60; GLUCOSE 103 MG/DL (70-105); POTASSIUM 3.4 MMOL/L (3.6-5.0); SODIUM 143 MMOL/L (135-145); TOTAL PROTEIN 6.3 GM/DL (6.4-8.2)
[2019-03-26 13:39] LABS: BASOPHILS % (AUTO) 0 % (0-10); EOSINOPHILS # (AUTO) 0.1 10^3/uL (0.0-0.3); EOSINOPHILS % (AUTO) 2 % (0-10); HEMATOCRIT 41 % (40-54); HEMOGLOBIN 13.2 G/DL (13.3-17.7); LYMPHOCYTES # (AUTO) 1.1 X 10^3 (1.0-4.0); LYMPHOCYTES % (AUTO) 15 % (12-44); MEAN CORPUSCULAR HEMOGLOBIN 29 PG (25-34); MEAN CORPUSCULAR HGB CONC 33 G/DL (32-36); MEAN CORPUSCULAR VOLUME 89 FL (80-99); MONOCYTES # (AUTO) 0.6 X 10^3 (0.0-1.0); MONOCYTES % (AUTO) 9 % (0-12); NEUTROPHILS # (AUTO) 5.3 X 10^3 (1.8-7.8); NEUTROPHILS % (AUTO) 74 % (42-75); PLATELET COUNT 90 10^3/uL (130-400); RED CELL DISTRIBUTION WIDTH 16.8 % (10.0-14.5); WHITE BLOOD COUNT 7.2 10^3/uL (4.3-11.0)
[2019-03-26 13:57] LABS: ALANINE AMINOTRANSFERASE 18 U/L (0-55); ALBUMIN 3.1 GM/DL (3.2-4.5); ALKALINE PHOSPHATASE 63 U/L (40-136); BILIRUBIN,TOTAL 1.1 MG/DL (0.1-1.0); BUN/CREATININE RATIO 24; CALCIUM 8.9 MG/DL (8.5-10.1); CARBON DIOXIDE 29 MMOL/L (21-32); CHLORIDE 110 MMOL/L (98-107); CREATININE SERUM 0.71 MG/DL (0.60-1.30); GFR ESTIMATED > 60; POTASSIUM 3.1 MMOL/L (3.6-5.0); SODIUM 144 MMOL/L (135-145)
[2019-03-26 14:14] LABS: GLUCOSE 50 MG/DL (70-105)
[2019-04-16 12:57] LABS: BASOPHILS % (AUTO) 1 % (0-10); EOSINOPHILS # (AUTO) 0.2 10^3/uL (0.0-0.3); EOSINOPHILS % (AUTO) 3 % (0-10); HEMATOCRIT 36 % (40-54); HEMOGLOBIN 11.7 G/DL (13.3-17.7); LYMPHOCYTES % (AUTO) 15 % (12-44); MEAN CORPUSCULAR HEMOGLOBIN 30 PG (25-34); MEAN CORPUSCULAR HGB CONC 33 G/DL (32-36); MEAN CORPUSCULAR VOLUME 91 FL (80-99); MEAN PLATELET VOLUME 9.9 FL (7.4-10.4); MONOCYTES # (AUTO) 0.6 X 10^3 (0.0-1.0); MONOCYTES % (AUTO) 9 % (0-12); NEUTROPHILS # (AUTO) 4.8 X 10^3 (1.8-7.8); NEUTROPHILS % (AUTO) 72 % (42-75); PLATELET COUNT 98 10^3/uL (130-400); RED CELL DISTRIBUTION WIDTH 15.8 % (10.0-14.5); WHITE BLOOD COUNT 6.7 10^3/uL (4.3-11.0)
[2019-04-16 13:25] LABS: ALANINE AMINOTRANSFERASE 16 U/L (0-55); ALBUMIN 3.1 GM/DL (3.2-4.5); ALKALINE PHOSPHATASE 91 U/L (40-136); BILIRUBIN,TOTAL 0.9 MG/DL (0.1-1.0); BUN/CREATININE RATIO 32; CALCIUM 9.4 MG/DL (8.5-10.1); CARBON DIOXIDE 26 MMOL/L (21-32); CHLORIDE 111 MMOL/L (98-107); CREATININE SERUM 1.02 MG/DL (0.60-1.30); GFR ESTIMATED > 60; GLUCOSE 142 MG/DL (70-105); POTASSIUM 3.7 MMOL/L (3.6-5.0); SODIUM 140 MMOL/L (135-145); TOTAL PROTEIN 6.1 GM/DL (6.4-8.2)
[2019-05-07 13:16] LABS: BASOPHILS % (AUTO) 0 % (0-10); EOSINOPHILS # (AUTO) 0.1 10^3/uL (0.0-0.3); EOSINOPHILS % (AUTO) 2 % (0-10); HEMATOCRIT 33 % (40-54); LYMPHOCYTES # (AUTO) 0.9 X 10^3 (1.0-4.0); LYMPHOCYTES % (AUTO) 13 % (12-44); MEAN CORPUSCULAR HEMOGLOBIN 31 PG (25-34); MEAN CORPUSCULAR HGB CONC 33 G/DL (32-36); MEAN CORPUSCULAR VOLUME 93 FL (80-99); MEAN PLATELET VOLUME 10.6 FL (7.4-10.4); MONOCYTES # (AUTO) 0.4 X 10^3 (0.0-1.0); MONOCYTES % (AUTO) 6 % (0-12); NEUTROPHILS # (AUTO) 5.1 X 10^3 (1.8-7.8); NEUTROPHILS % (AUTO) 78 % (42-75); PLATELET COUNT 100 10^3/uL (130-400); RED CELL DISTRIBUTION WIDTH 15.8 % (10.0-14.5); WHITE BLOOD COUNT 6.5 10^3/uL (4.3-11.0)
[2019-05-07 13:32] LABS: ALANINE AMINOTRANSFERASE 14 U/L (0-55); ALBUMIN 3.1 GM/DL (3.2-4.5); ALKALINE PHOSPHATASE 83 U/L (40-136); BILIRUBIN,TOTAL 0.9 MG/DL (0.1-1.0); BUN/CREATININE RATIO 30; CALCIUM 8.5 MG/DL (8.5-10.1); CARBON DIOXIDE 23 MMOL/L (21-32); CHLORIDE 110 MMOL/L (98-107); CREATININE SERUM 0.96 MG/DL (0.60-1.30); GFR ESTIMATED > 60; GLUCOSE 163 MG/DL (70-105); POTASSIUM 3.7 MMOL/L (3.6-5.0); SODIUM 140 MMOL/L (135-145); TOTAL PROTEIN 6.2 GM/DL (6.4-8.2)
[~2019-05-28 14:03] MED LIST changes: +NS IV 500 ML (CANCER CENTER) IV SCH; +PEMBROLIZUMAB 200 MG in NS (IVPB) CANCER CENTER 50 ML IV SCH; +POTASSIUM CHL INJ (CANCER CTR) 20 MEQ in NS (IVPB) CANCER CENTER 100 ML IV ONE
[2019-05-28 14:50] LABS: BASOPHILS % (AUTO) 0 % (0-10); EOSINOPHILS # (AUTO) 0.2 10^3/uL (0.0-0.3); EOSINOPHILS % (AUTO) 3 % (0-10); HEMATOCRIT 31 % (40-54); HEMOGLOBIN 10.1 G/DL (13.3-17.7); LYMPHOCYTES # (AUTO) 1.2 X 10^3 (1.0-4.0); LYMPHOCYTES % (AUTO) 18 % (12-44); MEAN CORPUSCULAR HEMOGLOBIN 32 PG (25-34); MEAN CORPUSCULAR HGB CONC 33 G/DL (32-36); MEAN CORPUSCULAR VOLUME 96 FL (80-99); MEAN PLATELET VOLUME 10.4 FL (7.4-10.4); MONOCYTES # (AUTO) 0.7 X 10^3 (0.0-1.0); MONOCYTES % (AUTO) 10 % (0-12); NEUTROPHILS # (AUTO) 4.4 X 10^3 (1.8-7.8); NEUTROPHILS % (AUTO) 68 % (42-75); PLATELET COUNT 72 10^3/uL (130-400); WHITE BLOOD COUNT 6.4 10^3/uL (4.3-11.0)
[2019-05-28 15:09] LABS: ALANINE AMINOTRANSFERASE 23 U/L (0-55); ALBUMIN 2.7 GM/DL (3.2-4.5); ALKALINE PHOSPHATASE 89 U/L (40-136); BILIRUBIN,TOTAL 1.7 MG/DL (0.1-1.0); BUN/CREATININE RATIO 29; CALCIUM 7.5 MG/DL (8.5-10.1); CARBON DIOXIDE 22 MMOL/L (21-32); CHLORIDE 113 MMOL/L (98-107); CREATININE SERUM 0.76 MG/DL (0.60-1.30); GFR ESTIMATED > 60; GLUCOSE 122 MG/DL (70-105); POTASSIUM 2.9 MMOL/L (3.6-5.0); SODIUM 143 MMOL/L (135-145)
== END 2019-06-03 | disposition home or self-care (01) ==
LOC: ONC 14:03
PROVIDERS: ATTEND Internal Medicine Hematology & Oncology
DX: Z51.11 Encounter for antineoplastic chemotherapy (principal); C64.2 Malignant neoplasm of left kidney, except renal pelvis; C78.01 Secondary malignant neoplasm of right lung; C78.02 Secondary malignant neoplasm of left lung; C79.72 Secondary malignant neoplasm of left adrenal gland; C77.1 Secondary and unspecified malignant neoplasm of intrathoracic lymph nodes; E83.52 Hypercalcemia; D64.9 Anemia, unspecified; E55.9 Vitamin D deficiency, unspecified; E53.8 Deficiency of other specified B group vitamins; E11.9 Type 2 diabetes mellitus without complications; I25.10 Atherosclerotic heart disease of native coronary artery without angina pectoris; I10 Essential (primary) hypertension; E03.9 Hypothyroidism, unspecified; G47.30 Sleep apnea, unspecified; K59.09 Other constipation; M19.91 Primary osteoarthritis, unspecified site; Z79.4 Long term (current) use of insulin; Z79.899 Other long term (current) drug therapy; Z87.891 Personal history of nicotine dependence
CPT/HCPCS: 36415; 36591; 80053; 83615; 84443; 85025; 96367; 96413

== ENCOUNTER 2019-06-11 13:19 | Emergency (ER) | payer MEDICARE, OTHER ==
[~2019-06-11] VITALS: Ht 200 cm; Wt 127.2 kg
[~2019-06-11 13:19] MED LIST changes: -NS IV 500 ML (CANCER CENTER) IV SCH; -PEMBROLIZUMAB 200 MG in NS (IVPB) CANCER CENTER 50 ML IV SCH; -POTASSIUM CHL INJ (CANCER CTR) 20 MEQ in NS (IVPB) CANCER CENTER 100 ML IV ONE
[2019-06-11] MEDS ORDERED: NS IV 1000 ML 1,000 ML IV ONE (13:32)
--- NOTE | 2019-06-11 13:34 | ED Neurological Problem ---
General Chief Complaint: Neuro-Stroke Like Symptoms Stated Complaint: CONFUSION Nursing Triage Note: HAS CONCERNS THAT PT IS HAVING STROKE LIKE SYMPTOMS SUCH CONFUSION AND WEAKNESS, EMS REPORTS WEAKNESS ON R SIDE, EMS ALSO REPORTS THAT PT HAS BEEN A/O FOR THEM Nursing Sepsis Screen: No Definite Risk Source: patient, EMS Exam Limitations: no limitations History of Present Illness Date Seen by Provider: Jun 11, 2019 Time Seen by Provider: 13:34 Initial Comments 84-year-old male patient presents to the emergency department with reports of increased confusion and generalized weakness. Patient denies the symptoms. EMS reports patient has increased right sided weakness, but states patient has been alert and oriented for them. Symptom onset 2 days. Patient states "I don't want any damn tests. I just want to go home." Patient has a history of bilateral lung masses, renal carcinoma, and paraneoplastic syndrome. Patient has a history of prostate cancer with prostatectomy. Patient sees Dr. Bowen for chemotherapy. EMS reports reports blood sugar was 75. [facility] health nurse reports patient is slightly more confused today. Location Injury Occurred: denies injury Timing/Duration: other (2 day onset) Associated Symptoms: denies symptoms (patient denies symptoms), confusion; No fatigue, No fever/chills, No loss of consciousness, No muscle spasms, No nausea/vomiting, No numbness in legs/feet, No paresthesia, No ringing in ears, No seizures, No sleepy, No slurred speech, No tingling in legs/feet; trouble walking (chronic d/t ble edema ); No vision changes; weakness Allergies and Home Medications Allergies Coded Allergies: adhesive tape (Verified Allergy, Unknown, Hives, 12/08/18) Home Medications Brimonidine Tartrate/Timolol 5 Ml Drops, 1 DROP OD BID, (Reported) Glipizide 5 Mg Tab.er.24, 5 MG PO 1800, (Reported) Insulin Degludec 100 Unit/1 Ml Insuln.pen, 15 UNITS SC 2200, (Reported) Insulin Lispro 100 Unit/1 Ml Insuln.pen, 5 UNITS SC BID WITH MEALS, (Reported) Latanoprost 2.5 Ml Drops, 1 DROP OD HS, (Reported) Losartan Potassium 50 Mg Tablet, 50 MG PO DAILY Prescribed by: MARIVEL REYEZ on 12/17/18 1402 Metformin HCl 1,000 Mg Tablet, 1,000 MG PO DAILY, (Reported) Mupirocin 1 Gm Oin.pf.michelle, 1 GM TP BID Prescribed by: MARIVEL REYEZ on 12/17/18 140 Pioglitazone HCl 45 Mg Tablet, 45 MG PO 1800, (Reported) Solifenacin Succinate 5 Mg Tablet, 5 MG PO DAILY, (Reported) Sulfamethoxazole/Trimethoprim 1 Each Tablet, 1 EACH PO BID Prescribed by: MARIVEL REYEZ on 12/17/18 140 Patient Home Medication List Home Medication List Reviewed: Yes Review of Systems Review of Systems Constitutional: No chills, No diaphoresis, No dizziness, No fever, No malaise; weakness (generalized weakness) Eyes: No Symptoms Reported Ears, Nose, Mouth, Throat: no symptoms reported Respiratory: see HPI; No cough, No hemoptysis, No orthopnea, No phlegm, No short of breath, No wheezing Cardiovascular: No chest pain; edema (chronic BLE edema); No palpitations, No syncope Gastrointestinal: see HPI; No abdominal pain, No constipation, No diarrhea, No melena, No nausea, No vomiting Genitourinary: No decreased output, No dysuria, No frequency Musculoskeletal: no symptoms reported Skin: no symptoms reported Psychiatric/Neurological: See HPI, Cognitive Dysfunction (per EMS and family); Denies Headache, Denies Numbness, Denies Tingling, Denies Unable to Move Lower Ext, Denies Unable to Move Upper Ext; Weakness (rt sided weakness per EMS) Endocrine: No Symptoms Reported All Other Systems Reviewed Negative Unless Noted: Yes (Negative excepted noted.) Past Pxldrrn-Fznqso-Tcwfka Hx Past Med/Social Hx: Reviewed Nursing Past Med/Soc Hx Patient Social History Alcohol Use: Denies Use Recreational Drug Use: No Type Used: Cigarettes Former Smoker, Quit: Jul 22, 1965 2nd Hand Smoke Exposure: Yes (exposed when going to [place] x1/week) Recent Foreign Travel: No Contact w/Someone Who Travel: No Recent Infectious Disease Expo: No Recent Hopitalizations: No Seasonal Allergies Seasonal Allergies: No Past Medical History Surgeries: Yes Gallbladder, Joint Replacement, Prostatectomy Respiratory: Yes (LUNG MASSES; ) Sleep Apnea, COPD Cardiac: Yes Hypertension Neurological: No Reproductive Disorders: No Genitourinary: Yes (PROSTATE CANCER,; LEFT RENAL MASS DX 11/20/18 ) Gastrointestinal: Yes (HX OF BLEEDING DIVERTICULITUS ) Gastroesophageal Reflux, Gastrointestinal Bleed, Chronic Constipation, Diverticulosis Musculoskeletal: Yes Arthritis Endocrine: Yes (OBESITY) Diabetes, Insulin dep HEENT: Yes (RIGHT EYE WITH CATARACT; 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) Cataract Loss of Vision: Bilateral Cancer: Yes (paraneoplastic syndrome) Prostate, Lung, Skin, Kidney Did You Recieve Any Treatments: Yes What Type of Treatment Did You: Chemotherapy, Surgical Intervention Psychosocial: No Integumentary: No Blood Disorders: No Adverse Reaction/Blood Tranf: No Family Medical History Reviewed Nursing Family Hx No Pertinent Family Hx Physical Exam Vital Signs Vital Signs - First Documented 06/11/19 06/11/19 13:23 15:48 Temp 36.9 Pulse 81 Resp 18 B/P (MAP) 157/101 (119) Pulse Ox 95 Capillary Refill : Less Than 3 Seconds Height, Weight, BMI Height: 6'8.00" Weight: 300lbs. 0.0oz. 136.925211yt; 31.00 BMI Method:Stated General Appearance: WD/WN, no apparent distress HEENT: PERRL/EOMI, normal ENT inspection, TMs normal, pharynx normal Neck: non-tender, supple, normal inspection Respiratory: lungs clear, normal breath sounds, no respiratory distress, no accessory muscle use Cardiovascular: normal peripheral pulses, regular rate, rhythm, no murmur, other (4+ edema BLE) Gastrointestinal: normal bowel sounds, non tender, soft, no organomegaly; No distended Back: normal inspection Extremities: non-tender, no calf tenderness, normal capillary refill, pedal e main (4+ pedal edema bilaterally) Neurologic/Psychiatric: data input clerk II-XII nml as tested, no motor/sensory deficits, alert, normal mood/affect, other (oriented to person, place, and situation. Patient states it is August 1959.) Crainal Nerves: normal hearing, normal speech, PERRL Coordination/Gait: normal finger to nose; No other (unable to test gait or romberg d/t BLE weakness and edema.) Motor/Sensory: no motor deficit, no sensory deficit, other (patient unable to lift BLE d/t edema.) Skin: normal color, warm/dry Stroke Onset of Symptoms Date of Onset of Symptoms: Jun 09, 2019 NIH Stroke Scale Assessment Level of Consciousness: 0=Alert (0), Level of Consciousness-Questions: 1=Answers one question (1), LOC Commands: 1=Performs one task (1), Visual Aragon: 0=No visual loss (0), Facial Movement (Facial Paresis): 0=Normal symmetrical mnt (0), Motor Function-Arms Right: 0=No drift (0), Motor Function-Arms Left: 0=No drift (0), Motor Function-Legs Right: 0=No drift (0), Motor Function-Legs Left: 0=No drift (0), Limb Ataxia: 0=Absent (0), Sensory: 0=Normal:no loss (0), Best Language: 0=No aphasia (0), Dysarthria: 0=Normal (0), Extinction & Inattention: 0=No abnormality (0), Total: 2 Progress/Results/Core Measures Results/Orders Lab Results Laboratory Tests Test 06/11/19 13:30 06/11/19 13:45 Range/Units White Blood Count 7.1 4.3-11.0 10^3/uL Red Blood Count 3.23 L 4.35-5.85 10^6/uL Hemoglobin 10.2 L 13.3-17.7 G/DL Hematocrit 32 L 40-54 % Mean Corpuscular Volume 98 80-99 FL Mean Corpuscular Hemoglobin 32 25-34 PG Mean Corpuscular Hemoglobin Concent 32 32-36 G/DL Red Cell Distribution Width 15.3 H 10.0-14.5 % Platelet Count 77 L 130-400 10^3/uL Mean Platelet Volume 10.8 H 7.4-10.4 FL Neutrophils (%) (Auto) 67 42-75 % Lymphocytes (%) (Auto) 20 12-44 % Monocytes (%) (Auto) 10 0-12 % Eosinophils (%) (Auto) 2 0-10 % Basophils (%) (Auto) 0 0-10 % Neutrophils # (Auto) 4.8 1.8-7.8 X 10^3 Lymphocytes # (Auto) 1.4 1.0-4.0 X 10^3 Monocytes # (Auto) 0.7 0.0-1.0 X 10^3 Eosinophils # (Auto) 0.2 0.0-0.3 10^3/uL Basophils # (Auto) 0.0 0.0-0.1 10^3/uL Sodium Level 140 135-145 MMOL/L Potassium Level 3.8 3.6-5.0 MMOL/L Chloride Level 107 98-107 MMOL/L Carbon Dioxide Level 26 21-32 MMOL/L Anion Gap 7 5-14 MMOL/L Blood Urea Nitrogen 12 7-18 MG/DL Creatinine 1.04 0.60-1.30 MG/DL Estimat Glomerular Filtration Rate > 60 BUN/Creatinine Ratio 12 Glucose Level 58 *L 70-105 MG/DL Calcium Level 8.5 8.5-10.1 MG/DL Corrected Calcium 9.5 8.5-10.1 MG/DL Magnesium Level 1.5 L 1.6-2.4 MG/DL Total Bilirubin 1.3 H 0.1-1.0 MG/DL Aspartate Amino Transf (AST/SGOT) 21 5-34 U/L Alanine Aminotransferase (ALT/SGPT) 18 0-55 U/L Alkaline Phosphatase 97 40-136 U/L Total Protein 5.7 L 6.4-8.2 GM/DL Albumin 2.7 L 3.2-4.5 GM/DL Thyroid Stimulating Hormone (TSH) 7.04 H 0.35-4.94 UIU/ML Free Thyroxine 0.93 0.70-1.48 NG/DL Urine Color YELLOW Urine Clarity CLEAR Urine pH 7.5 5-9 Urine Specific [place] 1.020 1.016-1.022 Urine Protein 3+ H NEGATIVE Urine Glucose (UA) NEGATIVE NEGATIVE Urine Ketones NEGATIVE NEGATIVE Urine Nitrite NEGATIVE NEGATIVE Urine Bilirubin NEGATIVE NEGATIVE Urine Urobilinogen >=8.0 < = 1.0 MG/DL Urine Leukocyte Esterase NEGATIVE NEGATIVE Urine RBC (Auto) NEGATIVE NEGATIVE Urine RBC NONE /HPF Urine WBC RARE /HPF Urine Squamous Epithelial Cells RARE /HPF Urine Crystals NONE /LPF Urine Bacteria NEGATIVE /HPF Urine Casts PRESENT /LPF Urine Hyaline Casts RARE /LPF Urine Mucus NEGATIVE /LPF Urine Culture Indicated NO My Orders Orders - DIVINE HAIRSTON Ed Iv/Invasive Line Start (06/11/19 13:32) Ct Head Wo (06/11/19 13:32) Cbc With Automated Diff (06/11/19 13:32) Comprehensive Metabolic Panel (06/11/19 13:32) Magnesium (06/11/19 13:32) Thyroid Stimulating Hormone (06/11/19 13:32) Ua Culture If Indicated (06/11/19 13:32) Ns Iv 1000 Ml (Sodium Chloride 0.9%) (06/11/19 13:32) D50w (Emergency) Syringe (Dextrose 50% 5 (06/11/19 14:05) Magnesium 1 Gm/100 Ml Ivpb (Magnesium Rice (06/11/19 14:15) Free T4 (Free Thyroxine) (06/11/19 14:24) Accucheck Stat ONCE (06/11/19 15:00) Medications Given in ED Current Medications Medications Dose Ordered Sig/Donny Route Start Time Stop Time Status Last Admin Dose Admin Dextrose 50 ml STK-MED ONCE .ROUTE 06/11/19 14:05 06/11/19 14:08 DC 06/11/19 14:11 50 ML Magnesium Sulfate/ Dextrose 100 ml @ 100 mls/hr ONCE ONCE IV 06/11/19 14:15 06/11/19 15:14 DC 06/11/19 14:14 100 MLS/HR Sodium Chloride 1,000 ml @ 0 mls/hr Q0M ONCE IV 06/11/19 13:32 06/11/19 13:35 DC 06/11/19 13:44 1,000 MLS/HR Vital Signs/I&O 06/11/19 06/11/19 13:23 15:48 Temp 36.9 Pulse 81 82 Resp 18 18 B/P (MAP) 157/101 (119) 164/80 (119) Pulse Ox 95 2 Blood Pressure Mean: 119 POS Diagnostic Imaging Diagonstic Imaging: CT Plain Films/CT/US/NM/MRI: head Comments POSDate of Exam:06/11/19 CT HEAD WO PROCEDURE: CT head without contrast. TECHNIQUE: Multiple contiguous axial images were obtained through the brain without the use of intravenous contrast. Auto Exposure Controls were utilized during the CT exam to meet ALARA standards for radiation dose reduction. INDICATION: Slurred speech and memory loss. COMPARISON: Correlation is made with prior CT from 03/19/2019. FINDINGS: Calcification along the right frontal convexity is again noted and suggestive of a meningioma. Ventricular size and sulcal pattern are stable. No sulcal effacement or midline shift is seen. No acute intra-axial or extra-axial hemorrhage is detected. Cisterns are patent. Visualized paranasal sinuses demonstrate some mucosal thickening in the bilateral maxillary sinuses and ethmoid air cells. IMPRESSION: Stable noncontrast CT brain since exam from 03/19/2019. No acute abnormality is detected. Dictated on workstation # [id number] Reviewed: Reviewed by Me (radiology report reviewed by me) Departure Communication (Admissions) Patient seen and evaluated. Labs as well as a CT head obtained. All laboratory and diagnostic findings were discussed with the patient. Patient was noted to have a blood sugar of 58 on CMP. Patient was given 1 amp of D50. Patient noted to have complete resolution of symptoms after being given the D50. is now at the patient's bedside. reports stopping the Humalog due to low blood sugars the last few days. We'll plan for discontinuing the Humalog as well as decreasing the Tresiba to 5 units daily. Patient's states she will monitor patient's blood sugars closely. We'll plan for discharge to home with follow-up as an outpatient with Dr. Perez. to call Dr. Perez's office to sche dule an appointment. Patient to return immediately to the emergency department for worsened symptoms or any other concerns. Impression Primary Impression: Hypoglycemia Additional Impressions: Metastatic cancer Hypomagnesemia Abnormal thyroid function test Bilateral lower extremity edema Disposition: HOME, SELF-CARE Condition: Improved Departure-Patient Inst. Decision time for Depature: 14:59 Referrals: CHANCE PEREZ DO (PCP) Primary Care Physician HANNAH BAEZ DO (Family) Primary Care Physician Patient Instructions: Hypothyroidism (Underactive Thyroid) (DC), Low Blood Sugar, Adult (DC), Low Magnesium Level (DC) Add. Discharge Instructions: All discharge instructions reviewed with patient and/or family. Voiced understanding. Decrease to see that to 5 units subcutaneous daily. Discontinue the Humalog until seen by Dr. Perez for follow-up. Stay well-hydrated. Elevate the lower extremities on pillows. Magnesium oxide [id number] 400 mg twice daily by mouth. Follow-up with Dr. Perez within the next 7 days for recheck and repeat blood work. Dr. Perez will most likely repeat your thyroid blood tests in 4-6 weeks. Return to the emergency department immediately for worsened symptoms, confusion, slurred speech, dizziness, facial droop, vomiting, chest pain, shortness of air, extremity weakness, or any other concerns. DIVINE HAIRSTON Jun 11, 2019 13:34 POS
[2019-06-11 13:40] LABS: BASOPHILS % (AUTO) 0 % (0-10); EOSINOPHILS # (AUTO) 0.2 10^3/uL (0.0-0.3); EOSINOPHILS % (AUTO) 2 % (0-10); HEMATOCRIT 32 % (40-54); HEMOGLOBIN 10.2 G/DL (13.3-17.7); LYMPHOCYTES # (AUTO) 1.4 X 10^3 (1.0-4.0); LYMPHOCYTES % (AUTO) 20 % (12-44); MEAN CORPUSCULAR HEMOGLOBIN 32 PG (25-34); MEAN CORPUSCULAR HGB CONC 32 G/DL (32-36); MEAN CORPUSCULAR VOLUME 98 FL (80-99); MEAN PLATELET VOLUME 10.8 FL (7.4-10.4); MONOCYTES # (AUTO) 0.7 X 10^3 (0.0-1.0); MONOCYTES % (AUTO) 10 % (0-12); NEUTROPHILS # (AUTO) 4.8 X 10^3 (1.8-7.8); NEUTROPHILS % (AUTO) 67 % (42-75); PLATELET COUNT 77 10^3/uL (130-400); RED CELL DISTRIBUTION WIDTH 15.3 % (10.0-14.5); WHITE BLOOD COUNT 7.1 10^3/uL (4.3-11.0)
--- NOTE | 2019-06-11 13:50 | NUR ---
SEE LIST FOR CURRENT MEDS
[2019-06-11 13:51] LABS: BILIRUBIN,URINE NEGATIVE (NEGATIVE); CLARITY,URINE CLEAR; COLOR,URINE YELLOW; GLUCOSE, URINE (UA) NEGATIVE (NEGATIVE); KETONES,URINE NEGATIVE (NEGATIVE); LEUKOCYTE ESTERASE ,URINE NEGATIVE (NEGATIVE); NITRITE,URINE NEGATIVE (NEGATIVE); PH,URINE 7.5 (5-9); PROTEIN,URINE 3+ (NEGATIVE)
[2019-06-11 13:53] LABS: ALANINE AMINOTRANSFERASE 18 U/L (0-55); ALBUMIN 2.7 GM/DL (3.2-4.5); ALKALINE PHOSPHATASE 97 U/L (40-136); BILIRUBIN,TOTAL 1.3 MG/DL (0.1-1.0); BUN/CREATININE RATIO 12; CALCIUM 8.5 MG/DL (8.5-10.1); CARBON DIOXIDE 26 MMOL/L (21-32); CHLORIDE 107 MMOL/L (98-107); CREATININE SERUM 1.04 MG/DL (0.60-1.30); GFR ESTIMATED > 60; MAGNESIUM 1.5 MG/DL (1.6-2.4); POTASSIUM 3.8 MMOL/L (3.6-5.0); SODIUM 140 MMOL/L (135-145); TOTAL PROTEIN 5.7 GM/DL (6.4-8.2)
[2019-06-11 13:59] LABS: BACTERIA,URINE NEGATIVE /HPF; HYALINE CASTS, URINE RARE /LPF; SQUAMOUS EPITHELIAL CELL,UR RARE /HPF; WBC,URINE RARE /HPF
[2019-06-11 14:04] LABS: GLUCOSE 58 MG/DL (70-105)
[2019-06-11] MEDS ORDERED: DEXTROSE 50% 50 ML (IMS) SYR ONE (14:05)
--- NOTE | 2019-06-11 14:14 | Diagnostic Imaging Report ---
PROCEDURE: CT head without contrast. TECHNIQUE: Multiple contiguous axial images were obtained through the brain without the use of intravenous contrast. Auto Exposure Controls were utilized during the CT exam to meet ALARA standards for radiation dose reduction. INDICATION: Slurred speech and memory loss. COMPARISON: Correlation is made with prior CT from 03/19/2019. FINDINGS: Calcification along the right frontal convexity is again noted and suggestive of a meningioma. Ventricular size and sulcal pattern are stable. No sulcal effacement or midline shift is seen. No acute intra-axial or extra-axial hemorrhage is detected. Cisterns are patent. Visualized paranasal sinuses demonstrate some mucosal thickening in the bilateral maxillary sinuses and ethmoid air cells. IMPRESSION: Stable noncontrast CT brain since exam from 03/19/2019. No acute abnormality is detected. Dictated by: Dictated on workstation # [id number]
[2019-06-11] MEDS ORDERED: MAGNESIUM 1 GM/100 ML IVPB 100 ML IV ONE (14:15)
[2019-06-11 15:48] VITALS: BP 164/80
== END 2019-06-11 15:48 | disposition home or self-care (01) ==
LOC: EDUNIT# 13:19 → ER 13:20
DX: E11.649 Type 2 diabetes mellitus with hypoglycemia without coma (principal); C61 Malignant neoplasm of prostate; E83.42 Hypomagnesemia; R94.6 Abnormal results of thyroid function studies; R60.0 Localized edema; J44.9 Chronic obstructive pulmonary disease, unspecified; I10 Essential (primary) hypertension; E66.9 Obesity, unspecified; K21.9 Gastro-esophageal reflux disease without esophagitis; Z85.828 Personal history of other malignant neoplasm of skin; Z85.118 Personal history of other malignant neoplasm of bronchus and lung; Z85.528 Personal history of other malignant neoplasm of kidney; Z88.8 Allergy status to other drugs, medicaments and biological substances; Z79.4 Long term (current) use of insulin; Z87.891 Personal history of nicotine dependence; Z68.31 Body mass index [BMI] 31.0-31.9, adult; Z77.22 Contact with and (suspected) exposure to environmental tobacco smoke (acute) (chronic); Z90.79 Acquired absence of other genital organ(s)
CPT/HCPCS: 36415; 70450; 80053; 81000; 83735; 84439; 84443; 85025; 96374; 96375

== ENCOUNTER 2019-06-13 09:49 | Inpatient (IN) | payer MEDICARE, OTHER ==
[~2019-06-13] VITALS: Ht 203 cm; Wt 121.4 kg
[2019-06-13 10:36] LABS: BASOPHILS % (AUTO) 1 % (0-10); EOSINOPHILS # (AUTO) 0.2 10^3/uL (0.0-0.3); EOSINOPHILS % (AUTO) 3 % (0-10); HEMATOCRIT 32 % (40-54); HEMOGLOBIN 10.4 G/DL (13.3-17.7); LYMPHOCYTES # (AUTO) 0.9 X 10^3 (1.0-4.0); LYMPHOCYTES % (AUTO) 15 % (12-44); MEAN CORPUSCULAR HEMOGLOBIN 31 PG (25-34); MEAN CORPUSCULAR HGB CONC 32 G/DL (32-36); MEAN CORPUSCULAR VOLUME 96 FL (80-99); MEAN PLATELET VOLUME 10.6 FL (7.4-10.4); MONOCYTES # (AUTO) 0.7 X 10^3 (0.0-1.0); MONOCYTES % (AUTO) 11 % (0-12); NEUTROPHILS # (AUTO) 4.4 X 10^3 (1.8-7.8); NEUTROPHILS % (AUTO) 71 % (42-75); PLATELET COUNT 101 10^3/uL (130-400); RED CELL DISTRIBUTION WIDTH 14.9 % (10.0-14.5); WHITE BLOOD COUNT 6.2 10^3/uL (4.3-11.0)
--- NOTE | 2019-06-13 10:38 | ED General ---
General Chief Complaint: General Problems/Pain Stated Complaint: WEAKNESS / AMS Source of Information: Patient Exam Limitations: No Limitations History of Present Illness Date Seen by Provider: Jun 13, 2019 Time Seen by Provider: 10:36 Initial Comments To ER per EMS from home with reports of weakness. EMS was called to his house, typically it is needs a little help, however today he was unable to get up without assistance and feels generally weak. He has not been eating or drinking much because he states nothing tastes good anymore. History of renal cell carcinoma with multiple lung metastases, he was here 2 days ago for general weakness and altered mental status and had an unremarkable noncontrast CT brain. Primary care is Dr. Cantu. Oncology is Dr. Bowen. He receives chemotherapy every 3 weeks, most recently 2 weeks ago. He is full CODE STATUS. Timing/Duration: 1-2 Days Severity: Moderate Associated Systoms: No Cough, No Fever/Chills, No Headaches, No Nausea/Vomiting; Weakness Allergies and Home Medications Allergies Coded Allergies: adhesive tape (Verified Allergy, Unknown, Hives, 12/08/18) Home Medications Brimonidine Tartrate/Timolol 5 Ml Drops, 1 DROP OD BID, (Reported) Glipizide 5 Mg Tab.er.24, 5 MG PO 1800, (Reported) Insulin Degludec 100 Unit/1 Ml Insuln.pen, 15 UNITS SC 2200, (Reported) Insulin Lispro 100 Unit/1 Ml Insuln.pen, 5 UNITS SC BID WITH MEALS, (Reported) Latanoprost 2.5 Ml Drops, 1 DROP OD HS, (Reported) Losartan Potassium 50 Mg Tablet, 50 MG PO DAILY Prescribed by: MARIVEL REYEZ on 12/17/181401 Metformin HCl 1,000 Mg Tablet, 1,000 MG PO DAILY, (Reported) Mupirocin 1 Gm Oin.pf.michelle, 1 GM TP BID Prescribed by: MARIVEL REYEZ on 12/17/181401 Pioglitazone HCl 45 Mg Tablet, 45 MG PO 1800, (Reported) Solifenacin Succinate 5 Mg Tablet, 5 MG PO DAILY, (Reported) Sulfamethoxazole/Trimethoprim 1 Each Tablet, 1 EACH PO BID Prescribed by: MARIVEL REYEZ on 12/17/181401 Patient Home Medication List Home Medication List Reviewed: Yes Review of Systems Review of Systems Constitutional: see HPI EENTM: see HPI Respiratory: no symptoms reported Cardiovascular: no symptoms reported Genitourinary: no symptoms reported Musculoskeletal: no symptoms reported Skin: no symptoms reported Psychiatric/Neurological: No Symptoms Reported Hematologic/Lymphatic: No Symptoms Reported Immunological/Allergic: no symptoms reported Past Frtvliu-Eilvuj-Sdpxbe Hx Patient Social History Type Used: Cigarettes Former Smoker, Quit: Jul 22, 1965 2nd Hand Smoke Exposure: Yes (exposed when going to [place] x1/week) Recent Foreign Travel: No Contact w/Someone Who Travel: No Recent Hopitalizations: No Seasonal Allergies Seasonal Allergies: No Past Medical History Surgeries: Yes Gallbladder, Joint Replacement, Prostatectomy Respiratory: Yes (LUNG MASSES; ) Sleep Apnea, COPD Cardiac: Yes Hypertension Neurological: No Reproductive Disorders: No Genitourinary: Yes (PROSTATE CANCER,; LEFT RENAL MASS DX 11/20/18 ) Gastrointestinal: Yes (HX OF BLEEDING DIVERTICULITUS ) Gastroesophageal Reflux, Gastrointestinal Bleed, Chronic Constipation, Diverticulosis Musculoskeletal: Yes Arthritis Endocrine: Yes (OBESITY) Diabetes, Insulin dep HEENT: Yes (RIGHT EYE WITH CATARACT; 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 0.0oz. 136.365496th; 31.00 BMI Method:Stated General Appearance: No Apparent Distress, WD/WN, Chronically ill, Obese Eyes: Bilateral Eye Normal Inspection, Bilateral Eye PERRL, Bilateral Eye EOMI Neck: Full Range of Motion, Normal Inspection Respiratory: No Accessory Muscle Use, No Respiratory Distress Cardiovascular: Regular Rate, Rhythm, Normal Peripheral Pulses Gastrointestinal: Normal Bowel Sounds, Non Tender, Soft Extremity: Normal Capillary Refill, Pedal Edema Neurologic/Psychiatric: Alert, Oriented x3 Skin: Normal Color, Warm/Dry Comments Is alert and oriented to person place time and situation. Progress/Results/Core Measures Suspected Sepsis SIRS Temperature: Pulse: Respiratory Rate: Laboratory Tests 06/13/19 09:54: White Blood Count 6.2 Blood Pressure / Mean: Laboratory Tests 06/13/19 09:54: Creatinine 1.08, Platelet Count 101L, Total Bilirubin 1.2H Results/Orders Lab Results Laboratory Tests Test 06/13/19 09:54 06/13/19 11:33 Range/Units White Blood Count 6.2 4.3-11.0 10^3/uL Red Blood Count 3.33 L 4.35-5.85 10^6/uL Hemoglobin 10.4 L 13.3-17.7 G/DL Hematocrit 32 L 40-54 % Mean Corpuscular Volume 96 80-99 FL Mean Corpuscular Hemoglobin 31 25-34 PG Mean Corpuscular Hemoglobin Concent 32 32-36 G/DL Red Cell Distribution Width 14.9 H 10.0-14.5 % Platelet Count 101 L 130-400 10^3/uL Mean Platelet Volume 10.6 H 7.4-10.4 FL Neutrophils (%) (Auto) 71 42-75 % Lymphocytes (%) (Auto) 15 12-44 % Monocytes (%) (Auto) 11 0-12 % Eosinophils (%) (Auto) 3 0-10 % Basophils (%) (Auto) 1 0-10 % Neutrophils # (Auto) 4.4 1.8-7.8 X 10^3 Lymphocytes # (Auto) 0.9 L 1.0-4.0 X 10^3 Monocytes # (Auto) 0.7 0.0-1.0 X 10^3 Eosinophils # (Auto) 0.2 0.0-0.3 10^3/uL Basophils # (Auto) 0.0 0.0-0.1 10^3/uL Sodium Level 141 135-145 MMOL/L Potassium Level 3.8 3.6-5.0 MMOL/L Chloride Level 108 H 98-107 MMOL/L Carbon Dioxide Level 23 21-32 MMOL/L Anion Gap 10 5-14 MMOL/L Blood Urea Nitrogen 12 7-18 MG/DL Creatinine 1.08 0.60-1.30 MG/DL Estimat Glomerular Filtration Rate > 60 BUN/Creatinine Ratio 11 Glucose Level 103 70-105 MG/DL Calcium Level 8.4 L 8.5-10.1 MG/DL Corrected Calcium 9.4 8.5-10.1 MG/DL Magnesium Level 1.8 1.6-2.4 MG/DL Total Bilirubin 1.2 H 0.1-1.0 MG/DL Aspartate Amino Transf (AST/SGOT) 19 5-34 U/L Alanine Aminotransferase (ALT/SGPT) 17 0-55 U/L Alkaline Phosphatase 96 40-136 U/L Total Protein 5.8 L 6.4-8.2 GM/DL Albumin 2.8 L 3.2-4.5 GM/DL Urine Color YELLOW Urine Clarity CLEAR Urine pH 7.0 5-9 Urine Specific [place] 1.020 1.016-1.022 Urine Protein 3+ H NEGATIVE Urine Glucose (UA) NEGATIVE NEGATIVE Urine Ketones NEGATIVE NEGATIVE Urine Nitrite NEGATIVE NEGATIVE Urine Bilirubin NEGATIVE NEGATIVE Urine Urobilinogen >=8.0 < = 1.0 MG/DL Urine Leukocyte Esterase NEGATIVE NEGATIVE Urine RBC (Auto) TRACE-I NEGATIVE Urine RBC RARE /HPF Urine WBC RARE /HPF Urine Squamous Epithelial Cells NONE /HPF Urine Crystals NONE /LPF Urine Bacteria NEGATIVE /HPF Urine Casts NONE /LPF Urine Mucus NEGATIVE /LPF Urine Culture Indicated NO My Orders Orders - RADHIKA SANTANA APRN Chest 1 View, Ap/Pa Only (06/13/19 10:44) Vital Signs/I&O Capillary Refill : Diagnostic Imaging Diagonstic Imaging: Xray Plain Films/CT/US/NM/MRI: chest Comments NAME: REX GRANDA [facility] REC#: [id number] PT STATUS: REG ER : 1935 PHYSICIAN: RADHIKA SANTANA APRN ADMIT DATE: 06/13/19/ER Draft POSDate of Exam:06/13/19 CHEST 1 VIEW, AP/PA ONLY INDICATION: Dyspnea. COMPARISON: 12/17/2018. DISCUSSION: Single portable upright view of the chest was obtained. FINDINGS: Perihilar infiltrates are decreased from the prior exam. No pleural fluid or pneumothorax. Right chest wall [id number] is stable. No osseous abnormality. IMPRESSION: 1. Bilateral perihilar infiltrates, decreased. Dictated on workstation # [id number] Dict: 06/13/19 1104 Trans: 06/13/19 1110 [id number] Interpreted by: CARLOS THORNE MD Electronically signed by: Departure Communication (Admissions) Time/Spoke to Admitting Phy: 12:[address] Doyle, will admit. Patient's would like him to be admitted because he is so weak he is difficult for her to care for at home. He is 6 foot 8 and about 250 pounds,she is a petite lady. Getting him up from the floor after he has fallen or helping him with activities of daily living when he is so weak would be understandably difficult. They do have a nurse who visits a couple days a week for about one hour but this is inadequate.. She would like him admitted, however he is alert and oriented and states he is not going to be admitted, he wants to go home and if he needs to return he will. I gave him about 15 minutes to discuss amongst themselves with they would like to do, came to the desk to state that he is insistent on going home so she will pull the Van up to the [address] and take him home. I discussed group home with the patient and the , they both are reluctant to do this. 1239-update: Patient was helped into the wheelchair to be discharged when he developed some shaking of his legs which greatly alarmed his . He now agrees to stay overnight. Impression Primary Impression: Generalized weakness Additional Impressions: Metastatic renal cell carcinoma to lung On antineoplastic chemotherapy Disposition: ADMITTED INPATIENT Condition: Stable Admissions Decision to Admit Reason: Admit from ER (General) Decision to Admit/Date: Jun 13, 2019 Time/Decision to Admit Time: 12:40 Departure-Patient Inst. Decision time for Depature: 12:26 Referrals: CHANCE CANTU DO (PCP/Family) Primary Care Physician Patient Instructions: Generalized Weakness (DC) Copy Copies To 1: CHANCE CANTU PETER J APRN Jun 13, 2019 10:38 POS
[2019-06-13 10:50] LABS: ALANINE AMINOTRANSFERASE 17 U/L (0-55); ALBUMIN 2.8 GM/DL (3.2-4.5); ALKALINE PHOSPHATASE 96 U/L (40-136); BILIRUBIN,TOTAL 1.2 MG/DL (0.1-1.0); BUN/CREATININE RATIO 11; CALCIUM 8.4 MG/DL (8.5-10.1); CARBON DIOXIDE 23 MMOL/L (21-32); CHLORIDE 108 MMOL/L (98-107); CREATININE SERUM 1.08 MG/DL (0.60-1.30); GFR ESTIMATED > 60; GLUCOSE 103 MG/DL (70-105); MAGNESIUM 1.8 MG/DL (1.6-2.4); POTASSIUM 3.8 MMOL/L (3.6-5.0); SODIUM 141 MMOL/L (135-145); TOTAL PROTEIN 5.8 GM/DL (6.4-8.2)
--- NOTE | 2019-06-13 11:10 | Diagnostic Imaging Report ---
INDICATION: Dyspnea. COMPARISON: 12/17/2018. DISCUSSION: Single portable upright view of the chest was obtained. FINDINGS: Perihilar infiltrates are decreased from the prior exam. No pleural fluid or pneumothorax. Right chest wall [id number] is stable. No osseous abnormality. IMPRESSION: 1. Bilateral perihilar infiltrates, decreased. Dictated by: Dictated on workstation # [id number]
[2019-06-13 11:45] LABS: BILIRUBIN,URINE NEGATIVE (NEGATIVE); CLARITY,URINE CLEAR; COLOR,URINE YELLOW; GLUCOSE, URINE (UA) NEGATIVE (NEGATIVE); KETONES,URINE NEGATIVE (NEGATIVE); LEUKOCYTE ESTERASE ,URINE NEGATIVE (NEGATIVE); NITRITE,URINE NEGATIVE (NEGATIVE); PROTEIN,URINE 3+ (NEGATIVE)
[2019-06-13 11:58] LABS: RBC,URINE RARE /HPF; WBC,URINE RARE /HPF
[2019-06-13 11:59] LABS: BACTERIA,URINE NEGATIVE /HPF
[2019-06-13 13:20] VITALS: BP 165/72
--- NOTE | 2019-06-13 13:45 | NUR ---
REX GRANDA admitted to room 407-1, with an admitting diagnosis of general weakness, on 06/13/19 from ED via wheelchair, accompanied by staff. REX GRANDA introduced to surroundings, call light, bed controls, phone, TV, temperature control, lights, meal times, smoking policy, visitor policy, side rail policy, bathrooms and showers. Patient Rights given to patient in the handbook. REX GRANDA verbalizes understanding that [facility] is not responsible for the loss or damage to any personal effects or valuables that are kept in the patients possession during their hospitalization. The following Patient Care Plans were discussed with the patient and : Discharge Planning, pain management, dehydration, and medications. REX GRANDA verbalizes understanding of Interdisciplinary Patient Education. Patient and/or family were informed about the Rapid Response Team and its purpose.
[2019-06-13] MEDS ORDERED: HERB1CAP2 PO (14:32)
[2019-06-13] MEDS ORDERED: AMLO10TA7 PO (14:32)
[2019-06-13] MEDS ORDERED: DOXA8TAB73 PO (14:32)
[2019-06-13] MEDS ORDERED: HYDR25TA4 PO (14:32)
[2019-06-13] MEDS ORDERED: POTA10CA43 PO (14:32)
[2019-06-13] MEDS ORDERED: MAGN400T7 PO (14:32)
[2019-06-13] MEDS ORDERED: AXIT5TAB PO (14:32)
[2019-06-13] MEDS ORDERED: ACETAMINOPHEN 500 MG TAB (TYLENOL) PO PRN (15:00)
[2019-06-13] MEDS ORDERED: MELATONIN 3 MG TABLET PO PRN (15:00)
[2019-06-13] MEDS ORDERED: ONDANSETRON 4 MG/2 ML (SDV) Z0FRAN IV PRN (15:00)
[2019-06-13] MEDS ORDERED: ONDANSETRON 4 MG (ZOFRAN) ORAL DISSOLVE TAB PO PRN (15:00)
[2019-06-13] MEDS ORDERED: ANTACID SUSP 30 ML UDC (MYLANTA) PO PRN (15:00)
[2019-06-13] MEDS ORDERED: POLYETHYLENE GLYCOL 17 GM (MIRALAX) PACK PO PRN (15:00)
[2019-06-13] MEDS ORDERED: MILK OF MAGNESIA 400 MG/5 ML 30 ML UDC PO PRN (15:00)
[2019-06-13] MEDS ORDERED: PATIENT MAY USE OWN MEDS, ALL MC SCH (15:00)
[2019-06-13] MEDS ORDERED: BISACODYL 10 MG SUPP (DULCOLAX) PR PRN (15:00)
[2019-06-13] MEDS: ENOXAPARIN 40 MG/0.4 ML (LOVENOX) SYR SC SCH (15:35)
[2019-06-13 15:52] VITALS: BP 172/73
[2019-06-13] MEDS: LACTATED RINGERS 1,000 ML IV SCH (17:18)
[2019-06-13] MEDS: glipiZIDE XL 5 MG (GLUCOTROL XL) TAB PO SCH (17:23)
[2019-06-13 19:35] VITALS: BP 178/62
--- NOTE | 2019-06-13 20:22 | NUR ---
PT C/O PAIN TO LEFT LEG AT A 6, HE HAD TYLENOL AT [address] GOLDBERG CONTACTED AND ORDERED LORTAB 5/325 Q 4 HR PRN MODERATE PAIN.
[2019-06-13] MEDS ORDERED: HYDROcodone/APAP 5 MG/325 MG (LORTAB) TAB ONE (20:23)
[2019-06-13] MEDS: doxAzosin 4 MG (CARDURA) TAB PO SCH (20:27)
[2019-06-13] MEDS: MAGNESIUM OXIDE (MAG-OX)400 MG TAB PO SCH (20:27)
[2019-06-13] MEDS ORDERED: HYDROcodone/APAP 5 MG/325 MG (LORTAB) TAB PO PRN (20:30)
[2019-06-13] MEDS ORDERED: AXITINIB 5 MG PO SCH (21:00)
[2019-06-13 23:30] VITALS: BP 170/62
[2019-06-14] MEDS: LACTATED RINGERS 1,000 ML IV SCH ×3 (01:45→23:44)
[2019-06-14 03:45] VITALS: BP 182/75
[2019-06-14 04:57] LABS: HEMOGLOBIN 9.2 G/DL (13.3-17.7); MEAN PLATELET VOLUME 10.2 FL (7.4-10.4); RED CELL DISTRIBUTION WIDTH 14.9 % (10.0-14.5); WHITE BLOOD COUNT 5.9 10^3/uL (4.3-11.0)
[2019-06-14 05:13] LABS: BUN/CREATININE RATIO 12; CARBON DIOXIDE 23 MMOL/L (21-32); CHLORIDE 110 MMOL/L (98-107); CREATININE SERUM 1.04 MG/DL (0.60-1.30); GFR ESTIMATED > 60; GLUCOSE 116 MG/DL (70-105); POTASSIUM 3.7 MMOL/L (3.6-5.0); SODIUM 142 MMOL/L (135-145)
[2019-06-14] MEDS: metFORMIN 500 MG (GLUCOPHAGE) TAB PO SCH (06:37)
[2019-06-14] MEDS: KCL 10 MEQ TAB (MICRO K) PO SCH (06:37)
[2019-06-14 08:00] VITALS: BP 175/81
[2019-06-14] MEDS: LOSARTAN 50 MG (COZAAR) TAB PO SCH (09:31)
[2019-06-14] MEDS: HYDROCHLOROTHIAZIDE 25 MG (HCTZ) TAB PO SCH (09:31)
[2019-06-14] MEDS: amLODIPine 10 MG (NORVASC) TAB PO SCH (09:31)
[2019-06-14] MEDS: MAGNESIUM OXIDE (MAG-OX)400 MG TAB PO SCH ×2 (09:31→20:02)
[2019-06-14 12:00] VITALS: BP 137/64
[2019-06-14] MEDS ORDERED: risperiDONE 0.25 MG (RisperDAL) TAB PO ONE (13:00)
--- NOTE | 2019-06-14 13:05 | History & Physical-Hospitalist ---
History of Present Illness HPI/Chief Complaint Chief complaint: Severe generalized weakness History of present illness: This is an 84-year-old white male with a history of renal cell carcinoma with widespread metastasis who receives chemotherapy every [address] Bowen and monitor closely by his primary care provider Dr. Cantu who presented to the ER with generalized weakness could not get up after a fall at home and considering he is 6 foot 8 and 250 pounds and his is very petite lady EMS brought him to the ER found to have just generalized weakness and slight electrolyte abnormalities so he is admitted for observation. He has bilateral lower extremity venous stasis dermatitis that appears to have significant sloughing of skin with very moist skin so dressings were removed to allow it to air out and patient does not appear to have any type of cellulitis component. Patient was also seeing things in the room with visual hallucinations so I will give 1 dose of risperidone 0.25 mg now and twice daily to see if we can clear that up. I will put an order in for physical therapy and occupational therapy and rehab eval. Source: patient, family, old records Exam Limitations: clinical condition Date Seen 06/14/19 Time Seen by a Provider: 12:30 Attending Physician Meena Paredes DO PCP Randy Cantu DO Referring Physician Date of Admission Jun 13, 2019 at 11:33 Home Medications & Allergies Home Medications Reviewed patient Home Medication Reconciliation performed by pharmacy medication reconciliations isotope technician and/or nursing. Patients Allergies have been reviewed. Allergies Allergies Coded Allergies adhesive tape (Verified Allergy, Unknown, Hives, 12/08/18) Past [id number] Hx Past Med/Social Hx: Reviewed Nursing Past Med/Soc Hx, Reviewed and Corrections made Patient Social History Marrital Status: Employed/Student: retired Smoking Status: Unknown if Ever Smoked Former Smoker, Quit: Jul 22, 1965 Type Used: Cigarettes 2nd Hand Smoke Exposure: Yes (exposed when going to [place] x1/week) Recent Foreign Travel: No Contact w/other who traveled: No Recent Hopitalizations: No Recent Infectious Disease Expo: No Seasonal Allergies Seasonal Allergies: No Past Medical History Surgeries: Gallbladder, Joint Replacement, Prostatectomy Cardiac: Hypertension Reproductive: No Gastrointestinal: Gastroesophageal Reflux, Gastrointestinal Bleed, Chronic Constipation, Diverticulosis Musculoskeletal: Arthritis Endocrine: Diabetes, Insulin dep HEENT: Cataract Loss of Vision: Bilateral Cancer: Prostate, Lung, Skin, Kidney Did You Recieve Any Treatments: Yes What Type of Treatment Did You: Chemotherapy, Surgical Intervention History of Blood Disorders: No Adverse Reaction to Blood [place]: No Family History No Pertinent Family Hx Review of Systems Constitutional: see HPI, dizziness, malaise, weakness Gastrointestinal: loss of appetite Psychiatric/Neurological: Other (delusions) All Other Systems Reviewed Negative Unless Noted: Yes Physical Exam Physical Exam Vital Signs Vital Signs - First Documented 06/13/19 06/13/19 13:05 13:20 Temp 36.6 Pulse 76 Resp 14 B/P (MAP) 148/79 Pulse Ox 98 O2 Delivery Room Air Capillary Refill : Height, Weight, BMI Height: 6'8.00" Weight: 300lbs. 0.0oz. [id number]; 29.45 BMI Method:Stated General Appearance: No Apparent Distress, WD/WN, Chronically ill, Other (moving around constantly in the bed) Eyes: Right Eye Normal Inspection, Right Eye PERRL HEENT: Normal ENT Inspection, Pharynx Normal, Moist Mucous Membranes, Other (bilateral opaque lens) Neck: Full Range of Motion, Normal Inspection, Non Tender Respiratory: Chest Non Tender, Lungs Clear, Normal Breath Sounds, No Accessory Muscle Use, No Respiratory Distress Cardiovascular: Regular Rate, Rhythm, No Edema, No Gallop, No JVD, No Murmur, Normal Peripheral Pulses Gastrointestinal: Normal Bowel Sounds, No Organomegaly, No Pulsatile Mass, Non Tender, Soft Back: Normal Inspection, No CVA Tenderness, No Vertebral Tenderness Extremity: Normal Capillary Refill, Normal Inspection, Normal Range of Motion, Non Tender, No Calf Tenderness, No Pedal Edema Neurologic/Psychiatric: Alert, Oriented x3, No Motor/Sensory Deficits, Normal Mood/Affect, Disoriented (subtle), Other (visual hallucinations) Skin: Normal Color, Warm/Dry, Other (rash lower legs with moist skin sloughing off skin) Lymphatic: No Adenopathy Results Results/Procedures Labs Laboratory Tests 06/13/19 09:54 06/14/19 04:50 Patient resulted labs reviewed. Assessment/Plan Admission Diagnosis Assessment: Generalized weakness Renal cell carcinoma with widespread mets on chemotherapy Q3 weeks per Dr Lucas Bilateral venous stasis dermatitis with sloughing of skin Visual hallucinations DM HTN Loss of weight Plan: Home meds OOB PT/OT Rehab evaluation Allow lower legs to dry out Wound care Prognosis guarded Admission Status: Observation Diagnosis/Problems Diagnosis/Problems (1) Generalized weakness Status: Acute (2) Hallucinations (3) Stasis dermatitis of both legs (4) Metastatic renal cell carcinoma to lung Status: Acute (5) On antineoplastic chemotherapy Status: Acute (6) Lung cancer (7) Pulmonary nodules/lesions, multiple Status: Acute (8) Diabetes Status: Chronic (9) Bilateral lower extremity edema Status: Acute Clinical Quality Measures DVT/VTE Risk/Contraindication: Risk Factor Score Per Nursin RFS Level Per Nursing on Admit: 4+=Very High MEENA PAREDES DO Jun 14, 2019 13:05 POS
[2019-06-14] MEDS: ENOXAPARIN 40 MG/0.4 ML (LOVENOX) SYR SC SCH (15:24)
[2019-06-14 15:55] VITALS: BP 171/78
[2019-06-14] MEDS ORDERED: LOPERAMIDE 2 MG (IMODIUM) TABLET PO PRN (16:00)
[2019-06-14] MEDS ORDERED: CALCIUM CARBONATE 500 MG (TUMS) TAB.CHEW PO PRN (16:00)
[2019-06-14] MEDS ORDERED: ACETAMINOPHEN 500 MG TAB (TYLENOL) PO PRN (16:00)
[2019-06-14] MEDS ORDERED: diphenhydrAMINE 25 MG TAB (BENADRYL) PO PRN (16:00)
[2019-06-14] MEDS: glipiZIDE XL 5 MG (GLUCOTROL XL) TAB PO SCH (17:55)
[2019-06-14] MEDS: doxAzosin 4 MG (CARDURA) TAB PO SCH (20:02)
[2019-06-14] MEDS: SENNA W/DOCUSATE (SENOKOT S) TABLET PO SCH (20:02)
[2019-06-14] MEDS: risperiDONE 0.25 MG (RisperDAL) TAB PO SCH (20:02)
[2019-06-14 20:25] VITALS: BP 158/56
[2019-06-15] VITALS: BP 170/65
[2019-06-15 04:00] VITALS: BP 176/74
[2019-06-15 05:45] LABS: BASOPHILS % (AUTO) 0 % (0-10); EOSINOPHILS # (AUTO) 0.1 10^3/uL (0.0-0.3); EOSINOPHILS % (AUTO) 1 % (0-10); HEMATOCRIT 30 % (40-54); HEMOGLOBIN 9.6 G/DL (13.3-17.7); LYMPHOCYTES # (AUTO) 0.9 X 10^3 (1.0-4.0); LYMPHOCYTES % (AUTO) 14 % (12-44); MEAN CORPUSCULAR HEMOGLOBIN 31 PG (25-34); MEAN CORPUSCULAR HGB CONC 32 G/DL (32-36); MEAN CORPUSCULAR VOLUME 97 FL (80-99); MEAN PLATELET VOLUME 10.3 FL (7.4-10.4); MONOCYTES # (AUTO) 0.7 X 10^3 (0.0-1.0); MONOCYTES % (AUTO) 11 % (0-12); NEUTROPHILS # (AUTO) 4.9 X 10^3 (1.8-7.8); NEUTROPHILS % (AUTO) 74 % (42-75); PLATELET COUNT 100 10^3/uL (130-400); RED CELL DISTRIBUTION WIDTH 14.9 % (10.0-14.5); WHITE BLOOD COUNT 6.6 10^3/uL (4.3-11.0)
[2019-06-15 05:56] LABS: ALANINE AMINOTRANSFERASE 17 U/L (0-55); ALBUMIN 2.5 GM/DL (3.2-4.5); ALKALINE PHOSPHATASE 90 U/L (40-136); BILIRUBIN,TOTAL 1.1 MG/DL (0.1-1.0); BUN/CREATININE RATIO 14; CALCIUM 8.2 MG/DL (8.5-10.1); CARBON DIOXIDE 24 MMOL/L (21-32); CHLORIDE 108 MMOL/L (98-107); CREATININE SERUM 0.94 MG/DL (0.60-1.30); GFR ESTIMATED > 60; GLUCOSE 119 MG/DL (70-105); POTASSIUM 3.6 MMOL/L (3.6-5.0); SODIUM 141 MMOL/L (135-145); TOTAL PROTEIN 5.4 GM/DL (6.4-8.2)
[2019-06-15] MEDS: amLODIPine 10 MG (NORVASC) TAB PO SCH ×2 (07:58→15:01)
[2019-06-15] MEDS: KCL 10 MEQ TAB (MICRO K) PO SCH ×2 (07:58→18:01)
[2019-06-15] MEDS: HYDROCHLOROTHIAZIDE 25 MG (HCTZ) TAB PO SCH (07:58)
[2019-06-15] MEDS: SENNA W/DOCUSATE (SENOKOT S) TABLET PO SCH ×2 (07:58→21:07)
[2019-06-15] MEDS: LOSARTAN 50 MG (COZAAR) TAB PO SCH (07:58)
[2019-06-15] MEDS: risperiDONE 0.25 MG (RisperDAL) TAB PO SCH ×2 (07:58→20:04)
[2019-06-15] MEDS: MAGNESIUM OXIDE (MAG-OX)400 MG TAB PO SCH ×2 (07:58→20:04)
[2019-06-15] MEDS: metFORMIN 500 MG (GLUCOPHAGE) TAB PO SCH (07:59)
[2019-06-15 08:00] VITALS: BP 171/82
--- NOTE | 2019-06-15 09:30 | Progress Note - Hospitalist ---
Subjective HPI/CC On Admission Date Seen by Provider: Jun 15, 2019 Time Seen by Provider: 09:00 Chief complaint: Severe generalized weakness History of present illness: This is an 84-year-old white male with a history of renal cell carcinoma with widespread metastasis who receives chemotherapy every [address] Bowen and monitor closely by his primary care provider Dr. Cantu who presented to the ER with generalized weakness could not get up after a fall at home and considering he is 6 foot 8 and 250 pounds and his is very petite lady EMS brought him to the ER found to have just generalized weakness and slight electrolyte abnormalities so he is admitted for observation. He has bilateral lower extremity venous stasis dermatitis that appears to have significant sloughing of skin with very moist skin so dressings were removed to allow it to air out and patient does not appear to have any type of cellulitis component. Patient was also seeing things in the room with visual hallucinations so I will give 1 dose of risperidone 0.25 mg now and twice daily to see if we can clear that up. I will put an order in for physical therapy and occupational therapy and rehab eval. Subjective/Events-last exam Pt doing about the same Labs all returned back to normal including renal function Risperdal started for slight hallucinations Will await therapy to see him in order to forge ahead to inpatient rehab Updated Pt still appears to be a little bit delirious Will reach out to Dr. Lucas to see what his baseline is Had a vasovagal syncope episode while on commode. Dr Lucas called me after consulted and he just reviewed wound culture on his leg from [facility] and will start on Levaquin and Vanc per sensitivities. Focused Exam Lactate Level 06/15/19 17:41: Lactic Acid Level 0.91 Lactic Acid Level Laboratory Tests Test 06/15/19 17:41 Lactic Acid Level 0.91 MMOL/L (0.50-2.00) Objective Exam Vital Signs Vital Signs Date Time Temp Pulse Resp B/P (MAP) Pulse Ox O2 Delivery O2 Flow Rate FiO2 06/15/19 16:06 37.0 92 20 170/79 (109) 97 Nasal Cannula 1.50 Capillary Refill : General Appearance: No Apparent Distress, WD/WN, Chronically ill Respiratory: Lungs Clear Cardiovascular: Regular Rate, Rhythm Neurologic/Psychiatric: Alert, Disoriented, Other (looks up at ceiling most of the time I speak to him) Results/Procedures Lab Laboratory Tests 06/15/19 05:25 06/15/19 17:41 Patient resulted labs reviewed. Assessment/Plan Assessment and Plan Assess & Plan/Chief Complaint Assessment: Sepsis due to leg wound with Enterococcus and MRSA on Cx placing on Levaquin and Vanc after pancultured Delirium due to leg wound infection Renal cancer with mets Severe debility and unable to take care of him at home ARF now resolved Plan: Pancultured IV abx Change to inpatient due to sepsis and now wound Cx known from leg wound from [facility] in need of IV abx Monitor labs Gentle IVF Diagnosis/Problems Diagnosis/Problems (1) Sepsis (2) Immunosuppressed due to chemotherapy (3) Generalized weakness Status: Acute (4) Hallucinations (5) Stasis dermatitis of both legs (6) Metastatic renal cell carcinoma to lung Status: Acute (7) On antineoplastic chemotherapy Status: Acute (8) Lung cancer (9) Pulmonary nodules/lesions, multiple Status: Acute (10) Diabetes Status: Chronic (11) Bilateral lower extremity edema Status: Acute (12) Open leg wound (13) MRSA (methicillin resistant Staphylococcus aureus) infection (14) Enterococcal infection Clinical Quality Measures DVT/VTE Risk/Contraindication: Risk Factor Score Per Nursin RFS Level Per Nursing on Admit: 4+=Very High LUCINDA PAREDES DO Jun 15, 2019 09:30 POS
[2019-06-15] MEDS ORDERED: INSU100I32 SC (10:59)
[2019-06-15] MEDS ORDERED: INSU100I23 SC (10:59)
[2019-06-15] MEDS ORDERED: SOLI5TAB7 PO (10:59)
[2019-06-15] MEDS ORDERED: POTA10TA10 PO (10:59)
[2019-06-15] MEDS ORDERED: LOSA100T57 PO (10:59)
--- NOTE | 2019-06-15 11:11 | NUR ---
SPOKE WITH THE PATIENTS ABOUT MEDICATIONS. SHE HAD A DETAILED LIST AND STATES IT IS UP TO DATE. I COMPARED WITH THE EXT MED HX. SHE STATES HIS HUMALOG AND TRESIBA ARE CURRENTLY ON HOLD DUE TO LOW BLOOD SUGAR BUT IF IT GOES UP THEY WOULD USE THEM SO I LEFT THEM ON THE MED REC. HE FILLED POTASSIUM 10MEQ BID #60 05-28-19 AND SHE STATES HE IS TO TAKE THIS FOR 30 DAYS, WHILE HE IS ON THIS THEY ARE HOLDING THE VESICARE. THEY WILL RESUME THE VESICARE WHEN THE POTASSIUM IS COMPLETED. HE NO LONGER TAKING PIOGLITAZONE AND ALTHOUGH OXYBUTYNIN ER 10MG WAS FILLED #90 05-12-19 IT IS NOT ON HER LIST EITHER. THESE WERE LEFT OFF THE MED REC AT THIS TIME. HE TAKES A [facility] DAILY OTC.
[2019-06-15 12:00] VITALS: BP 168/79
--- NOTE | 2019-06-15 12:58 | Occupational Therapy Eval ---
OT Evaluation-General/PLF Medical Diagnosis Admission Date Jun 13, 2019 at 11:33 Medical Diagnosis: Renal cell carcinoma/bilateral LE venous stasis dermatitiswith sloughing Onset Date: Jun 13, 2019 Therapy Diagnosis Therapy Diagnosis: General weakness Height/Weight Height (Feet): 6 Height (Inches): 8.00 Weight (Pounds): 300 Weight (Ounces): 0.0 Precautions Precautions/Isolations: Fall Prevention, Standard Precautions Safety Interventions: Bed Exit Alarm Weight Bear Status Weight Bearing Restriction: Weight Bearing/Tolerated Referral Physician: Dr. Nowak Referral Reason: Activity Tolerance, Self Care, Evaluation/Treatment, Strengthening/ROM Medical History Pertinent Medical History: Arthritis, DM, GERD Additional Medical History Bilateral hip replacements, prostatectomy, Diverticulosis, GI bleed Current History Spouse in room with pt. Reports that he has been falling recently. Reviewed History: Yes Social History Home: Single Level Current Living Status: Spouse Entry Into Home: [facility] ADL-Prior Level of Function SCALE: Activities may be completed with or without assistive devices. 8-Lpgtqfennp-yjykzzx completes the activity by him/herself with no assistance from a helper. 5-Set-up or Clean-up Assistance-helper sets up or cleans up; patient completes activity. [place] assists only prior to or following the activity. 4-Supervision or Touching Assistance-helper provides verbal cues and/or touching/steadying and/or contact guard assistance as patient completes activity. Assistance may be provided throughout the activity or intermittently. 3-Partial/Moderate Assistance-helper does LESS THAN HALF the effort. [place] lifts, holds or supports trunk or limbs, but provides less than half the effort. 2-Substantial/Maximal Assistance-helper does MORE THAN HALF the effort. [place] lifts or holds trunk or limbs and provides more than half the effort. 1-Acbhwivkj-rbudey does ALL the effort. Patient does none of the effort to complete the activity. Or, the assistance of 2 or more helpers is required for the patient to complete the activity. If activity was not attempted, code reason: 7-Patient Refused. 9-Not Applicable-not attempted and the patient did not perform the activity before the current illness, exacerbation or injury. 10-Not Attempted due to Environmental Limitations-(lack of equipment, weather restraints, etc.). 88-Not Attempted due to Medical Conditions or Safety Concerns. ADL PLOF Comments Spouse is able to verbalize to this therapist that pt. has required assistance with all ADLs since his diagnosis of CA. She reports "approximately November." Spo use indicates that they have a system at home for him to have a BM. She assists with ronan care, bathing, dressing. Self Care: Needed Some Help Functional Cognition: Unknown DME/Equipment Comments Pt. uses a walker at home. OT Current Status Subjective Pt. indicates that left LE is painful whenever it is touched for movement. Does not report a pain level. Pt. is re-positioned to comfort level each time. Appearance Pt. in bed with eyes closed. Spouse eager for pt. to participate and assists therapy with waking pt. up. Mental Status/Objective Patient Orientation: Unable to Assess Current Hand Dominance: Left Upper Extremity ROM Pt. is able to raise bilateral UE to approximately 90 degrees at bed level. Upper Extremity Strength Pt is able to squeeze OT's hands. Right hand at approximately 2+/5, Left hand at approximately 3/5 strength. ADL-Treatment Eating (QC): 88 Oral Hygiene (QC): 88 Shower/Bathe Self (QC): 1 Upper Body Dressing (QC): 10 Lower Body Dressing (QC): 88 On/Off Footwear (QC): 88 Toileting Hygiene (QC): 1 Toilet Transfer (QC): 88 Other Treatments OT educates pt. and spouse on purpose of OT treatment. Pt. states that he has been up today, but spouse indicates that he has not. Pt. keeps eyes closed throughout treatment, with encouragement to participate. Pt. attempts to refuse therapy treatment when OT encourages him to sit on side of bed. Max encouragement required. Before transfer, noted that pt. was incontinent of urine and BM. Pt. required max x 2 to roll in bed and was dependent with ronan care. Noted pt. red and so OT applied zinc cream. Nursing notified. Transferred pt. supine-sit with max x 2, and care for bilateral LE placement. Pt. somewhat retropulsive and unable to scoot to side of bed. OT assisted with this and pt. encouraged to sit upright for trunk control and strengthening. While pt. was sitting on side of bed, pt. began to intentionally have BM. Spouse indicates that this is what he does at home, as he is not able to sit on their toilet. Pt. sat approximately 10 minutes, but required max x 2 for sit- supine and and then dependent assist x 2 for scooting up in bed. Pt. max x 2 to roll side to side while OT cleansed pt. again, applied new zinc, and changed gown again. Pt. positioned for comfort level. Spouse indicates concern that pt. did not ambulate. OT educates her that due to pt's need for max x 2 for supine-sit transfer, as well as willingness at this time to participate, that pt. not safe with this therapist at this time to stand. Will continue to work toward this for increased strengthening. Education OT Patient Education: Correct positioning, Modified ADL techniques, Progress toward Goal/Update tx plan, Purpose of tx/functional activities, Reviewed precautions, Rehab process, Transfer techniques Teaching Recipient: Patient Teaching Methods: Demonstration, Discussion Response to Teaching: Verbalize Understanding, Return Demonstration OT Short Term Goals Short Term Goals Time Frame: Jun 22, 2019 Eatin Oral hygiene: 3 Toileting hygiene: 3 Shower/bathe self: 88 (Spouse assists at home.) Upper body dressin Lower body dressin Putting on/taking off footwear: 88 OT [facility] Goals Mobile Nurse Goals Time Frame: Jun 29, 2019 Eating (QC): 4 Oral Hygiene (QC): 4 Toileting Hygiene (QC): 3 Shower/Bathe Self (QC): 9 Upper Body Dressing (QC): 9 Lower Body Dressing (QC): 9 On/Off Footwear (QC): 9 Pt. will be able to complete ADL transfer with CGA only. Pt. will demonstrate independence with HEP for bilateral UE with red theraband. Additional Goals: 1-Demonstrate ADL Tasks, 2-Verbalize Understanding, 3- ImproveStrength/Russell 1=Demonstrate adherence to instructed precautions during ADL tasks. 2=Patient will verbalize/demonstrate understanding of assistive devices /modifications for ADL. 3=Patient will improve strength/tolerance for activity to enable patient to perform ADL's. OT Education/Plan Problem List/Assessment Assessment: Decreased Activ Tolerance, Decreased Safety Aware (Bed alarm on), Decreased UE Strength, Dependent Transfers, Impaired Bed Mobility, Impaired Cognition, Impaired Funct Balance, Impaired I ADL's, Impaired Self-Care Skills, Restricted Funct UE ROM Discharge Recommendations Plan/Recommendations: Continue POC Therapy Discharge Recommendati: 24 Hour Supervision Comment Equipment needs and discharge location to be determined. Treatment Plan/Plan of Care Treatment,Training & Education: Yes Patient would benefit from OT for education, treatment and training to promote independence in ADL's, mobility, safety and/or upper extremity function for ADL's. Plan of Care: ADL Retraining, Caregiver Training, Functional Mobility, UE Funct Exercise/Act Treatment Duration: Jun 29, 2019 Frequency: 5 times per week Estimated Hrs Per Day: .5 hour per day Agreement: Yes Rehab Potential: Guarded Time/GCodes Start Time: 11:35 Stop Time: 12:15 Total Time Billed (hr/min): 40 Billed Treatment Time 1, EVH x 15minutes, ADL x 25minutes JOVAN REYNOSO OT Jun 15, 2019 12:58 POS
[2019-06-15] MEDS: LACTATED RINGERS 1,000 ML IV SCH (13:09)
--- NOTE | 2019-06-15 13:28 | NUR ---
patient was up to bedside commode with PT and nursing staff when patient passed out. Doctor Radha notified and stated it was a possible vagal response and this RN was instructed to notify Dr montero of episode. Dr montero ordered MRI and CT of head to confirm possible mets to the brain. patient back to baseline status at this time. vitals signs 146/65 heart rate 107 and Oxygen 99%% on 2 liters
[2019-06-15] MEDS ORDERED: IOHEXOL 350 MG/ML 100 ML (OMNIPAQUE 350) VIAL IV ONE ×2 (14:00)
[2019-06-15] MEDS ORDERED: NS 100 ML (IVPB) BAG IV ONE ×2 (14:00)
[2019-06-15] MEDS ORDERED: HOLD METFORMIN - RECEIVED CONTRAST 20 ML VIAL IV SCH ×2 (14:00)
[2019-06-15] MEDS ORDERED: CATHETER FLUSH 10 ML SYR IV PRN (14:00)
--- NOTE | 2019-06-15 14:53 | Physical Therapy Evaluation ---
PT Evaluation-General Medical Diagnosis Admission Date Jun 13, 2019 at 11:33 Medical Diagnosis: Renal cell carcinoma/bilateral LE venous stasis dermatitiswith sloughing Onset Date: Jun 13, 2019 Therapy Diagnosis Therapy Diagnosis: weakness, debility Height/Weight Height (Feet): 6 Height (Inches): 8.00 Weight (Pounds): 300 Weight (Ounces): 0.0 Precautions Precautions/Isolations: Fall Prevention, Standard Precautions Weight Bear Status Right Lower Extremity: Right Weight Bearing/Tolerated Left Lower Extremity: Left Weight Bearing/Tolerated Referral Physician: Dr. Nowak Reason for Referral: Evaluation/Treatment Medical History Pertinent Medical History: Arthritis, DM, GERD, HTN Current History EMS from home secondary to weakness and inability to get up after a fall. Reviewed History: Yes Social History Home: Single Level Current Living Status: Spouse Entry Into Home: Ramp Prior Prior Level of Function SCALE: Activities may be completed with or without assistive devices. 6-Zixtupbjrs-jivjkcc completes the activity by him/herself with no assistance from a helper. 5-Set-up or Clean-up Assistance-helper sets up or cleans up; patient completes activity. [place] assists only prior to or following the activity. 4-Supervision or Touching Assistance-helper provides verbal cues and/or touching/steadying and/or contact guard assistance as patient completes activity. Assistance may be provided throughout the activity or intermittently. 3-Partial/Moderate Assistance-helper does LESS THAN HALF the effort. [place] lifts, holds or supports trunk or limbs, but provides less than half the effort. 2-Substantial/Maximal Assistance-helper does MORE THAN HALF the effort. [place] lifts or holds trunk or limbs and provides more than half the effort. 8-Aivfpawvn-foqcmh does ALL the effort. Patient does none of the effort to complete the activity. Or, the assistance of 2 or more helpers is required for the patient to complete the activity. If activity was not attempted, code reason: 7-Patient Refused. 9-Not Applicable-not attempted and the patient did not perform the activity before the current illness, exacerbation or injury. 10-Not Attempted due to Environmental Limitations-(lack of equipment, weather restraints, etc.). 88-Not Attempted due to Medical Conditions or Safety Concerns. Bed Mobility: 4 Transfers (B,C,W/C): 4 Gait: 3 Indoor Mobility (Ambulation): Needed Some Help Prior Devices Use: Walker PT Evaluation-Current Subjective Patient and agree to PT at this time. Objective Patient Orientation: Confused Attachments: Oxygen, IV ROM/Strength ROM Lower Extremities WFL; feet limited by venous statis dermatitis Strength Lower Extremities Grossly 3/5 Integumentary/Posture Integumentary See nursing notes Bowel Incontinence: Yes Bladder Incontinence: Yes Posture WFL Neuromuscular (Tone, Coordination, Reflexes) Grossly intact Sensory Vision: B LAMAR- cataracts Hearing: Functional Hand Dominance: Left Transfers Roll Left to Right (QC): 3 Sit to Lying (QC): 3 Lying to Sitting/Side of Bed(Q: 3 Sit to Stand (QC): 3 Chair/Fuw-yc-Kulyp Xfer(QC): 3 Car Transfer (QC): 10 Gait Walk 10 feet (QC): 88 Walk 50 ft with 2 Turns(QC): 88 Walk 150 ft (QC): 88 Walking 10ft/uneven surface-QC: 88 Wheelchair Training Does the Pt Use a Wheelchair?: No Wheel 50 ft with 2 turns (QC): 88 Wheel 150 ft (QC): 88 Type of Wheelchair: Manual Stairs 1 Step (curb) (QC): 88 4 Steps (QC): 88 12 Steps (QC): 88 Balance Sitting Static: Fair Sitting Dynamic: Fair Standing Static: Fair Standing Dynamic: Fair Picking up an Object (QC): 88 Assessment/Needs Patient able to perform bed mobility with moderate assistance to transfer from supine to sitting EOB. Patient stood with FWW with moderate assist of 2 while for prolonged time while nursing was able to clean backside and bedding. Patient agreed to transfer to [facility] to attempt toileting. Once transferred, patient began vagaling down while on commode. Help was called and patient was transferred back to bed. Patient awoke again and was cleaned up again with adrian colmenares from nursing. After a few minutes, BP was measured at 146/65, pulse at 107, and O2 at 99%. Patient stated he felt okay and seemed more alert than at onset of treatment. Patient supine in bed at conclusion of treatment. Rehab Potential: Guarded PT Halfway Goals Precision Thread Grinder Operator Goals PT Halfway Goals Time Frame: Jun 29, 2019 Roll Left & Right (QC): 4 Sit to Lying (QC): 4 Lying-Sitting on Side/Bed(QC): 4 Sit to Stand (QC): 4 Chair/Kvb-mc-Wazzb Xfer(QC): 4 Toilet Transfer (QC): 4 Car Transfer (QC): 4 Does the Patient Walk: No and Walking Goal IS indicated Walk 10 feet (QC): 4 Walk 50ft with 2 Turns (QC): 4 Walk 150 ft (QC): 88 Walking 10ft on Uneven Surface: 4 1 Step (curb) (QC): 4 4 Steps (QC): 9 12 Steps (QC): 9 Picking up an Object (QC): 9 Does the Pt use WC or Scooter?: No Type: N/A Type: N/A PT Plan Problem List Problem List: Activity Tolerance, Functional Strength, Safety, Balance, Gait, Transfer, Bed Mobility Treatment/Plan Treatment Plan: Continue Plan of Care Treatment Plan: Bed Mobility, Education, Functional Activity Russell, Functional Strength, Gait, Safety, Therapeutic Exercise, Transfers Treatment Duration: Jun 29, 2019 Frequency: 6 times per week Estimated Hrs Per Day: .25 hour per day Patient and/or Family Agrees t: Yes Discharge Recommendations Therapy Discharge Recommendati: Other, See Comments (usp facility ) Time/GCodes Time In: 1253 Time Out: 1323 Total Billed Treatment Time: 30 Total Billed Treatment 1 visit EVHighC 10min FA 20min ALEYDA VALDOVINOS PT Jun 15, 2019 14:52 POS
[2019-06-15] MEDS: ENOXAPARIN 40 MG/0.4 ML (LOVENOX) SYR SC SCH (15:00)
--- NOTE | 2019-06-15 15:12 | Diagnostic Imaging Report ---
CLINICAL INDICATION: Evaluate for brain metastases. Patient has history of renal cell carcinoma. Patient has syncopal episode after trying to stand. EXAM: Axial CT scan of the brain performed without IV contrast and with 80 mL of Omnipaque 350 IV contrast. Auto Exposure Controls were utilized during the CT exam to meet ALARA standards for radiation dose reduction. COMPARISON: Head CT without contrast dated 06/11/2019. FINDINGS: Stable dural-based area of enhancement in the right frontal region, which measures grossly 1.7 cm x 2.1 cm. This has benign characteristics. There is no evidence of acute cerebral infarct, intracranial hemorrhage, or gross mass effect. There is no abnormal IV contrast enhancement. The brain parenchymal volume appears appropriate for patient's age. There are mild focal and patchy areas of low attenuation white matter changes involving both cerebral hemispheres, likely representing mild chronic small vessel ischemic disease. There is normal marley-white matter distinction. There is no significant midline shift or herniation. The [place] vascular structures show no gross abnormality as visualized. There is no evidence of hydrocephalus. The basal cisterns are unremarkable. The skull, extracranial soft tissue, and orbits are unremarkable. There is mild mucosal thickening involving the ethmoid sinus, left maxillary sinus. There is moderate mucosal thickening involving the right maxillary sinus. Temporal bones show no significant abnormality. IMPRESSION: 1: Stable CT scan of the brain with no evidence of acute intracranial process. There is no abnormal IV contrast enhancement or evidence of metastatic disease. 2: Age-related brain parenchymal changes. 3: Stable benign-appearing dural-based calcification in the right frontal region. Dictated by: Dictated on workstation # [id number]
[2019-06-15 16:06] VITALS: BP 170/79
[2019-06-15] MEDS ORDERED: VANCOMYCIN INJECTION 1,000 MG in NS (IVPB) 250 ML IV SCH (17:30)
[2019-06-15 17:52] LABS: BASOPHILS % (AUTO) 0 % (0-10); EOSINOPHILS % (AUTO) 0 % (0-10); HEMATOCRIT 30 % (40-54); HEMOGLOBIN 9.9 G/DL (13.3-17.7); LYMPHOCYTES # (AUTO) 1.1 X 10^3 (1.0-4.0); LYMPHOCYTES % (AUTO) 14 % (12-44); MEAN CORPUSCULAR HEMOGLOBIN 32 PG (25-34); MEAN CORPUSCULAR HGB CONC 33 G/DL (32-36); MEAN CORPUSCULAR VOLUME 97 FL (80-99); MEAN PLATELET VOLUME 10.4 FL (7.4-10.4); MONOCYTES # (AUTO) 0.8 X 10^3 (0.0-1.0); MONOCYTES % (AUTO) 10 % (0-12); NEUTROPHILS # (AUTO) 5.9 X 10^3 (1.8-7.8); NEUTROPHILS % (AUTO) 75 % (42-75); PLATELET COUNT 121 10^3/uL (130-400); WHITE BLOOD COUNT 7.8 10^3/uL (4.3-11.0)
--- NOTE | 2019-06-15 17:57 | NUR ---
CR 0.94; CR CL > 80; WT 121 KG; VANCO 2000 MG IV BOLUS THEN 1500 MG IV Q12H; TROUGH AFTER 3RD DOSE
[2019-06-15] MEDS: glipiZIDE XL 5 MG (GLUCOTROL XL) TAB PO SCH (18:01)
[2019-06-15] MEDS: LEVOFLOXACIN 750 MG/150 ML IV 150 ML IV SCH (18:01)
[2019-06-15 18:11] LABS: ALANINE AMINOTRANSFERASE 18 U/L (0-55); ALBUMIN 2.6 GM/DL (3.2-4.5); ALKALINE PHOSPHATASE 90 U/L (40-136); BILIRUBIN,TOTAL 0.9 MG/DL (0.1-1.0); BUN/CREATININE RATIO 15; CALCIUM 8.3 MG/DL (8.5-10.1); CARBON DIOXIDE 21 MMOL/L (21-32); CHLORIDE 109 MMOL/L (98-107); CREATININE SERUM 0.93 MG/DL (0.60-1.30); GFR ESTIMATED > 60; GLUCOSE 93 MG/DL (70-105); POTASSIUM 3.5 MMOL/L (3.6-5.0); SODIUM 142 MMOL/L (135-145); TOTAL PROTEIN 5.9 GM/DL (6.4-8.2)
[2019-06-15] MEDS ORDERED: VANCOMYCIN 2000 MG/NS 500 ML IVPB IV NR ×2 (18:15)
--- NOTE | 2019-06-15 18:43 | Wound Care Assessment ---
Wound Care Assessment Date Seen by Provider: Jun 15, 2019 Time Seen by Provider: 18:15 Chief Complaint Bilateral calf ulcers. HPI The patient is an 84 year old male with bilateral calf ulcers in a setting of deteriorating mobility, sedentary life style, and metastatic renal cell carcinoma. The patient has confusion and is not able to assist in the care of his ulcers. The ulcers are inflamed and reportedly have had positive cultures. Xeroform dressings and elevation ordered. Will follow. Past Medical History: Admits Diabetes Type II (dementia, Hallucinations.), Admits Cancer, Treaments (Kidney, prostate, Lung.) Smoking Status: Unknown if Ever Smoked Review of Systems Pulmonary: No Dyspnea Cardiovascular: No: Chest Pain Exam Vital Signs Date Time Temp Pulse Resp B/P (MAP) Pulse Ox O2 Delivery O2 Flow Rate FiO2 06/15/19 16:06 37.0 92 20 170/79 (109) 97 Nasal Cannula 1.50 Capillary Refill : General Appearance: mild distress Respiratory: no respiratory distress Skin: other (Bilateral large full thickness venous ulcers, bilateral gaiter distribution.) Results Laboratory Tests 06/14/19 20:28: Glucometer 154H 06/15/19 05:25: White Blood Count 6.6, Red Blood Count 3.08L, Hemoglobin 9.6L, Hematocrit 30L, Mean Corpuscular Volume 97, Mean Corpuscular Hemoglobin 31, Mean Corpuscular Hemoglobin Concent 32, Red Cell Distribution Width 14.9H, Platelet Count 100L, Mean Platelet Volume 10.3, Neutrophils (%) (Auto) 74, Lymphocytes (%) (Auto) 14, Monocytes (%) (Auto) 11, Eosinophils (%) (Auto) 1, Basophils (%) (Auto) 0, Neutrophils # (Auto) 4.9, Lymphocytes # (Auto) 0.9L, Monocytes # (Auto) 0.7, Eosinophils # (Auto) 0.1, Basophils # (Auto) 0.0, Sodium Level 141, Potassium Level 3.6, Chloride Level 108H, Carbon Dioxide Level 24, Anion Gap 9, Blood Urea Nitrogen 13, Creatinine 0.94, Estimat Glomerular Filtration Rate > 60, BUN/Creatinine Ratio 14, Glucose Level 119H, Calcium Level 8.2L, Corrected Calcium 9.4, Total Bilirubin 1.1H, Aspartate Amino Transf (AST/SGOT) 22, Alanine Aminotransferase (ALT/SGPT) 17, Alkaline Phosphatase 90, Total Protein 5.4L, Albumin 2.5L 06/15/19 11:16: Glucometer 130H 06/15/19 16:06: Glucometer 92 06/15/19 17:41: White Blood Count 7.8, Red Blood Count 3.09L, Hemoglobin 9.9L, Hematocrit 30L, Mean Corpuscular Volume 97, Mean Corpuscular Hemoglobin 32, Mean Corpuscular Hemoglobin Concent 33, Red Cell Distribution Width 15.0H, Platelet Count 121L, Mean Platelet Volume 10.4, Neutrophils (%) (Auto) 75, Lymphocytes (%) (Auto) 14, Monocytes (%) (Auto) 10, Eosinophils (%) (Auto) 0, Basophils (%) (Auto) 0, Neutrophils # (Auto) 5.9, Lymphocytes # (Auto) 1.1, Monocytes # (Auto) 0.8, Eosinophils # (Auto) 0.0, Basophils # (Auto) 0.0, Sodium Level 142, Potassium Level 3.5L, Chloride Level 109H, Carbon Dioxide Level 21, Anion Gap 12, Blood Urea Nitrogen 14, Creatinine 0.93, Estimat Glomerular Filtration Rate > 60, BUN/Creatinine Ratio 15, Glucose Level 93, Lactic Acid Level 0.91, Calcium Level 8.3L, Corrected Calcium 9.4, Total Bilirubin 0.9, Aspartate Amino Transf (AST/SGOT) 24, Alanine Aminotransferase (ALT/SGPT) 18, Alkaline Phosphatase 90, Total Protein 5.9L, Albumin 2.6L Assessment/Plan/Dx 1. Bilateral calf ulcers, venous insufficiency. 2. Sedentary life style. 3. Metastatic renal cell carcinoma. Plan: Xeroform dressings ordered, elevation encouraged. LAURENCE RENO MD Jun 15, 2019 18:43 POS
[2019-06-15] MEDS: doxAzosin 4 MG (CARDURA) TAB PO SCH (20:04)
[2019-06-15 20:05] VITALS: BP 128/75
--- NOTE | 2019-06-15 21:37 | CONSULTATION REPORT ---
DATE OF SERVICE: 06/15/2019 REFERRING PHYSICIAN: Meena Garcia DO PRIMARY PHYSICIAN: Randy Cantu DO The patient is admitted to room 407. IMPRESSION: 1. Delirium. 2. Bilateral lower extremity open wounds with the cultures done at [facility] from 06/12/2019 growing MRSA, Klebsiella, Enterococcus, etc. 3. History of metastatic left kidney cancer to the lungs and bone diagnosed in early November 2018. The patient on outpatient treatment with daily axitinib 5 mg twice daily along with Keytruda IV every 3 weeks with an excellent response. 4. Deconditioning and severe osteoarthritis. RECOMMENDATIONS: 1. Admit the patient to the hospital from observation status. 2. Broad spectrum antibiotic therapy with vancomycin and Levaquin to cover all the organisms. 3. Consult wound care for appropriate management of both lower extremity open wounds. 4. Maintain the patient as DNR, but continue aggressive treatment of infection. 5. I will hold treatment with axitinib as well as Keytruda until the infection is under control. 6. Consult social media senior associate for help. 7. I will follow the patient with you. BRIEF HISTORY: The patient is an 84-year-old male with history of metastatic renal cell carcinoma of the left kidney with widespread metastasis to bilateral lungs and bone. This was diagnosed in November 2018 following a hospitalization. He was started on palliative chemotherapy with Keytruda and axitinib with an excellent response. The last restaging CT scans from February 2019 showed minimal residual disease in the lung and bone with the decrease in the size of the left renal primary. The patient had significant deconditioning and weakness and had improved somewhat with outpatient physical therapy. Recently, he was getting weak again and had 2 or 3 emergency room visits over the past several days. His mentioned that he had swelling of both lower extremities, which had broken open last week. Prior to admission, he had a fall at home and could not get up because of weakness. His was unable to get him up and contacted emergency medical services who brought the patient to the emergency room. He was admitted to observation status because of mental status changes. Oncology consultation was requested for concurrent care. Today at the time of evaluation, the patient is delirious and is unsure of where he is or give any history. His was present in the room. A detail history was obtained from her. They had cultures of his lower extremity wounds done [facility] on 06/12/2019 and sent to [facility]. Those results were called for today and was available showing abundant growth of multiple organisms. PAST MEDICAL HISTORY: Significant for diagnosis of renal cell carcinoma arising from the left kidney with widespread metastasis to bilateral lungs and bone as well as bilateral adrenal glands. He was started on treatment with Keytruda and axitinib with excellent response. He was hypocalcemic at the time of initial diagnosis and this has resolved with treatment. He had improved considerably compared to then, but recently has been feeling sick again. He had fluid retention with skin breakdown in both lower extremities over the last several days. The patient lives with his at home and she is unable to lift him, but has been taking care of him otherwise. Other significant past medical history include diabetes mellitus type 2 diagnosed in 1996. No history of coronary artery disease, HI or congestive heart failure. PAST SURGICAL HISTORY: Bilateral hip replacement several years ago, right eye cataract surgery with intraocular lens implant. 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 History of cholecystectomy several years ago. SOCIAL HISTORY: The patient is and lives in [place], [place]. He has a son who lives in [place] and two daughters who live in [place], but does not have significant contact with them. 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 He has significant history of tobacco use, averaging approximately 40 pack years, but quit smoking few decades ago. He used alcohol socially, but has not drank for several years. No history of recreational drug use. FAMILY HISTORY: Only significant for a maternal aunt who was diagnosed with breast cancer while in her 70s and a cousin on the paternal side of family with an unknown malignancy. PHYSICAL EXAMINATION: GENERAL: Showed an elderly male, obese, awake, but not completely oriented to place or time. VITAL SIGNS: Temperature was 37.0, pulse rate of 92, respirations 20, blood pressure 170/79 with oxygen saturation of 97% on 1.5 liters by nasal cannula. HEENT: Normocephalic, extraocular muscles intact, conjunctivae slightly pale, oral mucosa moist. NECK: Supple, with no JVD. No cervical, supraclavicular or axillary lymphadenopathy palpable. CHEST: Symmetrical with a right-sided port. LUNGS: Fairly clear to auscultation without wheezes or rales. CARDIOVASCULAR: Regular in rate and rhythm. No murmurs or gallops heard. ABDOMEN: Obese, soft, nontender with no hepatosplenomegaly or other masses palpable. EXTREMITIES: Showed 2 to 3+ edema bilaterally with significant ulcers on both lower extremities around the ankles. They are open and inflamed with no significant drainage noted. NEUROLOGIC: Full neurological examination could not be done as the patient would not follow instructions, but he was moving all 4 extremities. There was no focal weaknesses. LABORATORY DATA: CBC done today showed WBC 7.8, hemoglobin 9.9 and platelet count 121,000 with neutrophil count 5.9 and lymphocyte count 1.1. Chemistry panel showed potassium level of 3.5 and chloride 109 with the rest of the electrolytes normal. BUN was 14 and creatinine 0.93 with GFR more than 60 mL per minute. Liver function studies were within normal limits except albumin level of 2.6. Corrected calcium level was 9.4. Lactic acid level was 0.91. Urinalysis was unremarkable. Chest x-ray done at the time of admission showed bilateral perihilar infiltrates, which have decreased from before. CT scan of the head done earlier today showed no evidence of acute intracranial process. No abnormal enhancement or evidence of metastatic disease. There was age related parenchymal changes in the brain. A stable and benign appearing dural based calcification in the right frontal region. I reviewed the culture reports from [facility] from his lower extremity wound culture done on 06/12/2019. This showed abundant growth of gram positive and gram-negative bacteria. There were four organisms identified with MRSA and enterococci, both of which were sensitive to vancomycin and Klebsiella which is sensitive to Levaquin. Thank you for allowing me to participate in this patient's care. I will follow the patient with you and make appropriate recommendations. Job ID: [id number] DocumentID: [id number] Dictated Date: 06/15/2019 18:57:01 School Leader Date: 06/15/2019 21:36:22 Dictated By: YOBANY WOODARD MD
[2019-06-16 00:40] VITALS: BP 171/77
[2019-06-16] MEDS ORDERED: HALOPERIDOL 5 MG/ML (HALDOL) AMP IM PRN (02:45)
[2019-06-16] MEDS ORDERED: LORazepam INJ 2 MG/ML (ATIVAN) VIAL IM PRN (02:45)
[2019-06-16] MEDS ORDERED: LORazepam INJ 2 MG/ML (ATIVAN) VIAL ONE (02:49)
--- NOTE | 2019-06-16 02:50 | NUR ---
PT VERY AGITATED. HE IS REFUSING CARE, SWINGING HIS ARMS AT STAFF AND WHEN WE ATTEMPT TO CARE FOR HIM. HE HAS BEEN INCONTINENT OF DIARRHEA AND URINE TONIGHT AND IS A TURN Q 2.PT ALSO HAD PULLED OUT IV ACCESS TO RT CHEST PORT. DR PAREDES NOTIFIED AND ORDERED IM/IV ATIVAN 1 MG Q HR PRN ANXIETY AND HALDOL 1 MG Q HR PRN AGITATION. 0250 IM ATIVAN ADMIN 0310 IM HALDOL ADMIN HE APPEARS TO BE CALMER AT THIS TIME. I WILL CONTINUE TO MONITOR.
[2019-06-16] MEDS ORDERED: HALOPERIDOL 5 MG/ML (HALDOL) AMP IM/IV PRN (03:00)
[2019-06-16] MEDS ORDERED: HALOPERIDOL 5 MG/ML (HALDOL) AMP ONE (03:11)
[2019-06-16] MEDS: LORazepam INJ 2 MG/ML (ATIVAN) VIAL IM/IV PRN ×2 (03:16→18:47)
[2019-06-16 04:26] LABS: BASOPHILS % (AUTO) 0 % (0-10); EOSINOPHILS # (AUTO) 0.1 10^3/uL (0.0-0.3); EOSINOPHILS % (AUTO) 1 % (0-10); HEMATOCRIT 29 % (40-54); HEMOGLOBIN 9.1 G/DL (13.3-17.7); LYMPHOCYTES # (AUTO) 0.9 X 10^3 (1.0-4.0); LYMPHOCYTES % (AUTO) 12 % (12-44); MEAN CORPUSCULAR HEMOGLOBIN 31 PG (25-34); MEAN CORPUSCULAR HGB CONC 32 G/DL (32-36); MEAN CORPUSCULAR VOLUME 97 FL (80-99); MEAN PLATELET VOLUME 10.5 FL (7.4-10.4); MONOCYTES # (AUTO) 0.8 X 10^3 (0.0-1.0); MONOCYTES % (AUTO) 11 % (0-12); NEUTROPHILS # (AUTO) 5.9 X 10^3 (1.8-7.8); NEUTROPHILS % (AUTO) 76 % (42-75); PLATELET COUNT 123 10^3/uL (130-400); WHITE BLOOD COUNT 7.7 10^3/uL (4.3-11.0)
[2019-06-16 04:44] LABS: ALANINE AMINOTRANSFERASE 15 U/L (0-55); ALBUMIN 2.3 GM/DL (3.2-4.5); ALKALINE PHOSPHATASE 83 U/L (40-136); BILIRUBIN,TOTAL 0.8 MG/DL (0.1-1.0); BUN/CREATININE RATIO 13; CARBON DIOXIDE 22 MMOL/L (21-32); CHLORIDE 110 MMOL/L (98-107); CREATININE SERUM 1.04 MG/DL (0.60-1.30); GFR ESTIMATED > 60; GLUCOSE 94 MG/DL (70-105); POTASSIUM 3.3 MMOL/L (3.6-5.0); SODIUM 142 MMOL/L (135-145); TOTAL PROTEIN 5.2 GM/DL (6.4-8.2)
[2019-06-16] MEDS: VANCOMYCIN 1500 MG/NS 500 ML IVPB IV SCH ×4 (06:19→19:03)
[2019-06-16] MEDS: LACTATED RINGERS 1,000 ML IV SCH (06:19)
[2019-06-16] MEDS: KCL 10 MEQ TAB (MICRO K) PO SCH ×2 (06:23→17:25)
[2019-06-16 08:00] VITALS: BP 159/76
[2019-06-16] MEDS: HYDROCHLOROTHIAZIDE 25 MG (HCTZ) TAB PO SCH (08:42)
[2019-06-16] MEDS: LOSARTAN 50 MG (COZAAR) TAB PO SCH (08:43)
[2019-06-16] MEDS: risperiDONE 0.25 MG (RisperDAL) TAB PO SCH ×2 (08:43→21:10)
[2019-06-16] MEDS: MAGNESIUM OXIDE (MAG-OX)400 MG TAB PO SCH ×2 (08:43→21:10)
[2019-06-16] MEDS: SENNA W/DOCUSATE (SENOKOT S) TABLET PO SCH ×2 (09:14→21:10)
--- NOTE | 2019-06-16 09:39 | Progress Note - Hospitalist ---
Subjective HPI/CC On Admission Date Seen by Provider: Jun 16, 2019 Time Seen by Provider: 09:00 Chief complaint: Severe generalized weakness History of present illness: This is an 84-year-old white male with a history of renal cell carcinoma with widespread metastasis who receives chemotherapy every [address] Bowen and monitor closely by his primary care provider Dr. Cantu who presented to the ER with generalized weakness could not get up after a fall at home and considering he is 6 foot 8 and 250 pounds and his is very petite lady EMS brought him to the ER found to have just generalized weakness and slight electrolyte abnormalities so he is admitted for observation. He has bilateral lower extremity venous stasis dermatitis that appears to have significant sloughing of skin with very moist skin so dressings were removed to allow it to air out and patient does not appear to have any type of cellulitis component. Patient was also seeing things in the room with visual hallucinations so I will give 1 dose of risperidone 0.25 mg now and twice daily to see if we can clear that up. I will put an order in for physical therapy and occupational therapy and rehab eval. Subjective/Events-last exam Patient had a difficult night with hallucinations and delirium Ativan and Haldol given IM and he slept well last night Delirium seems to be clearing a bit more through the morning at the bedside Patient refuses therapy this morning Still may be a candidate for inpatient rehabilitation if continues to progress and delirium clears Appreciate Dr. Bowen's help with this patient Reviewed meds and labs Denies any pain Antibiotics tolerated Diarrhea noted so we'll monitor that closely Review of Systems Musculoskeletal: leg pain Neurological: Confusion Focused Exam Lactate Level 06/15/19 17:41: Lactic Acid Level 0.91 Objective Exam Vital Signs Vital Signs Date Time Temp Pulse Resp B/P (MAP) Pulse Ox O2 Delivery O2 Flow Rate FiO2 06/16/19 07:00 85 06/16/19 00:40 36.9 19 171/77 (108) 94 Room Air 06/15/19 20:05 1.00 Capillary Refill : General Appearance: No Apparent Distress, WD/WN, Chronically ill Respiratory: Chest Non Tender, Lungs Clear, Normal Breath Sounds, No Accessory Muscle Use, No Respiratory Distress Cardiovascular: Regular Rate, Rhythm, No Edema, No Gallop, No JVD, No Murmur, Normal Peripheral Pulses Neurologic/Psychiatric: Alert, No Motor/Sensory Deficits, Normal Mood/Affect, Disoriented Skin: Normal Color, Warm/Dry Results/Procedures Lab Laboratory Tests 06/15/19 17:41 06/16/19 04:10 Patient resulted labs reviewed. Assessment/Plan Assessment and Plan Assess & Plan/Chief Complaint Assessment: Sepsis due to leg wound with Enterococcus and MRSA on Cx placed on Levaquin and Vanc after pancultured 06/15/16 PM Delirium due to leg wound infection Renal cancer with mets Severe debility and unable to take care of him at home ARF now resolved Hypokalemia Plan: Pancultured IV abx Change to inpatient due to sepsis and now wound Cx known from leg wound from [facility] in need of IV abx Monitor labs Gentle IVF Replace potassium Supportive care for delirium Diagnosis/Problems Diagnosis/Problems (1) Sepsis (2) Immunosuppressed due to chemotherapy (3) Generalized weakness Status: Acute (4) Hallucinations (5) Stasis dermatitis of both legs (6) Metastatic renal cell carcinoma to lung Status: Acute (7) On antineoplastic chemotherapy Status: Acute (8) Lung cancer (9) Pulmonary nodules/lesions, multiple Status: Acute (10) Diabetes Status: Chronic (11) Bilateral lower extremity edema Status: Acute (12) Open leg wound (13) MRSA (methicillin resistant Staphylococcus aureus) infection (14) Enterococcal infection (15) Delirium Clinical Quality Measures DVT/VTE Risk/Contraindication: Risk Factor Score Per Nursin RFS Level Per Nursing on Admit: 4+=Very High LUCINDA PAREDES DO Jun 16, 2019 09:39 POS
--- NOTE | 2019-06-16 09:56 | NUR ---
IRF Evaluation Order to evaluate patient received. Will continue to follow patient's progress as it relates to ongoing evaluation for acceptance to inpatient rehab. Thank you for this referral.
--- NOTE | 2019-06-16 10:58 | NUR ---
"RD ASSESSMENT PMHx: renal cell carcinoma (mets); HTN; GERD; diverticulosis; chr. constipation; DM PT INTERACTION: Pt was semi-awake and pleasant during nutrition assessment. Note family present at bedside. Note previous notes of pt experiencing hallucinations, per chart review. states pt has had poor appetite for the past 3 days. Note pt avg PO intake of 65% x3d, per chart review. states pt follows a regular diet at home, and currently has no issues chewing/swallowing food. states no recent issues with nausea/vomiting. Note pt currently on zofran PRN, per chart review. Pt states having episodes of diarrhea. Note last BM was 06/15 and pt currently on bowel regimen of senna BID; miralax PRN; and biscodyl PRN, per chart review. states no recent wt changes. Note unable to determine recent wt hx, per chart review. Note pt has wound, described as rash on bilateral lower extremities, per chart review. states pt's current DM management as pretty good. Note unable to determine recent HbA1c, per chart review. ABNORMAL NUTRITION-RELATED LAB VALUES LOW: K 3.4; Ca 8.0; Pro 5.2; alb 2.3 HIGH: Cl 110 Est. kcal needs: 2483-1224 kcal | 15-20 kcal/kg Est. Pro needs: 146-170 g Pro | 1.2-1.4 g Pro/kg PES STATEMENT: Inadequate oral intake (NI-2.1) related to loss of appetite | diarrhea as evidenced by pt () interview | avg PO intake of 65% x3d Inadequate protein intake (NI-5.6.1) related to increased protein needs as evidenced by wounds (rash, bilateral lower extremities) INTERVENTION: Continue with current diet order of CHO 60g/m 1 snack diet. Add Ensure HP (vary) to meals TID. Provides 160 kcal and 16 g Pro per serving for perceived benefit to wound healing. Will continue to follow and reassess as pt needs and status change. MONITOR/EVALUATE: PO Intake; Plan of Care; Hydration Status; Weight Status; Lab Values Isrrael Diaz, , RD, LD"
--- NOTE | 2019-06-16 11:04 | Physical Therapy Progress Note ---
Therapy Progress Note Patient declined all physical therapy services for the day. PT will check on patient again tomorrow. 1 visit, 0 tx 9:55am ALEYDA VALDOVINOS PT Jun 16, 2019 11:04 POS
[2019-06-16 12:00] VITALS: BP 166/77
--- NOTE | 2019-06-16 12:21 | Progress Note ---
Standard Progress Note Progress Notes/Assess & Plan Date Seen by a Provider: Jun 16, 2019 Time Seen by a Provider: 12:16 Progress/Assessment & Plan 84-year-old male with metastatic renal cell carcinoma and on treatment with Inlyta and Keytruda with an excellent response. Recent increased weakness and delirium requiring hospitalization. Bilateral lower extremity open wounds with sloughed skin. Wound culture by home health at [facility] showing abundant growth of gram-positive and gram-negative organisms iodine as MRSA, enterococcus, Klebsiella etc. Currently started on vancomycin and Levaquin. CT head negative yesterday. Today patient is more oriented and answering questions appropriately. Still not eating or drinking well. Continue IV hydration and antibiotics. Continue Inlyta 5 mg by mouth twice a day. Patient has his own medication supply and may use this. Appreciate adoption social worker who is working to have patient placed at the half-way as is unable to take care of him at home. Continue wound care recommendations for lower extremity open wounds. Will follow patient with you. Focused Exam Lactate Level 06/15/19 17:41: Lactic Acid Level 0.91 YOBANY WOODARD Jun 16, 2019 12:21 POS
[2019-06-16] MEDS: POTASSIUM CL 10MEQ/50ML IVPB 50 ML IV SCH ×4 (12:22→16:01)
[2019-06-16] MEDS: amLODIPine 10 MG (NORVASC) TAB PO SCH (12:23)
--- NOTE | 2019-06-16 13:23 | Occ Therapy Progress Note ---
Therapy Progress Note Attempted OT treatment x2 this date. On first attempt pt unavailable. On second attempt pt resting in bed with eyes closed and spouse present. Spouse declined therapy for pt today. Will attempt tomorrow as tolerated. 1, visit ABDIAS HUMPHREYS OT Jun 16, 2019 13:23 POS
[2019-06-16] MEDS: ENOXAPARIN 40 MG/0.4 ML (LOVENOX) SYR SC SCH (14:43)
[2019-06-16 15:49] VITALS: BP 163/78
[2019-06-16] MEDS: LEVOFLOXACIN 750 MG/150 ML IV 150 ML IV SCH (17:25)
[2019-06-16] MEDS: glipiZIDE XL 5 MG (GLUCOTROL XL) TAB PO SCH (17:34)
--- NOTE | 2019-06-16 17:45 | NUR ---
PT AGITATED, REFUSING CARE AND BECOMING INCREASINGLY AGITATED WITH STAFF AND . PT REMOVED TELE MONITOR AND REFUSING TO KEEP ON. PRN ATIVAN GIVEN. LIGHTS DIMMED AND PT COVERED UP FOR COMFORT. WILL ATTEMPT CARE AGAIN SHORTLY.
[2019-06-16 20:59] VITALS: BP 188/79
[2019-06-16] MEDS ORDERED: PATIENT MAY USE OWN MED,SINGLE MED PO SCH (21:00)
[2019-06-16] MEDS: doxAzosin 4 MG (CARDURA) TAB PO SCH (21:10)
[2019-06-16] MEDS: INLYTA 5 MG PO SCH (21:13)
[2019-06-16 23:46] VITALS: BP 173/79
[2019-06-17] MEDS: LACTATED RINGERS 1,000 ML IV SCH ×3 (01:16→19:35)
[2019-06-17 04:55] VITALS: BP 168/81
[2019-06-17] MEDS: LORazepam INJ 2 MG/ML (ATIVAN) VIAL IM/IV PRN ×2 (05:15→21:04)
[2019-06-17] MEDS ORDERED: TROUGH ORDER-PHARMACY XX NR (05:30)
[2019-06-17 05:34] LABS: BASOPHILS % (AUTO) 1 % (0-10); EOSINOPHILS # (AUTO) 0.2 10^3/uL (0.0-0.3); EOSINOPHILS % (AUTO) 4 % (0-10); HEMATOCRIT 32 % (40-54); HEMOGLOBIN 9.8 G/DL (13.3-17.7); LYMPHOCYTES # (AUTO) 0.9 X 10^3 (1.0-4.0); LYMPHOCYTES % (AUTO) 14 % (12-44); MEAN CORPUSCULAR HEMOGLOBIN 30 PG (25-34); MEAN CORPUSCULAR HGB CONC 31 G/DL (32-36); MEAN CORPUSCULAR VOLUME 98 FL (80-99); MEAN PLATELET VOLUME 9.8 FL (7.4-10.4); MONOCYTES # (AUTO) 0.5 X 10^3 (0.0-1.0); MONOCYTES % (AUTO) 8 % (0-12); NEUTROPHILS # (AUTO) 4.7 X 10^3 (1.8-7.8); NEUTROPHILS % (AUTO) 74 % (42-75); PLATELET COUNT 122 10^3/uL (130-400); RED CELL DISTRIBUTION WIDTH 15.2 % (10.0-14.5); WHITE BLOOD COUNT 6.3 10^3/uL (4.3-11.0)
[2019-06-17 05:57] LABS: ALANINE AMINOTRANSFERASE 14 U/L (0-55); ALBUMIN 2.4 GM/DL (3.2-4.5); ALKALINE PHOSPHATASE 91 U/L (40-136); BILIRUBIN,TOTAL 0.8 MG/DL (0.1-1.0); BUN/CREATININE RATIO 11; CALCIUM 8.1 MG/DL (8.5-10.1); CARBON DIOXIDE 23 MMOL/L (21-32); CHLORIDE 110 MMOL/L (98-107); CREATININE SERUM 0.93 MG/DL (0.60-1.30); GFR ESTIMATED > 60; GLUCOSE 100 MG/DL (70-105); POTASSIUM 3.7 MMOL/L (3.6-5.0); SODIUM 142 MMOL/L (135-145); TOTAL PROTEIN 5.4 GM/DL (6.4-8.2)
[2019-06-17 06:03] LABS: VANCOMYCIN,TROUGH 22.1 UG/ML (10.0-20.0)
[2019-06-17] MEDS: VANCOMYCIN 1500 MG/NS 500 ML IVPB IV SCH ×2 (06:34)
[2019-06-17] MEDS: KCL 10 MEQ TAB (MICRO K) PO SCH ×2 (06:35→17:50)
--- NOTE | 2019-06-17 07:09 | NUR ---
PTD VANCOMYCIN LABS: VANCOMYCIN TROUGH @ 0530 (10.5HOUR LEVEL_ 22.1 PLAN: CHANGE VANCOMYCIN TO 1 GRAM IV Q 12 HOURS STARTING AT 1000, REPEAT LEVEL IN 06/19 @ 0900
[2019-06-17 08:00] VITALS: BP 164/77
[2019-06-17] MEDS: HYDROCHLOROTHIAZIDE 25 MG (HCTZ) TAB PO SCH (08:56)
[2019-06-17] MEDS: MAGNESIUM OXIDE (MAG-OX)400 MG TAB PO SCH ×2 (08:56→20:26)
[2019-06-17] MEDS: INLYTA 5 MG PO SCH ×2 (08:56→20:26)
[2019-06-17] MEDS: risperiDONE 0.25 MG (RisperDAL) TAB PO SCH ×2 (08:56→20:26)
[2019-06-17] MEDS: LOSARTAN 50 MG (COZAAR) TAB PO SCH (08:56)
[2019-06-17] MEDS: SENNA W/DOCUSATE (SENOKOT S) TABLET PO SCH ×2 (09:00→20:26)
--- NOTE | 2019-06-17 09:35 | Progress Note - Hospitalist ---
Subjective HPI/CC On Admission Date Seen by Provider: Jun 17, 2019 Time Seen by Provider: 09:00 Chief complaint: Severe generalized weakness History of present illness: This is an 84-year-old white male with a history of renal cell carcinoma with widespread metastasis who receives chemotherapy every [address] Bowen and monitor closely by his primary care provider Dr. Cantu who presented to the ER with generalized weakness could not get up after a fall at home and considering he is 6 foot 8 and 250 pounds and his is very petite lady EMS brought him to the ER found to have just generalized weakness and slight electrolyte abnormalities so he is admitted for observation. He has bilateral lower extremity venous stasis dermatitis that appears to have significant sloughing of skin with very moist skin so dressings were removed to allow it to air out and patient does not appear to have any type of cellulitis component. Patient was also seeing things in the room with visual hallucinations so I will give 1 dose of risperidone 0.25 mg now and twice daily to see if we can clear that up. I will put an order in for physical therapy and occupational therapy and rehab eval. Subjective/Events-last exam Pt had another tough night owning always occurs in the evening time Haldol and Ativan given Pt reports no new issues Pt reports no new problems [facility] is set up for Saturday Speech Eval due to possibility of some dysphasia Wound care is evaluating him and antibiotic regimen is working well for him Review of Systems General: Fatigue Neurological: Confusion Focused Exam Lactate Level 06/15/19 17:41: Lactic Acid Level 0.91 Objective Exam Vital Signs Vital Signs Date Time Temp Pulse Resp B/P (MAP) Pulse Ox O2 Delivery O2 Flow Rate FiO2 06/17/19 16:39 36.7 85 16 163/75 (104) 97 Room Air 06/15/19 20:05 1.00 Capillary Refill : General Appearance: No Apparent Distress, WD/WN, Chronically ill Respiratory: Chest Non Tender, Lungs Clear, Normal Breath Sounds, No Accessory Muscle Use, No Respiratory Distress Cardiovascular: Regular Rate, Rhythm, No Edema, No Gallop, No JVD, No Murmur, Normal Peripheral Pulses Neurologic/Psychiatric: Alert, No Motor/Sensory Deficits, Normal Mood/Affect, Disoriented Results/Procedures Lab Laboratory Tests 06/17/19 05:30 Patient resulted labs reviewed. Assessment/Plan Assessment and Plan Assess & Plan/Chief Complaint Assessment: Sepsis due to leg wound with Enterococcus and MRSA on Cx placed on Levaquin and Vanc after pancultured 06/15/16 PM Delirium due to leg wound infection Renal cancer with mets Severe debility and unable to take care of him at home ARF now resolved Hypokalemia Dementia with ? Plan: Pancultured IV abx Change to inpatient due to sepsis and now wound Cx known from leg wound from [facility] in need of IV abx Monitor labs Gentle IVF Replace potassium Supportive care for delirium VCV Saturday vs. Saturday depending on infection status Diagnosis/Problems Diagnosis/Problems (1) Sepsis (2) Immunosuppressed due to chemotherapy (3) Generalized weakness Status: Acute (4) Hallucinations (5) Stasis dermatitis of both legs (6) Metastatic renal cell carcinoma to lung Status: Acute (7) On antineoplastic chemotherapy Status: Acute (8) Lung cancer (9) Pulmonary nodules/lesions, multiple Status: Acute (10) Diabetes Status: Chronic (11) Bilateral lower extremity edema Status: Acute (12) Open leg wound (13) MRSA (methicillin resistant Staphylococcus aureus) infection (14) Enterococcal infection (15) Delirium Clinical Quality Measures DVT/VTE Risk/Contraindication: Risk Factor Score Per Nursin RFS Level Per Nursing on Admit: 4+=Very High LUCINDA PAREDES DO Jun 17, 2019 09:35 POS
[2019-06-17] MEDS: VANCOMYCIN 1 GM/NS 250 ML IVPB IV SCH ×4 (10:06→22:14)
--- NOTE | 2019-06-17 10:18 | Physical Therapy Daily Note ---
PT Daily Note-Current Subjective Patient in bed pre tx, agrees to PT, has no complaints of pain at rest. Appearance Patient in bed post tx with nurse call, phone, tray, all needs met, telesitter in room and in room. Mental Status Patient Orientation: Person, Confused Attachments: IV Transfers SCALE: Activities may be completed with or without assistive devices. 5-Vkvmmgusay-eqzatiz completes the activity by him/herself with no assistance from a helper. 5-Set-up or Clean-up Assistance-helper sets up or cleans up; patient completes activity. [place] assists only prior to or following the activity. 4-Supervision or Touching Assistance-helper provides verbal cues and/or touching/steadying and/or contact guard assistance as patient completes activity. Assistance may be provided throughout the activity or intermittently. 3-Partial/Moderate Assistance-helper does LESS THAN HALF the effort. [place] lifts, holds or supports trunk or limbs, but provides less than half the effort. 2-Substantial/Maximal Assistance-helper does MORE THAN HALF the effort. [place] lifts or holds trunk or limbs and provides more than half the effort. 7-Selmqrghq-sfqgkz does ALL the effort. Patient does none of the effort to complete the activity. Or, the assistance of 2 or more helpers is required for the patient to complete the activity. If activity was not attempted, code reason: 7-Patient Refused. 9-Not Applicable-not attempted and the patient did not perform the activity before the current illness, exacerbation or injury. 10-Not Attempted due to Environmental Limitations-(lack of equipment, weather restraints, etc.). 88-Not Attempted due to Medical Conditions or Safety Concerns. Roll Left & Right (QC): 1 Sit to Lying (QC): 1 Lying to Sitting/Side of Bed(Q: 1 Sit to Stand (QC): 1 Patient required assist of 2 for supine to sit and bed mobility and sit to stand. Patient stood x4 at the edge of the bed with max assist of 2 and then layed down and scooted up and had pillow support under both legs. Weight Bearing Right Lower Extremity: Right Weight Bearing/Tolerated Left Lower Extremity: Left Weight Bearing/Tolerated Treatments bed mobility, standing Assessment Current Status: Fair Progress no passing out or vagaling today, could not quite perform a full stand PT Fdc Goals Fdc Goals PT Fdc Goals Time Frame: Jun 29, 2019 Roll Left & Right (QC): 4 Sit to Lying (QC): 4 Lying-Sitting on Side/Bed(QC): 4 Sit to Stand (QC): 4 Chair/Fyz-ys-Dpynn Xfer(QC): 4 Toilet Transfer (QC): 4 Car Transfer (QC): 4 Does the Patient Walk: No and Walking Goal IS indicated Walk 10 feet (QC): 4 Walk 50ft with 2 Turns (QC): 4 Walk 150 ft (QC): 88 Walking 10ft on Uneven Surface: 4 1 Step (curb) (QC): 4 4 Steps (QC): 9 12 Steps (QC): 9 Picking up an Object (QC): 9 Does the Pt use WC or Scooter?: No Type: N/A Type: N/A PT Plan Problem List Problem List: Activity Tolerance, Functional Strength, Safety, Balance, Gait, Transfer, Bed Mobility, ROM Treatment/Plan Treatment Plan: Continue Plan of Care Treatment Plan: Bed Mobility, Education, Functional Activity Russell, Functional Strength, Gait, Safety, Therapeutic Exercise, Transfers Treatment Duration: Jun 29, 2019 Frequency: 6 times per week Estimated Hrs Per Day: .25 hour per day Patient and/or Family Agrees t: Yes Safety Risks/Education Patient Education: Correct Positioning, Safety Issues Teaching Recipient: Patient Teaching Methods: Demonstration, Discussion Response to Teaching: Reinforcement Needed Time/GCodes Time In: 0952 Time Out: 1002 Total Billed Treatment Time: 10 Total Billed Treatment 1 visit FA KATHERINE HINKLE PT Jun 17, 2019 10:18 POS
--- NOTE | 2019-06-17 11:08 | Occupational Ther Daily Note ---
OT Current Status-Daily Note Subjective Pt in bed, agrees to therapy. Mental Status/Objective Patient Orientation: Person, Confused Attachments: IV ADL-Treatment Pt supine to sit with assist x2. Pt has decreased sitting balance and requires some assist to maintain at EOB. Total assist to change wet gown. Pt performed sit to stand x4 with assist x2. Pt unable to come into full standing position. Sit to supine with assist x2. Pt requires total assist for hygiene and placement of clean brief. Pt positioned in bed with needs met. Spouse, RN, and telesitter present in room. Therapy Code Descriptions/Definitions Functional [place] Measure: 0=Not Assessed/NA 4=Minimal Assistance 1=Total Assistance 5=Supervision or Setup 2=Maximal Assistance 6=Modified [place] 3=Moderate Assistance 7=Complete IndependenceSCALE: Activities may be completed with or without assistive devices. 3-Ybzqdnxmkb-dbvsrah completes the activity by him/herself with no assistance from a helper. 5-Set-up or Clean-up Assistance-helper sets up or cleans up; patient completes activity. [place] assists only prior to or following the activity. 4-Supervision or Touching Assistance-helper provides verbal cues and/or touching/steadying and/or contact guard assistance as patient completes activity. Assistance may be provided throughout the activity or intermittently. 3-Partial/Moderate Assistance-helper does LESS THAN HALF the effort. [place] lifts, holds or supports trunk or limbs, but provides less than half the effort. 2-Substantial/Maximal Assistance-helper does MORE THAN HALF the effort. [place] lifts or holds trunk or limbs and provides more than half the effort. 8-Oulqqgaxy-txdbkf does ALL the effort. Patient does none of the effort to complete the activity. Or, the assistance of 2 or more helpers is required for the patient to complete the activity. If activity was not attempted, code reason: 7-Patient Refused. 9-Not Applicable-not attempted and the patient did not perform the activity before the current illness, exacerbation or injury. 10-Not Attempted due to Environmental Limitations-(lack of equipment, weather restraints, etc.). 88-Not Attempted due to Medical Conditions or Safety Concerns. OT Short Term Goals Short Term Goals Time Frame: Jun 22, 2019 Eatin Oral hygiene: 3 Toileting hygiene: 3 Shower/bathe self: 88 (Spouse assists at home.) Upper body dressin Lower body dressin Putting on/taking off footwear: 88 OT Skilled Nursing Goals Skilled Nursing Goals Time Frame: Jun 29, 2019 Eating (QC): 4 Oral Hygiene (QC): 4 Toileting Hygiene (QC): 3 Shower/Bathe Self (QC): 9 Upper Body Dressing (QC): 9 Lower Body Dressing (QC): 9 On/Off Footwear (QC): 9 Pt. will be able to complete ADL transfer with CGA only. Pt. will demonstrate independence with HEP for bilateral UE with red theraband. Additional Goals: 1-Demonstrate ADL Tasks, 2-Verbalize Understanding, 3- ImproveStrength/Russell 1=Demonstrate adherence to instructed precautions during ADL tasks. 2=Patient will verbalize/demonstrate understanding of assistive devices/modifications for ADL. 3=Patient will improve strength/tolerance for activity to enable patient to perform ADL's. OT Education/Plan Discharge Recommendations Plan/Recommendations: Continue POC Treatment Plan/Plan of Care Patient would benefit from OT for education, treatment and training to promote independence in ADL's, mobility, safety and/or upper extremity function for ADL's. Plan of Care: ADL Retraining, Caregiver Training, Functional Mobility, UE Funct Exercise/Act Treatment Duration: Jun 29, 2019 Frequency: 5 times per week Estimated Hrs Per Day: .5 hour per day Agreement: Yes Rehab Potential: Guarded Time/GCodes Start Time: 10:02 Stop Time: 10:12 Total Time Billed (hr/min): 10 Billed Treatment Time 1 visit, FA(10minutes) ABDIAS HUMPHREYS OT Jun 17, 2019 11:08 POS
[2019-06-17 12:00] VITALS: BP 159/73
[2019-06-17] MEDS: amLODIPine 10 MG (NORVASC) TAB PO SCH (12:10)
--- NOTE | 2019-06-17 14:16 | NUR ---
Met with pt and to discuss continued care plans. Pt has been accepted to [facility] when medically ready for discharge. Pt alert intermittently and very sleepy and complains of weakness. CARE assessment completed if pt should transfer before the week-end. Updated progress notes and medications faxed to [facility] for their review. Copy of DPOA For Health Care and Care assessment in pt. chart.
[2019-06-17] MEDS: ENOXAPARIN 40 MG/0.4 ML (LOVENOX) SYR SC SCH (14:28)
--- NOTE | 2019-06-17 15:34 | NUR ---
SPEECH THERAPY UNAVAILABLE UNTIL SATURDAY TO SEE PT.
[2019-06-17 16:39] VITALS: BP 163/75
[2019-06-17] MEDS: LEVOFLOXACIN 750 MG/150 ML IV 150 ML IV SCH (17:50)
[2019-06-17] MEDS: glipiZIDE XL 5 MG (GLUCOTROL XL) TAB PO SCH (17:50)
[2019-06-17 20:01] VITALS: BP 154/70
[2019-06-17] MEDS: doxAzosin 4 MG (CARDURA) TAB PO SCH (20:26)
[2019-06-17] MEDS: MELATONIN 3 MG TABLET PO PRN (20:26)
[2019-06-18 00:15] VITALS: BP 127/73
[2019-06-18 03:57] VITALS: BP 153/72
[2019-06-18 04:21] LABS: BASOPHILS % (AUTO) 1 % (0-10); EOSINOPHILS # (AUTO) 0.2 10^3/uL (0.0-0.3); EOSINOPHILS % (AUTO) 4 % (0-10); HEMATOCRIT 29 % (40-54); LYMPHOCYTES # (AUTO) 0.9 X 10^3 (1.0-4.0); LYMPHOCYTES % (AUTO) 16 % (12-44); MEAN CORPUSCULAR HEMOGLOBIN 31 PG (25-34); MEAN CORPUSCULAR HGB CONC 31 G/DL (32-36); MEAN CORPUSCULAR VOLUME 98 FL (80-99); MEAN PLATELET VOLUME 9.8 FL (7.4-10.4); MONOCYTES # (AUTO) 0.8 X 10^3 (0.0-1.0); MONOCYTES % (AUTO) 14 % (0-12); NEUTROPHILS # (AUTO) 3.9 X 10^3 (1.8-7.8); NEUTROPHILS % (AUTO) 66 % (42-75); PLATELET COUNT 123 10^3/uL (130-400); RED CELL DISTRIBUTION WIDTH 15.2 % (10.0-14.5); WHITE BLOOD COUNT 5.9 10^3/uL (4.3-11.0)
[2019-06-18 04:34] LABS: ALANINE AMINOTRANSFERASE 13 U/L (0-55); ALBUMIN 2.3 GM/DL (3.2-4.5); ALKALINE PHOSPHATASE 74 U/L (40-136); BILIRUBIN,TOTAL 0.7 MG/DL (0.1-1.0); BUN/CREATININE RATIO 10; CALCIUM 8.1 MG/DL (8.5-10.1); CARBON DIOXIDE 25 MMOL/L (21-32); CHLORIDE 110 MMOL/L (98-107); CREATININE SERUM 1.06 MG/DL (0.60-1.30); GFR ESTIMATED > 60; GLUCOSE 77 MG/DL (70-105); POTASSIUM 3.7 MMOL/L (3.6-5.0); SODIUM 143 MMOL/L (135-145); TOTAL PROTEIN 4.8 GM/DL (6.4-8.2)
[2019-06-18 08:00] VITALS: BP 155/75
[2019-06-18] MEDS: LACTATED RINGERS 1,000 ML IV SCH ×2 (08:14→19:51)
[2019-06-18] MEDS: risperiDONE 0.25 MG (RisperDAL) TAB PO SCH ×2 (08:14→19:45)
[2019-06-18] MEDS: metFORMIN 500 MG (GLUCOPHAGE) TAB PO SCH (08:14)
[2019-06-18] MEDS: KCL 10 MEQ TAB (MICRO K) PO SCH ×2 (08:14→17:15)
[2019-06-18] MEDS: LOSARTAN 50 MG (COZAAR) TAB PO SCH (08:15)
[2019-06-18] MEDS: MAGNESIUM OXIDE (MAG-OX)400 MG TAB PO SCH ×2 (08:15→19:44)
[2019-06-18] MEDS: HYDROCHLOROTHIAZIDE 25 MG (HCTZ) TAB PO SCH (08:15)
[2019-06-18] MEDS: SENNA W/DOCUSATE (SENOKOT S) TABLET PO SCH ×2 (08:15→19:45)
[2019-06-18] MEDS: INLYTA 5 MG PO SCH ×2 (08:16→19:44)
--- NOTE | 2019-06-18 08:54 | Physical Therapy Daily Note ---
PT Daily Note-Current Subjective Patient is awake and more alert today. Agrees to PT. RN in issuing meds. Mental Status Patient Orientation: Confused Attachments: IV Transfers SCALE: Activities may be completed with or without assistive devices. 6-Qgefilhxxi-desfjix completes the activity by him/herself with no assistance from a helper. 5-Set-up or Clean-up Assistance-helper sets up or cleans up; patient completes activity. [place] assists only prior to or following the activity. 4-Supervision or Touching Assistance-helper provides verbal cues and/or touching/steadying and/or contact guard assistance as patient completes activity. Assistance may be provided throughout the activity or intermittently. 3-Partial/Moderate Assistance-helper does LESS THAN HALF the effort. [place] lifts, holds or supports trunk or limbs, but provides less than half the effort. 2-Substantial/Maximal Assistance-helper does MORE THAN HALF the effort. [place] lifts or holds trunk or limbs and provides more than half the effort. 5-Gmvawlllo-uuugcp does ALL the effort. Patient does none of the effort to complete the activity. Or, the assistance of 2 or more helpers is required for the patient to complete the activity. If activity was not attempted, code reason: 7-Patient Refused. 9-Not Applicable-not attempted and the patient did not perform the activity before the current illness, exacerbation or injury. 10-Not Attempted due to Environmental Limitations-(lack of equipment, weather restraints, etc.). 88-Not Attempted due to Medical Conditions or Safety Concerns. Roll Left & Right (QC): 2 Sit to Lying (QC): 2 Lying to Sitting/Side of Bed(Q: 2 Sit to Stand (QC): 2 refused patient to transfer to chair/patient performed sit to stand to FWW x 3 sets max assist with blocking feet Weight Bearing Right Lower Extremity: Right Weight Bearing/Tolerated Left Lower Extremity: Left Weight Bearing/Tolerated Exercises Supine Ex: Ankle pumps, Quad Set, Heel Slides, Straight leg raise Supine Reps: 10 (AAROM bilaterally) Seated Therapy Exercises: Long arc quads Seated Reps: 10 (AAROM bilaterally) Assessment Patient, during RN issuing medication with applesauce, appeared to aspirate. PT repositioned patient with head up and aligned to avoid possible aspiration. RN and spouse educated on proper head position with eating, drinking and taking medication to decrease possible negative side effects. Both verbalize understanding. PT Long-Term Goals Long-Term Goals PT Long-Term Goals Time Frame: Jun 29, 2019 Roll Left & Right (QC): 4 Sit to Lying (QC): 4 Lying-Sitting on Side/Bed(QC): 4 Sit to Stand (QC): 4 Chair/Hcb-wf-Tzptb Xfer(QC): 4 Toilet Transfer (QC): 4 Car Transfer (QC): 4 Does the Patient Walk: No and Walking Goal IS indicated Walk 10 feet (QC): 4 Walk 50ft with 2 Turns (QC): 4 Walk 150 ft (QC): 88 Walking 10ft on Uneven Surface: 4 1 Step (curb) (QC): 4 4 Steps (QC): 9 12 Steps (QC): 9 Picking up an Object (QC): 9 Does the Pt use WC or Scooter?: No Type: N/A Type: N/A PT Plan Treatment/Plan Treatment Plan: Continue Plan of Care Treatment Plan: Bed Mobility, Education, Functional Activity Russell, Functional Strength, Gait, Safety, Therapeutic Exercise, Transfers Treatment Duration: Jun 29, 2019 Frequency: 6 times per week Estimated Hrs Per Day: .25 hour per day Patient and/or Family Agrees t: Yes Time/GCodes Time In: 825 Time Out: 848 Total Billed Treatment Time: 23 Total Billed Treatment 1 visit EX 13 min FA 10 min ALEYDA VALDOVINOS PT Jun 18, 2019 08:54 POS
--- NOTE | 2019-06-18 09:49 | Occ Therapy Progress Note ---
Therapy Progress Note Attempted twice to see pt. First time he was eating, second time he was asleep and did not want him awakened. CHAPITO HERNANDEZ OT Jun 18, 2019 09:49 POS
[2019-06-18] MEDS: VANCOMYCIN 1 GM/NS 250 ML IVPB IV SCH ×4 (10:20→22:24)
--- NOTE | 2019-06-18 10:29 | Progress Note - Hospitalist ---
Subjective HPI/CC On Admission Date Seen by Provider: Jun 18, 2019 Time Seen by Provider: 10:00 Chief complaint: Severe generalized weakness History of present illness: This is an 84-year-old white male with a history of renal cell carcinoma with widespread metastasis who receives chemotherapy every [address] Bowen and monitor closely by his primary care provider Dr. Cantu who presented to the ER with generalized weakness could not get up after a fall at home and considering he is 6 foot 8 and 250 pounds and his is very petite lady EMS brought him to the ER found to have just generalized weakness and slight electrolyte abnormalities so he is admitted for observation. He has bilateral lower extremity venous stasis dermatitis that appears to have significant sloughing of skin with very moist skin so dressings were removed to allow it to air out and patient does not appear to have any type of cellulitis component. Patient was also seeing things in the room with visual hallucinations so I will give 1 dose of risperidone 0.25 mg now and twice daily to see if we can clear that up. I will put an order in for physical therapy and occupational therapy and rehab eval. Subjective/Events-last exam Patient doing a bit better Slept all night after Ativan given Melatonin was also helpful Going to retirement tomorrow Has a lip sore so will initiate Valtrex 20429 milligrams 3 times daily at the bedside does not leave his side Denies any pain Feet look much improved Review of Systems General: Fatigue Neurological: Confusion Focused Exam Lactate Level Objective Exam Vital Signs Vital Signs Date Time Temp Pulse Resp B/P (MAP) Pulse Ox O2 Delivery O2 Flow Rate FiO2 06/18/19 16:00 36.8 85 20 141/66 (91) 94 Room Air 06/15/19 20:05 1.00 Capillary Refill : General Appearance: No Apparent Distress, WD/WN, Chronically ill Respiratory: Chest Non Tender, Lungs Clear, Normal Breath Sounds, No Accessory Muscle Use, No Respiratory Distress Cardiovascular: Regular Rate, Rhythm, No Edema, No Gallop, No JVD, No Murmur, Normal Peripheral Pulses Neurologic/Psychiatric: Alert, Depressed Affect, Disoriented Skin: Normal Color, Warm/Dry, Other (bilateral feet with rash and sloughing) Results/Procedures Lab Laboratory Tests 06/18/19 04:10 Patient resulted labs reviewed. Assessment/Plan Assessment and Plan Assess & Plan/Chief Complaint Assessment: Sepsis due to leg wound with Enterococcus and MRSA on Cx placed on Levaquin and Vanc after pancultured 06/15/16 PM Delirium due to leg wound infection Renal cancer with mets Severe debility and unable to take care of him at home ARF now resolved Hypokalemia Dementia with ? Plan: Pancultured IV abx Change to inpatient due to sepsis and now wound Cx known from leg wound from [facility] in need of IV abx Monitor labs Gentle IVF Replace potassium Supportive care for delirium VCV Saturday vs. Saturday depending on infection status Diagnosis/Problems Diagnosis/Problems (1) Sepsis (2) Immunosuppressed due to chemotherapy (3) Generalized weakness Status: Acute (4) Hallucinations (5) Stasis dermatitis of both legs (6) Metastatic renal cell carcinoma to lung Status: Acute (7) On antineoplastic chemotherapy Status: Acute (8) Lung cancer (9) Pulmonary nodules/lesions, multiple Status: Acute (10) Diabetes Status: Chronic (11) Bilateral lower extremity edema Status: Acute (12) Open leg wound (13) MRSA (methicillin resistant Staphylococcus aureus) infection (14) Enterococcal infection (15) Delirium Clinical Quality Measures DVT/VTE Risk/Contraindication: Risk Factor Score Per Nursin RFS Level Per Nursing on Admit: 4+=Very High LUCINDA PAREDES DO Jun 18, 2019 10:29 POS
[2019-06-18] MEDS: amLODIPine 10 MG (NORVASC) TAB PO SCH (11:59)
[2019-06-18 12:00] VITALS: BP 156/67
[2019-06-18] MEDS: VALACYCLOVIR 500 MG TAB (VALTREX) PO SCH ×2 (12:15→19:44)
[2019-06-18] MEDS: LORazepam INJ 2 MG/ML (ATIVAN) VIAL IM/IV PRN ×3 (12:55→23:31)
[2019-06-18] MEDS: ENOXAPARIN 40 MG/0.4 ML (LOVENOX) SYR SC SCH (13:35)
[2019-06-18 16:00] VITALS: BP 141/66
[2019-06-18] MEDS: glipiZIDE XL 5 MG (GLUCOTROL XL) TAB PO SCH (17:14)
[2019-06-18] MEDS: LEVOFLOXACIN 750 MG/150 ML IV 150 ML IV SCH (17:15)
[2019-06-18 19:00] VITALS: BP 141/78
[2019-06-18] MEDS: doxAzosin 4 MG (CARDURA) TAB PO SCH (19:45)
[2019-06-18] MEDS: MELATONIN 3 MG TABLET PO PRN (19:45)
[2019-06-19 00:25] VITALS: BP 148/80
[2019-06-19] MEDS: LACTATED RINGERS 1,000 ML IV SCH (01:34)
[2019-06-19 03:28] VITALS: BP 152/73
[2019-06-19] MEDS: KCL 10 MEQ TAB (MICRO K) PO SCH (06:30)
[2019-06-19] MEDS: metFORMIN 500 MG (GLUCOPHAGE) TAB PO SCH (06:30)
[2019-06-19 08:00] VITALS: BP 136/79
[2019-06-19] MEDS: INLYTA 5 MG PO SCH (08:28)
[2019-06-19] MEDS ORDERED: TROUGH ORDER-PHARMACY XX ONE (09:00)
--- NOTE | 2019-06-19 09:05 | Physical Therapy Daily Note ---
PT Daily Note-Current Subjective Pt is in bed, mildly confused, very lethargic. Mental Status Patient Orientation: Confused, Mumbles Attachments: Central Line Transfers SCALE: Activities may be completed with or without assistive devices. 0-Fajeyriqbw-qrkiiil completes the activity by him/herself with no assistance from a helper. 5-Set-up or Clean-up Assistance-helper sets up or cleans up; patient completes activity. Zuni assists only prior to or following the activity. 4-Supervision or Touching Assistance-helper provides verbal cues and/or touching/steadying and/or contact guard assistance as patient completes activity. Assistance may be provided throughout the activity or intermittently. 3-Partial/Moderate Assistance-helper does LESS THAN HALF the effort. Zuni lifts, holds or supports trunk or limbs, but provides less than half the effort. 2-Substantial/Maximal Assistance-helper does MORE THAN HALF the effort. Zuni lifts or holds trunk or limbs and provides more than half the effort. 2-Xzsjmectm-sosldn does ALL the effort. Patient does none of the effort to complete the activity. Or, the assistance of 2 or more helpers is required for the patient to complete the activity. If activity was not attempted, code reason: 7-Patient Refused. 9-Not Applicable-not attempted and the patient did not perform the activity before the current illness, exacerbation or injury. 10-Not Attempted due to Environmental Limitations-(lack of equipment, weather restraints, etc.). 88-Not Attempted due to Medical Conditions or Safety Concerns. Roll Left & Right (QC): 2 Sit to Lying (QC): 2 Lying to Sitting/Side of Bed(Q: 2 Pt was attempting to stand, but asked to lie down due to dizziness. Sat edge of bed 2min. Weight Bearing Right Lower Extremity: Right Weight Bearing/Tolerated Left Lower Extremity: Left Weight Bearing/Tolerated Exercises Supine Ex: LE Protocol Supine Reps: 15 Assessment Pt continues to require max assist for mobility and supine ex. Despite his lethargy, he was able to participate with PT. PT Shelter Goals Captain Cannery Tender Goals PT Shelter Goals Time Frame: Jun 29, 2019 Roll Left & Right (QC): 4 Sit to Lying (QC): 4 Lying-Sitting on Side/Bed(QC): 4 Sit to Stand (QC): 4 Chair/Mfj-sw-Vbzap Xfer(QC): 4 Toilet Transfer (QC): 4 Car Transfer (QC): 4 Does the Patient Walk: No and Walking Goal IS indicated Walk 10 feet (QC): 4 Walk 50ft with 2 Turns (QC): 4 Walk 150 ft (QC): 88 Walking 10ft on Uneven Surface: 4 1 Step (curb) (QC): 4 4 Steps (QC): 9 12 Steps (QC): 9 Picking up an Object (QC): 9 Does the Pt use WC or Scooter?: No Type: N/A Type: N/A PT Plan Treatment/Plan Treatment Plan: Continue Plan of Care Treatment Plan: Bed Mobility, Education, Functional Activity Russell, Functional Strength, Gait, Safety, Therapeutic Exercise, Transfers Treatment Duration: Jun 29, 2019 Frequency: 6 times per week Estimated Hrs Per Day: .25 hour per day Patient and/or Family Agrees t: Yes Time/GCodes Time In: 0815 Time Out: 0830 Total Billed Treatment Time: 15 Total Billed Treatment 1, ex 15 SAURABH WALDEN PT Jun 19, 2019 09:05 POS
--- NOTE | 2019-06-19 09:35 | ST Dysphagia Evaluation ---
Speech Evaluation-General Medical Diagnosis Renal cell carcinoma/bilateral LE venous stasis dermatitiswith sloughing Onset Date: Jun 13, 2019 Therapy Diagnosis Therapy Diagnosis: Oropharyngeal Dysphagia Precautions Precautions: Aspiration Referral Referring Physician: Dr. Garcia Medical History Pertinent Medical History: Arthritis, DM, GERD, HTN Reviewed History: Yes Social History Current Living Status: Spouse Speech PLF/Current-Dysphagia Prior Level of Function Patient lives at home with his . He was assisted by his with his daily needs. Subjective Patient was cooperative with the Bedside Dysphagia Evaluation. His was at the bedside. Cognitive Status Patient Orientation: Person, Confused, Unable to Assess Oral Motor Skills Dentition: Natural Ability to Follow Directions: Fair Diet as tolerated Oral Expression Ability: Moderate Impairment Voice Voice Phonatory-Based Quality: Normal Voice Pitch: Normal Voice Loudness: Mildly Soft/Quiet Face Facial Symmetry: Symmetrical Oral-Facial Assessment Oral-Facial Dentition: Normal Labial Seal Description: Weak Smile: Poor Coordination Puff Cheeks: Reduced Strength Lingual Protrusion: Abnormal Lingual ROM: Abnormal Dysphagia Evaluation Consistencies Presented: Thin Liquid, [place] Thick Liquid, Pureed Oral Phase: Anterior Spillage, Reduced Oral Transit With thin consistency Pharyngeal Phase: Decreased A/P Bolus Transit, Multiple Swallow Attempts, Delay ed Laryngeal Elevation, Delayed Swallow Patient presents with significant delay in swallow, subsequent swallows to clear Funct. Velo/Pharyngeal Symptom: Wet Voice Dietary Recommendations: Pureed Liquid Recommendations: [place] Consistancy Swallowing Precautions: Alternate Liquids/Solids, Decreased Bolus 1/2 Tsp, Liquids from Spoon, Small Bites and Sips, Sitting Upright 90 Degrees, Sitting 90 Degrees 30 Post Intake Dysphagia Evaluation Summary Patient is an 84 year old male who was admitted to the hospital due to overall weakness. Patient was evaluated at bedside for swallow function. The patient's was at bedside. He was presented thin at 1/2 tsp x2 with delay in swallow onset, with subsequent swallows. Patient was given nectar consistency at 1/2 tsp x2 with swallow onset slightly delayed with clearing appropriately noted. Patient was presented puree at 1/2 tsp with delay of swallow onset. Higher level of textures were not presented secondary to patient's delay in swallow onset and confusion. Patient is recommended for Dysphagia I with nectar consistency liquids. This information was provided to his nurse, Lainey and written on the board as well. Diet level explained to his with vocal understanding. Speech Short Term Goals Short Term Goals Short Term Goals 1) Patient will tolerate least restrictive diet level without s/s of aspiration at 80% or greater. 2) Patient/caregiver will utilize compensatory strategies as trained at 90% or greater with minimal cues. Speech Casino Cage Cashier Goals Casino Cage Cashier Goals Patient will maintain adequate nutrition/hydration via safe, effective swallow function. Speech-Plan Patient/Family Goals Patient/Family Goals: Patient's is planning on him returning home upon hospital discharge. Treatment Plan Speech Therapy Treatment Plan: Continue Plan of Care Patient will receive skilled ST for dysphagia. Treatment Duration: Jun 25, 2019 Frequency: 3 times per week Estimated Hrs Per Day: .25 hour per day Rehab Potential: Guarded Barriers to Learning: Patient is confused. Pt/Family Agrees to Plan: Yes Safety Risks/Education Teaching Recipient: Patient, Significant Other Teaching Methods: Discussion Response to Teaching: Verbalize Understanding, Reinforcement Needed Education Topics Provided: Safety of oral intake, diet level and compensatory strategies. Time Speech Therapy Time In: 08:30 Speech Therapy Time Out: 08:45 Total Billed Time: 15 Billed Treatment Time [address]LY[address] ST Jun 19, 2019 09:35 POS
[2019-06-19] MEDS: HYDROCHLOROTHIAZIDE 25 MG (HCTZ) TAB PO SCH (09:50)
[2019-06-19] MEDS: VALACYCLOVIR 500 MG TAB (VALTREX) PO SCH ×2 (09:51→13:39)
[2019-06-19] MEDS: risperiDONE 0.25 MG (RisperDAL) TAB PO SCH (09:51)
[2019-06-19] MEDS: SENNA W/DOCUSATE (SENOKOT S) TABLET PO SCH (09:51)
[2019-06-19] MEDS: MAGNESIUM OXIDE (MAG-OX)400 MG TAB PO SCH (09:51)
[2019-06-19] MEDS: LOSARTAN 50 MG (COZAAR) TAB PO SCH (09:51)
--- NOTE | 2019-06-19 10:19 | Occ Therapy Progress Note ---
Therapy Progress Note Attempted OT treatment at 1015. Pt asleep in bed with spouse present. Pt's refused therapy at this time. Will continue to follow. 1, visit ABDIAS HUMPHREYS OT Jun 19, 2019 10:19 POS
--- NOTE | 2019-06-19 11:01 | Progress Note ---
Standard Progress Note Progress Notes/Assess & Plan Date Seen by a Provider: Jun 19, 2019 Time Seen by a Provider: 10:55 Progress/Assessment & Plan 84-year-old male with metastatic renal cell carcinoma and on treatment with Inlyta and Keytruda with an excellent response. Recent increased weakness and delirium requiring hospitalization. Bilateral lower extremity open wounds with sloughed skin. Wound culture by home health at [facility] showing abundant growth of gram-positive and gram-negative organisms identified as MRSA, enterococcus, Klebsiella etc. Currently on vancomycin and Levaquin. Wound care with daily dressing changes which is painful. Waxing and waning mental status and not swallowing well. Speech therapy and swallow evaluation noted. Mental status change could be related to medications or CVA. May consider adjusting medications. Infection is being treated appropriately. Continue IV hydration and antibiotics. Continue Inlyta 5 mg by mouth twice a day. Patient has his own medication supply and may use this. Continue wound care recommendations for lower extremity open wounds. Overall prognosis guarded. Will follow patient with you. YOBANY WOODARD Jun 19, 2019 11:01 POS
--- NOTE | 2019-06-19 11:18 | NUR ---
PTD VANCOMYCIN LABS: VANCOMYCIN TROUGH 23.9 PLAN: CHANGE TO [id number] DOSING, NEXT DOSE SCHEDULED FOR 06/20.
--- NOTE | 2019-06-19 11:20 | NUR ---
MOISÉS RUIZ WAS CALLED TO PHARMACY 23.9 -- MOISÉS ON HOLD
[2019-06-19] MEDS ORDERED: ENOX40DI8 SC (11:37)
[2019-06-19] MEDS ORDERED: LEVO750T9 PO (11:37)
[2019-06-19] MEDS ORDERED: SENN-20 PO (11:37)
[2019-06-19] MEDS ORDERED: VALA500T4 PO (11:37)
[2019-06-19] MEDS ORDERED: ACHD5005 PO (11:37)
[2019-06-19] MEDS ORDERED: LINE600T5 PO (11:37)
[2019-06-19] MEDS ORDERED: LORA2ORA PO (11:37)
--- NOTE | 2019-06-19 11:38 | Discharge Inst-Skilled Nursing ---
Discharge Inst-Skilled NF Reconcile Patient Problems Problems Reviewed?: Yes Chief Complaint Chief complaint: Severe generalized weakness History of present illness: This is an 84-year-old white male with a history of renal cell carcinoma with widespread metastasis who receives chemotherapy every [address] Bowen and monitor closely by his primary care provider Dr. Cantu who presented to the ER with generalized weakness could not get up after a fall at home and considering he is 6 foot 8 and 250 pounds and his is very petite lady EMS brought him to the ER found to have just generalized weakness and slight electrolyte abnormalities so he is admitted for observation. He has bilateral lower extremity venous stasis dermatitis that appears to have significant sloughing of skin with very moist skin so dressings were removed to allow it to air out and patient does not appear to have any type of cellulitis component. Patient was also seeing things in the room with visual hallucinations so I will give 1 dose of risperidone 0.25 mg now and twice daily to see if we can clear that up. I will put an order in for physical therapy and occupational therapy and rehab eval. Patient Instructions Patient Problems: Foot infection Renal cell carcinoma with metastasis Severe debility Delirium Goal: Return to independent living Patient Instructions: Admit to Dr. Payton prison service Consult/Follow Up/Orders Follow Up Appt.: Dr. Payton for prison rounds in one week Skilled NF Admit to: Via [facility] Certification ([facility]) I certify that SNF services are required to be given on an inpatient basis because of the above named patient's need for retirement care on a continuing basis for the conditions(s) for which he/she was receiving inpatient hospital services prior to his/her transfer to the SNF. Fdc Facility Order: Nursing Services, Hair And Makeup Designer-Evaluate & Treat, Physical Therapy-Evaluate & Treat, Speech Language-Evaluate & Treat, Wound Care-Eval/Treat (initiate wound care to keep wounds on feet clean and dry) Oxygen Delivery Method: Room Air Discharge Diet: ADA Diet Resuscitation Status: Do Not Resuscitate New & Resume Previous Orders New Medications: Levofloxacin (Levaquin) 750 Mg Tablet 750 MG PO DAILY for 5 Days, TAB Linezolid (Zyvox) 600 Mg Tablet 600 MG PO BID, #10 TAB Lorazepam (Lorazepam Intensol) 2 Mg/1 Ml Oral.conc 1 MG PO Q4H PRN for AGITATION, #30 ML Enoxaparin Sodium (Enoxaparin Sodium) 40 Mg/0.4 Ml Syringe 40 MG SC Q24H for 14 Days, SYRINGE Hydrocodone Bit/Acetaminophen (Hydrocodone/Acetaminophen 5/325mg Tablet) 1 Tab Tab 1 TAB PO Q4H PRN for PAIN-MODERATE (5-7), #15 TAB Sennosides/Docusate Sodium (Senna-Time S Tablet) 1 Each Tablet 2 EA PO BID for 30 Days, TAB Valacyclovir HCl (Valtrex) 500 Mg Tablet 1000 MG PO TID for 5 Days, TAB Continued Medications: Amlodipine Besylate (Amlodipine Besylate) 10 Mg Tablet 10 MG PO 1200, TAB Axitinib (Inlyta) 5 Mg Tablet 5 MG PO BID, TAB Doxazosin Mesylate (Doxazosin Mesylate) 8 Mg Tablet 8 MG PO HS, TAB Glipizide (Glipizide ER) 5 Mg Tab.er.24 5 MG PO 1800, TAB Herbal Drugs (Colon Herbal Cleanser) 1 Each Capsule 1 CAP PO DAILY, CAP Hydrochlorothiazide (Hydrochlorothiazide) 25 Mg Tablet 25 MG PO DAILY, TAB Insulin Degludec (Tresiba Flextouch U-100) 100 Unit/1 Ml Insuln.pen 10 UNITS SC HS, EA Insulin Lispro (Humalog Kwikpen) 100 Unit/1 Ml Insuln.pen 5 UNITS SC BID WITH MEALS PRN for BS>150, EA Losartan Potassium (Losartan Potassium) 100 Mg Tablet 100 MG PO DAILY, TAB Magnesium Oxide (Magnesium Oxide) 400 Mg Tablet 400 MG PO BID, TAB Metformin HCl (Metformin HCl) 1,000 Mg Tablet 1000 MG PO DAILY, TAB Potassium Chloride (Potassium Chloride) 10 Meq Tablet.er 10 MEQ PO BID for 30 Days, TAB 30 DAY SUPPLY FILLED 05-28-19 Solifenacin Succinate (Solifenacin Succinate) 5 Mg Tablet 5 MG PO DAILY, TAB ON HOLD UNTIL 06-27-19 WHEN POTASSIUM IS FINISHED Meena Paredes Jun 19, 2019 11:37 MEENA PAREDES DO Jun 19, 2019 11:38 POS
--- NOTE | 2019-06-19 11:43 | Discharge Summary ---
Discharge Summary Hospital Course Was the Problem List Reviewed?: Yes Problems/Dx: (1) Sepsis (2) Immunosuppressed due to chemotherapy (3) Generalized weakness Status: Acute (4) Hallucinations (5) Stasis dermatitis of both legs (6) Metastatic renal cell carcinoma to lung Status: Acute (7) On antineoplastic chemotherapy Status: Acute (8) Lung cancer (9) Pulmonary nodules/lesions, multiple Status: Acute (10) Diabetes Status: Chronic (11) Bilateral lower extremity edema Status: Acute (12) Open leg wound (13) MRSA (methicillin resistant Staphylococcus aureus) infection (14) Enterococcal infection (15) Delirium Hospital Course Date of Admission: Jun 15, 2019 at 17:30 Admission Diagnosis : Family Physician/Provider: Randy Cantu DO Date of Discharge: 06/19/19 Discharge Diagnosis: Bilateral foot and leg wounds with MRSA and enterococcus, delirium severe, renal cell carcinoma with widespread metastasis, severe debility Hospital Course: Patient had a lengthy hospital course when he was admitted for observation for generalized weakness his could no longer take care of him at home. Later it was noted Dr. Bowen received wound cultures from [facility] home care which revealed enterococcus and MRSA of the wounds of the legs status placed on vancomycin and Levaquin with local wound care. Labs remained stable but severe delirium was profound requiring Haldol and Ativan injections for chemical restraints. Overall his prognosis remains guarded he will have close follow-up with Dr. Lucas for chemotherapy the patient appears to be very end stage especially with advanced age of 84. Labs and Pending Lab Test: Laboratory Tests 06/18/19 16:07: Glucometer 136H 06/18/19 20:59: Glucometer 112H 06/19/19 05:51: Glucometer 102 06/19/19 10:28: Vancomycin Level Trough 23.9H 06/19/19 11:12: Glucometer 81 Microbiology 06/15/19 Blood Culture - Preliminary, Resulted No growth Home Meds Active Lorazepam Intensol (Lorazepam) 2 Mg/1 Ml Oral.conc 1 Mg PO Q4H PRN Zyvox (Linezolid) 600 Mg Tablet 600 Mg PO BID Levaquin (Levofloxacin) 750 Mg Tablet 750 Mg PO DAILY 5 Days Senna-Time S Tablet (Sennosides/Docusate Sodium) 1 Each Tablet 2 Ea PO BID 30 Days Hydrocodone/Acetaminophen 5/325mg Tablet (Acetaminophen/Hydrocodone Bitart) 1 Tab Tab 1 Tab PO Q4H PRN Enoxaparin Sodium 40 Mg/0.4 Ml Syringe 40 Mg SC Q24H 14 Days Valtrex (Valacyclovir HCl) 500 Mg Tablet 1,000 Mg PO TID 5 Days Reported Potassium Chloride 10 Meq Tablet.er 10 Meq PO BID 30 Days 30 DAY SUPPLY FILLED 05-28-19 Losartan Potassium 100 Mg Tablet 100 Mg PO DAILY Tresiba Flextouch U-100 (Insulin Degludec) 100 Unit/1 Ml Insuln.pen 10 Units SC HS Humalog Kwikpen (Insulin Lispro) 100 Unit/1 Ml Insuln.pen 5 Units SC BID WITH MEALS PRN Solifenacin Succinate 5 Mg Tablet 5 Mg PO DAILY ON HOLD UNTIL 06-27-19 WHEN POTASSIUM IS FINISHED Magnesium Oxide 400 Mg Tablet 400 Mg PO BID Hydrochlorothiazide 25 Mg Tablet 25 Mg PO DAILY Colon Herbal Cleanser (Herbal Drugs) 1 Each Capsule 1 Cap PO DAILY Inlyta (Axitinib) 5 Mg Tablet 5 Mg PO BID Doxazosin Mesylate 8 Mg Tablet 8 Mg PO HS Amlodipine Besylate 10 Mg Tablet 10 Mg PO 1200 Glipizide ER (Glipizide) 5 Mg Tab.er.24 5 Mg PO 1800 Metformin HCl 1,000 Mg Tablet 1,000 Mg PO DAILY Assessment/Pt Instructions skilled nursing rounds via [facility] in one week per Dr. Payton Discharge Planning: >30 minutes discharge planning Discharge Instructions Discharge Diet: ADA Diet Activity as Tolerated: Yes Discharge Physical Examination Vital Signs Vital Signs Date Time Temp Pulse Resp B/P (MAP) Pulse Ox O2 Delivery O2 Flow Rate FiO2 06/19/19 08:00 Room Air 06/19/19 08:00 36.8 90 20 136/79 (98) 95 06/15/19 20:05 1.00 General Appearance: No Apparent Distress, WD/WN, Chronically ill, Other (confused, very end-stage, pale) Respiratory: Lungs Clear Cardiovascular: Regular Rate, Rhythm Neurologic/Psychiatric: Alert, Disoriented Allergies: Coded Allergies: adhesive tape (Verified Allergy, Unknown, Hives, 12/08/18) Discharge Summary Date of Admission Jun 15, 2019 at 17:30 Date of Discharge Discharge Date: Jun 19, 2019 Admission Diagnosis Assessment: Generalized weakness Renal cell carcinoma with widespread mets on chemotherapy Q3 weeks per Dr Lucas Bilateral venous stasis dermatitis with sloughing of skin Visual hallucinations DM HTN Loss of weight Plan: Home meds OOB PT/OT Rehab evaluation Allow lower legs to dry out Wound care Prognosis guarded Discharge Diagnosis Assessment: Sepsis due to leg wound with Enterococcus and MRSA on Cx placed on Levaquin and Vanc after pancultured 06/15/16 PM Delirium due to leg wound infection Renal cancer with mets Severe debility and unable to take care of him at home ARF now resolved Hypokalemia Dementia with ? Plan: Pancultured IV abx Change to inpatient due to sepsis and now wound Cx known from leg wound from [facility] in need of IV abx Monitor labs Gentle IVF Replace potassium Supportive care for delirium VCV Saturday vs. Saturday depending on infection status (1) Sepsis (2) Immunosuppressed due to chemotherapy (3) Generalized weakness Status: Acute (4) Hallucinations (5) Stasis dermatitis of both legs (6) Metastatic renal cell carcinoma to lung Status: Acute (7) On antineoplastic chemotherapy Status: Acute (8) Lung cancer (9) Pulmonary nodules/lesions, multiple Status: Acute (10) Diabetes Status: Chronic (11) Bilateral lower extremity edema Status: Acute (12) Open leg wound (13) MRSA (methicillin resistant Staphylococcus aureus) infection (14) Enterococcal infection (15) Delirium Clinical Quality Measures DVT/VTE Risk/Contraindication: Risk Factor Score Per Nursin RFS Level Per Nursing on Admit: 4+=Very High LUCINDA PAREDES DO Jun 19, 2019 11:43 POS
[2019-06-19 12:00] VITALS: BP 158/72
--- NOTE | 2019-06-19 12:11 | NUR ---
DISCHARGE PLANNING: Patient is discharged to new SKILLED placement at [facility]. He will need to be transported VIA EMS due to bed rest and agitation when requested to get out of bed. Care Assessment, DNR, and POA paperwork faxed along with Pending discharge order and scripts for Ativan and Hydrocodone. NO needs at this. EMS to e contacted around 1:30.
[2019-06-19] MEDS: amLODIPine 10 MG (NORVASC) TAB PO SCH (12:31)
[2019-06-19] MEDS: ENOXAPARIN 40 MG/0.4 ML (LOVENOX) SYR SC SCH (14:26)
[2019-06-19 15:41] VITALS: BP 158/72
[2019-06-20] MEDS ORDERED: VANCOMYCIN 1 GM/NS 250 ML IVPB IV SCH ×2 (10:00)
== END 2019-06-19 14:50 | DRG 872 ==
LOC: EDUNIT# 09:49 → ER 09:51 → 4TH 11:33 → OBSVTOIN 06-15 17:30
PROVIDERS: ADMIT Family Medicine; ATTEND Internal Medicine
DX: A41.81 Sepsis due to Enterococcus (principal); A41.02 Sepsis due to Methicillin resistant Staphylococcus aureus; A41.59 Other Gram-negative sepsis; I87.2 Venous insufficiency (chronic) (peripheral); L97.218 Non-pressure chronic ulcer of right calf with other specified severity; L97.228 Non-pressure chronic ulcer of left calf with other specified severity; C64.2 Malignant neoplasm of left kidney, except renal pelvis; C78.01 Secondary malignant neoplasm of right lung; Z66 Do not resuscitate; C78.02 Secondary malignant neoplasm of left lung; C79.51 Secondary malignant neoplasm of bone; C79.71 Secondary malignant neoplasm of right adrenal gland; C79.72 Secondary malignant neoplasm of left adrenal gland; J44.9 Chronic obstructive pulmonary disease, unspecified; E11.9 Type 2 diabetes mellitus without complications; I10 Essential (primary) hypertension; R63.4 Abnormal weight loss; F03.90 Unspecified dementia, unspecified severity, without behavioral disturbance, psychotic disturbance, mood disturbance, and anxiety; R44.1 Visual hallucinations; R55 Syncope and collapse; R53.1 Weakness; R60.0 Localized edema; M19.91 Primary osteoarthritis, unspecified site; G47.30 Sleep apnea, unspecified; K21.9 Gastro-esophageal reflux disease without esophagitis; K59.09 Other constipation; Z87.891 Personal history of nicotine dependence; Z85.46 Personal history of malignant neoplasm of prostate; Z79.4 Long term (current) use of insulin; R91.8 Other nonspecific abnormal finding of lung field
CPT/HCPCS: 36415; 70470; 71045; 80048; 80053; 80202; 81000; 82962; 83605; 83615; 83735; 85025; 85027; 87040; G0378

== ENCOUNTER 2019-06-23 12:16 | Emergency (ER) | payer MEDICARE, OTHER ==
[~2019-06-23] VITALS: Ht 200 cm; Wt 131.5 kg
[~2019-06-23 12:16] MED LIST changes: +ACHD5005 PO; +AMLO10TA7 PO; +AXIT5TAB PO; +DOXA8TAB73 PO; +ENOX40DI8 SC; +HERB1CAP2 PO; +HYDR25TA4 PO; +LEVO750T9 PO; +LINE600T12 PO; +LORA2ORA PO; +LOSA100T57 PO; +MAGN400T7 PO; +OMEP40CA27 PO; -OMEP40CA36 PO; -OXYB10TA PO; +OXYB10TA2 PO; +POTA10CA43 PO; +POTA10TA10 PO; +SENN-20 PO; +SOLI5TAB7 PO; +VALA500T4 PO
--- NOTE | 2019-06-23 12:42 | ED General ---
General Stated Complaint: FEVER Source of Information: Patient Exam Limitations: No Limitations History of Present Illness Date Seen by Provider: Jun 23, 2019 Time Seen by Provider: 12:40 Initial Comments To ER with reports of a fever greater than 102. He arrives per EMS from via [facility]. He was recently discharged from the hospital with sepsis due to infected leg wounds, culture showed enterococcus and MRSA. He was sent back to the care home, developed a rash about 2 days ago, this was about one day after starting Zyvox orally and Levaquin. 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 He is DO NOT RESUSCITATE status. Timing/Duration: 1-2 Days Severity: Moderate Associated Systoms: Fever/Chills Allergies and Home Medications Allergies Coded Allergies: adhesive tape (Verified Allergy, Unknown, Hives, 12/08/18) Home Medications Amlodipine Besylate 10 Mg Tablet, 10 MG PO 1200, (Reported) Axitinib 5 Mg Tablet, 5 MG PO BID, (Reported) Doxazosin Mesylate 8 Mg Tablet, 8 MG PO HS, (Reported) Enoxaparin Sodium 40 Mg/0.4 Ml Syringe, 40 MG SC Q24H Prescribed by: LUCINDA PAREDES on 06/19/19 1137 Glipizide 5 Mg Tab.er.24, 5 MG PO 1800, (Reported) Herbal Drugs 1 Each Capsule, 1 CAP PO DAILY, (Reported) Hydrochlorothiazide 25 Mg Tablet, 25 MG PO DAILY, (Reported) Hydrocodone Bit/Acetaminophen 1 Tab Tab, 1 TAB PO Q4H PRN for PAIN-MODERATE (5- 7) Prescribed by: LUCINDA PAREDES on 06/19/19 1137 Insulin Degludec 100 Unit/1 Ml Insuln.pen, 10 UNITS SC HS, (Reported) Insulin Lispro 100 Unit/1 Ml Insuln.pen, 5 UNITS SC BID WITH MEALS PRN for BS>150, (Reported) Levofloxacin 750 Mg Tablet, 750 MG PO DAILY Prescribed by: LUCINDA PAREDES on 06/19/19 1137 Linezolid 600 Mg Tablet, 600 MG PO BID Prescribed by: LUCINDA PAREDES on 06/19/19 1137 Lorazepam 2 Mg/1 Ml Oral.conc, 1 MG PO Q4H PRN for AGITATION Prescribed by: LUCINDA PAREDES on 06/19/19 1137 Losartan Potassium 100 Mg Tablet, 100 MG PO DAILY, (Reported) Magnesium Oxide 400 Mg Tablet, 400 MG PO BID, (Reported) Metformin HCl 1,000 Mg Tablet, 1,000 MG PO DAILY, (Reported) Potassium Chloride 10 Meq Tablet.er, 10 MEQ PO BID, (Reported) 30 DAY SUPPLY FILLED 05-28-19 Sennosides/Docusate Sodium 1 Each Tablet, 2 EA PO BID Prescribed by: LUCINDA PAREDES on 06/19/19 1137 Solifenacin Succinate 5 Mg Tablet, 5 MG PO DAILY, (Reported) ON HOLD UNTIL 06-27-19 WHEN POTASSIUM IS FINISHED Valacyclovir HCl 500 Mg Tablet, 1,000 MG PO TID Prescribed by: LUCINDA PAREDES on 06/19/19 1137 Patient Home Medication List Home Medication List Reviewed: Yes Review of Systems Review of Systems Constitutional: see HPI, other (due to confusion/altered mental status he is unable to contribute to the history of present illness) Past Jstefwp-Tnlpxe-Gktooi Hx Patient Social History Type Used: Cigarettes Former Smoker, Quit: Jul 22, 1965 2nd Hand Smoke Exposure: Yes (exposed when going to [employer] x1/week) Recent Hopitalizations: No Seasonal Allergies Seasonal Allergies: No Past Medical History Surgeries: Yes Gallbladder, Joint Replacement, Prostatectomy Respiratory: Yes (LUNG MASSES; ) Sleep Apnea, COPD Cardiac: Yes Hypertension Neurological: No Reproductive Disorders: No Genitourinary: Yes (PROSTATE CANCER,; LEFT RENAL MASS DX 11/20/18 ) Gastrointestinal: Yes (HX OF BLEEDING DIVERTICULITUS ) Gastroesophageal Reflux, Gastrointestinal Bleed, Chronic Constipation, Diverticulosis Musculoskeletal: Yes Arthritis Endocrine: Yes (OBESITY) Diabetes, Insulin dep HEENT: Yes (RIGHT EYE WITH CATARACT; 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 0.0oz. 136.238520bc; 29.45 BMI Method:Stated General Appearance: No Apparent Distress, WD/WN, Other (disoriented, ch ronically ill, speech is unintelligible and garbled) Eyes: Bilateral Eye Normal Inspection, Bilateral Eye PERRL, Bilateral Eye EOMI HEENT: PERRL/EOMI, TMs Normal, Other (mucous membranes dry with ulcers on hard palate of mouth) Neck: Full Range of Motion, Normal Inspection Respiratory: No Accessory Muscle Use, No Respiratory Distress, Rhonci Cardiovascular: Regular Rate, Rhythm, Normal Peripheral Pulses Gastrointestinal: Normal Bowel Sounds, Non Tender, Soft Extremity: Normal Capillary Refill, Other (wounds to both lower extremities right greater than left with drainage, culture collected from the right wound, venous stasis dermatitis changes of both lower extremities) Neurologic/Psychiatric: Alert, Disoriented (patient's only understandable speech was "I still can't have sexual intercourse") Skin: Normal Color, Warm/Dry, Rash (diffuse rash) Focused Exam Lactate Level 06/23/19 12:40: Lactic Acid Level 2.29*H Lactic Acid Level Laboratory Tests Test 06/23/19 12:40 Lactic Acid Level 2.29 MMOL/L (0.50-2.00) *H Progress/Results/Core Measures Suspected Sepsis SIRS Temperature: Pulse: Respiratory Rate: Laboratory Tests 06/23/19 12:40: White Blood Count 6.7 Blood Pressure / Mean: 06/23/19 12:40: Lactic Acid Level 2.29*H Laboratory Tests 06/23/19 12:40: Creatinine 2.36H, Platelet Count 118L, Total Bilirubin 0.7 Results/Orders Lab Results Laboratory Tests Test 06/23/19 12:40 06/23/19 13:25 Range/Units White Blood Count 6.7 4.3-11.0 10^3/uL Red Blood Count 3.13 L 4.35-5.85 10^6/uL Hemoglobin 9.4 L 13.3-17.7 G/DL Hematocrit 31 L 40-54 % Mean Corpuscular Volume 99 80-99 FL Mean Corpuscular Hemoglobin 30 25-34 PG Mean Corpuscular Hemoglobin Concent 30 L 32-36 G/DL Red Cell Distribution Width 15.8 H 10.0-14.5 % Platelet Count 118 L 130-400 10^3/uL Mean Platelet Volume 10.6 H 7.4-10.4 FL Neutrophils (%) (Auto) 79 H 42-75 % Lymphocytes (%) (Auto) 14 12-44 % Monocytes (%) (Auto) 5 0-12 % Eosinophils (%) (Auto) 2 0-10 % Basophils (%) (Auto) 0 0-10 % Neutrophils # (Auto) 5.3 1.8-7.8 X 10^3 Lymphocytes # (Auto) 1.0 1.0-4.0 X 10^3 Monocytes # (Auto) 0.3 0.0-1.0 X 10^3 Eosinophils # (Auto) 0.2 0.0-0.3 10^3/uL Basophils # (Auto) 0.0 0.0-0.1 10^3/uL Sodium Level 150 H 135-145 MMOL/L Potassium Level 3.7 3.6-5.0 MMOL/L Chloride Level 114 H 98-107 MMOL/L Carbon Dioxide Level 25 21-32 MMOL/L Anion Gap 11 5-14 MMOL/L Blood Urea Nitrogen 30 H 7-18 MG/DL Creatinine 2.36 H 0.60-1.30 MG/DL Estimat Glomerular Filtration Rate 26 BUN/Creatinine Ratio 13 Glucose Level 81 70-105 MG/DL Lactic Acid Level 2.29 *H 0.50-2.00 MMOL/L Calcium Level 8.2 L 8.5-10.1 MG/DL Corrected Calcium 9.6 8.5-10.1 MG/DL Total Bilirubin 0.7 0.1-1.0 MG/DL Aspartate Amino Transf (AST/SGOT) 33 5-34 U/L Alanine Aminotransferase (ALT/SGPT) 22 0-55 U/L Alkaline Phosphatase 76 40-136 U/L Total Protein 5.1 L 6.4-8.2 GM/DL Albumin 2.2 L 3.2-4.5 GM/DL Urine Color YELLOW Urine Clarity CLEAR Urine pH 5.5 5-9 Urine Specific [place] >=1.030 1.016-1.022 Urine Protein 3+ H NEGATIVE Urine Glucose (UA) NEGATIVE NEGATIVE Urine Ketones NEGATIVE NEGATIVE Urine Nitrite NEGATIVE NEGATIVE Urine Bilirubin 2+ H NEGATIVE Urine Urobilinogen 0.2 < = 1.0 MG/DL Urine Leukocyte Esterase NEGATIVE NEGATIVE Urine RBC (Auto) TRACE-I NEGATIVE Urine RBC 0-2 /HPF Urine WBC 0-2 /HPF Urine Squamous Epithelial Cells RARE /HPF Urine Crystals PRESENT H /LPF Urine Amorphous Sediment FEW SUZANNA URATES H /LPF Urine Bacteria NEGATIVE /HPF Urine Casts PRESENT /LPF Urine Hyaline Casts 10-25 H /LPF Urine Mucus NEGATIVE /LPF Urine Culture Indicated NO Micro Results Microbiology 06/23/19 Influenza Types A,B Antigen (COLIN) - Final, Complete My Orders Orders - RADHIKA SANTANA APRN Cbc With Automated Diff (06/23/19 12:36) Comprehensive Metabolic Panel (06/23/19 12:36) Ua Culture If Indicated (06/23/19 12:36) Straight Cath (Urinary) (06/23/19 12:36) Wound Culture (06/23/19 12:36) Influenza A And B Antigens (06/23/19 12:36) Chest 1 View, Ap/Pa Only (06/23/19 12:36) Ns Iv 1000 Ml (Sodium Chloride 0.9%) (06/23/19 12:45) Blood Culture (06/23/19 12:36) Lactic Acid Analyzer (06/23/19 12:36) Ibuprofen Suspension (Motrin Suspension) (06/23/19 12:45) Acetaminophen Suppository (Tylenol Suppo (06/23/19 13:00) Lorazepam Injection (Ativan Injection) (06/23/19 14:45) Piperacillin Sodium/Tazobactam (Zosyn Vi (06/23/19 14:45) Vancomycin Injection (Vancomycin Injecti (06/23/19 14:45) Palliative Care Consult (06/23/19 14:47) Medications Given in ED Current Medications Medications Dose Ordered Sig/Donny Route Start Time Stop Time Status Last Admin Dose Admin Acetaminophen 650 mg ONCE ONCE MO 06/23/19 13:00 06/23/19 13:01 DC 06/23/19 13:30 650 MG Lorazepam 0.5 mg ONCE PRN IVP 06/23/19 14:45 06/23/19 14:48 0.5 MG Vital Signs/I&O 06/23/19 12:16 Temp 37.7 Pulse 91 Resp 15 B/P (MAP) Pulse Ox 93 O2 Delivery Room Air Capillary Refill : Diagnostic Imaging Diagonstic Imaging: Xray Plain Films/CT/US/NM/MRI: chest Departure Communication (Admissions) [id number] had a long discussion with patient's daughter Keysha Ansari and , we're all in agreement to proceed with hospice. Dr Doyle agrees and visited with and pt. she spoke with [place] [facility] worker who will meet the patient at the facility, I'll write orders to admit to hospice for diagnosis of renal cell carcinoma with metastasis to lung and bone (ribs fourth and seventh), sepsis, pneumonia Impression Primary Impression: Open leg wound Additional Impressions: Renal cancer Lung mass Hallucinations Pneumonia Septic shock Disposition: 03 XFER SNF Condition: Unchanged Departure-Patient Inst. Decision time for Depature: 15:44 Referrals: CHANCE PEREZ DO (PCP/Family) Primary Care Physician Patient Instructions: Bone Cancer, Sepsis, Adult (DC) Add. Discharge Instructions: 1. [place] [facility] will meet with you at the care home and help guide care from that point forward. Copy Copies To 1: CHANCE PEREZ PETER J APRN Jun 23, 2019 12:42 POS
[2019-06-23] MEDS ORDERED: NS IV 1000 ML 1,000 ML IV SCH (12:45)
[2019-06-23] MEDS ORDERED: IBUPROFEN SUSP 100MG/5ML (MOTRIN) UDC PO ONE (12:45)
[2019-06-23 12:55] LABS: BASOPHILS % (AUTO) 0 % (0-10); EOSINOPHILS # (AUTO) 0.2 10^3/uL (0.0-0.3); EOSINOPHILS % (AUTO) 2 % (0-10); HEMATOCRIT 31 % (40-54); HEMOGLOBIN 9.4 G/DL (13.3-17.7); LYMPHOCYTES % (AUTO) 14 % (12-44); MEAN CORPUSCULAR HEMOGLOBIN 30 PG (25-34); MEAN CORPUSCULAR HGB CONC 30 G/DL (32-36); MEAN CORPUSCULAR VOLUME 99 FL (80-99); MEAN PLATELET VOLUME 10.6 FL (7.4-10.4); MONOCYTES # (AUTO) 0.3 X 10^3 (0.0-1.0); MONOCYTES % (AUTO) 5 % (0-12); NEUTROPHILS # (AUTO) 5.3 X 10^3 (1.8-7.8); NEUTROPHILS % (AUTO) 79 % (42-75); PLATELET COUNT 118 10^3/uL (130-400); RED CELL DISTRIBUTION WIDTH 15.8 % (10.0-14.5); WHITE BLOOD COUNT 6.7 10^3/uL (4.3-11.0)
[2019-06-23] MEDS ORDERED: ACETAMINOPHEN 650 MG SUPP (TYLENOL) PR ONE (13:00)
[2019-06-23 13:12] LABS: ALBUMIN 2.2 GM/DL (3.2-4.5); BILIRUBIN,TOTAL 0.7 MG/DL (0.1-1.0); CALCIUM 8.2 MG/DL (8.5-10.1); CREATININE SERUM 2.36 MG/DL (0.60-1.30); POTASSIUM 3.7 MMOL/L (3.6-5.0); TOTAL PROTEIN 5.1 GM/DL (6.4-8.2)
[2019-06-23 13:58] LABS: CLARITY,URINE CLEAR; COLOR,URINE YELLOW; GLUCOSE, URINE (UA) NEGATIVE (NEGATIVE); KETONES,URINE NEGATIVE (NEGATIVE); LEUKOCYTE ESTERASE ,URINE NEGATIVE (NEGATIVE); NITRITE,URINE NEGATIVE (NEGATIVE); PH,URINE 5.5 (5-9); PROTEIN,URINE 3+ (NEGATIVE)
--- NOTE | 2019-06-23 14:12 | Diagnostic Imaging Report ---
INDICATION: Fever and weakness. FINDINGS: Bilateral infiltrates, greater right, have progressed in the interim. The heart is upper limits size but stable. There is background COPD, chronic. There is no definite pleural fluid. No pneumothorax. The right IJ is at the SVC and is stable. IMPRESSION: Worsened bilateral infiltrates, greater right. Dictated by: Dictated on workstation # [id number]
[2019-06-23 14:23] LABS: BACTERIA,URINE NEGATIVE /HPF; RBC,URINE 0-2 /HPF; SQUAMOUS EPITHELIAL CELL,UR RARE /HPF; WBC,URINE 0-2 /HPF
[2019-06-23 14:24] LABS: AMORPHOUS SEDIMENT,UR FEW AMOR URATES /LPF
[2019-06-23 14:25] LABS: BILIRUBIN,URINE 2+ (NEGATIVE)
[2019-06-23] MEDS ORDERED: VANCOMYCIN INJECTION 2,000 MG in NS IV 500 ML 500 ML IV SCH (14:45)
[2019-06-23] MEDS ORDERED: LORazepam INJ 2 MG/ML (ATIVAN) VIAL IVP PRN (14:45)
[2019-06-23] MEDS: PIPERACILLIN SODIUM/TAZOBACTAM 4.5 GM in NS (IVPB) 100 ML IV ONE ×2 (15:15→15:49)
--- NOTE | 2019-06-23 16:11 | NUR ---
Dispatch called for transport to [facility].
--- NOTE | 2019-06-23 16:11 | NUR ---
Called shift captain for transport back to [facility].
[2019-06-23 16:34] VITALS: BP 88/60
--- OUTSIDE RECORDS SUMMARY | 2019-07-18 17:44 | XMS REPORT | Continuity of Care Document ---
Author Organization Unknown Address Unknown Phone Unavailable Allergies Active Description Code Type Severity Reaction Onset Reported/Identified Relationship to Patient Clinical Status Yes ADHESIVE ADHESIVE SEVERE Yes ADHESIVE SEVERE DERMATOLOGICAL - FABIAN Yes ADHESIVE SEVERE SEVERE Yes No Known Drug Allergies [id number] Drug Allergy Unknown N/A 06/06/2009 Yes adhesive tape [id number] Omari g Allergy Unknown Hives 12/08/2018 Medications Medication Packaging Start Date St op Date Route Dosage Sig ONDANSETRON VIAL INJ 4 MG/2CC (ZOFRAN 2CC VIAL) MG 08/28/2016 09/04/2016 PRN Q4H NORMAL SALINE 1000CC IV BAG INJ 0.9 % (NS 1000CC IV BAG) ml 08/28/2016 09/12/2016 CONTINUOUSEVERY 0 Hour FAMOTIDINE VIAL INJ 20 MG/2CC (PEPCID VIAL ) MG 08/28/2016 09/04/2016 BID&0800,2000 PANTOPAZOLE VIAL INJ 40 MG (PROTONIX IV) MG 08/28/2016 09/07/2016 BID&0800,2000 LATANOPROST OPHTH SOLUTION L IQ 0.005 % (XALATAN) drops 08/29/2016 09/04/2016 Daily&0900 INSULIN ASPART PEN INJ 100 U NITS/CC (NOVOLOG FLEXPEN) 08/29/2016 09/27/2016 Daily&0900 CEPHALEXIN CAP 500 MG (KEFLEX) MG 04/14/2019 04/14/2019 ONCE&0031 TETANUS,DIPTH,PERT ADULT INJ 0 (ADACEL SYRINGE) ML 04/14/2019 04/14/2019 ONCE&0031 Problems Date Dx Coded Attending Type Code Diagnosis Diagnosed By 12/23/2013 GISEL UMANA MD Ot 244. 9 HYPOTHYROIDISM NOS 12/23/2013 GISEL UMANA MD Ot 250. 00 DIAB MARY WO COMPL, TYPE II OR UNSPEC TY 12/23/2013 GISEL UMANA MD Ot 272. 4 HYPERLIPIDEMIA NEC/NOS 12/23/2013 LYNDSAY MD, BASHAR J Ot 278. 00 OBESITY, NOS 12/23/2013 GISEL UMANA MD Ot 401. 9 HYPERTENSION NOS 12/23/2013 GISEL UMANA MD Ot 414. 01 CORONARY ATHEROSCLEROSIS OF [place] CORON 12/23/2013 GISEL UMANA MD Ot 530. 81 ESOPHAGEAL REFLUX 12/23/2013 GISEL UMANA MD Ot 786. 59 CHEST PAIN NEC 12/23/2013 GISEL UMANA MD Ot 794. 30 ABN CARDIOVASC STUDY NOS 12/23/2013 GISEL UMANA MD, Ot V17. 3 FAM HX-ISCHEM HEART DIS 12/23/2013 GISEL UMANA MD, Ot V58. 69 OTH MED,LT,CURRENT USE 12/23/2013 GISEL UMANA MD, Ot V85. 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 08/28/2016 PEREZ CHANCE CASAS Ot 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 08/30/2016 LENA CASAS LUCINDA Ot D62 ACUTE POSTHEMORRHAGIC ANEMIA 08/30/2016 JOSE DANIEL PAREDES DOI Ot D64.9 ANEMIA, UNSPECIFIED 08/30/2016 LENA CASAS LUCINDA Ot E11.9 TYPE 2 DIABETES MELLITUS WITHOUT COMPLIC 08/30/2016 JOSE DANIEL PAREDES DOI Ot E66.9 OBESITY, UNSPECIFIED 08/30/2016 LENA CASAS LUCINDA Ot H54.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, LEFT EYE, NORMAL VISION RIGHT 08/30/2016 LENA CASAS LUCINDA Ot K25.4 CHRONIC OR UNSPECIFIED GASTRIC ULCER WIT 08/30/2016 LENA CASAS LUCINDA Ot K29.71 GASTRITIS, UNSPECIFIED, WITH BLEEDING 08/30/2016 LENA CASAS LUCINDA Ot K59.09 OTHER CONSTIPATION 08/30/2016 LENA CASAS LUCINDA Ot R53.81 OTHER MALAISE 08/30/2016 JOSE DANIEL PAREDES DOI Ot Z68.32 BODY MASS INDEX (BMI) 32.0-32.9, ADULT 08/30/2016 LENA CASAS LUCINDA Ot Z85.46 PERSONAL HISTORY OF MALIGNANT NEOPLASM O 08/30/2016 LENA CASAS LUCINDA Ot Z87.89 1 PERSONAL HISTORY OF NICOTINE DEPENDENCE 09/04/2016 GUIDO ROJAS 715.30 OSTEOARTHROSIS, LOCALIZED, NOT SPECIFIED WHETHER PRIMARY OR SECONDARY, INVOLVING UNSPECIFIED SITE 09/04/2016 GUIDO ROJAS M19.90 UNSPECIFIED OSTEOARTHRITIS, UNSPECIFIED SITE 09/04/2016 GUIDO ROJAS 250.00 DIABETES MELLITUS WITHOUT MENTION OF COMPLICATION, TYPE II OR UNSPECIFIED TYPE, NOT STATED UNCONTROLLED 09/04/2016 GUIDO ROJAS 569.3 HEMORRHAGE OF RECTUM AND ANUS 09/04/2016 CRYSTAL, GUIDO Noriega 578.9 HEMORRHAGE OF GASTROINTESTINAL TRACT, UNSPECIFIED 09/04/2016 [...] Noriega M19.90 UNSPECIFIED OSTEOARTHRITIS, UNSPECIFIED SITE 11/02/2016 CRYSATL, GUIDO Noriega 250.00 DIABETES MELLITUS WITHOUT MENTION [...] GUIDO Noriega K92.2 GASTROINTESTINAL HEMORRHAGE, UNSPECIFIED 11/02/2016 GUIDO ROJAS M19.90 UNSPECIFIED OSTEOARTHRITIS, UNSPECIFIED SITE 11/02/2016 GUIDO ROJAS T84.84XA PAIN DUE TO INTERNAL ORTHOPEDIC PROSTH DEV/GRFT, INIT 03/13/2017 CHANCE PEREZ 781.2 ABNORMALITY OF GAIT 03/13/2017 CHANCE PEREZ R26.8 1 UNSTEADINESS ON FEET 11/20/2018 LEISURE, LYNIETA W 199.1 OTHER MALIGNANT [...] MALAISE AND FATIGUE 11/20/2018 LEISURE, LYNIETA W 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 11/20/2018 LEISURE, LYNIETA W P96.89 OTHER SPECIFIED CONDITIONS ORIGINATING IN THE PERIOD 11/20/2018 LEISURE, LYNIETA W 780.79 OTHER MALAISE AND FATIGUE 11/20/2018 LEISURE, LYNIETA W 793.19 OTHER NONSPECIFIC ABNORMAL FINDING OF LUNG FIELD 11/20/2018 LEISURE, LYNIETA W 911.0 ABRASION OR FRICTION BURN OF TRUNK, WITHOUT MENTION OF INFECTION 11/20/2018 LEISURE, LYNIETA W P96.89 OTHER SPECIFIED CONDITIONS ORIGINATING IN THE PERIOD 11/20/2018 LEISURE, LYNIETA W R53.1 WEAKNESS 11/20/2018 LEISURE, LYNIETA W R91.8 OTHER NONSPECIFIC ABNORMAL FINDING OF LUNG FIELD 11/20/2018 LEISURE, LYNIETA W S30.81 0A ABRASION OF LOWER BACK AND PELVIS, INITIAL ENCOUNTER 11/21/2018 PAREDES DO, LUCINDA Ot D64.9 ANEMIA, UNSPECIFIED 11/21/2018 PAREDES DO, LUCINDA Ot E11.9 TYPE 2 DIABETES MELLITUS WITHOUT COMPLIC 11/21/2018 PAREDES DO, LUCINDA Ot E27.9 DISORDER OF ADRENAL GLAND, UNSPECIFIED 11/21/2018 PAREDES DO, LUCINDA Ot E83.42 HYPOMAGNESEMIA 11/21/2018 LUCINDA PAREDES DO Ot E83.52 HYPERCALCEMIA 11/21/2018 LUCINDA PAREDES DO Ot G47.30 SLEEP APNEA, UNSPECIFIED 11/21/2018 LUCINDA PAREDES DO Ot I87.8 OTHER SPECIFIED DISORDERS OF VEINS 11/21/2018 JOSE DANIEL PAREDES DOI Ot K57.90 DVRTCLOS OF INTEST, PART UNSP, W/O PERF 11/21/2018 LUCINDA PAREDES DO Ot K59.09 OTHER CONSTIPATION 11/21/2018 JOSE DANIEL PAREDES DOI Ot M19.91 PRIMARY OSTEOARTHRITIS, UNSPECIFIED SITE 11/21/2018 LENA CASAS LUCINDA Ot N28.89 OTHER SPECIFIED DISORDERS OF KIDNEY AND 11/21/2018 JOSE DANIEL PAREDES DOI Ot R39.11 HESITANCY OF MICTURITION 11/21/2018 JOSE DANIEL PAREDES DOI Ot R53.1 WEAKNESS 11/21/2018 LENA CASAS LUCINDA Ot R59.0 LOCALIZED ENLARGED LYMPH NODES 11/21/2018 JOSE DANIEL PAREDES DOI Ot R63.4 ABNORMAL WEIGHT LOSS 11/21/2018 JOSE DANIEL PAREDES DOI Ot R91.8 OTHER NONSPECIFIC ABNORMAL FINDING OF VIOLET 11/21/2018 LUCINDA PAREDES DO Ot Z77.22 CNTCT W AND EXPSR TO ENVIRON TOBACCO SMO 11/21/2018 JOSE DANIEL PAREDES DOI Ot 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 11/21/2018 JOSE DANIEL PAREDES DOI Ot Z85.46 PERSONAL HISTORY OF MALIGNANT NEOPLASM O 11/21/2018 LUCINDA PAREDES DO Ot Z85.82 8 PERSONAL HISTORY OF OTHER MALIGNANT NEOP 11/21/2018 LUCINDA PAREDES DO Ot Z87.89 1 PERSONAL HISTORY OF NICOTINE DEPENDENCE 11/21/2018 JOSE DANIEL PAREDES DOI Ot Z90.79 ACQUIRED ABSENCE OF OTHER GENITAL ORGAN( 11/21/2018 LUCINDA PAREDES DO Ot Z91.81 HISTORY OF FALLING 11/21/2018 LUCINDA PAREDES DO Ot 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, BILATE 11/22/2018 LUCINDA PAREDES DO Ot D64.9 ANEMIA, UNSPECIFIED 11/22/2018 JOSE DANIEL PAREDES DOI Ot E11.9 TYPE 2 DIABETES MELLITUS WITHOUT COMPLIC 11/22/2018 JOSE DANIEL PAREDES DOI Ot E27.9 DISORDER OF ADRENAL GLAND, UNSPECIFIED 11/22/2018 LENA CASAS LUCINDA Ot E83.42 HYPOMAGNESEMIA 11/22/2018 LENA CASAS LUCINDA Ot E83.52 HYPERCALCEMIA 11/22/2018 LENA CASAS LUCINDA Ot G47.30 SLEEP APNEA, UNSPECIFIED 11/22/2018 LENA CASAS LUCINDA Ot I87.8 OTHER SPECIFIED DISORDERS OF VEINS 11/22/2018 LENA CASAS LUCINDA Ot K57.90 DVRTCLOS OF INTEST, PART UNSP, W/O PERF 11/22/2018 LENA CASAS LUCINDA Ot K59.09 OTHER CONSTIPATION 11/22/2018 LENA CASAS LUCINDA Ot M19.91 PRIMARY OSTEOARTHRITIS, UNSPECIFIED SITE 11/22/2018 LENA CASAS LUCINDA Ot N28.89 OTHER SPECIFIED DISORDERS OF KIDNEY AND 11/22/2018 LENA CASAS LUCINDA Ot R39.11 HESITANCY OF MICTURITION 11/22/2018 LENA CASAS LUCINDA Ot R53.1 WEAKNESS 11/22/2018 LENA CASAS LUCINDA Ot R59.0 LOCALIZED ENLARGED LYMPH NODES 11/22/2018 LENA CASAS LUCINDA Ot R63.4 ABNORMAL WEIGHT LOSS 11/22/2018 LENA CASAS LUCINDA Ot R91.8 OTHER NONSPECIFIC ABNORMAL FINDING OF VIOLET 11/22/2018 LENA CASAS LUCINDA Ot Z77.22 CNTCT W AND EXPSR TO ENVIRON TOBACCO SMO 11/22/2018 LENA CASAS LUCINDA Ot Z79.4 HALF-WAY (CURRENT) USE OF INSULIN 11/22/2018 LENA CASAS LUCINDA Ot Z85.46 PERSONAL HISTORY OF MALIGNANT NEOPLASM O 11/22/2018 LENA CASAS LUCINDA Ot Z85.82 8 PERSONAL HISTORY OF OTHER MALIGNANT NEOP 11/22/2018 LENA CASAS LUCINDA Ot Z87.89 1 PERSONAL HISTORY OF NICOTINE DEPENDENCE 11/22/2018 LENA CASAS LUCINDA Ot Z90.79 ACQUIRED ABSENCE OF OTHER GENITAL ORGAN( 11/22/2018 LENA CASAS LUCINDA Ot Z91.81 HISTORY OF FALLING 11/22/2018 LENA CASAS LUCINDA Ot 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, BILATE 11/22/2018 LENA CASAS LUCINDA Ot D64.9 ANEMIA, UNSPECIFIED 11/22/2018 LENA CASAS LUCINDA Ot E11.9 TYPE 2 DIABETES MELLITUS WITHOUT COMPLIC 11/22/2018 JOSE DANIEL PAREDES DOI Ot E27.9 DISORDER OF ADRENAL GLAND, UNSPECIFIED 11/22/2018 LUCINDA PAREDES DO Ot E83.42 HYPOMAGNESEMIA 11/22/2018 JOSE DANIEL PAREDES DOI Ot E83.52 HYPERCALCEMIA 11/22/2018 JOSE DANIEL PAREDES DOI Ot G47.30 SLEEP APNEA, UNSPECIFIED 11/22/2018 LUCINDA [...] LUCINDA PAREDES DO Ot R53.1 WEAKNESS 11/22/2018 LUCINDA PAREDES DO Ot R59.0 LOCALIZED ENLARGED LYMPH NODES 11/22/2018 LUCINDA PAREDES DO Ot R63.4 ABNORMAL WEIGHT LOSS 11/22/2018 LUCINDA PAREDES DO Ot R91.8 OTHER NONSPECIFIC ABNORMAL FINDING OF VIOLET 11/22/2018 LUCINDA PAREDES DO Ot Z77.22 CNTCT W AND EXPSR TO ENVIRON TOBACCO SMO 11/22/2018 LUCINDA PAREDES DO Ot 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 11/22/2018 LUCINDA PAREDES DO Ot Z85.46 PERSONAL HISTORY OF MALIGNANT NEOPLASM O 11/22/2018 LUCINDA PAREDES DO Ot Z85.82 8 PERSONAL HISTORY OF OTHER MALIGNANT NEOP 11/22/2018 LUCINDA PAREDES DO Ot Z87.89 1 PERSONAL HISTORY OF NICOTINE DEPENDENCE 11/22/2018 LUCINDA PAREDES DO Ot Z90.79 ACQUIRED ABSENCE OF OTHER GENITAL ORGAN( 11/22/2018 JOSE DANIEL PAREDES DOI Ot Z91.81 HISTORY OF FALLING 11/22/2018 LUCINDA PAREDES DO Ot 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, BILATE 11/23/2018 LUCINDA PAREDES DO Ot D64.9 ANEMIA, UNSPECIFIED 11/23/2018 JOSE DANIEL [...] I87.8 OTHER SPECIFIED DISORDERS OF VEINS 11/23/2018 LENA CASAS LUCINDA Ot K57.90 DVRTCLOS OF INTEST, PART UNSP, W/O PERF 11/23/2018 LUCINDA PAREDES DO Ot K59.09 OTHER CONSTIPATION 11/23/2018 JOSE DANIEL PAREDES DOI Ot M19.91 PRIMARY OSTEOARTHRITIS, UNSPECIFIED SITE 11/23/2018 JOSE DANIEL PAREDES DOI Ot N28.89 OTHER SPECIFIED DISORDERS OF KIDNEY AND 11/23/2018 JOSE DANIEL PAREDES DOI Ot R39.11 HESITANCY OF MICTURITION 11/23/2018 JOSE DANIEL PAREDES DOI Ot R53.1 WEAKNESS 11/23/2018 LUCINDA PAREDES DO Ot R59.0 LOCALIZED ENLARGED LYMPH NODES 11/23/2018 LUCINDA PAREDES DO Ot R63.4 ABNORMAL WEIGHT LOSS 11/23/2018 JOSE DANIEL PAREDES DOI Ot R91.8 OTHER NONSPECIFIC ABNORMAL FINDING OF VIOLET 11/23/2018 LUCINDA PAREDES DO Ot Z77.22 CNTCT W AND EXPSR TO ENVIRON TOBACCO SMO 11/23/2018 LUCINDA PAREDES DO Ot 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 11/23/2018 LUCINDA PAREDES DO Ot Z85.46 PERSONAL HISTORY OF MALIGNANT NEOPLASM O 11/23/2018 LUCINDA PAREDES DO Ot Z85.82 8 PERSONAL HISTORY OF OTHER MALIGNANT NEOP 11/23/2018 JOSE DANIEL PAREDES DOI Ot Z87.89 1 PERSONAL HISTORY OF NICOTINE DEPENDENCE 11/23/2018 JOSE DANIEL PAREDES DOI Ot Z90.79 ACQUIRED ABSENCE OF OTHER GENITAL ORGAN( 11/23/2018 LUCINDA PAREDES DO Ot Z91.81 HISTORY OF FALLING 11/23/2018 LUCINDA PAREDES DO Ot 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, BILATE 11/23/2018 LUCINDA PAREDES DO Ot D64.9 ANEMIA, UNSPECIFIED 11/23/2018 LUCINDA PAREDES DO Ot E11.9 TYPE 2 DIABETES MELLITUS WITHOUT COMPLIC 11/23/2018 JOSE DANIEL PAREDES DOI Ot E27.9 DISORDER OF ADRENAL GLAND, UNSPECIFIED 11/23/2018 JOSE DANIEL PAREDES DOI Ot E83.42 HYPOMAGNESEMIA 11/23/2018 JOSE DANIEL PAREDES DOI Ot E83.52 HYPERCALCEMIA 11/23/2018 LENA CASAS LUCINDA Ot G47.30 SLEEP APNEA, UNSPECIFIED 11/23/2018 JOSE DANIEL PAREDES DOI Ot I87.8 OTHER SPECIFIED DISORDERS OF VEINS 11/23/2018 LUCINDA PAREDES DO Ot K57.90 DVRTCLOS OF INTEST, PART UNSP, W/O PERF 11/23/2018 JOSE DANIEL PAREDES DOI Ot K59.09 OTHER CONSTIPATION 11/23/2018 LUCINDA PAREDES DO Ot M19.91 PRIMARY OSTEOARTHRITIS, UNSPECIFIED SITE 11/23/2018 LENA CASAS LUCINDA Ot N28.89 OTHER SPECIFIED DISORDERS OF KIDNEY AND 11/23/2018 LENA CASAS LUCINDA Ot R39.11 HESITANCY OF MICTURITION 11/23/2018 JOSE DANIEL PAREDES DOI Ot R53.1 WEAKNESS 11/23/2018 LENA CASAS LUCINDA Ot R59.0 LOCALIZED ENLARGED LYMPH NODES 11/23/2018 JOSE DANIEL PAREDES DOI Ot R63.4 ABNORMAL WEIGHT LOSS 11/23/2018 LUCINDA PAREDES DO Ot R91.8 OTHER NONSPECIFIC ABNORMAL FINDING OF VIOLET 11/23/2018 LUCINDA PAREDES DO Ot Z77.22 CNTCT W AND EXPSR TO ENVIRON TOBACCO SMO 11/23/2018 LUCINDA PAREDES DO Ot Z79.4 HALF-WAY (CURRENT) USE OF INSULIN 11/23/2018 LUCINDA PAREDES DO Ot Z85.46 PERSONAL HISTORY OF MALIGNANT NEOPLASM O 11/23/2018 LUCINDA PAREDES DO Ot Z85.82 8 PERSONAL HISTORY OF OTHER MALIGNANT NEOP 11/23/2018 JOSE DANIEL PAREDES DOI Ot Z87.89 1 PERSONAL HISTORY OF NICOTINE DEPENDENCE 11/23/2018 LUCINDA PAREDES DO Ot Z90.79 ACQUIRED ABSENCE OF OTHER GENITAL ORGAN( 11/23/2018 LENA CASAS LUCINDA Ot Z91.81 HISTORY OF FALLING 11/23/2018 JOSE DANIEL PAREDES DOI Ot 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, BILATE 11/24/2018 JOSE DANIEL PAREDES DOI Ot D64.9 ANEMIA, UNSPECIFIED 11/24/2018 LENA CASAS LUCINDA Ot E11.9 TYPE 2 DIABETES MELLITUS WITHOUT COMPLIC 11/24/2018 JOSE DANIEL PAREDES DOI Ot E27.9 DISORDER OF ADRENAL GLAND, UNSPECIFIED 11/24/2018 LENA CASAS LUCINDA Ot E83.42 HYPOMAGNESEMIA 11/24/2018 LENA CASAS LUCINDA Ot E83.52 HYPERCALCEMIA 11/24/2018 LENA CASAS LUCINDA Ot G47.30 SLEEP APNEA, UNSPECIFIED 11/24/2018 JOSE DANIEL PAREDES DOI Ot I87.8 OTHER SPECIFIED DISORDERS OF VEINS 11/24/2018 JOSE DANIEL PAREDES DOI Ot K57.90 DVRTCLOS OF INTEST, PART UNSP, W/O PERF 11/24/2018 LENA CASAS LUCINDA Ot K59.09 OTHER CONSTIPATION 11/24/2018 LENA CASAS LUCINDA Ot M19.91 PRIMARY OSTEOARTHRITIS, UNSPECIFIED SITE 11/24/2018 LENA CASAS LUCINDA Ot N28.89 OTHER SPECIFIED DISORDERS OF KIDNEY AND 11/24/2018 LENA CASAS LUCINDA Ot R39.11 HESITANCY OF MICTURITION 11/24/2018 LENA CASAS LUCINDA Ot R53.1 WEAKNESS 11/24/2018 LENA CASAS LUCINDA Ot R59.0 LOCALIZED ENLARGED LYMPH NODES 11/24/2018 JOSE DANIEL PAREDES DOI Ot R63.4 ABNORMAL WEIGHT LOSS 11/24/2018 LENA CASAS LUCINDA Ot R91.8 OTHER NONSPECIFIC ABNORMAL FINDING OF VIOLET 11/24/2018 LENA CASAS LUCINDA Ot Z77.22 CNTCT W AND EXPSR TO ENVIRON TOBACCO SMO 11/24/2018 LUCINDA PAREDES DO Ot Z79.4 HALF-WAY (CURRENT) USE OF INSULIN 11/24/2018 LENA CASAS LUCINDA Ot Z85.46 PERSONAL HISTORY OF MALIGNANT NEOPLASM O 11/24/2018 JOSE DANIEL PAREDES DOI Ot Z85.82 8 PERSONAL HISTORY OF OTHER MALIGNANT NEOP 11/24/2018 LENA CASAS LUCINDA Ot Z87.89 1 PERSONAL HISTORY OF NICOTINE DEPENDENCE 11/24/2018 LUCINDA PAREDES DO Ot Z90.79 ACQUIRED ABSENCE OF OTHER GENITAL ORGAN( 11/24/2018 LUCINDA PAREDES DO Ot Z91.81 HISTORY OF FALLING 11/24/2018 LUCINDA PAREDES DO Ot 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, BILATE 11/25/2018 LENA CASAS LUCINDA Ot D64.9 ANEMIA, UNSPECIFIED 11/25/2018 LENA CASAS LUCINDA Ot E11.9 TYPE 2 DIABETES MELLITUS WITHOUT COMPLIC 11/25/2018 LENA CASAS LUCINDA Ot E27.9 DISORDER OF ADRENAL GLAND, UNSPECIFIED 11/25/2018 LENA CASAS LUCINDA Ot E83.42 HYPOMAGNESEMIA 11/25/2018 LENA CASAS LUCINDA Ot E83.52 HYPERCALCEMIA 11/25/2018 LENA CASAS LUCINDA [...] LUCINDA Ot R39.11 HESITANCY OF MICTURITION 11/25/2018 LENA CASAS LUCINDA Ot R53.1 WEAKNESS 11/25/2018 LENA CASAS LUCINDA Ot R59.0 LOCALIZED ENLARGED LYMPH NODES 11/25/2018 LENA CASAS LUCINDA Ot R63.4 ABNORMAL WEIGHT LOSS 11/25/2018 LENA CASAS LUCINDA Ot R91.8 OTHER NONSPECIFIC ABNORMAL FINDING OF VIOLET 11/25/2018 LUCINDA PAREDES DO Ot Z77.22 CNTCT W AND EXPSR TO ENVIRON TOBACCO SMO 11/25/2018 JOSE DANIEL PAREDES DOI Ot Z79.4 HALF-WAY (CURRENT) USE OF INSULIN 11/25/2018 LENA CASAS LUCINDA Ot Z85.46 PERSONAL HISTORY OF MALIGNANT NEOPLASM O 11/25/2018 LUCINDA PAREDES DO Ot Z85.82 8 PERSONAL HISTORY OF OTHER MALIGNANT NEOP 11/25/2018 LUCINDA PAREDES DO Ot Z87.89 1 PERSONAL HISTORY OF NICOTINE DEPENDENCE 11/25/2018 LUCINDA PAREDES DO Ot Z90.79 ACQUIRED ABSENCE OF OTHER GENITAL ORGAN( 11/25/2018 LUCINDA PAREDES DO Ot Z91.81 HISTORY OF FALLING 11/25/2018 LUCINDA PAREDES DO Ot 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, BILATE 11/26/2018 JOSE DANIEL PAREDES DOI Ot D64.9 ANEMIA, UNSPECIFIED 11/26/2018 LENA CASAS [...] SMO 11/26/2018 LUCINDA PAREDES DO Ot Z79.4 HALF-WAY (CURRENT) USE OF INSULIN 11/26/2018 LUCINDA PAREDES DO Ot Z85.46 PERSONAL HISTORY OF MALIGNANT NEOPLASM O 11/26/2018 LENA CASAS LUCINDA Ot Z85.82 8 PERSONAL HISTORY OF OTHER MALIGNANT NEOP 11/26/2018 LENA CASAS LUCINDA Ot Z87.89 1 PERSONAL HISTORY OF NICOTINE DEPENDENCE 11/26/2018 LENA CASAS LUCINDA Ot Z90.79 ACQUIRED ABSENCE OF OTHER GENITAL ORGAN( 11/26/2018 LENA CASAS LUCINDA Ot Z91.81 HISTORY OF FALLING 11/26/2018 JOSE DANIEL PAREDES DOI Ot 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, BILATE 11/26/2018 [...] 11/26/2018 JOSE DANIEL PAREDES DOI Ot Z79.4 HALF-WAY (CURRENT) USE OF INSULIN 11/26/2018 LENA CASAS LUCINDA Ot Z85.46 PERSONAL HISTORY OF MALIGNANT NEOPLASM O 11/26/2018 JOSE DANIEL PAREDES DOI Ot Z85.82 8 PERSONAL HISTORY OF OTHER MALIGNANT NEOP 11/26/2018 LENA CASAS LUCINDA Ot Z87.89 1 PERSONAL HISTORY OF NICOTINE DEPENDENCE 11/26/2018 LENA CASAS LUCINDA Ot Z90.79 ACQUIRED ABSENCE OF OTHER GENITAL ORGAN( 11/26/2018 LENA CASAS LUCINDA Ot Z91.81 HISTORY OF FALLING 11/26/2018 LENA CASAS LUCINDA Ot 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, BILATE 11/26/2018 [...] SMO 11/26/2018 LUCINDA PAREDES DO Ot 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 11/26/2018 LUCINDA PAREDES DO Ot Z85.46 PERSONAL HISTORY OF MALIGNANT NEOPLASM O 11/26/2018 LENA CASAS LUCINDA Ot Z85.82 8 PERSONAL HISTORY OF OTHER MALIGNANT NEOP 11/26/2018 LENA CASAS LUCINDA Ot Z87.89 1 PERSONAL HISTORY OF NICOTINE DEPENDENCE 11/26/2018 LENA CASAS LUCINDA Ot Z90.79 ACQUIRED ABSENCE OF OTHER GENITAL ORGAN( 11/26/2018 LENA CASAS LUCINDA Ot Z91.81 HISTORY OF FALLING 11/26/2018 LUCINDA PAREDES DO Ot 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, BILATE 11/27/2018 LUCINDA PAREDES DO Ot D64.9 ANEMIA, UNSPECIFIED 11/27/2018 LENA CASAS LUCINDA Ot E11.9 TYPE 2 DIABETES MELLITUS WITHOUT COMPLIC 11/27/2018 JOSE DANIEL PAREDES DOI Ot E27.9 DISORDER OF ADRENAL GLAND, UNSPECIFIED 11/27/2018 LENA CASAS LUCINDA Ot E83.42 HYPOMAGNESEMIA 11/27/2018 LENA CASAS LUCINDA Ot E83.52 HYPERCALCEMIA 11/27/2018 LENA CASAS LUCINDA Ot G47.30 SLEEP APNEA, UNSPECIFIED 11/27/2018 JOSE DANIEL PAREDES DOI Ot I87.8 OTHER SPECIFIED DISORDERS OF VEINS 11/27/2018 LENA CASAS LUCINDA Ot K57.90 DVRTCLOS OF INTEST, PART UNSP, W/O PERF 11/27/2018 LENA CASAS LUCINDA Ot K59.09 OTHER CONSTIPATION 11/27/2018 LENA CASAS LUCINDA Ot M19.91 PRIMARY OSTEOARTHRITIS, UNSPECIFIED SITE 11/27/2018 LENA CASAS LUCINDA Ot N28.89 OTHER SPECIFIED DISORDERS OF KIDNEY AND 11/27/2018 LENA CASAS LUCINDA Ot R39.11 HESITANCY OF MICTURITION 11/27/2018 LENA CASAS LUCINDA Ot R53.1 WEAKNESS 11/27/2018 LENA CASAS LUCINDA Ot R59.0 LOCALIZED ENLARGED LYMPH NODES 11/27/2018 LUCINDA PAREDES DO Ot R63.4 ABNORMAL WEIGHT LOSS 11/27/2018 LENA CASAS LUCINDA Ot R91.8 OTHER NONSPECIFIC ABNORMAL FINDING OF VIOLET 11/27/2018 LUCINDA PAREDES DO Ot Z77.22 CNTCT W AND EXPSR TO ENVIRON TOBACCO SMO 11/27/2018 LUCINDA PAREDES DO Ot Z79.4 HALF-WAY (CURRENT) USE OF INSULIN 11/27/2018 LENA CASAS LUCINDA Ot Z85.46 PERSONAL HISTORY OF MALIGNANT NEOPLASM O 11/27/2018 LENA CASAS LUCINDA Ot Z85.82 8 PERSONAL HISTORY OF OTHER MALIGNANT NEOP 11/27/2018 LUCINDA PAREDES DO Ot Z87.89 1 PERSONAL HISTORY OF NICOTINE DEPENDENCE 11/27/2018 LENA CASAS LUCINDA Ot Z90.79 ACQUIRED ABSENCE OF OTHER GENITAL ORGAN( 11/27/2018 LENA CASAS LUCINDA Ot Z91.81 HISTORY OF FALLING 11/27/2018 JOSE DANIEL PAREDES DOI Ot 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, BILATE 11/28/2018 [...] AND EXPSR TO ENVIRON TOBACCO SMO 11/28/2018 LENA CASAS LUCINDA Ot 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 11/28/2018 LENA CASAS LUCINDA Ot Z85.46 PERSONAL HISTORY OF MALIGNANT NEOPLASM O 11/28/2018 LENA CASAS LUCINDA Ot Z85.82 8 PERSONAL HISTORY OF OTHER MALIGNANT NEOP 11/28/2018 LENA CASAS LUCINDA Ot Z87.89 1 PERSONAL HISTORY OF NICOTINE DEPENDENCE 11/28/2018 LENA CASAS LUCINDA Ot Z90.79 ACQUIRED ABSENCE OF OTHER GENITAL ORGAN( 11/28/2018 LENA CASAS LUCINDA Ot Z91.81 HISTORY OF FALLING 11/28/2018 LENA CASAS LUCINDA Ot 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, BILATE 11/28/2018 [...] Ot N28.1 CYST OF KIDNEY, ACQUIRED 11/28/2018 LENA CASAS LUCINDA Ot N28.89 OTHER SPECIFIED DISORDERS OF KIDNEY AND 11/28/2018 LUCINDA PAREDES DO Ot R09.02 HYPOXEMIA 11/28/2018 LENA CASAS LUCINDA Ot R39.11 HESITANCY OF MICTURITION 11/28/2018 LENA CASAS LUCINDA Ot R53.1 WEAKNESS 11/28/2018 LUCINDA PAREDES DO Ot R59.0 LOCALIZED ENLARGED LYMPH NODES 11/28/2018 LENA CASAS LUCINDA Ot R63.4 ABNORMAL WEIGHT LOSS 11/28/2018 JOSE DANIEL PAREDES DOI Ot R91.8 OTHER NONSPECIFIC ABNORMAL FINDING OF VIOLET 11/28/2018 LUCINDA PAREDES DO Ot Z77.22 CNTCT W AND EXPSR TO ENVIRON TOBACCO SMO 11/28/2018 LENA CASAS LUCINDA Ot Z79.4 HALF-WAY (CURRENT) USE OF INSULIN 11/28/2018 LENA CASAS LUCINDA Ot Z80.3 FAMILY HISTORY OF MALIGNANT NEOPLASM OF 11/28/2018 LENA CASAS LUCINDA Ot Z85.46 PERSONAL HISTORY OF MALIGNANT NEOPLASM O 11/28/2018 LENA CASAS LUCINDA Ot Z85.82 8 PERSONAL HISTORY OF OTHER MALIGNANT NEOP 11/28/2018 LENA CASAS LUCINDA Ot Z87.89 1 PERSONAL HISTORY OF NICOTINE DEPENDENCE 11/28/2018 LUCINDA PAREDES DO Ot Z90.79 ACQUIRED ABSENCE OF OTHER GENITAL ORGAN( 11/28/2018 LENA CASAS LUCINDA Ot Z91.81 HISTORY OF FALLING 11/28/2018 LENA CASAS LUCINDA Ot 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 02 SECONDARY MALIGNANT NEOPLASM OF LEFT JUANCARLOS 12/09/2018 JOE GANNON DO Ot E03. 9 HYPOTHYROIDISM, UNSPECIFIED 12/09/2018 JOE GANNON DO Ot E11. 9 TYPE 2 DIABETES MELLITUS WITHOUT COMPLIC 12/09/2018 JOE GANNON DO Ot E66. 9 OBESITY, UNSPECIFIED 12/09/2018 JOE GANNON DO Ot G47. 33 OBSTRUCTIVE SLEEP APNEA (ADULT) (PEDIATR 12/09/2018 JOE GANNON DO Ot I10 ESSENTIAL (PRIMARY) HYPERTENSION 12/09/2018 JOE GANNON DO Ot I25. 10 ATHSCL HEART DISEASE OF [place] CORONARY 12/09/2018 JOE GANNON DO Ot K21. 9 GASTRO-ESOPHAGEAL REFLUX DISEASE WITHOUT 12/09/2018 JOE GANNON DO Ot Z68. 30 BODY MASS INDEX (BMI) 30.0-30.9, ADULT 12/09/2018 JOE GANNON DO Ot Z79. 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 12/10/2018 BEATRIZ WOODARDFLETCHER Nuñez Ot D64.9 ANEMIA, UNSPECIFIED 12/10/2018 VANCE YOBANY Nuñez Ot E03.9 HYPOTHYROIDISM, UNSPECIFIED 12/10/2018 VANCE YOBANY Nuñez Ot E11.9 TYPE 2 DIABETES MELLITUS WITHOUT COMPLIC 12/10/2018 VANCE YOBANY Nuñez Ot E53.8 DEFICIENCY OF OTHER SPECIFIED B GROUP 12/10/2018 VANCE YOBANY Nuñez Ot E55.9 VITAMIN D DEFICIENCY, UNSPECIFIED 12/10/2018 VANCE YOBANY Nuñez Ot E83.52 HYPERCALCEMIA 12/10/2018 VANCE YOBANY Nuñez Ot G47.30 SLEEP APNEA, UNSPECIFIED 12/10/2018 VANCEYOBANY Ot I10 ESSENTIAL (PRIMARY) HYPERTENSION 12/10/2018 VANCEYOBANY Ot I25.10 ATHSCL HEART DISEASE OF [place] CORONARY 12/10/2018 VANCEYOBANY Ot K59.09 OTHER CONSTIPATION 12/10/2018 VANCE YOBANY Nuñez Ot M19.91 PRIMARY OSTEOARTHRITIS, UNSPECIFIED SITE 12/10/2018 VANCE YOBANY Nuñez Ot 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 12/10/2018 VANCE YOBANY Nuñez Ot Z79.899 OTHER PATHOLOGY LABORATORY TECHNOLOGIST (CURRENT) DRUG THERAPY 12/10/2018 VANCE YOBANY Nuñez Ot Z87.891 PERSONAL HISTORY OF NICOTINE DEPENDENCE 12/11/2018 JOE GANNON DO Ot C64. 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 9 HYPOTHYROIDISM, UNSPECIFIED 12/11/2018 JOE GANNON DO Ot E11. 9 TYPE 2 DIABETES MELLITUS WITHOUT COMPLIC 12/11/2018 JOE GANNON DO Ot E66. 9 OBESITY, UNSPECIFIED 12/11/2018 JOE GANNON DO Ot G47. 33 OBSTRUCTIVE SLEEP APNEA (ADULT) (PEDIATR 12/11/2018 JOE GANNON DO Ot I10 ESSENTIAL (PRIMARY) HYPERTENSION 12/11/2018 JOE GANNON DO Ot I25. 10 ATHSCL HEART DISEASE OF [place] CORONARY 12/11/2018 JOE GANNON DO Ot K21. 9 GASTRO-ESOPHAGEAL REFLUX DISEASE WITHOUT 12/11/2018 JOE GANNON DO Ot Z68. 30 BODY MASS INDEX (BMI) 30.0-30.9, ADULT 12/11/2018 JOE GANNON DO Ot Z79. 82 HALF-WAY (CURRENT) USE OF ASPIRIN 12/11/2018 JOE GANNON DO Ot Z79.899 OTHER HALF-WAY (CURRENT) DRUG THERAPY 12/11/2018 JOE GANNON DO Ot Z87.891 PERSONAL HISTORY OF NICOTINE DEPENDENCE 12/11/2018 JOE GANNON DO Ot C64. 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 9 HYPOTHYROIDISM, UNSPECIFIED 12/11/2018 JOE GANNON DO Ot E11. 9 TYPE 2 DIABETES MELLITUS WITHOUT COMPLIC 12/11/2018 JOE GANNON DO Ot E66. 9 OBESITY, UNSPECIFIED 12/11/2018 JOE GANNON DO Ot G47. 33 OBSTRUCTIVE SLEEP APNEA (ADULT) (PEDIATR 12/11/2018 JOE GANNON DO Ot I10 ESSENTIAL (PRIMARY) HYPERTENSION 12/11/2018 JOE GANNON DO Ot I25. 10 ATHSCL HEART DISEASE OF [place] CORONARY 12/11/2018 JOE GANNON DO Ot K21. 9 GASTRO-ESOPHAGEAL REFLUX DISEASE WITHOUT 12/11/2018 JOE GANNON DO Ot Z68. 30 BODY MASS INDEX (BMI) 30.0-30.9, ADULT 12/11/2018 JOE GANNON DO Ot Z79. 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 [facility] L03.115 CELLULITIS OF RIGHT LOWER LIMB 12/17/[address] [facility] L03.116 CELLULITIS OF LEFT LOWER LIMB 12/17/[address] [facility] R60.0 LOCALIZED EDEMA 12/17/[address] [facility] 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 12/17/[address] [facility] Ot Z87.19 PERSONAL HISTORY OF OTHER DISEASES OF TH 12/17/2018 MARIVEL REYEZ DO Ot Z87.891 PERSONAL HISTORY OF NICOTINE DEPENDENCE 12/17/2018 EAGLE RYLEY CASASA K Ot Z90.79 ACQUIRED ABSENCE OF OTHER GENITAL ORGAN( 12/17/2018 AISSATOU MARIVEL CASAS K Ot Z91.048 OTHER NONMEDICINAL SUBSTANCE ALLERGY STA 12/17/2018 AISSATOU MARIVEL CASAS Ot Z96.643 PRESENCE OF ARTIFICIAL HIP JOINT, BILATE 12/17/2018 EAGLE RYLEY CASASA K Ot Z98.890 OTHER SPECIFIED POSTPROCEDURAL STATES 12/22/2018 AISSATOU MARIVEL CASAS Ot C61 MALIGNANT NEOPLASM OF PROSTATE 12/22/2018 AISSATOU DORYLEYA Mansi Ot 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 [facility] Ot G47.30 SLEEP APNEA, UNSPECIFIED 12/22/[address] [facility] MARIVEL K Ot I10 ESSENTIAL (PRIMARY) HYPERTENSION 12/22/[address] [facility] Mansi Ot L03.115 CELLULITIS OF RIGHT LOWER LIMB 12/22/[address] [facility] L03.116 CELLULITIS OF LEFT LOWER LIMB 12/22/[address] [facility] R60.0 LOCALIZED EDEMA 12/22/[address] [facility] Mansi Ot Z79.4 HALF-WAY (CURRENT) USE OF INSULIN 12/22/[address] [facility] Z87.19 PERSONAL HISTORY OF OTHER DISEASES OF TH 12/22/[address] [facility] Z87.891 PERSONAL HISTORY OF NICOTINE DEPENDENCE 12/22/[address] [facility] Z90.79 ACQUIRED ABSENCE OF OTHER GENITAL ORGAN( 12/22/[address] [facility] Ot Z91.048 OTHER NONMEDICINAL SUBSTANCE ALLERGY STA 12/22/[address] [facility] K Ot Z96.643 PRESENCE OF ARTIFICIAL HIP JOINT, BILATE 12/22/[address] [facility] Z98.890 OTHER SPECIFIED POSTPROCEDURAL STATES 12/24/[address] [facility] C61 MALIGNANT NEOPLASM OF PROSTATE 12/24/[address] 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 [facility] E11.9 TYPE 2 DIABETES MELLITUS WITHOUT COMPLIC 12/24/[address] [facility] Mansi Ot E83.42 HYPOMAGNESEMIA 12/24/[address] [facility] Ot G47.30 SLEEP APNEA, UNSPECIFIED 12/24/[address] [facility] Mansi Ot I10 ESSENTIAL (PRIMARY) HYPERTENSION 12/24/[address] [facility] L03.115 CELLULITIS OF RIGHT LOWER LIMB 12/24/2018 AISSATOU MARIVEL CASAS Ot L03.116 CELLULITIS OF LEFT LOWER LIMB 12/24/2018 AISSATOU MARIVEL CASAS Mansi Ot R60.0 LOCALIZED EDEMA 12/24/2018 AISSATOU MARIVEL CASAS Mansi Ot 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 12/24/2018 AISSATOU MARIVEL CASAS Mansi Ot Z87.19 PERSONAL HISTORY OF OTHER DISEASES OF TH 12/24/2018 MARIVEL REYEZ DO Mansi Ot Z87.891 PERSONAL HISTORY OF NICOTINE DEPENDENCE 12/24/2018 AISSATOU MARIVEL K Ot Z90.79 ACQUIRED ABSENCE OF OTHER GENITAL ORGAN( 12/24/2018 AISSATOU MARIVEL Mansi Ot Z91.048 OTHER NONMEDICINAL SUBSTANCE ALLERGY STA 12/24/2018 AISSATOU MARIVEL Ot Z96.643 PRESENCE OF ARTIFICIAL HIP JOINT, BILATE 12/24/2018 AISSATOU MARIVEL K Ot Z98.890 OTHER SPECIFIED POSTPROCEDURAL STATES 01/09/2019 YOBANY WOODARD Ot 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 NEOPLASM OF LEFT KIDNEY, EXCEP 01/09/2019 YOBANY WOODARD Ot 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 01/09/2019 YOBANY WOODARD Ot 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 01/09/2019 YOBANY WOODARD Ot 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 01/09/2019 YOBANY WOODARD Ot 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 01/09/2019 YOBANY WOODARD Ot D64.9 ANEMIA, UNSPECIFIED 01/09/2019 YOBANY WOODARD Ot E03.9 HYPOTHYROIDISM, UNSPECIFIED 01/09/2019 YOBANY WOODARD Ot E11.9 TYPE 2 DIABETES MELLITUS WITHOUT COMPLIC 01/09/2019 YOBANY WOODARD Ot E53.8 DEFICIENCY OF OTHER SPECIFIED B GROUP 01/09/2019 YOBANY WOODARD Ot E55.9 VITAMIN D DEFICIENCY, UNSPECIFIED 01/09/2019 YOBANY WOODARD Ot E83.52 HYPERCALCEMIA 01/09/2019 YOBANY WOODARD Ot G47.30 SLEEP APNEA, UNSPECIFIED 01/09/2019 YOBANY WOODARD Ot I10 ESSENTIAL (PRIMARY) HYPERTENSION 01/09/2019 VANCEYOBANY Ot I25.10 ATHSCL HEART DISEASE OF [place] CORONARY 01/09/2019 VANCEYOBANY Ot K59.09 OTHER CONSTIPATION 01/09/2019 VANCEYOBANY Ot M19.91 PRIMARY OSTEOARTHRITIS, UNSPECIFIED SITE 01/09/2019 YOBANY WOODARD Ot Z79.4 HALF-WAY (CURRENT) USE OF INSULIN 01/09/2019 YOBANY WOODARD Ot Z79.899 OTHER PATHOLOGY LABORATORY TECHNOLOGIST (CURRENT) DRUG THERAPY 01/09/2019 VANCEYOBANY Ot Z87.891 PERSONAL HISTORY OF NICOTINE DEPENDENCE 01/14/2019 YOBANY WOODARD Ot 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 NEOPLASM OF LEFT KIDNEY, EXCEP 01/14/2019 YOBANY WOODARD Ot 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 01/14/2019 VANCEYOBANY Ot 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 01/14/2019 YOBANY WOODARD Ot 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 01/14/2019 YOBANY WOODARD Ot 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 01/14/2019 YOBANY WOODARD Ot D64.9 ANEMIA, UNSPECIFIED 01/14/2019 YOBANY WOODARD Ot E03.9 HYPOTHYROIDISM, UNSPECIFIED 01/14/2019 YOBANY WOODARD Ot E11.9 TYPE 2 DIABETES MELLITUS WITHOUT COMPLIC 01/14/2019 YOBANY WOODARD Ot E53.8 DEFICIENCY OF OTHER SPECIFIED B GROUP 01/14/2019 YOBANY WOODARD Ot E55.9 VITAMIN D DEFICIENCY, UNSPECIFIED 01/14/2019 YOBANY WOODARD Ot E83.52 HYPERCALCEMIA 01/14/2019 YOBANY WOODARD Ot G47.30 SLEEP APNEA, UNSPECIFIED 01/14/2019 YOBANY WOODARD N Ot I10 ESSENTIAL (PRIMARY) HYPERTENSION 01/14/2019 YOBANY WOODARD Ot I25.10 ATHSCL HEART DISEASE OF [place] CORONARY 01/14/2019 YOBANY WOODARD Ot K59.09 OTHER CONSTIPATION 01/14/2019 YOBANY WOODARD Ot M19.91 PRIMARY OSTEOARTHRITIS, UNSPECIFIED SITE 01/14/2019 YOBANY WOODARD Ot 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 01/14/2019 VANCE YOBANY N Ot Z79.899 OTHER PATHOLOGY LABORATORY TECHNOLOGIST (CURRENT) DRUG THERAPY 01/14/2019 VANCE YOBANY Nuñez Ot Z87.891 PERSONAL HISTORY OF NICOTINE DEPENDENCE 03/04/2019 VANCE YOBANY Nuñez Ot 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 NEOPLASM OF LEFT KIDNEY, EXCEP 03/04/2019 VANCE YOBANY N Ot 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 03/04/2019 VANCEYOBANY Ot 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 03/04/2019 VANCEYOBANY N Ot 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 03/04/2019 VANCEYOBANY N Ot 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 03/04/2019 VANCEYOBANY Ot D64.9 ANEMIA, UNSPECIFIED 03/04/2019 VANCEYOBANY N Ot E03.9 HYPOTHYROIDISM, UNSPECIFIED 03/04/2019 VANCEYOBANY N Ot E11.9 TYPE 2 DIABETES MELLITUS WITHOUT COMPLIC 03/04/2019 YOBANY WOODARD Ot E53.8 DEFICIENCY OF OTHER SPECIFIED B GROUP 03/04/2019 VANCEYOBANY N Ot E55.9 VITAMIN D DEFICIENCY, UNSPECIFIED 03/04/2019 VANCEYOBANY N Ot E83.52 HYPERCALCEMIA 03/04/2019 YOBANY WOODARD N Ot G47.30 SLEEP APNEA, UNSPECIFIED 03/04/2019 YOBANY WOODARD N Ot I10 ESSENTIAL (PRIMARY) HYPERTENSION 03/04/2019 VANCEYOBANY N Ot I25.10 ATHSCL HEART DISEASE OF [place] CORONARY 03/04/2019 VANCEYOBANY Ot K59.09 OTHER CONSTIPATION 03/04/2019 YOBANY WOODARD N Ot M19.91 PRIMARY OSTEOARTHRITIS, UNSPECIFIED SITE 03/04/2019 YOBANY WOODARD N Ot Z79.4 HALF-WAY (CURRENT) USE OF INSULIN 03/04/2019 YOBANY WOODARD N Ot Z79.899 OTHER HALF-WAY (CURRENT) DRUG THERAPY 03/04/2019 YOBANY WOODARD N Ot Z87.891 PERSONAL HISTORY OF NICOTINE DEPENDENCE 03/05/2019 VANCEYOBANY Ot 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 NEOPLASM OF LEFT KIDNEY, EXCEP 03/05/2019 YOBANY WOODARD Ot 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 03/05/2019 YOBANY WOODARD Joaquin Ot E27.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 03/05/2019 VANCE YOBANY Nuñez Ot J90 PLEURAL EFFUSION, NOT ELSEWHERE CLASSIFI 03/05/2019 VANCE YOBANY Nuñez Ot M84.48X D PATHOLOGICAL FRACTURE, OTH SITE, SUBS FO 03/05/2019 VANCE YOBANY Nuñez Ot Z96.643 PRESENCE OF ARTIFICIAL HIP JOINT, BILATE 03/05/2019 VANCE YOBANY Nuñez Ot 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 NEOPLASM OF LEFT KIDNEY, EXCEP 03/05/2019 VANCE YOBANY Nuñez Ot 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 03/05/2019 VANCE YOBANY Nuñez Ot 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 03/05/2019 VANCE YOBANY Nuñez Ot 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 03/05/2019 VANCE YOBANY Nuñez Ot 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 03/05/2019 VANCE YOBANY Nuñez Ot D64.9 ANEMIA, UNSPECIFIED 03/05/2019 VANCEYOBANY Ot E03.9 HYPOTHYROIDISM, UNSPECIFIED 03/05/2019 VANCEYOBANY Ot E11.9 TYPE 2 DIABETES MELLITUS WITHOUT COMPLIC 03/05/2019 YOBANY WOODARD Ot E53.8 DEFICIENCY OF OTHER SPECIFIED B GROUP 03/05/2019 VANCEYOBANY N Ot E55.9 VITAMIN D DEFICIENCY, UNSPECIFIED 03/05/2019 VANCEYOBANY N Ot E83.52 HYPERCALCEMIA 03/05/2019 YOBANY WOODARD Ot G47.30 SLEEP APNEA, UNSPECIFIED 03/05/2019 YOBANY WOODARD N Ot I10 ESSENTIAL (PRIMARY) HYPERTENSION 03/05/2019 YOBANY WOODARD Ot I25.10 ATHSCL HEART DISEASE OF [place] CORONARY 03/05/2019 YOBANY WOODARD Ot K59.09 OTHER CONSTIPATION 03/05/2019 YOBANY WOODARD Ot M19.91 PRIMARY OSTEOARTHRITIS, UNSPECIFIED SITE 03/05/2019 YOBANY WOODARD N Ot Z79.4 HALF-WAY (CURRENT) USE OF INSULIN 03/05/2019 YOBANY WOODARD Ot Z79.899 OTHER HALF-WAY (CURRENT) DRUG THERAPY 03/05/2019 YOBANY WOODARD N Ot Z87.891 PERSONAL HISTORY OF NICOTINE DEPENDENCE 03/09/2019 VANCE YOBANY Nuñez Ot 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 NEOPLASM OF LEFT KIDNEY, EXCEP 03/09/2019 VANCE, YOBANY Nuñez Ot 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 03/09/2019 VANCE BEATRIZFLETCHER Joaquin Ot 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 03/09/2019 VANCE YOBANY Nuñez Ot 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 03/09/2019 VANCE YOBANY Nuñez Ot 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 03/09/2019 VANCE YOBANY Nuñez Ot D64.9 ANEMIA, UNSPECIFIED 03/09/2019 VANCE, YOBANY N Ot E03.9 HYPOTHYROIDISM, UNSPECIFIED 03/09/2019 VANCEYOBANY N Ot E11.9 TYPE 2 DIABETES MELLITUS WITHOUT COMPLIC 03/09/2019 VANCE, YOBANY N Ot E53.8 DEFICIENCY OF OTHER SPECIFIED B GROUP 03/09/2019 VANCE, YOBANY N Ot E55.9 VITAMIN D DEFICIENCY, UNSPECIFIED 03/09/2019 VANCEYOBANY N Ot E83.52 HYPERCALCEMIA 03/09/2019 VANCE, YOBANY N Ot G47.30 SLEEP APNEA, UNSPECIFIED 03/09/2019 YOBANY WOODARD N Ot I10 ESSENTIAL (PRIMARY) HYPERTENSION 03/09/2019 YOBANY WOODARD N Ot I25.10 ATHSCL HEART DISEASE OF [place] CORONARY 03/09/2019 VANCEYOBANY N Ot K59.09 OTHER CONSTIPATION 03/09/2019 YOBANY WOODARD Ot M19.91 PRIMARY OSTEOARTHRITIS, UNSPECIFIED SITE 03/09/2019 VANCEYOBANY Ot Z51.11 ENCOUNTER FOR ANTINEOPLASTIC CHEMOTHERAP 03/09/2019 YOBANY WOODARD N Ot 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 03/09/2019 YOBANY WOODARD N Ot Z79.899 OTHER HALF-WAY (CURRENT) DRUG THERAPY 03/09/2019 YOBANY WOODARD N Ot Z87.891 PERSONAL HISTORY OF NICOTINE DEPENDENCE 03/24/2019 VANCE, YOBANY Nuñez Ot 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 04/02/2019 YOBANY WOODARD Ot 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 04/02/2019 YOBANY WOODARD Ot 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 04/02/2019 YOBANY WOODARD Ot D64.9 ANEMIA, UNSPECIFIED 04/02/2019 YOBANY WOODARD Ot E03.9 HYPOTHYROIDISM, UNSPECIFIED 04/02/2019 YOBANY WOODARD Ot E11.9 TYPE 2 DIABETES MELLITUS WITHOUT COMPLIC 04/02/2019 YOBANY WOODARD Ot E53.8 DEFICIENCY OF OTHER SPECIFIED B GROUP 04/02/2019 YOBANY WOODARD Ot E55.9 VITAMIN D DEFICIENCY, UNSPECIFIED 04/02/2019 YOBANY WOODARD Ot E83.52 HYPERCALCEMIA 04/02/2019 YOBANY WOODARD Ot G47.30 SLEEP APNEA, UNSPECIFIED 04/02/2019 YOBANY WOODARD Ot I10 ESSENTIAL (PRIMARY) HYPERTENSION 04/02/2019 YOBANY WOODARD Ot I25.10 ATHSCL HEART DISEASE OF [place] CORONARY 04/02/2019 YOBANY WOODARD Ot K59.09 OTHER CONSTIPATION 04/02/2019 YOBANY WOODARD Ot M19.91 PRIMARY OSTEOARTHRITIS, UNSPECIFIED SITE 04/02/2019 YOBANY WOODARD Ot Z51.11 ENCOUNTER FOR ANTINEOPLASTIC CHEMOTHERAP 04/02/2019 YOBANY WOODARD Ot 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 04/02/2019 YOBANY WOODARD Ot Z79.899 OTHER HALF-WAY (CURRENT) DRUG THERAPY 04/02/2019 YOBANY WOODARD Ot Z87.891 PERSONAL HISTORY OF NICOTINE DEPENDENCE 04/14/2019 BASILIO GIBBONS W 876.0 OPEN WOUND OF BACK, WITHOUT MENTION OF COMPLICATION 04/14/2019 BASILIO GIBBONS W 877.0 OPEN WOUND OF BUTTOCK, WITHOUT MENTION OF COMPLICATION 04/14/2019 BASILIO GIBBONS W S31.0 10A LAC W/O FB OF LOW BACK AND PELV W/O PENET RETROPERITON, INIT 04/14/2019 BASILIO GIBBONS W S31.8 21A LACERATION WITHOUT FOREIGN BODY OF LEFT BUTTOCK, INIT ENCNTR 04/15/2019 CHANCE PEREZ DO Ot 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, 04/15/2019 CHANCE PEREZ DO Ot G93.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 04/15/2019 CHANCE PEREZ DO Ot R25.1 TREMOR, UNSPECIFIED 04/15/2019 CHANCE PEREZ DO Ot R29.810 FACIAL WEAKNESS 04/16/2019 CHANCE PEREZ DO Ot 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, 04/16/2019 CHANCE PEREZ DO Ot G93.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 04/16/2019 CHANCE PEREZ DO Ot R25.1 TREMOR, UNSPECIFIED 04/16/2019 CHANCE PEREZ DO Ot R29.810 FACIAL WEAKNESS 04/22/2019 YOBANY WOODARD Ot 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 NEOPLASM OF LEFT KIDNEY, EXCEP 04/22/2019 YOBANY WOODARD Ot 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 04/22/2019 YOBANY WOODARD Ot 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 04/22/2019 YOBANY WOODARD Ot 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 04/22/2019 YOBANY WOODARD Ot 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 04/22/2019 YOBANY WOODARD Ot D64.9 ANEMIA, UNSPECIFIED 04/22/2019 YOBANY WOODARD Ot E03.9 HYPOTHYROIDISM, UNSPECIFIED 04/22/2019 YOBANY WOODARD Ot E11.9 TYPE 2 DIABETES MELLITUS WITHOUT COMPLIC 04/22/2019 YOBANY WOODARD Ot E53.8 DEFICIENCY OF OTHER SPECIFIED B GROUP 04/22/2019 YOBANY WOODARD Ot E55.9 VITAMIN D DEFICIENCY, UNSPECIFIED 04/22/2019 YOBANY WOODARD Ot E83.52 HYPERCALCEMIA 04/22/2019 YOBANY WOODARD Ot G47.30 SLEEP APNEA, UNSPECIFIED 04/22/2019 YOBANY WOODARD Ot I10 ESSENTIAL (PRIMARY) HYPERTENSION 04/22/2019 YOBANY WOODARD Ot I25.10 ATHSCL HEART DISEASE OF [place] CORONARY 04/22/2019 YOBANY WOODARD Ot K59.09 OTHER CONSTIPATION 04/22/2019 YOBANY WOODARD Ot M19.91 PRIMARY OSTEOARTHRITIS, UNSPECIFIED SITE 04/22/2019 YOBANY WOODARD Ot Z51.11 ENCOUNTER FOR ANTINEOPLASTIC CHEMOTHERAP 04/22/2019 YOBANY WOODARD Ot Z79.4 HALF-WAY (CURRENT) USE OF INSULIN 04/22/2019 YOBANY WOODARD Ot Z79.899 OTHER HALF-WAY (CURRENT) DRUG THERAPY 04/22/2019 YOBANY WOODARD Ot Z87.891 PERSONAL HISTORY OF NICOTINE DEPENDENCE 05/18/2019 YOBANY WOODARD Ot 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 NEOPLASM OF LEFT KIDNEY, EXCEP 05/18/2019 YOBANY WOODARD Ot 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 05/18/2019 YOBANY WOODARD Ot 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 05/18/2019 YOBANY WOODARD Ot 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 05/18/2019 YOBANY WOODARD Ot 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 05/18/2019 YOBANY WOODARD Ot D64.9 ANEMIA, UNSPECIFIED 05/18/2019 YOBANY WOODARD Ot E03.9 HYPOTHYROIDISM, UNSPECIFIED 05/18/2019 YOBANY WOODARD Ot E11.9 TYPE 2 DIABETES MELLITUS WITHOUT COMPLIC 05/18/2019 YOBANY WOODARD Ot E53.8 DEFICIENCY OF OTHER SPECIFIED B GROUP 05/18/2019 YOBANY WOODARD Ot E55.9 VITAMIN D DEFICIENCY, UNSPECIFIED 05/18/2019 YOBANY WOODARD Ot E83.52 HYPERCALCEMIA 05/18/2019 YOBANY WOODARD Ot G47.30 SLEEP APNEA, UNSPECIFIED 05/18/2019 YOBANY WOODARD N Ot I10 ESSENTIAL (PRIMARY) HYPERTENSION 05/18/2019 YOBANY WOODARD Ot I25.10 ATHSCL HEART DISEASE OF [place] CORONARY 05/18/2019 YOBANY WOODARD Ot K59.09 OTHER CONSTIPATION 05/18/2019 YOBANY WOODARD Ot M19.91 PRIMARY OSTEOARTHRITIS, UNSPECIFIED SITE 05/18/2019 YOBANY WOODARD Ot Z51.11 ENCOUNTER FOR ANTINEOPLASTIC CHEMOTHERAP 05/18/2019 YOBANY WOODARD Ot 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 05/18/2019 YOBANY WOODARD Ot Z79.899 OTHER PATHOLOGY LABORATORY TECHNOLOGIST (CURRENT) DRUG THERAPY 05/18/2019 YOBANY WOODARD N Ot Z87.891 PERSONAL HISTORY OF NICOTINE DEPENDENCE 06/03/2019 YOBANY WOODARD Ot 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 NEOPLASM OF LEFT KIDNEY, EXCEP 06/03/2019 YOBANY WOODARD Ot 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 06/03/2019 YOBANY WOODARD N Ot 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 06/03/2019 YOBANY WOODARD N Ot 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 06/03/2019 YOBANY WOODARD N Ot 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 06/03/2019 YOBANY WOODARD Ot D64.9 ANEMIA, UNSPECIFIED 06/03/2019 YOBANY WOODARD Ot E03.9 HYPOTHYROIDISM, UNSPECIFIED 06/03/2019 YOBANY WOODARD N Ot E11.9 TYPE 2 DIABETES MELLITUS WITHOUT COMPLIC 06/03/2019 YOBANY WOODARD N Ot E53.8 DEFICIENCY OF OTHER SPECIFIED B GROUP 06/03/2019 YOBANY WOODARD N Ot E55.9 VITAMIN D DEFICIENCY, UNSPECIFIED 06/03/2019 YOBANY WOODARD N Ot E83.52 HYPERCALCEMIA 06/03/2019 YOBANY WOODARD N Ot G47.30 SLEEP APNEA, UNSPECIFIED 06/03/2019 YOBANY WOODARD N Ot I10 ESSENTIAL (PRIMARY) HYPERTENSION 06/03/2019 YOBANY WOODARD N Ot I25.10 ATHSCL HEART DISEASE OF [place] CORONARY 06/03/2019 VANCE YOBANY N Ot K59.09 OTHER CONSTIPATION 06/03/2019 VANCE YOBANY N Ot M19.91 PRIMARY OSTEOARTHRITIS, UNSPECIFIED SITE 06/03/2019 VANCE YOBANY Nuñez Ot Z51.11 ENCOUNTER FOR ANTINEOPLASTIC CHEMOTHERAP 06/03/2019 VANCE YOBANY Nuñez Ot 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 06/03/2019 VANCE YOBANY Nuñez Ot Z79.899 OTHER PATHOLOGY LABORATORY TECHNOLOGIST (CURRENT) DRUG THERAPY 06/03/2019 VANCE YOBANY Nuñez Ot Z87.891 PERSONAL HISTORY OF NICOTINE DEPENDENCE 06/08/2019 VANCE YOBANY N Ot 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 NEOPLASM OF LEFT KIDNEY, EXCEP 06/08/2019 VANCEYOBANY Ot 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 06/08/2019 VANCE YOBANY N Ot 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 06/08/2019 VANCE, YOBANY N Ot 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 06/08/2019 VANCE YOBANY N Ot 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 06/08/2019 VANCE YOBANY Nuñez Ot D64.9 ANEMIA, UNSPECIFIED 06/08/2019 VANCEYOBANY N Ot E03.9 HYPOTHYROIDISM, UNSPECIFIED 06/08/2019 VANCEYOBANY N Ot E11.9 TYPE 2 DIABETES MELLITUS WITHOUT COMPLIC 06/08/2019 VANCE YOBANY N Ot E53.8 DEFICIENCY OF OTHER SPECIFIED B GROUP 06/08/2019 VANCEYOBANY N Ot E55.9 VITAMIN D DEFICIENCY, UNSPECIFIED 06/08/2019 VACNEYOBANY N Ot E83.52 HYPERCALCEMIA 06/08/2019 VANCEYOBANY N Ot G47.30 SLEEP APNEA, UNSPECIFIED 06/08/2019 YOBANY WOODARD N Ot I10 ESSENTIAL (PRIMARY) HYPERTENSION 06/08/2019 YOBANY WOODARD N Ot I25.10 ATHSCL HEART DISEASE OF [place] CORONARY 06/08/2019 VANCE, YOBANY N Ot K59.09 OTHER CONSTIPATION 06/08/2019 VANCE, YOBANY N Ot M19.91 PRIMARY OSTEOARTHRITIS, UNSPECIFIED SITE 06/08/2019 VANCE YOBANY Nuñez Ot Z51.11 ENCOUNTER FOR ANTINEOPLASTIC CHEMOTHERAP 06/08/2019 YOBANY WOODARD Ot Z79.4 HALF-WAY (CURRENT) USE OF INSULIN 06/08/2019 YOBANY WOODARD N Ot Z79.899 OTHER HALF-WAY (CURRENT) DRUG THERAPY 06/08/2019 YOBANY WOODARD N Ot Z87.891 PERSONAL HISTORY OF NICOTINE DEPENDENCE 06/09/2019 YOBANY WOODARD Ot 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 NEOPLASM OF LEFT KIDNEY, EXCEP 06/09/2019 YOBANY WOODARD Ot 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 06/09/2019 VANCEYOBANY N Ot 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 06/09/2019 YOBANY WOODARD N Ot 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 06/09/2019 YOBANY WOODARD Ot 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 06/09/2019 YOBANY WOODARD Ot D64.9 ANEMIA, UNSPECIFIED 06/09/2019 YOBANY WOODARD N Ot E03.9 HYPOTHYROIDISM, UNSPECIFIED 06/09/2019 YOBANY WOODARD Ot E11.9 TYPE 2 DIABETES MELLITUS WITHOUT COMPLIC 06/09/2019 YOBANY WOODARD N Ot E53.8 DEFICIENCY OF OTHER SPECIFIED B GROUP 06/09/2019 YOBANY WOODARD N Ot E55.9 VITAMIN D DEFICIENCY, UNSPECIFIED 06/09/2019 YOBANY WOODARD N Ot E83.52 HYPERCALCEMIA 06/09/2019 YOBANY WOODARD N Ot G47.30 SLEEP APNEA, UNSPECIFIED 06/09/2019 YOBANY WOODARD N Ot I10 ESSENTIAL (PRIMARY) HYPERTENSION 06/09/2019 YOBANY WOODARD Ot I25.10 ATHSCL HEART DISEASE OF [place] CORONARY 06/09/2019 YOBANY WOODARD N Ot K59.09 OTHER CONSTIPATION 06/09/2019 YOBANY WOODARD N Ot M19.91 PRIMARY OSTEOARTHRITIS, UNSPECIFIED SITE 06/09/2019 YOBANY WOODARD Ot Z51.11 ENCOUNTER FOR ANTINEOPLASTIC CHEMOTHERAP 06/09/2019 YOBANY WOODARD N Ot Z79.4 HALF-WAY (CURRENT) USE OF INSULIN 06/09/2019 YOBANY WOODARD N Ot Z79.899 OTHER HALF-WAY (CURRENT) DRUG THERAPY 06/09/2019 VANCE, BOBAN N Ot Z87.891 PERSONAL HISTORY OF NICOTINE DEPENDENCE 06/11/2019 DIVINE MATA Ot 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31 BODY MASS INDEX (BMI) 31.0-31.9, ADULT 06/11/2019 DIVINE MATA Ot Z77.22 CNTCT W AND EXPSR TO ENVIRON TOBACCO SMO 06/11/2019 DIVINE MATA Ot 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 06/11/2019 DIVINE MATA Ot Z85.118 PERSONAL HISTORY OF MALIGNANT NEOPLASM O 06/11/2019 DIVINE MATA Ot Z85.528 PERSONAL HISTORY OF OTHER MALIGNANT NEOP 06/11/2019 DIVINE MATA Ot Z85.828 PERSONAL HISTORY OF OTHER MALIGNANT NEOP 06/11/2019 DIVINE MATA Ot Z87.891 PERSONAL HISTORY OF NICOTINE DEPENDENCE 06/11/2019 DIVINE MATA Ot Z88.8 ALLERGY STATUS TO OTH DRUG/MEDS/BIOL SUB 06/11/2019 DIVINE MATA Ot Z90.79 ACQUIRED ABSENCE OF OTHER GENITAL ORGAN( 06/16/2019 DIVINE MATA Ot 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31 BODY MASS INDEX (BMI) 31.0-31.9, ADULT 06/16/2019 DIVINE MATA Ot Z77.22 CNTCT W AND EXPSR TO ENVIRON TOBACCO SMO 06/16/2019 DIVINE MATA Ot Z79.4 HALF-WAY (CURRENT) USE OF INSULIN 06/16/2019 IDVINE MATA Ot Z85.118 PERSONAL HISTORY OF MALIGNANT NEOPLASM O 06/16/2019 DIVINE MATA Ot Z85.528 PERSONAL HISTORY OF OTHER MALIGNANT NEOP 06/16/2019 DIVINE MATA Ot Z85.828 PERSONAL HISTORY OF OTHER MALIGNANT NEOP 06/16/2019 DIVINE MATA Ot Z87.891 PERSONAL HISTORY OF NICOTINE DEPENDENCE 06/16/2019 DIVINE MATA Ot Z88.8 ALLERGY STATUS TO OTH DRUG/MEDS/BIOL SUB 06/16/2019 DIVINE MATA Ot Z90.79 ACQUIRED ABSENCE OF OTHER GENITAL ORGAN( 06/19/2019 LUCINDA PAREDES DO Ot A41.02 SEPSIS DUE TO METHICILLIN RESISTANT STAP 06/19/2019 LUCINDA PAREDES DO Ot A41.59 OTHER GRAM-NEGATIVE SEPSIS 06/19/2019 LUCINDA PAREDES DO Ot A41.81 SEPSIS DUE TO ENTEROCOCCUS 06/19/2019 LUCINDA PAREDES DO Ot 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 NEOPLASM OF LEFT KIDNEY, EXCEP 06/19/2019 PAREDES DO, LUCINDA Ot 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 06/19/2019 LENA CASAS LUCINDA Ot 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 06/19/2019 LENA CASAS LUCINDA Ot C79.51 SECONDARY MALIGNANT NEOPLASM OF BONE 06/19/2019 LENA CASAS LUCINDA Ot 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 06/19/2019 PAREDES DO LUCINDA Ot 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 06/19/2019 LENA CASAS LUCINDA Ot E11.9 TYPE 2 DIABETES MELLITUS WITHOUT COMPLIC 06/19/2019 LENA DO LUCINDA Ot F03.90 UNSPECIFIED DEMENTIA WITHOUT BEHAVIORAL 06/19/2019 LENA DO LUCINDA Ot G47.30 SLEEP APNEA, UNSPECIFIED 06/19/2019 LENA CASAS LUCINDA Ot I10 ESSENTIAL (PRIMARY) HYPERTENSION 06/19/2019 LENA CASAS LUCINDA Ot I87.2 VENOUS INSUFFICIENCY (CHRONIC) (PERIPHER 06/19/2019 LENA CASAS LUCINDA Ot J44.9 CHRONIC OBSTRUCTIVE PULMONARY DISEASE, U 06/19/2019 LENA CASAS LUCINDA Ot K21.9 GASTRO-ESOPHAGEAL REFLUX DISEASE WITHOUT 06/19/2019 LENA DO LUCINDA Ot K59.09 OTHER CONSTIPATION 06/19/2019 LENA CASAS LUCINDA Ot L97.21 8 NON-PRESSURE CHRONIC ULCER OF RIGHT CALF 06/19/2019 LENA CASAS LUCINDA Ot L97.22 8 NON-PRESSURE CHRONIC ULCER OF LEFT CALF 06/19/2019 LENA CASAS LUCINDA Ot M19.91 PRIMARY OSTEOARTHRITIS, UNSPECIFIED SITE 06/19/2019 LENA CASAS LUCINDA Ot R41.0 DISORIENTATION, UNSPECIFIED 06/19/2019 LENA CASAS LUCINDA Ot R44.1 VISUAL HALLUCINATIONS 06/19/2019 LENA CASAS LUCINDA Ot R53.1 WEAKNESS 06/19/2019 LENA DO LUCINDA Ot R55 SYNCOPE AND COLLAPSE 06/19/2019 LENA CASAS LUCINDA Ot R60.0 LOCALIZED EDEMA 06/19/2019 LENA DO LUCINDA Ot R63.4 ABNORMAL WEIGHT LOSS 06/19/2019 LENA CASAS LUCINDA Ot R91.8 OTHER NONSPECIFIC ABNORMAL FINDING OF VIOLET 06/19/2019 LENA DO LUCINDA Ot Z66 DO NOT RESUSCITATE 06/19/2019 LUCINDA PAREDES DO Ot 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 06/19/2019 LUCINDA PAREDES DO Ot Z85.46 PERSONAL HISTORY OF MALIGNANT NEOPLASM O 06/19/2019 LUCINDA PAREDES DO Ot Z87.89 1 PERSONAL HISTORY OF NICOTINE DEPENDENCE 06/19/2019 LUCINDA PAREDES DO Ot 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, BILATE 06/23/2019 JOSE DANIEL PAREDES DOI Ot A41.02 SEPSIS DUE TO METHICILLIN RESISTANT STAP 06/23/2019 JOSE DANIEL PAREDES DOI Ot A41.59 OTHER GRAM-NEGATIVE SEPSIS 06/23/2019 JOSE DANIEL PAREDES DOI Ot A41.81 SEPSIS DUE TO ENTEROCOCCUS 06/23/2019 LUCINDA PAREDES DO Ot 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 NEOPLASM OF LEFT KIDNEY, EXCEP 06/23/2019 JOSE DANIEL PAREDES DOI Ot 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 06/23/2019 JOSE DANIEL PAREDES DOI Ot 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 06/23/2019 JOSE DANILE PAREDES DOI Ot C79.51 SECONDARY MALIGNANT NEOPLASM OF BONE 06/23/2019 JOSE DANIEL PAREDES DOI Ot 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 06/23/2019 LENA CASAS LUCINDA Ot 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 06/23/2019 JOSE DANIEL PAREDES DOI Ot E11.9 TYPE 2 DIABETES MELLITUS WITHOUT COMPLIC 06/23/2019 LENA CASAS LUCINDA Ot F03.90 UNSPECIFIED DEMENTIA WITHOUT BEHAVIORAL 06/23/2019 JOSE DANIEL PAREDES DOI Ot G47.30 SLEEP APNEA, UNSPECIFIED 06/23/2019 LUCINDA PAREDES DO Ot I10 ESSENTIAL (PRIMARY) HYPERTENSION 06/23/2019 LENA CASAS LUCINDA Ot I87.2 VENOUS INSUFFICIENCY (CHRONIC) (PERIPHER 06/23/2019 LENA CASAS LUCINDA Ot J44.9 CHRONIC OBSTRUCTIVE PULMONARY DISEASE, U 06/23/2019 LUCINDA PAREDES DO Ot K21.9 GASTRO-ESOPHAGEAL REFLUX DISEASE WITHOUT 06/23/2019 LENA CASAS LUCINDA Ot K59.09 OTHER CONSTIPATION 06/23/2019 JOSE DANIEL PAREDES DOI Ot L97.21 8 NON-PRESSURE CHRONIC ULCER OF RIGHT CALF 06/23/2019 LUCINDA PAREDES DO Ot L97.22 8 NON-PRESSURE CHRONIC ULCER OF LEFT CALF 06/23/2019 LENA CASAS LUCINDA Ot M19.91 PRIMARY OSTEOARTHRITIS, UNSPECIFIED SITE 06/23/2019 LENA CASAS LUCINDA Ot R44.1 VISUAL HALLUCINATIONS 06/23/2019 LENA CASAS LUCINDA Ot R53.1 WEAKNESS 06/23/2019 LENA CASAS LUCINDA Ot R55 SYNCOPE AND COLLAPSE 06/23/2019 LENA CASAS LUCINDA Ot R60.0 LOCALIZED EDEMA 06/23/2019 LENA CASAS LUCINDA Ot R63.4 ABNORMAL WEIGHT LOSS 06/23/2019 LENA CASAS LUCINDA Ot R91.8 OTHER NONSPECIFIC ABNORMAL FINDING OF VIOLET 06/23/2019 LENA CASAS LUCINDA Ot Z66 DO NOT RESUSCITATE 06/23/2019 JOSE DANIEL PAREDES DOI Ot Z79.4 HALF-WAY (CURRENT) USE OF INSULIN 06/23/2019 LENA CASAS LUCINDA Ot Z85.46 PERSONAL HISTORY OF MALIGNANT NEOPLASM O 06/23/2019 LENA CASAS LUCINDA Ot Z87.89 1 PERSONAL HISTORY OF NICOTINE DEPENDENCE 06/23/2019 LENA CASAS LUCINDA Ot A41.02 SEPSIS DUE TO METHICILLIN RESISTANT STAP 06/23/2019 LENA CASAS LUCINDA Ot A41.59 OTHER GRAM-NEGATIVE SEPSIS 06/23/2019 LENA CASAS LUCINDA Ot A41.81 SEPSIS DUE TO ENTEROCOCCUS 06/23/2019 LENA CASAS LUCINDA Ot 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 NEOPLASM OF LEFT KIDNEY, EXCEP 06/23/2019 LENA CASAS LUCINDA Ot 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 06/23/2019 LENA CASAS LUCINDA Ot 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 06/23/2019 LENA CASAS LUCINDA Ot C79.51 SECONDARY MALIGNANT NEOPLASM OF BONE 06/23/2019 LENA CASAS LUCINDA Ot 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 06/23/2019 LENA CASAS LUCINDA Ot 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 06/23/2019 LENA CASAS LUCINDA Ot E11.9 TYPE 2 DIABETES MELLITUS WITHOUT COMPLIC 06/23/2019 LENA CASAS LUCINDA Ot F03.90 UNSPECIFIED DEMENTIA WITHOUT BEHAVIORAL 06/23/2019 LENA CASAS LUCINDA Ot G47.30 SLEEP APNEA, UNSPECIFIED 06/23/2019 LENA CASAS LUCINDA Ot I10 ESSENTIAL (PRIMARY) HYPERTENSION 06/23/2019 JOSE DANIEL PAREDES DOI Ot I87.2 VENOUS INSUFFICIENCY (CHRONIC) (PERIPHER 06/23/2019 JOSE DANIEL PAREDES DOI Ot J44.9 CHRONIC OBSTRUCTIVE PULMONARY DISEASE, U 06/23/2019 LUCINDA PAREDES DO Ot K21.9 GASTRO-ESOPHAGEAL REFLUX DISEASE WITHOUT 06/23/2019 LENA CASAS LUCINDA Ot K59.09 OTHER CONSTIPATION 06/23/2019 LENA CASAS LUCINDA Ot L97.21 8 NON-PRESSURE CHRONIC ULCER OF RIGHT CALF 06/23/2019 LENA CASAS LUCINDA Ot L97.22 8 NON-PRESSURE CHRONIC ULCER OF LEFT CALF 06/23/2019 LENA CASAS LUCINDA Ot M19.91 PRIMARY OSTEOARTHRITIS, UNSPECIFIED SITE 06/23/2019 LENA CASAS LUCINDA Ot R44.1 VISUAL HALLUCINATIONS 06/23/2019 LENA CASAS LUCINDA Ot R53.1 WEAKNESS 06/23/2019 LENA CASAS LUCINDA Ot R55 SYNCOPE AND COLLAPSE 06/23/2019 LENA CASAS LUCINDA Ot R60.0 LOCALIZED EDEMA 06/23/2019 LENA CASAS LUCINDA Ot R63.4 ABNORMAL WEIGHT LOSS 06/23/2019 LENA CASAS LUCINDA Ot R91.8 OTHER NONSPECIFIC ABNORMAL FINDING OF VIOLET 06/23/2019 LENA CASAS LUCINDA Ot Z66 DO NOT RESUSCITATE 06/23/2019 LUCINDA PAREDES DO Ot Z79.4 HALF-WAY (CURRENT) USE OF INSULIN 06/23/2019 JOSE DANIEL PAREDES DOI Ot Z85.46 PERSONAL HISTORY OF MALIGNANT NEOPLASM O 06/23/2019 LUCINDA PAREDES DO Ot Z87.89 1 PERSONAL HISTORY OF NICOTINE DEPENDENCE 06/23/2019 LUCINDA PAREDES DO Ot A41.02 SEPSIS DUE TO METHICILLIN RESISTANT STAP 06/23/2019 LENA CASAS LUCINDA Ot A41.59 OTHER GRAM-NEGATIVE SEPSIS 06/23/2019 LENA CASAS LUCINDA Ot A41.81 SEPSIS DUE TO ENTEROCOCCUS 06/23/2019 JOSE DANIEL PAREDES DOI Ot 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 NEOPLASM OF LEFT KIDNEY, EXCEP 06/23/2019 LENA CASAS LUCINDA Ot 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 06/23/2019 LENA CASAS LUCINDA Ot 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 06/23/2019 LENA CASAS LUCINDA Ot C79.51 SECONDARY MALIGNANT NEOPLASM OF BONE 06/23/2019 JOSE DANIEL PAREDES DOI Ot 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 06/23/2019 LENA CASAS LUCINDA Ot 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 06/23/2019 LENA CASAS LUCINDA Ot E11.9 TYPE 2 DIABETES MELLITUS WITHOUT COMPLIC 06/23/2019 LENA CASAS LUCINDA Ot F03.90 UNSPECIFIED DEMENTIA WITHOUT BEHAVIORAL 06/23/2019 LENA CASAS LUCINDA Ot G47.30 SLEEP APNEA, UNSPECIFIED 06/23/2019 LENA CASAS LUCINDA Ot I10 ESSENTIAL (PRIMARY) HYPERTENSION 06/23/2019 LENA CASAS LUCINDA Ot I87.2 VENOUS INSUFFICIENCY (CHRONIC) (PERIPHER 06/23/2019 LENA CASAS LUCINDA Ot J44.9 CHRONIC OBSTRUCTIVE PULMONARY DISEASE, U 06/23/2019 LENA CASAS LUCINDA Ot K21.9 GASTRO-ESOPHAGEAL REFLUX DISEASE WITHOUT 06/23/2019 LENA CASAS LUCINDA Ot K59.09 OTHER CONSTIPATION 06/23/2019 LENA CASAS LUCINDA Ot L97.21 8 NON-PRESSURE CHRONIC ULCER OF RIGHT CALF 06/23/2019 LENA CASAS LUCINDA Ot L97.22 8 NON-PRESSURE CHRONIC ULCER OF LEFT CALF 06/23/2019 LENA CASAS LUCINDA Ot M19.91 PRIMARY OSTEOARTHRITIS, UNSPECIFIED SITE 06/23/2019 LENA CASAS LUCINDA Ot R44.1 VISUAL HALLUCINATIONS 06/23/2019 LENA CASAS LUCINDA Ot R53.1 WEAKNESS 06/23/2019 LENA CASAS LUCINDA Ot R55 SYNCOPE AND COLLAPSE 06/23/2019 LENA CASAS LUCINDA Ot R60.0 LOCALIZED EDEMA 06/23/2019 LENA CASAS LUCINDA Ot R63.4 ABNORMAL WEIGHT LOSS 06/23/2019 LENA CASAS LUCINDA Ot R91.8 OTHER NONSPECIFIC ABNORMAL FINDING OF VIOLET 06/23/2019 JOSE DANIEL PAREDES DOI Ot Z66 DO NOT RESUSCITATE 06/23/2019 LUCINDA PAREDES DO Ot Z79.4 HALF-WAY (CURRENT) USE OF INSULIN 06/23/2019 LENA CASAS LUCINDA Ot Z85.46 PERSONAL HISTORY OF MALIGNANT NEOPLASM O 06/23/2019 LUCINDA PAREDES DO Ot Z87.89 1 PERSONAL HISTORY OF NICOTINE DEPENDENCE 06/29/2019 RADHIKA SANTANA APRN Ot A41 .9 SEPSIS, UNSPECIFIED ORGANISM 06/29/2019 RADHIKA SANTANA APRN Ot C64 .9 MALIGNANT NEOPLASM OF UNSP KIDNEY, EXCEP 06/29/2019 RADHIKA SANTANA APRN Ot C78.00 SECONDARY MALIGNANT NEOPLASM OF UNSPECIF 06/29/2019 RADHIKA SANTANA APRN Ot C79.51 SECONDARY MALIGNANT NEOPLASM OF BONE 06/29/2019 RADHIKA SANTANA APRN Ot E11 .9 TYPE 2 DIABETES MELLITUS WITHOUT COMPLIC 06/29/2019 RADHIKA SANTANA APRN Ot E66 .9 OBESITY, UNSPECIFIED 06/29/2019 RADHIKA SANTANA APRN Ot I10 ESSENTIAL (PRIMARY) HYPERTENSION 06/29/2019 RADHIKA SANTANA APRN Ot J18 .9 PNEUMONIA, UNSPECIFIED ORGANISM 06/29/2019 RADHIKA SANTANA APRN Ot J44 .9 CHRONIC OBSTRUCTIVE PULMONARY DISEASE, U 06/29/2019 RADHIKA SANTANA APRN Ot K21 .9 GASTRO-ESOPHAGEAL REFLUX DISEASE WITHOUT 06/29/2019 RADHIKA SANTANA APRN Ot R44 .3 HALLUCINATIONS, UNSPECIFIED 06/29/2019 RADHIKA SANTANA APRN Ot R50 .9 FEVER, UNSPECIFIED 06/29/2019 RADHIKA SANTANA APRN Ot R65.21 SEVERE SEPSIS WITH SEPTIC SHOCK 06/29/2019 RADHIKA SANTANA APRN Ot S81.801A UNSPECIFIED OPEN WOUND, RIGHT LOWER LEG, 06/29/2019 RADHIKA SANTANA APRN Ot S81.802A UNSPECIFIED OPEN WOUND, LEFT LOWER LEG, 06/29/2019 RADHIKA SANTANA APRN Ot X58.XXXA EXPOSURE TO OTHER SPECIFIED FACTORS, INI 06/29/2019 RADHIKA SANTANA APRN Ot Z79 .4 PATHOLOGY LABORATORY TECHNOLOGIST (CURRENT) USE OF INSULIN 06/29/2019 RADHIKA SANTANA APRN Ot Z85.46 PERSONAL HISTORY OF MALIGNANT NEOPLASM O 06/29/2019 RADHIKA SANTANA APRN Ot Z87.891 PERSONAL HISTORY OF NICOTINE DEPENDENCE 06/29/2019 RADHIKA SANTANA APRN Ot Z88 .8 ALLERGY STATUS TO OTH DRUG/MEDS/BIOL SUB Procedures Code Description Performed By Per jane On [id number] EX CISION OF STOMACH, PERCUTANEOUS ENDOSC 08/29/2016 [id number] EX CISION OF THORAX LYMPHATIC, PERCUTANEO 11/21/[id number] BALLARD OF RIGHT LOWER LUNG LOBE, ENDO, 11/21/2018 [id number] EX TRACTION OF RIGHT LOWER LOBE BRONCHUS, 11/21/2018 [id number] EX TRACTION OF RIGHT LOWER LUNG LOBE, END 11/21/2018 [id number] EX CISION OF LEFT KIDNEY, PERCUTANEOUS AP 11/25/2018 [id number] EX CISION OF LEFT KIDNEY, PERCUTANEOUS AP 11/27/2018 Results [...] Positive Negative Complete blood count (CBC) with automate d white blood cell (WBC) differential - 08/28/16 17:45 Blood leukocytes automated count (number/volume) 7.4 10*3/uL 4.3-11.0 Blood erythrocytes automated count (number/volume) 3.63 10*6/uL 4.35-5.85 Venous blood hemoglobin measurement (mass/volume) 10.9 g/dL 13.3-17.7 Blood hematocrit (volume fraction) 34 % 40-54 Automated erythrocyte mean corpuscular volume 93 [ foz_us] 80-99 Automated erythrocyte mean corpuscular h emoglobin (mass per erythrocyte) 30 pg 25-34 Automated erythrocyte mean corpuscular h emoglobin concentration measurement (mass/volume) 32 g/dL 32-36 Automated erythrocyte distribution width ratio 14. 4 % 10.0- 14.5 Automated blood platelet count [...] 10*3 1.0-4.0 Blood monocytes automated count (number/volume) 0. 6 10*3 0.0-1.0 Automated eosinophil count 0.2 10*3/uL 0 .0-0.3 Automated blood basophil count (count/volume) 0.0 10*3/uL 0.0-0.1 Comprehensive metabolic panel - 08/28/16 17:45 Serum or plasma sodium measurement (moles/volume) 138 mmol/L 135-145 Serum or plasma potassium measurement (moles/volume) 4.1 mmol/L 3.6-5.0 Serum or plasma chloride measurement (moles/volume) 107 mmol/L 98-107 Carbon dioxide 24 mmol/L 21-32 Serum or plasma anion gap determination (moles/volume) 7 mmol/L 5-14 Serum or plasma urea nitrogen measurement (mass/volume ) 34 mg/dL 7-18 Serum or plasma creatinine measurement (mass/volume) 0.99 mg/dL 0.60-1.30 Serum or plasma urea nitrogen/creatinine mass ratio 34 NRG Serum or plasma creatinine measurement w ith calculation of estimated glomerular filtration rate > NRG Serum or plasma glucose measurement (mass/volume) 151 mg/dL 70-105 Serum or plasma calcium measurement (mass/volume) 8.6 mg/dL 8.5-10.1 Serum or plasma total bilirubin measurement (mass/volu me) 1.2 mg/dL 0.1-1.0 Serum or plasma alkaline phosphatase isaiah surement (enzymatic activity/volume) 44 U/L 40-136 Serum or plasma aspartate aminotransfera se measurement (enzymatic activity/volume) 12 U/L 5-34 Serum or plasma alanine aminotransferase measurement (enzymatic activity/volume) 13 U/L 0-55 Serum or plasma protein measurement (mass/volume) 5.7 g/dL 6.4-8.2 Serum or plasma albumin measurement (mass/volume) 3.3 g/dL 3.2-4.5 Blood type T Indirect antibody screen [facility] - 08/28/16 17:45 ABO+Rh group ON NRG Transfusion band number [id number] NR Blood group antibody screen POSITIVE NR G Blood group antibodies identified - 02/04 17:45 Blood group antibodies identified [facility] Whole blood hemoglobin and hematocrit [facility] - 08/28/16 23:28 Venous blood hemoglobin measurement (mass/volume) 9.7 g/dL 13.3-17.7 Blood hematocrit (volume fraction) 30 % 40-54 Complete blood count (CBC) with automate d white blood cell (WBC) differential - 08/29/16 03:42 Blood leukocytes automated count (number/volume) 7.2 10*3/uL 4.3-11.0 Blood erythrocytes automated count (number/volume) 3.12 10*6/uL 4.35-5.85 Venous blood hemoglobin measurement (mass/volume) 9.5 g/dL 13.3-17.7 Blood hematocrit (volume fraction) 29 % 40-54 Automated erythrocyte mean corpuscular volume 93 [ foz_us] 80-99 Automated erythrocyte mean corpuscular h emoglobin (mass per erythrocyte) 30 pg 25-34 Automated erythrocyte mean corpuscular h emoglobin concentration measurement (mass/volume) 33 g/dL 32-36 Automated erythrocyte distribution width ratio 14. 2 % 10.0- 14.5 Automated blood platelet count [...] 10*3 1.0-4.0 Blood monocytes automated count (number/volume) 0. 8 10*3 0.0-1.0 Automated eosinophil count 0.2 10*3/uL 0 .0-0.3 Automated blood basophil count (count/volume) 0.0 10*3/uL 0.0-0.1 Comprehensive metabolic panel - 08/29/16 03:42 Serum or plasma sodium measurement (moles/volume) 140 mmol/L 135-145 Serum or plasma potassium measurement (moles/volume) 3.9 mmol/L 3.6-5.0 Serum or plasma chloride measurement (moles/volume) 112 mmol/L 98-107 Carbon dioxide 21 mmol/L 21-32 Serum or plasma anion gap determination (moles/volume) 7 mmol/L 5-14 Serum or plasma urea nitrogen measurement (mass/volume ) 34 mg/dL 7-18 Serum or plasma creatinine measurement (mass/volume) 0.90 mg/dL 0.60-1.30 Serum or plasma urea nitrogen/creatinine mass ratio 38 NRG Serum or plasma creatinine measurement w ith calculation of estimated glomerular filtration rate > NRG Serum or plasma glucose measurement (mass/volume) 136 mg/dL 70-105 Serum or plasma calcium measurement (mass/volume) 8.1 mg/dL 8.5-10.1 Serum or plasma total bilirubin measurement (mass/volu me) 1.1 mg/dL 0.1-1.0 Serum or plasma alkaline phosphatase isaiah surement (enzymatic activity/volume) 40 U/L 40-136 Serum or plasma aspartate aminotransfera se measurement (enzymatic activity/volume) 12 U/L 5-34 Serum or plasma alanine aminotransferase measurement (enzymatic activity/volume) 9 U/L 0-55 Serum or plasma protein measurement (mass/volume) 5.0 g/dL 6.4-8.2 Serum or plasma albumin measurement (mass/volume) 2.9 g/dL 3.2-4.5 PT panel in platelet poor plasma by coag ulation assay - 08/29/16 03:47 Prothrombin time (PT) in platelet poor plasma by coagu lation assay 14.7 s 12.2-14.7 INR in platelet poor plasma or blood by coagulation as say 1.2 0.8-1.4 Whole blood hemoglobin and hematocrit [facility] 08/29/16 09:09 Venous blood hemoglobin measurement (mass/volume) 10.3 g/dL 13.3-17.7 Blood hematocrit (volume fraction) 31 % 40-54 IRON TEST - 08/29/16 11:40 Serum or plasma iron measurement (mass/volume) 86 % 40-180 Whole blood hemoglobin and hematocrit [facility] 08/29/16 15:58 Venous blood hemoglobin measurement (mass/volume) 9.9 g/dL 13.3-17.7 Blood hematocrit (volume fraction) 31 % 40-54 Whole blood hemoglobin and hematocrit [facility] 08/29/16 23:34 Venous blood hemoglobin measurement (mass/volume) 9.0 g/dL 13.3-17.7 Blood hematocrit (volume fraction) 27 % 40-54 Complete blood count (CBC) with automate d white blood cell (WBC) differential - 08/30/16 06:09 Blood leukocytes automated count (number/volume) 5.8 10*3/uL 4.3-11.0 Blood erythrocytes automated count (number/volume) 2.94 10*6/uL 4.35-5.85 Venous blood hemoglobin measurement (mass/volume) 8.9 g/dL 13.3-17.7 Blood hematocrit (volume fraction) 27 % 40-54 Automated erythrocyte mean corpuscular volume 93 [ foz_us] 80-99 Automated erythrocyte mean corpuscular h emoglobin (mass per erythrocyte) 30 pg 25-34 Automated erythrocyte mean corpuscular h emoglobin concentration measurement (mass/volume) 33 g/dL 32-36 Automated erythrocyte distribution width ratio 14. 2 % 10.0- 14.5 Automated blood platelet count [...] 10*3 1.0-4.0 Blood monocytes automated count (number/volume) 0. 7 10*3 0.0-1.0 Automated eosinophil count 0.3 10*3/uL 0 .0-0.3 Automated blood basophil count (count/volume) 0.0 10*3/uL 0.0-0.1 Comprehensive metabolic panel - 08/30/16 06:09 Serum or plasma sodium measurement (moles/volume) 140 mmol/L 135-145 Serum or plasma potassium measurement (moles/volume) 3.5 mmol/L 3.6-5.0 Serum or plasma chloride measurement (moles/volume) 113 mmol/L 98-107 Carbon dioxide 21 mmol/L 21-32 Serum or plasma anion gap determination (moles/volume) 6 mmol/L 5-14 Serum or plasma urea nitrogen measurement (mass/volume ) 26 mg/dL 7-18 Serum or plasma creatinine measurement (mass/volume) 0.83 mg/dL 0.60-1.30 Serum or plasma urea nitrogen/creatinine mass ratio 31 NRG Serum or plasma creatinine measurement w ith calculation of estimated glomerular filtration rate > NRG Serum or plasma glucose measurement (mass/volume) 149 mg/dL 70-105 Serum or plasma calcium measurement (mass/volume) 8.1 mg/dL 8.5-10.1 Serum or plasma total bilirubin measurement (mass/volu me) 0.8 mg/dL 0.1-1.0 Serum or plasma alkaline phosphatase isaiah surement (enzymatic activity/volume) 43 U/L 40-136 Serum or plasma aspartate aminotransfera se measurement (enzymatic activity/volume) 12 U/L 5-34 Serum [...] ng/ml 1.6-154.9 Thyroid Stimulating Hormone - 11/20/18 1 4:41 TSH 1.37 mIU/mL 0.32-5.00 Urinalysis - 11/20/18 15:39 Icotest N/A Negative Urine Casts Granular cast: 0-2/HPF Urine Crystals Amorphous material: Moderate/HPF Urine Volume Urine Volume Sufficient (10mL) Urine-Appearance Clear Clear Urine-Bacteria Rare Urine-Bilirubin Negative Negative Urine-Blood Negative Negative Urine-Color Yellow Colorless-[place] ow Urine-Epithelial Cells 0-5/HPF Urine-Glucose Trace Negative Urine-Ketones Trace Negative Urine-Leukocytes Negative Negative Urine-Nitrite Negative Negative Urine-Other Urine Saved if Culture Need ed (48hrs from time of collection) Urine-pH 5.5 5-8.5 Urine-Protein Negative Negative Urine-RBC 0-2/HPF Urine-Specific [place] 1.020 1.000-1 .030 Urine-WBC 0-3/HPF Urobilinogen 0.2 0.2-1.0 Complete blood count (CBC) with automate d white blood cell (WBC) differential - 11/20/18 19:17 Blood leukocytes automated count (number/volume) 10.7 10*3/uL 4.3-11.0 Blood erythrocytes automated count (number/volume) 4.02 10*6/uL 4.35-5.85 Venous blood hemoglobin measurement (mass/volume) 11.2 g/dL 13.3-17.7 Blood hematocrit (volume fraction) 35 % 40-54 Automated erythrocyte mean corpuscular volume 88 [ foz_us] 80-99 Automated erythrocyte mean corpuscular h emoglobin (mass per erythrocyte) 28 pg 25-34 Automated erythrocyte mean corpuscular h emoglobin concentration measurement (mass/volume) 32 g/dL 32-36 Automated erythrocyte distribution width ratio 13. 6 % 10.0- 14.5 Automated blood platelet count [...] 10*3 1.0-4.0 Blood monocytes automated count (number/volume) 1. 1 10*3 0.0-1.0 Automated eosinophil count 0.2 10*3/uL 0 .0-0.3 Automated blood basophil count (count/volume) 0.0 10*3/uL 0.0-0.1 Blood lactic acid measurement (moles/vol ume) - 11/20/18 19:17 Blood lactic acid measurement (moles/volume) 1.34 mmol/L 0.50-2.00 PT panel in platelet poor plasma by coag ulation assay - 11/20/18 19:17 Prothrombin time (PT) in platelet poor plasma by coagu lation assay 14.6 s 12.2-14.7 INR in platelet poor plasma or blood by coagulation as say 1.1 0.8-1.4 Activated partial thromboplastin time (a PTT) in platelet poor plasma bycoagulation assay - 11/20/18 19:17 Activated partial thromboplastin time (a PTT) in platelet poor plasma bycoagulation assay 36 s 24-35 Serum or plasma phosphate measurement (m ass/volume) - 11/20/18 19:17 Serum or plasma phosphate [...] 5-14 Serum or plasma urea nitrogen measurement (mass/volume ) 31 mg/dL 7-18 Serum or plasma creatinine measurement (mass/volume) 1.26 mg/dL 0.60-1.30 Serum or plasma urea nitrogen/creatinine mass ratio 25 NRG Serum or plasma creatinine measurement w ith calculation of estimated glomerular filtration rate 55 NRG Serum or plasma glucose measurement (mass/volume) 224 mg/dL 70-105 Serum or plasma calcium measurement (mass/volume) 11.6 mg/dL 8.5-10.1 Serum or plasma total bilirubin measurement (mass/volu me) 0.6 mg/dL 0.1-1.0 Serum or plasma alkaline phosphatase isaiah surement (enzymatic activity/volume) 112 U/L 40-136 Serum or plasma aspartate aminotransfera se measurement (enzymatic activity/volume) 12 U/L 5-34 Serum [...] OF GROWTH Isolated NRG Bacterial blood culture [id number] NRG Methicillin resistant Staphylococcus aur eus (MRSA) screening culture - 11/20/18 19:40 Methicillin resistant Staphylococcus aureus (MRSA) scr eening culture NEG NRG Capillary blood glucose measurement by g lucometer (mass/volume) - 11/20/18 22:20 Capillary blood glucose measurement by glucometer (mas s/volume) 203 mg/dL 70-110 Complete blood count (CBC) with automate d white blood cell (WBC) differential - 11/21/18 03:20 Blood leukocytes automated count (number/volume) 8.3 10*3/uL 4.3-11.0 Blood erythrocytes automated count (number/volume) 3.83 10*6/uL 4.35-5.85 Venous blood hemoglobin measurement (mass/volume) 10.6 g/dL 13.3-17.7 Blood hematocrit (volume fraction) 33 % 40-54 Automated erythrocyte mean corpuscular volume 87 [ foz_us] 80-99 Automated erythrocyte mean corpuscular h emoglobin (mass per erythrocyte) 28 pg 25-34 Automated erythrocyte mean corpuscular h emoglobin concentration measurement (mass/volume) 32 g/dL 32-36 Automated erythrocyte distribution width ratio 13. 4 % 10.0- 14.5 Automated blood platelet count [...] 10*3 1.0-4.0 Blood monocytes automated count (number/volume) 0. 9 10*3 0.0-1.0 Automated eosinophil count 0.3 10*3/uL 0 .0-0.3 Automated blood basophil count (count/volume) 0.0 10*3/uL 0.0-0.1 Comprehensive metabolic panel - 11/21/18 03:20 Serum or plasma sodium measurement (moles/volume) 136 mmol/L 135-145 Serum or plasma potassium measurement (moles/volume) 4.0 mmol/L 3.6-5.0 Serum or plasma chloride measurement (moles/volume) 104 mmol/L 98-107 Carbon dioxide 22 mmol/L 21-32 Serum or plasma anion gap determination (moles/volume) 10 mmol/L 5-14 Serum or plasma urea nitrogen measurement (mass/volume ) 25 mg/dL 7-18 Serum or plasma creatinine measurement (mass/volume) 0.94 mg/dL 0.60-1.30 Serum or plasma urea nitrogen/creatinine mass ratio 27 NRG Serum or plasma creatinine measurement w ith calculation of estimated glomerular filtration rate > NRG Serum or plasma glucose measurement (mass/volume) 162 mg/dL 70-105 Serum or plasma calcium measurement (mass/volume) 11.0 mg/dL 8.5-10.1 Serum or plasma total bilirubin measurement (mass/volu me) 0.6 mg/dL 0.1-1.0 Serum or plasma alkaline phosphatase isaiah surement (enzymatic activity/volume) 107 U/L 40-136 Serum or plasma aspartate aminotransfera se measurement (enzymatic activity/volume) 13 U/L 5-34 Serum or plasma alanine aminotransferase measurement (enzymatic activity/volume) 14 U/L 0-55 Serum or plasma protein measurement (mass/volume) 6.3 g/dL 6.4-8.2 Serum or plasma albumin measurement (mass/volume) 3.0 g/dL 3.2-4.5 CALCIUM CORRECTED 11.8 mg/dL 8.5-10.1 Serum or plasma phosphate measurement (m ass/volume) - 11/21/18 03:20 Serum or plasma phosphate measurement (mass/volume) 2.3 mg/dL 2.3-4.7 Magnesium - 11/21/18 03:20 Magnesium 1.5 mg/dL 1.8-2.4 Lactate dehydrogenase 1 [enzymatic activ ity/volume] in serum or plasma - 11/21/18 03:20 Lactate dehydrogenase 1 [enzymatic activ ity/volume] in serum or plasma 128 U/L 125-220 IONIZED CALCIUM (SEND OFF) - 11/21/18 03 :20 Blood ionized calcium measurement (mass/volume) 1. 52 % 1.16- 1.32 Venous blood ionized calcium measurement adjusted to pH 7.4 (moles/volume) 1.54 % 1.16-1.32 pH measurement 7.44 NRG Complete urinalysis with reflex to cultu re - 11/21/18 05:00 Urine color determination YELLOW NRG Urine clarity determination CLEAR NR G Urine pH measurement by test strip 5 5-9 Specific gravity of urine by test strip 1.020 1.016-1.022 Urine protein assay by test strip, semi-quantitative NEGATIVE NEGATIVE Urine glucose detection by automated test strip NE GATIVE NEGATIVE Erythrocytes detection in urine sediment by light micr oscopy NEGATIVE NEGATIVE Urine ketones detection by automated test strip NE GATIVE NEGATIVE Urine nitrite detection by test strip NEGATIVE NEGATIVE Urine total bilirubin detection by test strip NEGA TIVE NEGATIVE Urine urobilinogen measurement by automated test strip (mass/volume) NORMAL NORMAL Urine leukocyte esterase detection by dipstick NEG ATIVE NEGATIVE Automated urine sediment erythrocyte cou nt by microscopy (number/high power field) [HPF] NRG Automated urine sediment leukocyte count by microscopy (number/high power field) NONE NRG Bacteria detection in urine sediment by light microsco py NEGATIVE NRG Squamous epithelial cells detection in u rine sediment by light microscopy 0-2 NRG Crystals detection in urine sediment by light microsco py NONE NRG Casts detection in urine sediment by light microscopy NONE NRG Mucus detection in urine sediment by light microscopy NEGATIVE NRG Complete urinalysis with reflex to culture NO NRG Sputum Gram stain - 11/21/18 08:00 Sputum Gram stain -, 604. NRG Bacteria identification in bronchial spe cimen by aerobe culture - 11/21/18 08:00 QUANTITY OF GROWTH . NRG Bacteria identification in bronchial specimen by aerob e culture USUAL RESP NRG FTX;REPORTABLE 6,000 CFU/ML NRG C FUNGUS SPUTUM FLUID TISSUE - 11/21/18 08:00 FUNGUS REPORT FINAL REPORT RCD 12/19 12:05: NRG FUNGUS EXAM NO FUNGUS ISOLATED NRG Mycobacterium species detection by organ ism specific culture - 11/21/18 08:01 Capillary blood glucose measurement by g lucometer (mass/volume) - 11/21/18 08:59 Capillary blood glucose measurement by glucometer (mas s/volume) 187 mg/dL 70-110 Capillary blood glucose measurement by g lucometer (mass/volume) - 11/21/18 16:37 Capillary blood glucose measurement by glucometer (mas s/volume) 233 mg/dL 70-110 Capillary blood glucose measurement by g lucometer (mass/volume) - 11/21/18 20:12 Capillary blood glucose measurement by glucometer (mas s/volume) 248 mg/dL 70-110 Complete blood count (CBC) with automate d white blood cell (WBC) differential - 11/22/18 05:10 Blood leukocytes automated count (number/volume) 8.8 10*3/uL 4.3-11.0 Blood erythrocytes automated count (number/volume) 3.50 10*6/uL 4.35-5.85 Venous blood hemoglobin measurement (mass/volume) 9.7 g/dL 13.3-17.7 Blood hematocrit (volume fraction) 31 % 40-54 Automated erythrocyte mean corpuscular volume 88 [ foz_us] 80-99 Automated erythrocyte mean corpuscular h emoglobin (mass per erythrocyte) 28 pg 25-34 Automated erythrocyte mean corpuscular h emoglobin concentration measurement (mass/volume) 32 g/dL 32-36 Automated erythrocyte distribution width ratio 13. 8 % 10.0- 14.5 Automated blood platelet count [...] 10*3 1.0-4.0 Blood monocytes automated count (number/volume) 1. 0 10*3 0.0-1.0 Automated eosinophil count 0.3 10*3/uL 0 .0-0.3 Automated blood basophil count (count/volume) 0.0 10*3/uL 0.0-0.1 Comprehensive metabolic panel - 11/22/18 05:10 Serum or plasma sodium measurement (moles/volume) 138 mmol/L 135-145 Serum or plasma potassium measurement (moles/volume) 4.3 mmol/L 3.6-5.0 Serum or plasma chloride measurement (moles/volume) 107 mmol/L 98-107 Carbon dioxide 23 mmol/L 21-32 Serum or plasma anion gap determination (moles/volume) 8 mmol/L 5-14 Serum or plasma urea nitrogen measurement (mass/volume ) 22 mg/dL 7-18 Serum or plasma creatinine measurement (mass/volume) 0.84 mg/dL 0.60-1.30 Serum or plasma urea nitrogen/creatinine mass ratio 26 NRG Serum or plasma creatinine measurement w ith calculation of estimated glomerular filtration rate > NRG Serum or plasma glucose measurement (mass/volume) 182 mg/dL 70-105 Serum or plasma calcium measurement (mass/volume) 10.5 mg/dL 8.5-10.1 Serum or plasma total bilirubin measurement (mass/volu me) 0.6 mg/dL 0.1-1.0 Serum or plasma alkaline phosphatase isaiah surement (enzymatic activity/volume) 98 U/L 40-136 Serum or plasma aspartate aminotransfera se measurement (enzymatic activity/volume) 11 U/L 5-34 Serum or plasma alanine aminotransferase measurement (enzymatic activity/volume) 14 U/L 0-55 Serum or plasma protein measurement (mass/volume) 5.8 g/dL 6.4-8.2 Serum or plasma albumin measurement (mass/volume) 2.8 g/dL 3.2-4.5 CALCIUM CORRECTED 11.5 mg/dL 8.5-10.1 Magnesium - 11/22/18 05:10 Magnesium 1.7 mg/dL 1.8-2.4 Serum or plasma lithium measurement (mol es/volume) - 11/22/18 05:10 BNP level 83.7 pg/mL <100.0 Capillary blood glucose measurement by g lucometer (mass/volume) - 11/22/18 05:40 Capillary blood glucose measurement by glucometer (mas s/volume) 179 mg/dL 70-110 Capillary blood glucose measurement by g lucometer (mass/volume) - 11/22/18 10:54 Capillary blood glucose measurement by glucometer (mas s/volume) 294 mg/dL 70-110 Capillary blood glucose measurement by g lucometer (mass/volume) - 11/22/18 15:55 Capillary blood glucose measurement by glucometer (mas s/volume) 226 mg/dL 70-110 Capillary blood glucose measurement by g lucometer (mass/volume) - 11/22/18 20:38 Capillary blood glucose measurement by glucometer (mas s/volume) 233 mg/dL 70-110 Capillary blood glucose measurement by g lucometer (mass/volume) - 11/23/18 05:59 Capillary blood glucose measurement by glucometer (mas s/volume) 211 mg/dL 70-110 Complete blood count (CBC) with automate d white blood cell (WBC) differential - 11/23/18 06:00 Blood leukocytes automated count (number/volume) 5.8 10*3/uL 4.3-11.0 Blood erythrocytes automated count (number/volume) 3.52 10*6/uL 4.35-5.85 Venous blood hemoglobin measurement (mass/volume) 9.6 g/dL 13.3-17.7 Blood hematocrit (volume fraction) 31 % 40-54 Automated erythrocyte mean corpuscular volume 88 [ foz_us] 80-99 Automated erythrocyte mean corpuscular h emoglobin (mass per erythrocyte) 27 pg 25-34 Automated erythrocyte mean corpuscular h emoglobin concentration measurement (mass/volume) 31 g/dL 32-36 Automated erythrocyte distribution width ratio 14. 0 % 10.0- 14.5 Automated blood platelet count [...] 10*3 1.0-4.0 Blood monocytes automated count (number/volume) 0. 7 10*3 0.0-1.0 Automated eosinophil count 0.1 10*3/uL 0 .0-0.3 Automated blood basophil count (count/volume) 0.0 10*3/uL 0.0-0.1 Comprehensive metabolic panel - 11/23/18 06:00 Serum or plasma sodium measurement (moles/volume) 134 mmol/L 135-145 Serum or plasma potassium measurement (moles/volume) 3.6 mmol/L 3.6-5.0 Serum or plasma chloride measurement (moles/volume) 106 mmol/L 98-107 Carbon dioxide 21 mmol/L 21-32 Serum or plasma anion gap determination (moles/volume) 7 mmol/L 5-14 Serum or plasma urea nitrogen measurement (mass/volume ) 16 mg/dL 7-18 Serum or plasma creatinine measurement (mass/volume) 0.86 mg/dL 0.60-1.30 Serum or plasma urea nitrogen/creatinine mass ratio 19 NRG Serum or plasma creatinine measurement w ith calculation of estimated glomerular filtration rate > NRG Serum or plasma glucose measurement (mass/volume) 195 mg/dL 70-105 Serum or plasma calcium measurement (mass/volume) 9.4 mg/dL 8.5-10.1 Serum or plasma total bilirubin measurement (mass/volu me) 0.6 mg/dL 0.1-1.0 Serum or plasma alkaline phosphatase iasiah surement (enzymatic activity/volume) 101 U/L 40-136 Serum or plasma aspartate aminotransfera se measurement (enzymatic activity/volume) 14 U/L 5-34 Serum or plasma alanine aminotransferase measurement (enzymatic activity/volume) 16 U/L 0-55 Serum or plasma protein measurement (mass/volume) 5.9 g/dL 6.4-8.2 Serum or plasma albumin measurement (mass/volume) 2.8 g/dL 3.2-4.5 CALCIUM CORRECTED 10.4 mg/dL 8.5-10.1 Magnesium - 11/23/18 06:00 Magnesium 1.6 mg/dL 1.8-2.4 Capillary blood glucose measurement by g lucometer (mass/volume) - 11/23/18 10:45 Capillary blood glucose measurement by glucometer (mas s/volume) 261 mg/dL 70-110 Capillary blood glucose measurement by g lucometer (mass/volume) - 11/23/18 16:19 Capillary blood glucose measurement by glucometer (mas s/volume) 180 mg/dL 70-110 Capillary blood glucose measurement by g lucometer (mass/volume) - 11/23/18 19:45 Capillary blood glucose measurement by glucometer (mas s/volume) 273 mg/dL 70-110 Complete blood count (CBC) with automate d white blood cell (WBC) differential - 11/24/18 04:15 Blood leukocytes automated count (number/volume) 6.0 10*3/uL 4.3-11.0 Blood erythrocytes automated count (number/volume) 3.46 10*6/uL 4.35-5.85 Venous blood hemoglobin measurement (mass/volume) 9.5 g/dL 13.3-17.7 Blood hematocrit (volume fraction) 30 % 40-54 Automated erythrocyte mean corpuscular volume 87 [ foz_us] 80-99 Automated erythrocyte mean corpuscular h emoglobin (mass per erythrocyte) 28 pg 25-34 Automated erythrocyte mean corpuscular h emoglobin concentration measurement (mass/volume) 32 g/dL 32-36 Automated erythrocyte distribution width ratio 13. 8 % 10.0- 14.5 Automated blood platelet count [...] 10*3 1.0-4.0 Blood monocytes automated count (number/volume) 0. 9 10*3 0.0-1.0 Automated eosinophil count 0.1 10*3/uL 0 .0-0.3 Automated blood basophil count (count/volume) 0.0 10*3/uL 0.0-0.1 Comprehensive metabolic panel - 11/24/18 04:15 Serum or plasma sodium measurement (moles/volume) 138 mmol/L 135-145 Serum or plasma potassium measurement (moles/volume) 3.8 mmol/L 3.6-5.0 Serum or plasma chloride measurement (moles/volume) 108 mmol/L 98-107 Carbon dioxide 22 mmol/L 21-32 Serum or plasma anion gap determination (moles/volume) 8 mmol/L 5-14 Serum or plasma urea nitrogen measurement (mass/volume ) 14 mg/dL 7-18 Serum or plasma creatinine measurement (mass/volume) 0.76 mg/dL 0.60-1.30 Serum or plasma urea nitrogen/creatinine mass ratio 18 NRG Serum or plasma creatinine measurement w ith calculation of estimated glomerular filtration rate > NRG Serum or plasma glucose measurement (mass/volume) 114 mg/dL 70-105 Serum or plasma calcium measurement (mass/volume) 9.2 mg/dL 8.5-10.1 Serum or plasma total bilirubin measurement (mass/volu me) 0.5 mg/dL 0.1-1.0 Serum or plasma alkaline phosphatase isaiah surement (enzymatic activity/volume) 111 U/L 40-136 Serum or plasma aspartate aminotransfera se measurement (enzymatic activity/volume) 22 U/L 5-34 Serum or plasma alanine aminotransferase measurement (enzymatic activity/volume) 22 U/L 0-55 Serum or plasma protein measurement (mass/volume) 5.5 g/dL 6.4-8.2 Serum or plasma albumin measurement (mass/volume) 2.7 g/dL 3.2-4.5 CALCIUM CORRECTED 10.2 mg/dL 8.5-10.1 Capillary blood glucose measurement by g lucometer (mass/volume) - 11/24/18 05:07 Capillary blood glucose measurement by glucometer (mas s/volume) 103 mg/dL 70-110 Capillary blood glucose measurement by g lucometer (mass/volume) - 11/24/18 10:49 Capillary blood glucose measurement by glucometer (mas s/volume) 169 mg/dL 70-110 Capillary blood glucose measurement by g lucometer (mass/volume) - 11/24/18 15:42 Capillary blood glucose measurement by glucometer (mas s/volume) 246 mg/dL 70-110 Capillary blood glucose measurement by g lucometer (mass/volume) - 11/24/18 20:47 Capillary blood glucose measurement by glucometer (mas s/volume) 222 mg/dL 70-110 Capillary blood glucose measurement by g lucometer (mass/volume) - 11/25/18 05:07 Capillary blood glucose measurement by glucometer (mas s/volume) 126 mg/dL 70-110 Capillary blood glucose measurement by g lucometer (mass/volume) - 11/25/18 11:29 Capillary blood glucose measurement by glucometer (mas s/volume) 238 mg/dL 70-110 Capillary blood glucose measurement by g lucometer (mass/volume) - 11/25/18 16:04 Capillary blood glucose measurement by glucometer (mas s/volume) 192 mg/dL 70-110 Capillary blood glucose measurement by g lucometer (mass/volume) - 11/25/18 19:30 Capillary blood glucose measurement by glucometer (mas s/volume) 173 mg/dL 70-110 Capillary blood glucose measurement by g lucometer (mass/volume) - 11/26/18 06:07 Capillary blood glucose measurement by glucometer (mas s/volume) 105 mg/dL 70-110 Capillary blood glucose measurement by g lucometer (mass/volume) - 11/26/18 11:33 Capillary blood glucose measurement by glucometer (mas s/volume) 148 mg/dL 70-110 Capillary blood glucose measurement by g lucometer (mass/volume) - 11/26/18 15:50 Capillary blood glucose measurement by glucometer (mas s/volume) 193 mg/dL 70-110 Capillary blood glucose measurement by g lucometer (mass/volume) - 11/26/18 20:28 Capillary blood glucose measurement by glucometer (mas s/volume) 122 mg/dL 70-110 PT panel in platelet poor plasma by coag ulation assay - 11/27/18 05:12 Prothrombin time (PT) in platelet poor plasma by coagu lation assay 15.8 s 12.2-14.7 INR in platelet poor plasma or blood by coagulation as say 1.2 0.8-1.4 Capillary blood glucose measurement by g lucometer (mass/volume) - 11/27/18 06:07 Capillary blood glucose measurement by glucometer (mas s/volume) 91 mg/dL 70-110 Capillary blood glucose measurement by g lucometer (mass/volume) - 11/27/18 11:16 Capillary blood glucose measurement by glucometer (mas s/volume) 82 mg/dL 70-110 Capillary blood glucose measurement by g lucometer (mass/volume) - 11/27/18 17:14 Capillary blood glucose measurement by glucometer (mas s/volume) 143 mg/dL 70-110 Capillary blood glucose measurement by g lucometer (mass/volume) - 11/27/18 20:39 Capillary blood glucose measurement by glucometer (mas s/volume) 175 mg/dL 70-110 Capillary blood glucose measurement by g lucometer (mass/volume) - 11/28/18 05:17 Capillary blood glucose measurement by glucometer (mas s/volume) 108 mg/dL 70-110 Capillary blood glucose measurement by g lucometer (mass/volume) - 12/09/18 10:17 Capillary blood glucose measurement by glucometer (mas s/volume) 132 mg/dL 70-110 Methicillin resistant Staphylococcus aur eus (MRSA) screening culture - 12/09/18 10:20 Methicillin resistant Staphylococcus aureus (MRSA) scr eening culture NEG NRG Complete blood count (CBC) with automate d white blood cell (WBC) differential - 12/17/18 11:45 Blood leukocytes automated count (number/volume) 5.6 10*3/uL 4.3-11.0 Blood erythrocytes automated count (number/volume) 3.93 10*6/uL 4.35-5.85 Venous blood hemoglobin measurement (mass/volume) 10.3 g/dL 13.3-17.7 Blood hematocrit (volume fraction) 32 % 40-54 Automated erythrocyte mean corpuscular volume 82 [ foz_us] 80-99 Automated erythrocyte mean corpuscular h emoglobin (mass per erythrocyte) 26 pg 25-34 Automated erythrocyte mean corpuscular h emoglobin concentration measurement (mass/volume) 32 g/dL 32-36 Automated erythrocyte distribution width ratio 15. 2 % 10.0- 14.5 Automated blood platelet count (count/volume) 171 10*3/uL 130-400 Automated blood platelet mean volume measurement 10.2 [foz_us] 7.4-10.4 Automated blood neutrophils/100 leukocytes 67 % 42-75 Automated blood lymphocytes/100 leukocytes 17 % 12-44 Blood monocytes/100 leukocytes 12 % 0-12 Automated blood eosinophils/100 leukocytes 4 % 0-10 Automated blood basophils/100 leukocytes 1 % 0-10 Blood neutrophils automated count (number/volume) 3.7 10*3 1.8-7.8 Blood lymphocytes automated count (number/volume) 0.9 10*3 1.0-4.0 Blood monocytes automated count (number/volume) 0. 6 10*3 0.0-1.0 Automated eosinophil count 0.2 10*3/uL 0 .0-0.3 Automated blood basophil count (count/volume) 0.0 10*3/uL 0.0-0.1 PT panel in platelet poor plasma by coag ulation assay - 12/17/18 11:45 Prothrombin time (PT) in platelet poor plasma by coagu lation assay 15.4 s 12.2-14.7 INR in platelet poor plasma or blood by coagulation as say 1.2 0.8-1.4 Activated partial thromboplastin time (a PTT) in platelet poor plasma bycoagulation assay - 12/17/18 11:45 Activated partial thromboplastin time (a PTT) in platelet poor plasma bycoagulation assay 38 s 24-35 Comprehensive metabolic panel - 12/17/18 11:45 Serum or plasma sodium measurement (moles/volume) 141 mmol/L 135-145 Serum or plasma potassium measurement (moles/volume) 4.0 mmol/L 3.6-5.0 Serum or plasma chloride measurement (moles/volume) 107 mmol/L 98-107 Carbon dioxide 25 mmol/L 21-32 Serum or plasma anion gap determination (moles/volume) 9 mmol/L 5-14 Serum or plasma urea nitrogen measurement (mass/volume ) 18 mg/dL 7-18 Serum or plasma creatinine measurement (mass/volume) 0.78 mg/dL 0.60-1.30 Serum or plasma urea nitrogen/creatinine mass ratio 23 NRG Serum or plasma creatinine measurement w ith calculation of estimated glomerular filtration rate > NRG Serum or plasma glucose measurement (mass/volume) 271 mg/dL 70-105 Serum or plasma calcium measurement (mass/volume) 9.5 mg/dL 8.5-10.1 Serum or plasma total bilirubin measurement (mass/volu me) 0.6 mg/dL 0.1-1.0 Serum or plasma alkaline phosphatase isaiah surement (enzymatic activity/volume) 126 U/L 40-136 Serum or plasma aspartate aminotransfera se measurement (enzymatic activity/volume) 20 U/L 5-34 Serum or plasma alanine aminotransferase measurement (enzymatic activity/volume) 17 U/L 0-55 Serum or plasma protein measurement (mass/volume) 6.4 g/dL 6.4-8.2 Serum or plasma albumin measurement (mass/volume) 2.9 g/dL 3.2-4.5 CALCIUM CORRECTED 10.4 mg/dL 8.5-10.1 Magnesium - 12/17/18 11:45 Magnesium 1.3 mg/dL 1.8-2.4 Serum or plasma troponin i.cardiac measu rement (mass/volume) - 12/17/18 11:45 Serum or plasma troponin i.cardiac measurement (mass/v olume) < ng/mL <0.028 Complete urinalysis with reflex to cultu re - 12/17/18 13:53 Urine color determination YELLOW NRG Urine clarity determination CLEAR NR G Urine pH measurement by test strip 5 5-9 Specific gravity of urine by test strip 1.015 1.016-1.022 Urine protein assay by test strip, semi-quantitative 3+ NEGATIVE Urine glucose detection by automated test strip 3+ NEGATIVE Erythrocytes detection in urine sediment by light micr oscopy 2+ NEGATIVE Urine ketones detection by automated test strip NE GATIVE NEGATIVE Urine nitrite detection by test strip NEGATIVE NEGATIVE Urine total bilirubin detection by test strip NEGA TIVE NEGATIVE Urine urobilinogen measurement by automated test strip (mass/volume) 1 mg/dL NORMAL Urine leukocyte esterase detection by dipstick NEG ATIVE NEGATIVE Automated urine sediment erythrocyte cou nt by microscopy (number/high power field) [HPF] NRG Automated urine sediment leukocyte count by microscopy (number/high power field) NONE NRG Bacteria detection in urine sediment by light microsco py NEGATIVE NRG Crystals detection in urine sediment by light microsco py NONE NRG Casts detection in urine sediment by light microscopy NONE NRG Mucus detection in urine sediment by light microscopy NEGATIVE NRG Complete urinalysis with reflex to culture NO NRG C.difficile, DNA Amplification - 9 17:40 C.difficile, DNA Amplification NEGATIVE: No DNA evidence of toxogenic C. difficile detected. Negative Other Culture - 05/08/19 12:00 PRELIM CULTURE RESULTS Scant Gram Positive M IC / ID to Follow MEDIA PLATED Setup at 14:22 on 05/08/2019 [facility] - 05/08/19 12:00 FINAL CULTURE RESULTS Proteus mirabilis (Isolate 1 ) Ampicillin/Sulbactam <=8/4 Ampicillin <=8 Amoxicillin/K Clavulanate <=8/4 Ceftriaxone <=8 Ciprofloxacin <=1 Nitrofurantoin >64 Gentamicin <=4 Levofloxacin <=2 Trimethoprim/ Sulfamethoxazole >2/38 Tetracycline >8 Amikacin <=16 Aztreonam <=8 Ceftazidime <=1 Ceftazidime/K Clavulanate <=0.25 Cephalothin <=8 Cefotaxime <=2 Cefotaxime/K Clavulanate <=0.5 Cefoxitin <=8 Cefazolin <=8 Cefepime <=8 Cefuroxime <=4 Ertapenem <=1 Imipenem <=4 Meropenem <=4 Piperacillin/Tazobactam <=16 Piperacillin <=16 Tigecycline N/R Tobramycin <=4 [facility] - 05/08/19 12:00 Ampicillin/Sulbactam <=8/4 Ampicillin 8 Amoxicillin/K Clavulanate <=4/2 Ceftriaxone >32 Clindamycin >4 Cefoxitin Screen N/R Ciprofloxacin >2 Daptomycin 1 Erythromycin >4 Nitrofurantoin <=32 Gentamicin >8 Gentamicin Synergy Screen <=500 Inducible Clindamycin N/R Levofloxacin >4 Linezolid 2 Moxifloxacin 4 Oxacillin >2 Penicillin >8 Rifampin 2 Streptomycin Synergy <=1000 Synercid N/R Trimethoprim/ Sulfamethoxazole >2/38 Tetracycline >8 Vancomycin 1 FINAL CULTURE RESULTS Enterococcus faecalis ([place] te 2) Other Culture - 05/08/19 12:00 PRELIM CULTURE RESULTS Scant Gram Positive M IC / ID to Follow MEDIA PLATED Setup at 14:21 on 05/08/2019 [facility] - 05/08/19 12:00 FINAL CULTURE RESULTS Proteus mirabilis (Isolate 1 ) Ampicillin/Sulbactam <=8/4 Ampicillin <=8 Amoxicillin/K Clavulanate <=8/4 Ceftriaxone <=8 Ciprofloxacin <=1 Nitrofurantoin >64 Gentamicin <=4 Levofloxacin <=2 Trimethoprim/ Sulfamethoxazole >2/38 Tetracycline >8 Amikacin <=16 Aztreonam <=8 Ceftazidime <=1 Ceftazidime/K Clavulanate <=0.25 Cephalothin <=8 Cefotaxime <=2 Cefotaxime/K Clavulanate <=0.5 Cefoxitin <=8 Cefazolin <=8 Cefepime <=8 Cefuroxime <=4 Ertapenem <=1 Imipenem <=4 Meropenem <=4 Piperacillin/Tazobactam <=16 Piperacillin <=16 Tigecycline N/R Tobramycin <=4 [facility] - 05/08/19 12:00 Ampicillin/Sulbactam <=8/4 Ampicillin <=2 Amoxicillin/K Clavulanate <=4/2 Ceftriaxone >32 Clindamycin >4 Cefoxitin Screen N/R Ciprofloxacin <=1 Daptomycin 1 Erythromycin 2 Nitrofurantoin <=32 Gentamicin 8 Gentamicin Synergy Screen <=500 Inducible Clindamycin N/R Levofloxacin <=1 Linezolid 2 Moxifloxacin <=0.5 Oxacillin >2 Penicillin 2 Rifampin 2 Streptomycin Synergy <=1000 Synercid N/R Trimethoprim/ Sulfamethoxazole <=0.5/9.5 Tetracycline >8 Vancomycin 1 FINAL CULTURE RESULTS Enterococcus faecalis ([place] te 2) Complete blood count (CBC) with automate d white blood cell (WBC) differential - 06/11/19 13:30 Blood leukocytes automated count (number/volume) 7.1 10*3/uL 4.3-11.0 Blood erythrocytes automated count (number/volume) 3.23 10*6/uL 4.35-5.85 Venous blood hemoglobin measurement (mass/volume) 10.2 g/dL 13.3-17.7 Blood hematocrit (volume fraction) 32 % 40-54 Automated erythrocyte mean corpuscular volume 98 [ foz_us] 80-99 Automated erythrocyte mean corpuscular h emoglobin (mass per erythrocyte) 32 pg 25-34 Automated erythrocyte mean corpuscular h emoglobin concentration measurement (mass/volume) 32 g/dL 32-36 Automated erythrocyte distribution width ratio 15. 3 % 10.0- 14.5 Automated blood platelet count (count/volume) 77 1 0*3/uL 130-400 Automated blood platelet mean volume measurement 10.8 [foz_us] 7.4-10.4 Automated blood neutrophils/100 leukocytes 67 % 42-75 Automated blood lymphocytes/100 leukocytes 20 % 12-44 Blood monocytes/100 leukocytes 10 % 0-12 Automated blood eosinophils/100 leukocytes 2 % 0-10 Automated blood basophils/100 leukocytes 0 % 0-10 Blood neutrophils automated count (number/volume) 4.8 10*3 1.8-7.8 Blood lymphocytes automated count (number/volume) 1.4 10*3 1.0-4.0 Blood monocytes automated count (number/volume) 0. 7 10*3 0.0-1.0 Automated eosinophil count 0.2 10*3/uL 0 .0-0.3 Automated blood basophil count (count/volume) 0.0 10*3/uL 0.0-0.1 Comprehensive metabolic panel - 06/11/19 13:30 Serum or plasma sodium measurement (moles/volume) 140 mmol/L 135-145 Serum or plasma potassium measurement (moles/volume) 3.8 mmol/L 3.6-5.0 Serum or plasma chloride measurement (moles/volume) 107 mmol/L 98-107 Carbon dioxide 26 mmol/L 21-32 Serum or plasma anion gap determination (moles/volume) 7 mmol/L 5-14 Serum or plasma urea nitrogen measurement (mass/volume ) 12 mg/dL 7-18 Serum or plasma creatinine measurement (mass/volume) 1.04 mg/dL 0.60-1.30 Serum or plasma urea nitrogen/creatinine mass ratio 12 NRG Serum or plasma creatinine measurement w ith calculation of estimated glomerular filtration rate > NRG Serum or plasma glucose measurement (mass/volume) 58 mg/dL 70-105 Serum or plasma calcium measurement (mass/volume) 8.5 mg/dL 8.5-10.1 Serum or plasma total bilirubin measurement (mass/volu me) 1.3 mg/dL 0.1-1.0 Serum or plasma alkaline phosphatase isaiah surement (enzymatic activity/volume) 97 U/L 40-136 Serum or plasma aspartate aminotransfera se measurement (enzymatic activity/volume) 21 U/L 5-34 Serum or plasma alanine aminotransferase measurement (enzymatic activity/volume) 18 U/L 0-55 Serum or plasma protein measurement (mass/volume) 5.7 g/dL 6.4-8.2 Serum or plasma albumin measurement (mass/volume) 2.7 g/dL 3.2-4.5 CALCIUM CORRECTED 9.5 mg/dL 8.5-10.1 Magnesium - 06/11/19 13:30 Magnesium 1.5 mg/dL 1.6-2.4 THYROID STIMULATING HORMONE - 06/11/19 1 3:30 THYROID STIMULATING HORMONE 7.04 u[iU]/mL 0.35-4.94 Serum or plasma thyroxine (T4) free corinne urement (mass/volume) - 06/11/19 13:30 Serum or plasma thyroxine (T4) free measurement (mass/ volume) 0.93 ng/dL 0.70-1.48 Complete urinalysis with reflex to cultu re - 06/11/19 13:45 Urine color determination YELLOW NRG Urine clarity determination CLEAR NR G Urine pH measurement by test strip 7.5 5-9 Specific gravity of urine by test strip 1.020 1.016-1.022 Urine protein assay by test strip, semi-quantitative 3+ NEGATIVE Urine glucose detection by automated test strip NE GATIVE NEGATIVE Erythrocytes detection in urine sediment by light micr oscopy NEGATIVE NEGATIVE Urine ketones detection by automated test strip NE GATIVE NEGATIVE Urine nitrite detection by test strip NEGATIVE NEGATIVE Urine total bilirubin detection by test strip NEGA TIVE NEGATIVE Urine urobilinogen measurement by automated test strip (mass/volume) >= mg/dL < = 1.0 Urine leukocyte esterase detection by dipstick NEG ATIVE NEGATIVE Automated urine sediment erythrocyte cou nt by microscopy (number/high power field) NONE NRG Automated urine sediment leukocyte count by microscopy (number/high power field) RARE NRG Bacteria detection in urine sediment by light microsco py NEGATIVE NRG Squamous epithelial cells detection in u rine sediment by light microscopy RARE NRG Crystals detection in urine sediment by light microsco py NONE NRG Casts detection in urine sediment by light microscopy PRESENT NRG Mucus detection in urine sediment by light microscopy NEGATIVE NRG Complete urinalysis with reflex to culture NO NRG Hyaline casts detection in urine sediment by light jeimy roscopy RARE NRG Complete blood count (CBC) with automate d white blood cell (WBC) differential - 06/13/19 09:54 Blood leukocytes automated count (number/volume) 6.2 10*3/uL 4.3-11.0 Blood erythrocytes automated count (number/volume) 3.33 10*6/uL 4.35-5.85 Venous blood hemoglobin measurement (mass/volume) 10.4 g/dL 13.3-17.7 Blood hematocrit (volume fraction) 32 % 40-54 Automated erythrocyte mean corpuscular volume 96 [ foz_us] 80-99 Automated erythrocyte mean corpuscular h emoglobin (mass per erythrocyte) 31 pg 25-34 Automated erythrocyte mean corpuscular h emoglobin concentration measurement (mass/volume) 32 g/dL 32-36 Automated erythrocyte distribution width ratio 14. 9 % 10.0- 14.5 Automated blood platelet count (count/volume) 101 10*3/uL 130-400 Automated blood platelet mean volume measurement 10.6 [foz_us] 7.4-10.4 Automated blood neutrophils/100 leukocytes 71 % 42-75 Automated blood lymphocytes/100 leukocytes 15 % 12-44 Blood monocytes/100 leukocytes 11 % 0-12 Automated blood eosinophils/100 leukocytes 3 % 0-10 Automated blood basophils/100 leukocytes 1 % 0-10 Blood neutrophils automated count (number/volume) 4.4 10*3 1.8-7.8 Blood lymphocytes automated count (number/volume) 0.9 10*3 1.0-4.0 Blood monocytes automated count (number/volume) 0. 7 10*3 0.0-1.0 Automated eosinophil count 0.2 10*3/uL 0 .0-0.3 Automated blood basophil count (count/volume) 0.0 10*3/uL 0.0-0.1 Comprehensive metabolic panel - 06/13/19 09:54 Serum or plasma sodium measurement (moles/volume) 141 mmol/L 135-145 Serum or plasma potassium measurement (moles/volume) 3.8 mmol/L 3.6-5.0 Serum or plasma chloride measurement (moles/volume) 108 mmol/L 98-107 Carbon dioxide 23 mmol/L 21-32 Serum or plasma anion gap determination (moles/volume) 10 mmol/L 5-14 Serum or plasma urea nitrogen measurement (mass/volume ) 12 mg/dL 7-18 Serum or plasma creatinine measurement (mass/volume) 1.08 mg/dL 0.60-1.30 Serum or plasma urea nitrogen/creatinine mass ratio 11 NRG Serum or plasma creatinine measurement w ith calculation of estimated glomerular filtration rate > NRG Serum or plasma glucose measurement (mass/volume) 103 mg/dL 70-105 Serum or plasma calcium measurement (mass/volume) 8.4 mg/dL 8.5-10.1 Serum or plasma total bilirubin measurement (mass/volu me) 1.2 mg/dL 0.1-1.0 Serum or plasma alkaline phosphatase isaiah surement (enzymatic activity/volume) 96 U/L 40-136 Serum or plasma aspartate aminotransfera se measurement (enzymatic activity/volume) 19 U/L 5-34 Serum or plasma alanine aminotransferase measurement (enzymatic activity/volume) 17 U/L 0-55 Serum or plasma protein measurement (mass/volume) 5.8 g/dL 6.4-8.2 Serum or plasma albumin measurement (mass/volume) 2.8 g/dL 3.2-4.5 CALCIUM CORRECTED 9.4 mg/dL 8.5-10.1 Magnesium - 06/13/19 09:54 Magnesium 1.8 mg/dL 1.6-2.4 Complete urinalysis with reflex to cultu re - 06/13/19 11:33 Urine color determination YELLOW NRG Urine clarity determination CLEAR NR G Urine pH measurement by test strip 7.0 5-9 Specific gravity of urine by test strip 1.020 1.016-1.022 Urine protein assay by test strip, semi-quantitative 3+ NEGATIVE Urine glucose detection by automated test strip NE GATIVE NEGATIVE Erythrocytes detection in urine sediment by light micr oscopy TRACE-I NEGATIVE Urine ketones detection by automated test strip NE GATIVE NEGATIVE Urine nitrite detection by test strip NEGATIVE NEGATIVE Urine total bilirubin detection by test strip NEGA TIVE NEGATIVE Urine urobilinogen measurement by automated test strip (mass/volume) >= mg/dL < = 1.0 Urine leukocyte esterase detection by dipstick NEG ATIVE NEGATIVE Automated urine sediment erythrocyte cou nt by microscopy (number/high power field) RARE NRG Automated urine sediment leukocyte count by microscopy (number/high power field) RARE NRG Bacteria detection in urine sediment by light microsco py NEGATIVE NRG Squamous epithelial cells detection in u rine sediment by light microscopy NONE NRG Crystals detection in urine sediment by light microsco py NONE NRG Casts detection in urine sediment by light microscopy NONE NRG Mucus detection in urine sediment by light microscopy NEGATIVE NRG Complete urinalysis with reflex to culture NO NRG Capillary blood glucose measurement by g lucometer (mass/volume) - 06/13/19 15:52 Capillary blood glucose measurement by glucometer (mas s/volume) 191 mg/dL 70-110 Capillary blood glucose measurement by g lucometer (mass/volume) - 06/13/19 20:43 Capillary blood glucose measurement by glucometer (mas s/volume) 159 mg/dL 70-110 Automated blood complete blood count (he mogram) panel - 06/14/19 04:50 Blood leukocytes automated count (number/volume) 5.9 10*3/uL 4.3-11.0 Blood erythrocytes automated count (number/volume) 2.96 10*6/uL 4.35-5.85 Venous blood hemoglobin measurement (mass/volume) 9.2 g/dL 13.3-17.7 Blood hematocrit (volume fraction) 29 % 40-54 Automated erythrocyte mean corpuscular volume 97 [ foz_us] 80-99 Automated erythrocyte mean corpuscular h emoglobin (mass per erythrocyte) 31 pg 25-34 Automated erythrocyte mean corpuscular h emoglobin concentration measurement (mass/volume) 32 g/dL 32-36 Automated erythrocyte distribution width ratio 14. 9 % 10.0- 14.5 Automated blood platelet count (count/volume) 87 1 0*3/uL 130-400 Automated blood platelet mean volume measurement 10.2 [foz_us] 7.4-10.4 Whole blood basic metabolic panel - 05/23 11/07 04:50 Serum or plasma sodium measurement (moles/volume) 142 mmol/L 135-145 Serum or plasma potassium measurement (moles/volume) 3.7 mmol/L 3.6-5.0 Serum or plasma chloride measurement (moles/volume) 110 mmol/L 98-107 Carbon dioxide 23 mmol/L 21-32 Serum or plasma anion gap determination (moles/volume) 9 mmol/L 5-14 Serum or plasma urea nitrogen measurement (mass/volume ) 12 mg/dL 7-18 Serum or plasma creatinine measurement (mass/volume) 1.04 mg/dL 0.60-1.30 Serum or plasma urea nitrogen/creatinine mass ratio 12 NRG Serum or plasma creatinine measurement w ith calculation of estimated glomerular filtration rate > NRG Serum or plasma glucose measurement (mass/volume) 116 mg/dL 70-105 Serum or plasma calcium measurement (mass/volume) 8.0 mg/dL 8.5-10.1 Capillary blood glucose measurement by g lucometer (mass/volume) - 06/14/19 10:57 Capillary blood glucose measurement by glucometer (mas s/volume) 138 mg/dL 70-110 Capillary blood glucose measurement by g lucometer (mass/volume) - 06/14/19 15:55 Capillary blood glucose measurement by glucometer (mas s/volume) 119 mg/dL 70-110 Capillary blood glucose measurement by g lucometer (mass/volume) - 06/14/19 20:28 Capillary blood glucose measurement by glucometer (mas s/volume) 154 mg/dL 70-110 Complete blood count (CBC) with automate d white blood cell (WBC) differential - 06/15/19 05:25 Blood leukocytes automated count (number/volume) 6.6 10*3/uL 4.3-11.0 Blood erythrocytes automated count (number/volume) 3.08 10*6/uL 4.35-5.85 Venous blood hemoglobin measurement (mass/volume) 9.6 g/dL 13.3-17.7 Blood hematocrit (volume fraction) 30 % 40-54 Automated erythrocyte mean corpuscular volume 97 [ foz_us] 80-99 Automated erythrocyte mean corpuscular h emoglobin (mass per erythrocyte) 31 pg 25-34 Automated erythrocyte mean corpuscular h emoglobin concentration measurement (mass/volume) 32 g/dL 32-36 Automated erythrocyte distribution width ratio 14. 9 % 10.0- 14.5 Automated blood platelet count (count/volume) 100 10*3/uL 130-400 Automated blood platelet mean volume measurement 10.3 [foz_us] 7.4-10.4 Automated blood neutrophils/100 leukocytes 74 % 42-75 Automated blood lymphocytes/100 leukocytes 14 % 12-44 Blood monocytes/100 leukocytes 11 % 0-12 Automated blood eosinophils/100 leukocytes 1 % 0-10 Automated blood basophils/100 leukocytes 0 % 0-10 Blood neutrophils automated count (number/volume) 4.9 10*3 1.8-7.8 Blood lymphocytes automated count (number/volume) 0.9 10*3 1.0-4.0 Blood monocytes automated count (number/volume) 0. 7 10*3 0.0-1.0 Automated eosinophil count 0.1 10*3/uL 0 .0-0.3 Automated blood basophil count (count/volume) 0.0 10*3/uL 0.0-0.1 Comprehensive metabolic panel - 06/15/19 05:25 Serum or plasma sodium measurement (moles/volume) 141 mmol/L 135-145 Serum or plasma potassium measurement (moles/volume) 3.6 mmol/L 3.6-5.0 Serum or plasma chloride measurement (moles/volume) 108 mmol/L 98-107 Carbon dioxide 24 mmol/L 21-32 Serum or plasma anion gap determination (moles/volume) 9 mmol/L 5-14 Serum or plasma urea nitrogen measurement (mass/volume ) 13 mg/dL 7-18 Serum or plasma creatinine measurement (mass/volume) 0.94 mg/dL 0.60-1.30 Serum or plasma urea nitrogen/creatinine mass ratio 14 NRG Serum or plasma creatinine measurement w ith calculation of estimated glomerular filtration rate > NRG Serum or plasma glucose measurement (mass/volume) 119 mg/dL 70-105 Serum or plasma calcium measurement (mass/volume) 8.2 mg/dL 8.5-10.1 Serum or plasma total bilirubin measurement (mass/volu me) 1.1 mg/dL 0.1-1.0 Serum or plasma alkaline phosphatase isaiah surement (enzymatic activity/volume) 90 U/L 40-136 Serum or plasma aspartate aminotransfera se measurement (enzymatic activity/volume) 22 U/L 5-34 Serum or plasma alanine aminotransferase measurement (enzymatic activity/volume) 17 U/L 0-55 Serum or plasma protein measurement (mass/volume) 5.4 g/dL 6.4-8.2 Serum or plasma albumin measurement (mass/volume) 2.5 g/dL 3.2-4.5 CALCIUM CORRECTED 9.4 mg/dL 8.5-10.1 Capillary blood glucose measurement by g lucometer (mass/volume) - 06/15/19 11:16 Capillary blood glucose measurement by glucometer (mas s/volume) 130 mg/dL 70-110 Capillary blood glucose measurement by g lucometer (mass/volume) - 06/15/19 16:06 Capillary blood glucose measurement by glucometer (mas s/volume) 92 mg/dL 70-110 Complete blood count (CBC) with automate d white blood cell (WBC) differential - 06/15/19 17:41 Blood leukocytes automated count (number/volume) 7.8 10*3/uL 4.3-11.0 Blood erythrocytes automated count (number/volume) 3.09 10*6/uL 4.35-5.85 Venous blood hemoglobin measurement (mass/volume) 9.9 g/dL 13.3-17.7 Blood hematocrit (volume fraction) 30 % 40-54 Automated erythrocyte mean corpuscular volume 97 [ foz_us] 80-99 Automated erythrocyte mean corpuscular h emoglobin (mass per erythrocyte) 32 pg 25-34 Automated erythrocyte mean corpuscular h emoglobin concentration measurement (mass/volume) 33 g/dL 32-36 Automated erythrocyte distribution width ratio 15. 0 % 10.0- 14.5 Automated blood platelet count (count/volume) 121 10*3/uL 130-400 Automated blood platelet mean volume measurement 10.4 [foz_us] 7.4-10.4 Automated blood neutrophils/100 leukocytes 75 % 42-75 Automated blood lymphocytes/100 leukocytes 14 % 12-44 Blood monocytes/100 leukocytes 10 % 0-12 Automated blood eosinophils/100 leukocytes 0 % 0-10 Automated blood basophils/100 leukocytes 0 % 0-10 Blood neutrophils automated count (number/volume) 5.9 10*3 1.8-7.8 Blood lymphocytes automated count (number/volume) 1.1 10*3 1.0-4.0 Blood monocytes automated count (number/volume) 0. 8 10*3 0.0-1.0 Automated eosinophil count 0.0 10*3/uL 0 .0-0.3 Automated blood basophil count (count/volume) 0.0 10*3/uL 0.0-0.1 Blood lactic acid measurement (moles/vol ume) - 06/15/19 17:41 Blood lactic acid measurement (moles/volume) 0.91 mmol/L 0.50-2.00 Comprehensive metabolic panel - 06/15/19 17:41 Serum or plasma sodium measurement (moles/volume) 142 mmol/L 135-145 Serum or plasma potassium measurement (moles/volume) 3.5 mmol/L 3.6-5.0 Serum or plasma chloride measurement (moles/volume) 109 mmol/L 98-107 Carbon dioxide 21 mmol/L 21-32 Serum or plasma anion gap determination (moles/volume) 12 mmol/L 5-14 Serum or plasma urea nitrogen measurement (mass/volume ) 14 mg/dL 7-18 Serum or plasma creatinine measurement (mass/volume) 0.93 mg/dL 0.60-1.30 Serum or plasma urea nitrogen/creatinine mass ratio 15 NRG Serum or plasma creatinine measurement w ith calculation of estimated glomerular filtration rate > NRG Serum or plasma glucose measurement (mass/volume) 93 mg/dL 70-105 Serum or plasma calcium measurement (mass/volume) 8.3 mg/dL 8.5-10.1 Serum or plasma total bilirubin measurement (mass/volu me) 0.9 mg/dL 0.1-1.0 Serum or plasma alkaline phosphatase isaiah surement (enzymatic activity/volume) 90 U/L 40-136 Serum or plasma aspartate aminotransfera se measurement (enzymatic activity/volume) 24 U/L 5-34 Serum or plasma alanine aminotransferase measurement (enzymatic activity/volume) 18 U/L 0-55 Serum or plasma protein measurement (mass/volume) 5.9 g/dL 6.4-8.2 Serum or plasma albumin measurement (mass/volume) 2.6 g/dL 3.2-4.5 CALCIUM CORRECTED 9.4 mg/dL 8.5-10.1 Bacterial blood culture - 06/15/19 17:41 Bacterial blood culture NG NRG Bacterial blood culture - 06/15/19 17:50 Bacterial blood culture NG NRG Capillary blood glucose measurement by g lucometer (mass/volume) - 06/15/19 21:11 Capillary blood glucose measurement by glucometer (mas s/volume) 99 mg/dL 70-110 Complete blood count (CBC) with automate d white blood cell (WBC) differential - 06/16/19 04:10 Blood leukocytes automated count (number/volume) 7.7 10*3/uL 4.3-11.0 Blood erythrocytes automated count (number/volume) 2.94 10*6/uL 4.35-5.85 Venous blood hemoglobin measurement (mass/volume) 9.1 g/dL 13.3-17.7 Blood hematocrit (volume fraction) 29 % 40-54 Automated erythrocyte mean corpuscular volume 97 [ foz_us] 80-99 Automated erythrocyte mean corpuscular h emoglobin (mass per erythrocyte) 31 pg 25-34 Automated erythrocyte mean corpuscular h emoglobin concentration measurement (mass/volume) 32 g/dL 32-36 Automated erythrocyte distribution width ratio 15. 0 % 10.0- 14.5 Automated blood platelet count (count/volume) 123 10*3/uL 130-400 Automated blood platelet mean volume measurement 10.5 [foz_us] 7.4-10.4 Automated blood neutrophils/100 leukocytes 76 % 42-75 Automated blood lymphocytes/100 leukocytes 12 % 12-44 Blood monocytes/100 leukocytes 11 % 0-12 Automated blood eosinophils/100 leukocytes 1 % 0-10 Automated blood basophils/100 leukocytes 0 % 0-10 Blood neutrophils automated count (number/volume) 5.9 10*3 1.8-7.8 Blood lymphocytes automated count (number/volume) 0.9 10*3 1.0-4.0 Blood monocytes automated count (number/volume) 0. 8 10*3 0.0-1.0 Automated eosinophil count 0.1 10*3/uL 0 .0-0.3 Automated blood basophil count (count/volume) 0.0 10*3/uL 0.0-0.1 Comprehensive metabolic panel - 06/16/19 04:10 Serum or plasma sodium measurement (moles/volume) 142 mmol/L 135-145 Serum or plasma potassium measurement (moles/volume) 3.3 mmol/L 3.6-5.0 Serum or plasma chloride measurement (moles/volume) 110 mmol/L 98-107 Carbon dioxide 22 mmol/L 21-32 Serum or plasma anion gap determination (moles/volume) 10 mmol/L 5-14 Serum or plasma urea nitrogen measurement (mass/volume ) 14 mg/dL 7-18 Serum or plasma creatinine measurement (mass/volume) 1.04 mg/dL 0.60-1.30 Serum or plasma urea nitrogen/creatinine mass ratio 13 NRG Serum or plasma creatinine measurement w ith calculation of estimated glomerular filtration rate > NRG Serum or plasma glucose measurement (mass/volume) 94 mg/dL 70-105 Serum or plasma calcium measurement (mass/volume) 8.0 mg/dL 8.5-10.1 Serum or plasma total bilirubin measurement (mass/volu me) 0.8 mg/dL 0.1-1.0 Serum or plasma alkaline phosphatase isaiah surement (enzymatic activity/volume) 83 U/L 40-136 Serum or plasma aspartate aminotransfera se measurement (enzymatic activity/volume) 25 U/L 5-34 Serum or plasma alanine aminotransferase measurement (enzymatic activity/volume) 15 U/L 0-55 Serum or plasma protein measurement (mass/volume) 5.2 g/dL 6.4-8.2 Serum or plasma albumin measurement (mass/volume) 2.3 g/dL 3.2-4.5 CALCIUM CORRECTED 9.4 mg/dL 8.5-10.1 Serum ragweed IgE antibody assay - 06/16 04:10 Serum ragweed IgE antibody assay 257 U/L 125-220 Capillary blood glucose measurement by g lucometer (mass/volume) - 06/16/19 11:31 Capillary blood glucose measurement by glucometer (mas s/volume) 103 mg/dL 70-110 Capillary blood glucose measurement by g lucometer (mass/volume) - 06/16/19 15:54 Capillary blood glucose measurement by glucometer (mas s/volume) 122 mg/dL 70-110 Capillary blood glucose measurement by g lucometer (mass/volume) - 06/16/19 21:03 Capillary blood glucose measurement by glucometer (mas s/volume) 104 mg/dL 70-110 Capillary blood glucose measurement by g lucometer (mass/volume) - 06/17/19 05:23 Capillary blood glucose measurement by glucometer (mas s/volume) 99 mg/dL 70-110 Complete blood count (CBC) with automate d white blood cell (WBC) differential - 06/17/19 05:30 Blood leukocytes automated count (number/volume) 6.3 10*3/uL 4.3-11.0 Blood erythrocytes automated count (number/volume) 3.23 10*6/uL 4.35-5.85 Venous blood hemoglobin measurement (mass/volume) 9.8 g/dL 13.3-17.7 Blood hematocrit (volume fraction) 32 % 40-54 Automated erythrocyte mean corpuscular volume 98 [ foz_us] 80-99 Automated erythrocyte mean corpuscular h emoglobin (mass per erythrocyte) 30 pg 25-34 Automated erythrocyte mean corpuscular h emoglobin concentration measurement (mass/volume) 31 g/dL 32-36 Automated erythrocyte distribution width ratio 15. 2 % 10.0- 14.5 Automated blood platelet count (count/volume) 122 10*3/uL 130-400 Automated blood platelet mean volume measurement 9.8 [foz_us] 7.4-10.4 Automated blood neutrophils/100 leukocytes 74 % 42-75 Automated blood lymphocytes/100 leukocytes 14 % 12-44 Blood monocytes/100 leukocytes 8 % 0-12 Automated blood eosinophils/100 leukocytes 4 % 0-10 Automated blood basophils/100 leukocytes 1 % 0-10 Blood neutrophils automated count (number/volume) 4.7 10*3 1.8-7.8 Blood lymphocytes automated count (number/volume) 0.9 10*3 1.0-4.0 Blood monocytes automated count (number/volume) 0. 5 10*3 0.0-1.0 Automated eosinophil count 0.2 10*3/uL 0 .0-0.3 Automated blood basophil count (count/volume) 0.0 10*3/uL 0.0-0.1 Comprehensive metabolic panel - 06/17/19 05:30 Serum or plasma sodium measurement (moles/volume) 142 mmol/L 135-145 Serum or plasma potassium measurement (moles/volume) 3.7 mmol/L 3.6-5.0 Serum or plasma chloride measurement (moles/volume) 110 mmol/L 98-107 Carbon dioxide 23 mmol/L 21-32 Serum or plasma anion gap determination (moles/volume) 9 mmol/L 5-14 Serum or plasma urea nitrogen measurement (mass/volume ) 10 mg/dL 7-18 Serum or plasma creatinine measurement (mass/volume) 0.93 mg/dL 0.60-1.30 Serum or plasma urea nitrogen/creatinine mass ratio 11 NRG Serum or plasma creatinine measurement w ith calculation of estimated glomerular filtration rate > NRG Serum or plasma glucose measurement (mass/volume) 100 mg/dL 70-105 Serum or plasma calcium measurement (mass/volume) 8.1 mg/dL 8.5-10.1 Serum or plasma total bilirubin measurement (mass/volu me) 0.8 mg/dL 0.1-1.0 Serum or plasma alkaline phosphatase isaiah surement (enzymatic activity/volume) 91 U/L 40-136 Serum or plasma aspartate aminotransfera se measurement (enzymatic activity/volume) 22 U/L 5-34 Serum or plasma alanine aminotransferase measurement (enzymatic activity/volume) 14 U/L 0-55 Serum or plasma protein measurement (mass/volume) 5.4 g/dL 6.4-8.2 Serum or plasma albumin measurement (mass/volume) 2.4 g/dL 3.2-4.5 CALCIUM CORRECTED 9.4 mg/dL 8.5-10.1 Vancomycin trough - 06/17/19 05:30 Vancomycin trough 22.1 ug/mL 10.0-20.0 Capillary blood glucose measurement by g lucometer (mass/volume) - 06/17/19 10:58 Capillary blood glucose measurement by glucometer (mas s/volume) 142 mg/dL 70-110 Capillary blood glucose measurement by g lucometer (mass/volume) - 06/17/19 16:05 Capillary blood glucose measurement by glucometer (mas s/volume) 133 mg/dL 70-110 Capillary blood glucose measurement by g lucometer (mass/volume) - 06/17/19 20:42 Capillary blood glucose measurement by glucometer (mas s/volume) 156 mg/dL 70-110 Complete blood count (CBC) with automate d white blood cell (WBC) differential - 06/18/19 04:10 Blood leukocytes automated count (number/volume) 5.9 10*3/uL 4.3-11.0 Blood erythrocytes automated count (number/volume) 2.94 10*6/uL 4.35-5.85 Venous blood hemoglobin measurement (mass/volume) 9.0 g/dL 13.3-17.7 Blood hematocrit (volume fraction) 29 % 40-54 Automated erythrocyte mean corpuscular volume 98 [ foz_us] 80-99 Automated erythrocyte mean corpuscular h emoglobin (mass per erythrocyte) 31 pg 25-34 Automated erythrocyte mean corpuscular h emoglobin concentration measurement (mass/volume) 31 g/dL 32-36 Automated erythrocyte distribution width ratio 15. 2 % 10.0- 14.5 Automated blood platelet count (count/volume) 123 10*3/uL 130-400 Automated blood platelet mean volume measurement 9.8 [foz_us] 7.4-10.4 Automated blood neutrophils/100 leukocytes 66 % 42-75 Automated blood lymphocytes/100 leukocytes 16 % 12-44 Blood monocytes/100 leukocytes 14 % 0-12 Automated blood eosinophils/100 leukocytes 4 % 0-10 Automated blood basophils/100 leukocytes 1 % 0-10 Blood neutrophils automated count (number/volume) 3.9 10*3 1.8-7.8 Blood lymphocytes automated count (number/volume) 0.9 10*3 1.0-4.0 Blood monocytes automated count (number/volume) 0. 8 10*3 0.0-1.0 Automated eosinophil count 0.2 10*3/uL 0 .0-0.3 Automated blood basophil count (count/volume) 0.0 10*3/uL 0.0-0.1 Comprehensive metabolic panel - 06/18/19 04:10 Serum or plasma sodium measurement (moles/volume) 143 mmol/L 135-145 Serum or plasma potassium measurement (moles/volume) 3.7 mmol/L 3.6-5.0 Serum or plasma chloride measurement (moles/volume) 110 mmol/L 98-107 Carbon dioxide 25 mmol/L 21-32 Serum or plasma anion gap determination (moles/volume) 8 mmol/L 5-14 Serum or plasma urea nitrogen measurement (mass/volume ) 11 mg/dL 7-18 Serum or plasma creatinine measurement (mass/volume) 1.06 mg/dL 0.60-1.30 Serum or plasma urea nitrogen/creatinine mass ratio 10 NRG Serum or plasma creatinine measurement w ith calculation of estimated glomerular filtration rate > NRG Serum or plasma glucose measurement (mass/volume) 77 mg/dL 70-105 Serum or plasma calcium measurement (mass/volume) 8.1 mg/dL 8.5-10.1 Serum or plasma total bilirubin measurement (mass/volu me) 0.7 mg/dL 0.1-1.0 Serum or plasma alkaline phosphatase isaiah surement (enzymatic activity/volume) 74 U/L 40-136 Serum or plasma aspartate aminotransfera se measurement (enzymatic activity/volume) 18 U/L 5-34 Serum or plasma alanine aminotransferase measurement (enzymatic activity/volume) 13 U/L 0-55 Serum or plasma protein measurement (mass/volume) 4.8 g/dL 6.4-8.2 Serum or plasma albumin measurement (mass/volume) 2.3 g/dL 3.2-4.5 CALCIUM CORRECTED 9.5 mg/dL 8.5-10.1 Capillary blood glucose measurement by g lucometer (mass/volume) - 06/18/19 11:08 Capillary blood glucose measurement by glucometer (mas s/volume) 143 mg/dL 70-110 Capillary blood glucose measurement by g lucometer (mass/volume) - 06/18/19 16:07 Capillary blood glucose measurement by glucometer (mas s/volume) 136 mg/dL 70-110 Capillary blood glucose measurement by g lucometer (mass/volume) - 06/18/19 20:59 Capillary blood glucose measurement by glucometer (mas s/volume) 112 mg/dL 70-110 Capillary blood glucose measurement by g lucometer (mass/volume) - 06/19/19 05:51 Capillary blood glucose measurement by glucometer (mas s/volume) 102 mg/dL 70-110 Vancomycin trough - 06/19/19 10:28 Vancomycin trough 23.9 ug/mL 10.0-20.0 Capillary blood glucose measurement by g lucometer (mass/volume) - 06/19/19 11:12 Capillary blood glucose measurement by glucometer (mas s/volume) 81 mg/dL 70-110 Complete blood count (CBC) with automate d white blood cell (WBC) differential - 06/23/19 12:40 Blood leukocytes automated count (number/volume) 6.7 10*3/uL 4.3-11.0 Blood erythrocytes automated count (number/volume) 3.13 10*6/uL 4.35-5.85 Venous blood hemoglobin measurement (mass/volume) 9.4 g/dL 13.3-17.7 Blood hematocrit (volume fraction) 31 % 40-54 Automated erythrocyte mean corpuscular volume 99 [ foz_us] 80-99 Automated erythrocyte mean corpuscular h emoglobin (mass per erythrocyte) 30 pg 25-34 Automated erythrocyte mean corpuscular h emoglobin concentration measurement (mass/volume) 30 g/dL 32-36 Automated erythrocyte distribution width ratio 15. 8 % 10.0- 14.5 Automated blood platelet count (count/volume) 118 10*3/uL 130-400 Automated blood platelet mean volume measurement 10.6 [foz_us] 7.4-10.4 Automated blood neutrophils/100 leukocytes 79 % 42-75 Automated blood lymphocytes/100 leukocytes 14 % 12-44 Blood monocytes/100 leukocytes 5 % 0-12 Automated blood eosinophils/100 leukocytes 2 % 0-10 Automated blood basophils/100 leukocytes 0 % 0-10 Blood neutrophils automated count (number/volume) 5.3 10*3 1.8-7.8 Blood lymphocytes automated count (number/volume) 1.0 10*3 1.0-4.0 Blood monocytes automated count (number/volume) 0. 3 10*3 0.0-1.0 Automated eosinophil count 0.2 10*3/uL 0 .0-0.3 Automated blood basophil count (count/volume) 0.0 10*3/uL 0.0-0.1 Blood lactic acid measurement (moles/vol ume) - 06/23/19 12:40 Blood lactic acid measurement (moles/volume) 2.29 mmol/L 0.50-2.00 Comprehensive metabolic panel - 06/23/19 12:40 Serum or plasma sodium measurement (moles/volume) 150 mmol/L 135-145 Serum or plasma potassium measurement (moles/volume) 3.7 mmol/L 3.6-5.0 Serum or plasma chloride measurement (moles/volume) 114 mmol/L 98-107 Carbon dioxide 25 mmol/L 21-32 Serum or plasma anion gap determination (moles/volume) 11 mmol/L 5-14 Serum or plasma urea nitrogen measurement (mass/volume ) 30 mg/dL 7-18 Serum or plasma creatinine measurement (mass/volume) 2.36 mg/dL 0.60-1.30 Serum or plasma urea nitrogen/creatinine mass ratio 13 NRG Serum or plasma creatinine measurement w ith calculation of estimated glomerular filtration rate 26 NRG Serum or plasma glucose measurement (mass/volume) 81 mg/dL 70-105 Serum or plasma calcium measurement (mass/volume) 8.2 mg/dL 8.5-10.1 Serum or plasma total bilirubin measurement (mass/volu me) 0.7 mg/dL 0.1-1.0 Serum or plasma alkaline phosphatase isaiah surement (enzymatic activity/volume) 76 U/L 40-136 Serum or plasma aspartate aminotransfera se measurement (enzymatic activity/volume) 33 U/L 5-34 Serum or plasma alanine aminotransferase measurement (enzymatic activity/volume) 22 U/L 0-55 Serum or plasma protein measurement (mass/volume) 5.1 g/dL 6.4-8.2 Serum or plasma albumin measurement (mass/volume) 2.2 g/dL 3.2-4.5 CALCIUM CORRECTED 9.6 mg/dL 8.5-10.1 Influenza virus A and B antigen detectio n - 06/23/19 12:40 FLU RESULT NEGATIVE FOR INFLUENZA A AND B ANTIGENS BY IA NRG Gram stain microscopy - 06/23/19 12:40 Gram stain microscopy No bacteria seen NRG Bacteria identification in wound by cult ure - 06/23/19 12:40 Bacteria identification in wound by culture [id number] NRG FREE TEXT EXTERNAL NO SUSCEPTIBILITIES SET UP NRG QUANTITY OF GROWTH Isolated NRG FREE TEXT ENTRY 2 SEE COMMENT NRG Bacterial blood culture - 06/23/19 12:40 Bacterial blood culture NG NRG Bacterial blood culture - 06/23/19 13:20 Bacterial blood culture NG NRG Complete urinalysis with reflex to cultu re - 06/23/19 13:25 Urine color determination YELLOW NRG Urine clarity determination CLEAR NR G Urine pH measurement by test strip 5.5 5-9 Specific gravity of urine by test strip >= 1.016-1.022 Urine protein assay by test strip, semi-quantitative 3+ NEGATIVE Urine glucose detection by automated test strip NE GATIVE NEGATIVE Erythrocytes detection in urine sediment by light micr oscopy TRACE-I NEGATIVE Urine ketones detection by automated test strip NE GATIVE NEGATIVE Urine nitrite detection by test strip NEGATIVE NEGATIVE Urine total bilirubin detection by test strip 2+ NEGATIVE Urine urobilinogen measurement by automated test strip (mass/volume) 0.2 mg/dL < = 1.0 Urine leukocyte esterase detection by dipstick NEG ATIVE NEGATIVE Automated urine sediment erythrocyte cou nt by microscopy (number/high power field) [HPF] NRG Automated urine sediment leukocyte count by microscopy (number/high power field) [HPF] NRG Bacteria detection in urine sediment by light microsco py NEGATIVE NRG Squamous epithelial cells detection in u rine sediment by light microscopy RARE NRG Crystals detection in urine sediment by light microsco py PRESENT NRG Casts detection in urine sediment by light microscopy PRESENT NRG Mucus detection in urine sediment by light microscopy NEGATIVE NRG Complete urinalysis with reflex to culture NO NRG Amorphous sediment detection in urine sediment by ligh t microscopy FEW SUZANNA URATES NRG Hyaline casts detection in urine sediment by light jeimy roscopy 10-25 NRG Encounters ACCT No. Visit Date/Time Discharge Status Pt. Type Provider Facility Loc./Unit Complaint [id number] 06/12/2019 14:59:00 06/12/2019 23:59: 00 DIS Outpatient CHANCE PEREZ [id number] 05/08/2019 13:56:00 05/08/2019 23:59: 00 DIS Outpatient CHANCE PEREZ [id number] 04/13/2019 22:45:00 04/14/2019 02:20: 00 DIS Outpatient BASILIO GIBBONS [facility] ER [id number] 04/07/2019 11:04:00 04/07/2019 23:59: 00 DIS Outpatient CHANCE PEREZ [id number] 01/07/2019 18:06:00 01/07/2019 23:59: 00 DIS Outpatient CHANCE PEREZ [id number] 11/20/2018 14:34:00 11/20/2018 18:05: 00 DIS Outpatient TAVIA JOHNSON [facility] ER [id number] 11/17/2018 08:39:00 11/17/2018 23:59: 00 DIS Outpatient CHANCE PEREZ [id number] 11/14/2018 08:07:00 11/14/2018 23:59: 00 DIS Outpatient CHANCE PEREZ [id number] 11/10/2018 10:35:00 11/10/2018 23:59: 00 DIS Outpatient CHANCE PEREZ [id number] 03/20/2017 10:37:00 04/24/2017 11:15: 00 DIS Outpatient CHANCE PEREZ [id number] 05/23/2016 13:09:00 11/02/2016 16:00: 00 DIS Outpatient GUIDO ROJAS [id number] 08/28/2016 10:53:00 08/28/2016 16:58: 00 DIS Outpatient Michelle 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 [id number] 06/11/2019 13:20:00 15:48:00 DIS Emergency DIVINE MATA [facility] ER CONFUSION [id number] 06/04/2019 00:12:00 23:59:59 CLS Preadmit YOBANY WOODARD [facility] ONC [id number] 05/28/2019 14:03:00 00:01:00 DIS Outpatient YOBANY WOODARD [facility] ONC [id number] 03/19/2019 12:13:00 23:59:59 CLS Outpatient CHANCE PEREZ DO [facility] RAD TREMOR [id number] 02/12/2019 12:40:00 00:01:00 DIS Outpatient YOBANY WOODARD [facility] ONC [id number] 02/27/2019 11:30:00 23:59:59 CLS Outpatient YOBANY WOODARD [facility] CARD RENAL CELL CARCINOMA [id number] 12/17/2018 11:38:00 17:50:00 DIS Emergency AISSATOU MARIVEL CASAS a [facility] ER ELEVATED BP [id number] 12/09/2018 09:48:00 019 13:10:00 DIS Outpatient JOE GANNON DO [facility] SDC RENAL CANCER [id number] 12/08/2018 05:41:00 019 11:09:00 DIS Outpatient JOE GANNON DO [facility] PREOP RENAL CANCER [id number] 11/20/2018 19:00:00 019 12:05:00 DIS Inpatient PAREDES JOSE DANIEL CASASI [facility] 4TH LUNG MASS WITH WEAKNESS [id number] 08/28/2016 17:24:00 017 14:00:00 DIS Inpatient PAREDES DO, LUCINDA [facility] 4TH GASTROINTESTINAL BLEED [id number] 11/30/2015 09:06:00 016 23:59:59 CLS Outpatient CHANCE PEREZ DO [facility] 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
== END 2019-06-23 16:39 ==
LOC: EDUNIT# 12:16 → ER 12:17
DX: A41.9 Sepsis, unspecified organism (principal); R65.21 Severe sepsis with septic shock; S81.801A Unspecified open wound, right lower leg, initial encounter; S81.802A Unspecified open wound, left lower leg, initial encounter; C64.9 Malignant neoplasm of unspecified kidney, except renal pelvis; C78.00 Secondary malignant neoplasm of unspecified lung; C79.51 Secondary malignant neoplasm of bone; J18.9 Pneumonia, unspecified organism; R44.3 Hallucinations, unspecified; J44.9 Chronic obstructive pulmonary disease, unspecified; I10 Essential (primary) hypertension; K21.9 Gastro-esophageal reflux disease without esophagitis; E11.9 Type 2 diabetes mellitus without complications; E66.9 Obesity, unspecified; Z85.46 Personal history of malignant neoplasm of prostate; Z88.8 Allergy status to other drugs, medicaments and biological substances; Z79.4 Long term (current) use of insulin; Z87.891 Personal history of nicotine dependence; X58.XXXA Exposure to other specified factors, initial encounter
CPT/HCPCS: 36415; 51702; 71045; 80053; 81000; 83605; 85025; 87040; 87070; 87077; 87205; 87804; 96361; 96374